=== PATIENT | female | born 1945 | race Caucasian/White ===

== ENCOUNTER 2020-01-16 13:16 | Outpatient (CLI) | payer MEDICARE, SELFPAY ==
--- NOTE | ~2020-01-16 | XR_ITS ---
EXAMINATION: XR knee LT 3V DATE: 01/16/2020 13:46 INDICATION: Left knee pain. Fall. TECHNIQUE: 3 views of left knee were obtained. COMPARISON: Left knee radiographs 02/21/2009 FINDINGS: There is a total left knee arthroplasty with patellar resurfacing in near-anatomic alignmen t. No fracture. No periprosthetic lucency to suggest loosening or infection. There is a small knee melvin int effusion. There are punctate loose bodies in the knee joint. There are calcifications posterior t o the knee that are likely loose bodies in a Zhao's cyst. IMPRESSION: 1. Total left knee arthroplasty in near-anatomic alignment. 2. Small left knee joint effusion with loose bodies. 3. Calcifications posterior to the knee joint, likely loose bodies in a Zhao's cyst. Reviewed, dictated and finalized at location A.
--- NOTE | ~2020-01-16 | XR_ITS ---
EXAMINATION: XR knee RT 3V DATE: 01/16/2020 13:46 INDICATION: Right knee pain. Fall. TECHNIQUE: 3 views of right knee were obtained. COMPARISON: Right knee radiographs 02/21/2009 FINDINGS: There is a total right knee arthroplasty with patellar resurfacing without change in alignm ent. No fracture. No periprosthetic lucency to suggest loosening or infection. No knee joint effusion . IMPRESSION: 1. Total right knee arthroplasty without change in alignment. Reviewed, dictated and finalized at location A.
== END 2020-01-16 13:17 | disposition home or self-care (01) ==
LOC: CHSIMG 13:21
PROVIDERS: PCP Internal Medicine; Visit Provider Internal Medicine
DX: M25.561 Pain in right knee (principal); M25.562 Pain in left knee; Z96.653 Presence of artificial knee joint, bilateral
CPT/HCPCS: 73562

== ENCOUNTER 2020-03-05 09:13 | Outpatient (CLI) | payer MEDICARE, SELFPAY ==
--- NOTE | ~2020-03-05 | US_ITS ---
US retroperitoneal comp 03/05/2020 09:56 Procedure: Realtime transabdominal ultrasound of the kidneys and bladder. Indication: Renal stones Comparison: CT dated 12/28/2016 Findings: Renal echotexture is normal bilaterally without hydronephrosis, contour deforming mass or r enal calculus. The right kidney measures 12 cm and left kidney measures 10.1 cm. Bladder within norm al limits. There is fatty infiltration of the liver. There is a 5 cm left renal cyst. Impression: 1: 5 cm left renal cyst. 2: Fatty infiltration of the liver. Reviewed, dictated and finalized at location A. Impression: 1: 5 cm left renal cyst. 2: Fatty infiltration of the liver.
--- NOTE | ~2020-03-05 | XR_ITS ---
XR abdomen/kub 1V 03/05/2020 09:32 Indication: Kidney stones. History of bladder cancer. Procedure: KUB Comparison: 06/20/2017 Findings: Bowel gas pattern is nonobstructive. There are pelvic phleboliths. There are surgical fusio n of the lumbar spine. There are multiple pelvic phleboliths. No definite renal stones are identified . Lung bases are unremarkable. Impression: 1: No acute abdominal abnormality. Reviewed, dictated and finalized at location A. Impression: 1: No acute abdominal abnormality.
[2020-03-05 10:59] LABS: Anion Gap 9.1 mmol/L (7-16); Blood Urea Nitrogen 27 mg/dL (7-18); Calcium 9.4 mg/dL (8.5-10.1); Carbon Dioxide 43 mmol/L (21-32); Chloride 96 mmol/L (98-108); Estimated Glomerular Filt Rate 48; Glucose 102 mg/dL (70-99); Osmolality Calculated 305 mOsm/kg (285-295); Potassium 3.1 mmol/L (3.5-5.1); Sodium 145 mmol/L (136-145)
== END 2020-03-05 09:14 | disposition home or self-care (01) ==
PROVIDERS: PCP Internal Medicine; Visit Provider Urology
DX: Z85.51 Personal history of malignant neoplasm of bladder (principal); Z87.442 Personal history of urinary calculi
CPT/HCPCS: 36415; 74018; 76770; 80048

== ENCOUNTER 2020-03-18 13:25 | Observation (INO) | payer MEDICARE, SELFPAY ==
--- NOTE | ~2020-03-18 | US_ITS ---
EXAMINATION: US venous doppler [facility] DATE: 03/19/2020 08:33 INDICATION: Lower limb pain. TECHNIQUE: Grayscale ultrasound images without and with compression and Doppler ultrasound images of the bilateral lower extremity veins were obtained. COMPARISON: Ultrasound 03/07/2008 FINDINGS: The visualized portions of right common femoral vein, profunda (deep) femoral vein, femoral vein, pop liteal vein, peroneal veins, posterior tibial veins, and greater saphenous vein outflow are patent. The visualized portions of left common femoral vein, profunda femoral vein, femoral vein, popliteal v ein, peroneal veins, posterior tibial veins, and greater saphenous vein outflow are patent. IMPRESSION: 1. No deep venous thrombosis. Reviewed, dictated and finalized at location A.
--- NOTE | ~2020-03-18 | XR_ITS ---
EXAMINATION: XR chest 2V EXAM DATE: 03/18/2020 19:14 INDICATION: Shortness of breath. Low oxygen saturation. TECHNIQUE: Frontal and lateral projections of the chest obtained and reviewed. Comparison is made to prior examination from 02/20/2008. FINDINGS: Mild cardiomegaly and pulmonary vascular congestion. No confluent consolidation, pneumothor ax or pleural effusion suspected. There are bony degenerative changes. Lumbar fusion hardware. IMPRESSION: Cardiomegaly, pulmonary vascular congestion. Reviewed, dictated and finalized at location A.
--- NOTE | 2020-03-18 13:35 | ECG_ITS ---
Measurements Intervals [employer] Rate: 88 P: 68 DC: 140 QRS: -75 QRSD: 160 T: 24 QT: 430 QTc: 521 Interpretive Statements SINUS RHYTHM ATRIAL PREMATURE COMPLEXES RIGHT BUNDLE BRANCH BLOCK LEFT ANTERIOR FASCICULAR BLOCK POSSIBLE LEFT VENTRICULAR HYPERTROPHY BASELINE ARTIFACT- II, III ABNORMAL ECG Electronically Signed On 03-18-2020 13:51:45 CDT by Nasir Kaminski D.O.
[2020-03-18 13:41] VITALS: BP 152/81; PULSE 78; RESP 21; TEMP 37.1; O2SAT 97
--- NOTE | 2020-03-18 13:57 | PC.NURSE ---
OXYGEN APPLIED SPO2 FALLS TO 88% WHILE RESTING, PT STATES SHE IS SUPPOSED TO USE CPAP. DENIES SHORTNESS OF BREATH.
[2020-03-18 14:24] LABS: Add Urine Microscopic? NO; Appearance Urine Clear (Clear); Bilirubin Urine Negative (Negative); Blood Urine Negative (Negative); Color Urine Yellow (Yellow); Glucose Urine UA Negative (Negative); Ketones Urine Negative (Negative); Leukocyte Esterase Ur Negative (Negative); Nitrate Urine Negative (Negative); Protein Urine Negative (Negative); Urobilinogen Urine 0.2 mg/dL (0.2-1.0); pH Urine 6.5 (5.0-8.0)
[2020-03-18 14:25] VITALS: BP 125/63; PULSE 88
[2020-03-18 14:25] LABS: Basophils Absolute Auto 0.02 K/mm3 (0.00-0.10); Basophils Percent Auto 0.2 % (0.0-1.0); Eosinophils Absolute Auto 0.16 K/mm3 (0.02-0.50); Eosinophils Percent Auto 1.3 % (1.0-6.0); Hemoglobin 15.8 g/dL (11.7-13.8); Immature Granulocyte Absolute 0.05 K/mm3 (0.00-0.00); Immature Granulocyte Percent A 0.4 % (0.0-0.0); Lymphocytes Absolute Auto 2.43 K/mm3 (1.10-4.50); Lymphocytes Percent Auto 19.6 % (18.0-42.0); Mean Corpuscular HGB Conc 32.9 g/dL (32.0-36.0); Mean Corpuscular Hemoglobin 30.4 pg (27.0-31.0); Mean Corpuscular Volume 92.5 fL (78.0-102.0); Mean Platelet Volume 9.8 fl (9.2-11.8); Monocytes Absolute Auto 0.86 K/mm3 (0.10-0.90); Monocytes Percent Auto 6.9 % (2.0-11.0); Neutrophils Absolute Auto 8.9 K/mm3 (1.7-7.2); Neutrophils Percent Auto 71.6 % (50.0-70.0); Platelet Count Result 219 K/mm3 (150-420); Red Blood Count 5.19 M/mm3 (4.20-5.40); Red Cell Distribution Width 14.6 % (11.6-14.4); White Blood Count 12.4 K/mm3 (4.8-10.8)
[2020-03-18 14:26] VITALS: BP 132/72; PULSE 88
[2020-03-18 14:43] LABS: Alanine Aminotransferase 47 U/L (14-59); Albumin Level 3.7 g/dL (3.4-5.0); Alkaline Phosphatase 101 U/L (46-116); Anion Gap 9.2 mmol/L (7-16); Aspartate Amino Transferase 27 U/L (15-37); Blood Urea Nitrogen 37 mg/dL (7-18); Calcium 8.8 mg/dL (8.5-10.1); Carbon Dioxide 42 mmol/L (21-32); Chloride 93 mmol/L (98-108); Estimated Glomerular Filt Rate 54; Glucose 120 mg/dL (70-99); Magnesium 1.7 mg/dL (1.8-2.4); Osmolality Calculated 303 mOsm/kg (285-295); Sodium 142 mmol/L (136-145); Total Protein 7.3 g/dL (6.4-8.2)
[2020-03-18 14:45] LABS: Potassium 2.2 mmol/L (3.5-5.1); Troponin I 0.04 ng/mL (0.00-0.056)
[2020-03-18] MEDS: KCL 40 MEQ/0.9% SOD CHL 1,000 ML 100 ML IV CONT (15:10)
--- NOTE | 2020-03-18 15:11 | ED.GENADULT ---
HPI - General Adult General Source: patient Limitations: no limitations History of Present Illness HPI narrative: No appetite since yesterday. Complains of diffuse achey, moderate - severe abdominal cramping and multiple episodes of watery diarrhea yesterday. No melena or blood in stools. Was on antibiotics about a month ago. Very tired last PM, legs very weak, trouble walking to the bathroo. Nausea, no vomiting. Incontinent of stool. Hallucinating last PM she believed she was calling someone on the phone then realized she was hallucinating. Symptoms abated early this AM. Contacted PCP this AM, Dr. Singletary, who recommended being seen to check her potassium. She has had weakness this past month requiring home health services. Three weeks ago diuresed 18 pounds over 7 days. She has sleep apnea, doesn't always use CPAP. Has oxygen at home to be used at night. Exacerbating factors: none Related Data Home Medications Medication Instructions Recorded Confirmed cyanocobalamin (vitamin B-12) 5,000 mcg PO DAILY 02/12/20 03/18/20 5,000 mcg capsule fluoxetine 40 mg capsule 40 mg PO DAILY 02/12/20 03/18/20 gabapentin 300 mg capsule 300 mg PO TID 02/12/20 03/18/20 levothyroxine 150 mcg capsule 150 mcg PO EVERY OTHER DAY 02/12/20 03/18/20 levothyroxine 175 mcg capsule 175 mcg PO EVERY OTHER DAY 02/12/20 03/18/20 multivit with 1 tablet PO DAILY 02/12/20 03/18/20 gzgnhehr-bnsn-FM-lutein 8 mg iron-400 mcg-300 mcg tablet nystatin 100,000 unit/gram topical 1 applic TOPICAL BID 02/12/20 03/18/20 powder oxycodone-acetaminophen 5 mg-300 1 tablet PO Q4H PRN 02/12/20 03/18/20 mg tablet potassium chloride 10 mEq 10 meq PO WEEKLY cap 02/12/20 03/18/20 capsule,extended release pramipexole 1.5 mg tablet 1.5 mg PO BID 02/12/20 03/18/20 ergocalciferol (vitamin D2) 1,250 mcg PO WEEKLY 03/18/20 03/18/20 fluticasone propionate [Flonase 2 spray INTRANASAL DAILY 03/18/20 03/18/20 Allergy Relief] furosemide 20 mg PO DAILY 03/18/20 03/18/20 magnesium oxide 250 mg PO DAILY 03/18/20 03/18/20 omeprazole 20 mg PO DAILY 03/18/20 03/18/20 Allergies Allergy/AdvReac Type Severity Reaction Status Date / Time morphine Allergy Unknown Verified 06/12/19 08:48 Sulfa (Sulfonamide Allergy Unknown Verified 06/12/19 08:48 Antibiotics) Review of Systems Review of Systems: All systems reviewed & are unremarkable except as noted in HPI and below ENT: Comments: decreased hearing left ear x 3 weeks. Musculoskeletal: Musculoskeletal: Reports back pain [facility] Past Medical History Medical History (Updated 03/19/20 @ 06:36 by Rakesh Mooney MD) Bladder cancer Sleep apnea Family History Family History (Updated 03/19/20 @ 06:10 by Rakesh Mooney MD) Mother Acute myocardial infarction Father Acute myocardial infarction Cancer Social History Social History Smoking packs per day: 0.5 Smoking cigarettes per day: 10.0 Smoking status: Current every day smoker Tobacco type: cigarettes Second hand tobacco smoke exposure: Yes Alcohol intake: never Substance use: never Substance use type: does not use Gender identity (if verbalized by the patient): Female Spiritual care concerns: No Exam Const: General: no acute distress Orientation/consciousness: patient oriented x3 HENMT: Head: normal to inspection Ears: external ears normal (cerumen, able to see TMs. ) and TM's normal bilaterally Eyes: Pupils: Equal, round and reactive pupils present EOM: EOMs intact bilaterally Neck: Neck: no lymphadenopathy Chest: Chest palpation & inspection: normal inspection of the chest Resp: Auscultation: clear to auscultation bilaterally Cardio: Rate: regular rate Rhythm: regular rhythm GI: GI Palp: Yes Soft to palpation, Yes Tenderness to palpation present (GI) (throughout), No Guarding due to palpation present (GI) and No Rigid due to palpation Back/Spine/Pelvis: B
[2020-03-18] MEDS: POTASSIUM CHLORIDE 20 MEQ TABLET 40 MEQ PO (15:30)
[2020-03-18] MEDS: MAGNESIUM SULF 2 GM/WATER 50ML 2 GM/50 ML BAG IVPB (15:32)
--- NOTE | 2020-03-18 15:33 | PC.NURSE ---
CARDIAC MONITORING APPLIED, PT AGREEABLE TO ADMISSION FOR FLUIDS. PT DENIES ANY C/O AT THIS TIME. PT IS GIVEN EDUCATION ON THE USE OF CPAP MACHINE AT ALL TIMES OF SLEEPING. EDUCATION GIVEN ON OXYGEN NEEDS WHILE SLEEPING RELATED TO ALTERED MENTAL STATUS.
[2020-03-18 15:52] VITALS: BP 101/52; PULSE 81; RESP 22; O2SAT 99
[2020-03-18 17:05] VITALS: BMI 45.4
--- NOTE | 2020-03-18 18:00 | ADMGEN ---
This patient, Loreto Acevedo, was admitted to 2nd Floor Room 204-2. Patient/family oriented to hospital policies and general routines including ID bracelet, bed and alarms, visiting hours, pain management, procedures, bathroom and other care routines, personal items, smoking policy, room service/diet, and visiting hours. Valuables list has been completed. Information on how to activate the Rapid Response Team has been discussed. Patient/Family are encouraged to report perceived risks to care and to ask questions if they do not understand what they are told or what they should do.
--- NOTE | 2020-03-18 18:00 | PC.NURSE ---
pt has home meds with her , states she took her mealtime meds in ER and that it was ok'd by nurse, pt also took a home oxy for pain down in er, gabapentin was already opened when pt notified me of this and was then thrown into sharps bin, pt has no difficulty walking from bed to bathroom then back to bed, hob up, o2 reapplied, iv potassium running
--- NOTE | 2020-03-18 18:31 | PM.IMHP ---
H&P: HPI History of Present Illness Chief complaint: abnormal labs <Susan Bernard NP - Last Filed: 03/18/20 18:50> Narrative: Loreto Acevedo is a 75 year old female stated that she sees Dr. Quiroz from [facility] for her primary care provider and that recently she was instructed and prescribed 3 extra doses of Lasix, and told to take them all at once. She stated that she normally takes torsemide once a week and triamterene daily for her edema and CHF control. She states that she lost over 15 lb in 3 days due to the Lasix. She noted that yesterday she slept most of the day way, and when she woke up was having severe abdominal cramps as well as confusion and hallucinations both auditory and visual. This concerned her so she came in today for examination due to dizziness and abnormal labs. Her potassium was found to be significantly low at 2.2 and her Mag level at 1.7. She was admitted for hypokalemia and hypo magnesium. She was placed on 2 L of oxygen due to her shortness of breath. She has a history of obstructive sleep apnea and wears her home CPAP machine, but did not bring it today. She continues to receive IV potassium and magnesium at this time. There are lab orders in place for repeat potassium and magnesium levels tonight at 7:00 p.m. and again tomorrow morning around 6:00 a.m. , as well as a BNP checked. She is currently resting in bed, comfortable, no cramping at this time, able to take deep breaths and carry on a conversation without any dyspnea noted. She was able to transfer to and from the ER stretcher to her bed as well as ambulate to her bathroom. She does have persistent abdominal and lower extremity edema, but stated this is good for her. I have ordered an echo. Will continue to monitor her overnight closely and I have placed her on telemetry monitoring. <Susan Bernard NP - Last Filed: 03/18/20 18:50> Review of Systems Constitutional: Constitutional: Reports as per HPI, Reports body ache(s), Denies chills, Denies difficulty sleeping, Denies excessive sweating, Reports fatigue, Denies headache(s), Denies increased appetite, Reports lethargy, Denies snoring, Reports weakness and Denies weight gain <Susan Bernard NP - Last Filed: 03/18/20 18:50> Eyes: Eyes: Reports as per HPI, Denies exophthalmos, Denies diplopia, Denies floaters and Denies loss of peripheral vision <Susan Bernard TALENT ACQUISITION LEAD - Last Filed: 03/18/20 18:50> ENT: Reports as per HPI, Reports Normal hearing present, Denies facial pain, Denies headache(s), Denies epistaxis, Denies nasal congestion, Denies nasal discharge, Denies odynophagia and Denies tinnitus <Susan Bernard TALENT ACQUISITION LEAD - Last Filed: 03/18/20 18:50> Cardiovascular: Cardiovascular: Reports as per HPI, Denies chest pain, Denies diaphoresis, Reports pedal edema, Reports leg edema, Reports lightheadedness and Denies palpitations <Susan Bernard TALENT ACQUISITION LEAD - Last Filed: 03/18/20 18:50> Respiratory: Respiratory: Reports as per HPI, Reports chest congestion, Reports cough, Denies hemoptysis, Reports dyspnea, Reports dyspnea on exertion, Denies snoring and Reports wheezing <Susan Bernard TALENT ACQUISITION LEAD - Last Filed: 03/18/20 18:50> Gastrointestinal: Gastrointestinal: Reports as per HPI, Denies abdominal pain, Denies melena, Reports bloating, Denies hematochezia, Denies constipation, Denies heartburn, Denies diarrhea, Denies nausea, Denies odynophagia, Denies vomiting and Denies hematemesis <Susan Bernard TALENT ACQUISITION LEAD - Last Filed: 03/18/20 18:50> Genitourinary: Genitourinary: Reports as per HPI, Denies hematuria, Denies urinary frequency, Denies nocturia, Denies pelvic pain, Denies flank pain, Denies urinary incontinence, Denies urinary hesitancy and Denies urinary urgency <Susan Bernard TALENT ACQUISITION LEAD - Last Filed: 03/18/20 18:50> Musculoskeletal: Musculoskeletal: Reports as per HPI, Reports back pain, Reports myalgias, Denies arthralgias, Reports joint swelling, Denies neck pain and Reports stiffness <Susan Bernard TALENT ACQUISITION LEAD - Last Yonny
--- NOTE | 2020-03-18 19:13 | PC.NURSE ---
pt taken down for ct, pump disconnected, pt is back from ct, iv potassium running
[2020-03-18 19:33] LABS: Anion Gap 8.5 mmol/L (7-16); Blood Urea Nitrogen 35 mg/dL (7-18); Calcium 8.4 mg/dL (8.5-10.1); Carbon Dioxide 41 mmol/L (21-32); Chloride 96 mmol/L (98-108); Estimated CRCL calculation 47 ml/min; Estimated Glomerular Filt Rate 50; Glucose 145 mg/dL (70-99); Magnesium 2.1 mg/dL (1.8-2.4); Osmolality Calculated 307 mOsm/kg (285-295); Sodium 143 mmol/L (136-145)
[2020-03-18 19:34] VITALS: BP 114/72; PULSE 78; PULSE 82; RESP 20; TEMP 36.7; O2SAT 96
[2020-03-18 19:34] LABS: Potassium 2.5 mmol/L (3.5-5.1)
[2020-03-18 19:35] LABS: Phosphorus 2.3 mg/dL (2.6-4.7)
[2020-03-18 19:38] LABS: BNP 41.7 pg/mL (0-100)
[2020-03-18 19:54] VITALS: O2SAT 96
[2020-03-18] MEDS: TOLNAFTATE 1% POWDER 45 GM BTL 1 APPLIC TOPICAL (20:35)
[2020-03-18] MEDS: KCL 20 MEQ/SW 100 ML 100 ML 50 MEQ IVPB (20:43)
--- NOTE | 2020-03-18 20:45 | PC.NURSE ---
pt asks if any of the nursing staff could go get her a milkshake from [employer], then calls friend to go get her one, friend is to drop it off at [employer] front load operator
--- NOTE | 2020-03-18 21:18 | PC.NURSE ---
K rider started, pt son has dropped off strawberry milkshake, pt complains of k iv burning, second primary line started
--- NOTE | 2020-03-18 21:49 | PC.NURSE ---
pt c/o burning in iv site, advised that we can turn it down further but that also means the infusion will last longer, pt agrees to stay at current rate, shake brought up from front line supervisor
[2020-03-18] MEDS: KCL 20 MEQ/SW 100 ML 100 ML 30 MEQ IVPB (22:35)
[2020-03-19] VITALS: BP 108/60; PULSE 75; PULSE 82; RESP 20; TEMP 36.7; O2SAT 94
--- NOTE | 2020-03-19 01:34 | PC.NURSE ---
Dr. Mooney called to clarify orders.
--- NOTE | 2020-03-19 01:40 | PC.NURSE ---
Potassium rider ended @ thias time.
--- NOTE | 2020-03-19 01:41 | PC.NURSE ---
Lab here for blood draw.
[2020-03-19 01:48] LABS: Anion Gap 8.1 mmol/L (7-16); Blood Urea Nitrogen 34 mg/dL (7-18); Calcium 7.8 mg/dL (8.5-10.1); Carbon Dioxide 39 mmol/L (21-32); Chloride 101 mmol/L (98-108); Estimated CRCL calculation 49 ml/min; Estimated Glomerular Filt Rate 52; Glucose 133 mg/dL (70-99); Osmolality Calculated 309 mOsm/kg (285-295); Potassium 3.1 mmol/L (3.5-5.1); Sodium 145 mmol/L (136-145)
--- NOTE | 2020-03-19 02:33 | PC.NURSE ---
IV continues. Telemetry continues.
--- NOTE | 2020-03-19 03:20 | PC.NURSE ---
New orders received and noted from Dr. Mooney.
[2020-03-19] MEDS: POTASSIUM CHLORIDE 20 MEQ PACKET (FOR LIQUID) 40 MEQ PO (03:41)
--- NOTE | 2020-03-19 03:55 | PC.NURSE ---
0305 New orders received and noted.
--- NOTE | 2020-03-19 03:56 | PC.NURSE ---
0341 Pt given 40 MEQ of KCL powder in 4 oz of water.
[2020-03-19 04:00] VITALS: BP 102/54; PULSE 65; PULSE 70; RESP 20; TEMP 36.3; O2SAT 97
[2020-03-19 05:46] LABS: Hematocrit 42.1 % (35.0-42.0); Hemoglobin 13.5 g/dL (11.7-13.8); Mean Corpuscular HGB Conc 32.1 g/dL (32.0-36.0); Mean Corpuscular Hemoglobin 30.5 pg (27.0-31.0); Mean Platelet Volume 10.2 fl (9.2-11.8); Platelet Count Result 189 K/mm3 (150-420); Red Blood Count 4.43 M/mm3 (4.20-5.40); Red Cell Distribution Width 14.4 % (11.6-14.4); White Blood Count 9.9 K/mm3 (4.8-10.8)
[2020-03-19 06:05] LABS: Alanine Aminotransferase 39 U/L (14-59); Albumin Level 3.1 g/dL (3.4-5.0); Alkaline Phosphatase 81 U/L (46-116); Anion Gap 8.5 mmol/L (7-16); Aspartate Amino Transferase 22 U/L (15-37); Bilirubin,Total 0.5 mg/dL (0.00-1.00); Blood Urea Nitrogen 28 mg/dL (7-18); Calcium 7.8 mg/dL (8.5-10.1); Carbon Dioxide 38 mmol/L (21-32); Chloride 101 mmol/L (98-108); Estimated CRCL calculation 55 ml/min; Estimated Glomerular Filt Rate > 60; Glucose 100 mg/dL (70-99); Magnesium 1.9 mg/dL (1.8-2.4); Osmolality Calculated 303 mOsm/kg (285-295); Potassium 3.5 mmol/L (3.5-5.1); Sodium 144 mmol/L (136-145); Total Protein 5.6 g/dL (6.4-8.2)
[2020-03-19 06:17] LABS: BNP 72.4 pg/mL (0-100)
[2020-03-19] MEDS: LEVOTHYROXINE SODIUM 75 MCG TABLET 150 MCG PO (06:21)
[2020-03-19 08:00] VITALS: BP 118/74; PULSE 120; PULSE 80; RESP 18; TEMP 36.8; O2SAT 94
[2020-03-19] MEDS: THERAPEUTIC MULTIVITAMINS/MINERALS TAB (*BKC) 1 TABLET PO (09:09)
[2020-03-19] MEDS: PANTOPRAZOLE 40 MG TABLET PO (09:10)
[2020-03-19] MEDS: MONTELUKAST SODIUM 10 MG TABLET PO (09:10)
[2020-03-19] MEDS: MAGNESIUM OXIDE 400 MG TABLET PO (09:10)
[2020-03-19] MEDS: ENOXAPARIN 40 MG/0.4 ML SYRINGE SUB-Q (09:11)
--- NOTE | 2020-03-19 09:23 | PC.NURSE ---
ivf stopped at this time. [employer] PROFESSOR claims no more ivf to given at this time.
[2020-03-19] MEDS: POTASSIUM CHLORIDE 20 MEQ TABLET 40 MEQ PO (10:06)
--- NOTE | 2020-03-19 13:00 | ECHO_ITS ---
[facility] Age[facility] 75 years : 1945 Gender: Female Ht: 61 in Wt: 241 lbs BSA: 2.24 m2 HR: 86 bpm BP: 118 / 74 mmHg Heart Rhythm: Sinus Rhythm Technical Quality: Fair Exam Date: 03/19/2020 1:29 PM Exam Location: [facility] Patient Status: Inpatient Admit Date: 03/18/2020 Staff Ordering Physician: Susan Bernard NP Route Inspector: Mike Uribe RDCS Attending Provider: Rakesh Mooney MD Referring Physician: Marco Antonio ALSTON; Exam Type: CA echo doppler color flow Study Info Indications R60.9 - Edema, unspecified Complete two-dimensional, color flow and Doppler transthoracic echocardiogram is performed. History/Risk Factors Edema, SOB. Summary 1. Left ventricular chamber dimension is normal. 2. Left ventricular systolic function is normal, estimated at 60-65%. 3. There is mildly increased left ventricular wall thickness. 4. The left ventricular diastolic function is grade I diastolic dysfunction. 5. E/e' 8 is minimally elevated. 6. Left atrial chamber dimension is mildly enlarged. 7. The aortic valve is not well visualized. 8. There is moderate aortic valve sclerosis. 9. There is mild to moderate aortic valve stenosis based on a peak velocity of 262 cm/s, mean gradient of 14 mmHg, and aortic valve area of 1.5 cm2. 10. The mitral valve has moderately calcified annulus. 11. There is trace tricuspid valve regurgitation. 12. Moderate pulmonary hypertension, estimated pulmonary arterial systolic pressure is 53 mmHg. 13. Dilated inferior vena cava with <50% collapse upon inspiration consistent with significantly elevated right atrial pressure, 15 mmHg. Left Ventricle E/e' 8 is minimally elevated. Left ventricular chamber dimension is normal. Left ventricular systolic function is normal, estimated at 60-65%. There is mildly increased left ventricular wall thickness. The left ventricular diastolic function is grade I diastolic dysfunction. Right Ventricle Right ventricular chamber dimension is normal. Right ventricular systolic function is normal. Left Atria Left atrial chamber dimension is mildly enlarged. Right Atria Right atrial chamber dimension is normal. Aortic Valve There is mild to moderate aortic valve stenosis based on a peak velocity of 262 cm/s, mean gradient of 14 mmHg, and aortic valve area of 1.5 cm2. Cannot determine number of aortic valve leaflets. The aortic valve is not well visualized. There is moderate aortic valve sclerosis. There is no aortic valve regurgitation. Pulmonic Valve There is no pulmonic regurgitation. Mitral Valve The mitral valve has moderately calcified annulus. There is no mitral valve stenosis. There is no mitral valve regurgitation. Tricuspid Valve There is trace tricuspid valve regurgitation. Moderate pulmonary hypertension, estimated pulmonary arterial systolic pressure is 53 mmHg. Pericardium/Pleural There is no pericardial effusion. Inferior Vena Cava Dilated inferior vena cava with <50% collapse upon inspiration consistent with significantly elevated right atrial pressure, 15 mmHg. Aorta The aortic root size at the sinus of Valsalva is normal. Left Ventricular Outflow Tract Name Value Normal LVOT 2D
--- NOTE | 2020-03-19 13:59 | PM.DS ---
DS: Diagnosis Admitting Diagnosis Admitting Diagnosis: Hypokalemia Discharge Diagnosis (1) Diuretic-induced hypokalemia: Code(s): E87.6 - Hypokalemia; T50.2X5A - Adverse effect of carbonic-anhydrase inhibitors, benzothiadiazides and other diuretics, initial encounter Status: Acute Assessment and Plan: Took excessive Lasix at home lost too many pounds too quick in water weight unable to replenish electrolytes fast enough orally will replenish potassium with IV and oral means. her primary care provider Dr. Quiroz had written her to take 3 days of Lasix and then no Lasix for the next 4 days every week. Her orders also or to take torsemide once or twice a week, with no specific days or instructions on how to decide those days K = 3.5 this morning, gave one 40meq dose of KCL orally prior to discharge. sent her home on daily potassium with her low dose Lasix. instructed Her to weigh herself every day and to write those weight is down thus keeping a log to show her physicians at their office visits also instructed the patient to check her blood pressure and heart rate every day and to write those down in a log to discuss with her physicians. resolved (2) Hypomagnesemia: Code(s): E83.42 - Hypomagnesemia Status: Acute Assessment and Plan: Took excessive Lasix at home lost to many lb to quick in water weight unable to replenish electrolytes fast enough orally will replenish potassium with IV and oral means. Mag = 1.9 today continue daily Mag orally at discharge resolved (3) Leg swelling: Code(s): M79.89 - Other specified soft tissue disorders Status: Acute Assessment and Plan: Checking an echo - completed before patient was discharged, manager scheduling has yet to read and provide results, instructed patient to have her own primary care provider and her manager scheduling follow-up on these results ordering a venous Doppler the morning - found to have no DVTs LUC hose stockings and elevate extremities daily weights consider daily fluid restrictions - ordered at discharge CHF Education weight loss and dietary education, as well as increase activity PT OT evaluation the patient was not weighing herself at home every day and the patient was not checking her blood pressure or heart rate at home every day Improved (4) Hypoxemia: Code(s): R09.02 - Hypoxemia Status: Acute Assessment and Plan: currently on 2 L nasal cannula for overnight use O2 sats are 94% on room air without oxygen history of SUKH, uses BiPAP machine overnight, left at home will likely improve as her electrolytes approach normal levels on her fluid balance improves. would benefit from having PFTs, needs to follow-up with her PCP and her manager scheduling. She stated she had a manager scheduling in [place]. resolved DS: Summary Time Spent with Patient Time attestation: Total time spent providing and/or coordinating discharge services:>90 minutes Exam Const: General: comfortable, no acute distress and in distress (uncomfortable due to obesity and fluid overload); No confusion Orientation/consciousness: patient oriented x3 and No confusion HENMT: Head: normal to inspection Ears: external ears normal (cerumen, able to see TMs. ) and TM's normal bilaterally Eyes: General: appearance normal, both eyes and all related structures Pupils: Equal, round and reactive pupils present EOM: EOMs intact bilaterally Neck: Neck: no lymphadenopathy and no meningeal signs Chest: Chest palpation & inspection: normal inspection of the chest Resp: Effort & Inspection: normal respiratory effort Auscultation: clear to auscultation bilaterally, no crackles, no rales, no rhonchi, wheezes and diminished lung sounds Cardio: Rate: regular rate, not bradycardic and not tachycardic Rhythm: regular rhythm and regular rhythm Heart sounds: no murmurs and no rubs GI: Inspection: distended Auscultation: normal bow
[2020-03-19] MEDS: POTASSIUM CHLORIDE 10 MEQ TABLET PO (14:53)
[2020-03-19] MEDS: FUROSEMIDE 20 MG TABLET PO (14:54)
--- NOTE | 2020-03-19 22:25 | PM.EVENT ---
Event Note Event Note Event Note: Patient sitting at bedside eating breakfast. Has no complaints at this time. Has had no vomiting or diarrhea. States she feels better than when she was admitted. Wants to go home. Alert and oriented. Lungs clear to auscultation. Regular rate rhythm without murmur. Extremities are warm dry pink. Home today with potassium supplementation. Follow up with her doctor in the next few days. I have examined the patient and reviewed the chart. I discussed the patient's care with A Marco Antonio ARIAS and agree with her assessment and plan.
== END 2020-03-19 15:35 | disposition home or self-care (01) ==
LOC: CHSED 15:35 → CHS2ND 15:36
PROVIDERS: Nurse Practitioner; Admitting Provider Family Medicine; Emergency Provider Family Medicine; PCP Internal Medicine; Visit Provider Family Medicine
DX: E87.6 Hypokalemia (principal); E83.42 Hypomagnesemia; T50.1X5A Adverse effect of loop [high-ceiling] diuretics, initial encounter; R10.9 Unspecified abdominal pain; R19.7 Diarrhea, unspecified; R06.02 Shortness of breath; F17.210 Nicotine dependence, cigarettes, uncomplicated; G47.30 Sleep apnea, unspecified; Z85.51 Personal history of malignant neoplasm of bladder
CPT/HCPCS: 36415; 71046; 80048; 80053; 81003; 83735; 83880; 84100; 84484; 85025; 85027; 93005; 93306; 93970; 96365; 96366; 96368; 96372; 97161; 97165; 99285; A9270; G0378; J1650; J3475; J3480

== ENCOUNTER 2020-03-21 13:45 | Outpatient (CLI) | payer MEDICARE, SELFPAY ==
[2020-03-21 14:18] LABS: Basophils Absolute Auto 0.02 K/mm3 (0.00-0.10); Basophils Percent Auto 0.2 % (0.0-1.0); Hemoglobin 14.2 g/dL (11.7-13.8); Immature Granulocyte Absolute 0.07 K/mm3 (0.00-0.00); Immature Granulocyte Percent A 0.7 % (0.0-0.0); Lymphocytes Absolute Auto 2.61 K/mm3 (1.10-4.50); Lymphocytes Percent Auto 26.1 % (18.0-42.0); Mean Corpuscular HGB Conc 32.3 g/dL (32.0-36.0); Mean Corpuscular Hemoglobin 30.3 pg (27.0-31.0); Mean Corpuscular Volume 93.8 fL (78.0-102.0); Mean Platelet Volume 9.9 fl (9.2-11.8); Monocytes Absolute Auto 0.67 K/mm3 (0.10-0.90); Monocytes Percent Auto 6.7 % (2.0-11.0); Neutrophils Absolute Auto 6.4 K/mm3 (1.7-7.2); Neutrophils Percent Auto 64.3 % (50.0-70.0); Platelet Count Result 216 K/mm3 (150-420); Red Blood Count 4.69 M/mm3 (4.20-5.40); Red Cell Distribution Width 14.6 % (11.6-14.4)
[2020-03-21 14:19] LABS: BNP 98.6 pg/mL (0-100)
[2020-03-21 14:30] LABS: Alanine Aminotransferase 49 U/L (14-59); Albumin Level 3.4 g/dL (3.4-5.0); Alkaline Phosphatase 91 U/L (46-116); Anion Gap 9.1 mmol/L (7-16); Aspartate Amino Transferase 33 U/L (15-37); Bilirubin,Total 0.4 mg/dL (0.00-1.00); Blood Urea Nitrogen 19 mg/dL (7-18); Calcium 8.3 mg/dL (8.5-10.1); Carbon Dioxide 36 mmol/L (21-32); Chloride 100 mmol/L (98-108); Estimated Glomerular Filt Rate 56; Glucose 112 mg/dL (70-99); Magnesium 1.4 mg/dL (1.8-2.4); Osmolality Calculated 297 mOsm/kg (285-295); Potassium 3.1 mmol/L (3.5-5.1); Sodium 142 mmol/L (136-145); Total Protein 6.1 g/dL (6.4-8.2)
== END 2020-03-21 13:46 | disposition home or self-care (01) ==
LOC: CHSLAB 13:48
PROVIDERS: PCP Internal Medicine; Visit Provider Nurse Practitioner
DX: E83.42 Hypomagnesemia (principal); M79.89 Other specified soft tissue disorders; R09.02 Hypoxemia; E87.6 Hypokalemia; T50.2X5A Adverse effect of carbonic-anhydrase inhibitors, benzothiadiazides and other diuretics, initial encounter; I50.9 Heart failure, unspecified; R60.9 Edema, unspecified
CPT/HCPCS: 36415; 80053; 83735; 83880; 85025

== ENCOUNTER 2020-03-25 13:45 | Outpatient (CLI) | payer MEDICARE, SELFPAY ==
[2020-03-25 14:43] LABS: Magnesium 1.2 mg/dL (1.8-2.4)
== END 2020-03-25 13:46 | disposition home or self-care (01) ==
LOC: CHSLAB 13:49
PROVIDERS: PCP Internal Medicine; Visit Provider Nurse Practitioner
DX: M79.89 Other specified soft tissue disorders (principal); E83.42 Hypomagnesemia; R09.02 Hypoxemia; E87.6 Hypokalemia; T50.2X5A Adverse effect of carbonic-anhydrase inhibitors, benzothiadiazides and other diuretics, initial encounter
CPT/HCPCS: 36415; 83735

== ENCOUNTER 2020-03-29 12:15 | Outpatient (CLI) | payer MEDICARE, SELFPAY ==
[2020-03-29 12:35] LABS: Hematocrit 45.4 % (35.0-42.0); Hemoglobin 14.5 g/dL (11.7-13.8); Mean Corpuscular HGB Conc 31.9 g/dL (32.0-36.0); Mean Corpuscular Hemoglobin 29.5 pg (27.0-31.0); Mean Corpuscular Volume 92.3 fL (78.0-102.0); Mean Platelet Volume 9.7 fl (9.2-11.8); Platelet Count Result 281 K/mm3 (150-420); Red Blood Count 4.92 M/mm3 (4.20-5.40); Red Cell Distribution Width 14.6 % (11.6-14.4); White Blood Count 11.6 K/mm3 (4.8-10.8)
== END 2020-03-29 12:16 | disposition home or self-care (01) ==
LOC: CHSLAB 12:18
PROVIDERS: PCP Internal Medicine; Visit Provider Nurse Practitioner
DX: M79.89 Other specified soft tissue disorders (principal); E83.42 Hypomagnesemia; R09.02 Hypoxemia; E87.6 Hypokalemia; T50.2X5A Adverse effect of carbonic-anhydrase inhibitors, benzothiadiazides and other diuretics, initial encounter
CPT/HCPCS: 36415; 85027

== ENCOUNTER 2020-04-01 16:26 | Outpatient (CLI) | payer MEDICARE, SELFPAY ==
[2020-04-01 16:47] LABS: Basophils Absolute Auto 0.04 K/mm3 (0.00-0.10); Basophils Percent Auto 0.4 % (0.0-1.0); Eosinophils Absolute Auto 0.12 K/mm3 (0.02-0.50); Eosinophils Percent Auto 1.1 % (1.0-6.0); Hematocrit 45.2 % (35.0-42.0); Hemoglobin 14.6 g/dL (11.7-13.8); Immature Granulocyte Absolute 0.05 K/mm3 (0.00-0.00); Immature Granulocyte Percent A 0.4 % (0.0-0.0); Lymphocytes Absolute Auto 2.03 K/mm3 (1.10-4.50); Lymphocytes Percent Auto 18.2 % (18.0-42.0); Mean Corpuscular HGB Conc 32.3 g/dL (32.0-36.0); Mean Corpuscular Hemoglobin 30.3 pg (27.0-31.0); Mean Corpuscular Volume 93.8 fL (78.0-102.0); Mean Platelet Volume 9.5 fl (9.2-11.8); Monocytes Absolute Auto 0.66 K/mm3 (0.10-0.90); Monocytes Percent Auto 5.9 % (2.0-11.0); Neutrophils Absolute Auto 8.3 K/mm3 (1.7-7.2); Platelet Count Result 253 K/mm3 (150-420); Red Blood Count 4.82 M/mm3 (4.20-5.40); Red Cell Distribution Width 14.6 % (11.6-14.4); White Blood Count 11.2 K/mm3 (4.8-10.8)
[2020-04-01 16:59] LABS: Hemoglobin A1C 6.5 % (<5.7)
[2020-04-01 17:32] LABS: Alanine Aminotransferase 46 U/L (14-59); Albumin Level 3.6 g/dL (3.4-5.0); Alkaline Phosphatase 96 U/L (46-116); Anion Gap 11.4 mmol/L (7-16); Aspartate Amino Transferase 22 U/L (15-37); Bilirubin,Total 0.5 mg/dL (0.00-1.00); Blood Urea Nitrogen 15 mg/dL (7-18); Calcium 9.1 mg/dL (8.5-10.1); Carbon Dioxide 33 mmol/L (21-32); Chloride 106 mmol/L (98-108); Cholesterol 109 mg/dL (0-200); Estimated Glomerular Filt Rate > 60; Glucose 97 mg/dL (70-99); HDL Direct 34 mg/dL (40-60); LDL Cholesterol Calculated 63 mg/dL (<130); Magnesium 1.2 mg/dL (1.8-2.4); Osmolality Calculated 304 mOsm/kg (285-295); Potassium 3.4 mmol/L (3.5-5.1); Sodium 147 mmol/L (136-145); Total Protein 6.2 g/dL (6.4-8.2); Triglycerides 58 mg/dL (0-150)
[2020-04-01 18:03] LABS: Thyroid Stimulating Hormone Reflex 0.72 u/IU/mL (0.36-3.74)
== END 2020-04-01 16:27 | disposition home or self-care (01) ==
LOC: CHSLAB 16:28
PROVIDERS: PCP Internal Medicine; Visit Provider Internal Medicine
DX: R73.09 Other abnormal glucose (principal); E87.5 Hyperkalemia; E03.9 Hypothyroidism, unspecified; E78.5 Hyperlipidemia, unspecified; R53.82 Chronic fatigue, unspecified
CPT/HCPCS: 36415; 80053; 80061; 83036; 83735; 84443; 85025

== ENCOUNTER 2020-04-05 10:38 | Outpatient (CLI) | payer MEDICARE, SELFPAY ==
--- NOTE | ~2020-04-05 | MR_ITS ---
EXAMINATION: MR lumbar spine wo con DATE: 04/05/2020 11:36 INDICATION: Lumbar spinal stenosis. Low back pain. TECHNIQUE: Magnetic resonance imaging (MRI) of the lumbar spine was performed without intravenous con trast. Sequences included sagittal T2-weighted FSE, sagittal T2-weighted FS FSE, sagittal T1-weighted FSE, and axial T2-weighted FSE. COMPARISON: Lumbar spine MRI 01/22/2017 FINDINGS: There is 8 degrees levocurvature of lumbar spine. There is 3 mm retrolisthesis of T12 on L1 , 4 mm retrolisthesis of L1 on L2, and 5 mm anterolisthesis of L4 on L5. There are changes of anterio r fusion procedure at L5-S1 with interbody device and anterior plate and screws. There are changes of posterior fusion procedure from L1 to S1 with pedicle screws. There are laminectomies from L1 to L5 with fluid collection in the postlaminectomy space measuring 5.6 x 1.6 x 8.5 cm, likely a seroma. The re is mild chronic height loss of T10-L2 vertebral bodies. There is severely decreased disc height fr om T9-T10 through L1-L2, mildly decreased disc height at L2-L3, moderately decreased disc height at L 3-L4, and mildly decreased disc height at L4-L5. The distal spinal cord signal intensity is normal. T he conus medullaris is at T12-L1. The following disc levels are specifically discussed: L1-L2: The disc does not extend beyond the endplate margin. There is severe right and mild left facet joint hypertrophy. There is moderate right and mild left neural foraminal stenosis. There is mild ce ntral canal stenosis with posterior decompression. L2-L3: The disc does not extend beyond the endplate margin. There is mild bilateral facet joint hyper trophy. There is mild bilateral neural foraminal stenosis. There is no central canal stenosis. L3-L4: The disc is bulging. There is mild bilateral facet joint hypertrophy. There is mild bilateral neural foraminal stenosis. There is no central canal stenosis. L4-L5: The disc does not extend beyond the endplate margin. There is moderate bilateral facet joint h ypertrophy. There is mild bilateral neural foraminal stenosis. There is mild central canal stenosis w ith posterior decompression. L5-S1: There is moderate bilateral facet joint hypertrophy. There is mild bilateral neural foraminal stenosis. There is no central canal stenosis. IMPRESSION: 1. Severe lumbar and lower thoracic spondylosis, stable from 01/22/2017. 2. Anterior fusion procedure at L5-S1 and posterior fusion procedure from L1 to S1. 3. Stable fluid collection in the L1-L5 postlaminectomy space, likely a seroma. Reviewed, dictated and finalized at location A.
== END 2020-04-05 10:39 | disposition home or self-care (01) ==
LOC: CHSIMG 10:41
PROVIDERS: PCP Internal Medicine; Visit Provider Internal Medicine
DX: M48.00 Spinal stenosis, site unspecified (principal); G62.9 Polyneuropathy, unspecified; M47.815 Spondylosis without myelopathy or radiculopathy, thoracolumbar region
CPT/HCPCS: 72148

== ENCOUNTER 2020-04-29 12:06 | Outpatient (CLI) | payer MEDICARE, SELFPAY ==
[2020-04-29 12:30] LABS: Basophils Absolute Auto 0.03 K/mm3 (0.00-0.10); Basophils Percent Auto 0.3 % (0.0-1.0); Eosinophils Percent Auto 1.9 % (1.0-6.0); Hematocrit 41.7 % (35.0-42.0); Hemoglobin 13.4 g/dL (11.7-13.8); Immature Granulocyte Absolute 0.06 K/mm3 (0.00-0.00); Immature Granulocyte Percent A 0.6 % (0.0-0.0); Lymphocytes Absolute Auto 2.48 K/mm3 (1.10-4.50); Lymphocytes Percent Auto 23.2 % (18.0-42.0); Mean Corpuscular HGB Conc 32.1 g/dL (32.0-36.0); Mean Corpuscular Hemoglobin 30.2 pg (27.0-31.0); Mean Corpuscular Volume 93.9 fL (78.0-102.0); Mean Platelet Volume 9.7 fl (9.2-11.8); Monocytes Absolute Auto 0.68 K/mm3 (0.10-0.90); Monocytes Percent Auto 6.4 % (2.0-11.0); Neutrophils Absolute Auto 7.2 K/mm3 (1.7-7.2); Neutrophils Percent Auto 67.6 % (50.0-70.0); Platelet Count Result 230 K/mm3 (150-420); Red Blood Count 4.44 M/mm3 (4.20-5.40); Red Cell Distribution Width 15.1 % (11.6-14.4); White Blood Count 10.7 K/mm3 (4.8-10.8)
[2020-04-29 12:57] LABS: Hemoglobin A1C 6.5 % (<5.7)
[2020-04-29 13:42] LABS: Alanine Aminotransferase 28 U/L (14-59); Albumin Level 3.4 g/dL (3.4-5.0); Alkaline Phosphatase 104 U/L (46-116); Anion Gap 10.8 mmol/L (7-16); Aspartate Amino Transferase 16 U/L (15-37); Bilirubin,Total 0.4 mg/dL (0.00-1.00); Blood Urea Nitrogen 12 mg/dL (7-18); Calcium 8.3 mg/dL (8.5-10.1); Carbon Dioxide 34 mmol/L (21-32); Chloride 102 mmol/L (98-108); Cholesterol 122 mg/dL (0-200); Estimated Glomerular Filt Rate 55; Glucose 113 mg/dL (70-99); HDL Direct 40 mg/dL (40-60); LDL Cholesterol Calculated 65 mg/dL (<130); Magnesium 1.2 mg/dL (1.8-2.4); Osmolality Calculated 296 mOsm/kg (285-295); Potassium 3.8 mmol/L (3.5-5.1); Sodium 143 mmol/L (136-145); Total Protein 6.2 g/dL (6.4-8.2); Triglycerides 85 mg/dL (0-150)
[2020-04-29 13:44] LABS: Thyroid Stimulating Hormone Reflex 3.38 u/IU/mL (0.36-3.74)
== END 2020-04-29 12:07 | disposition home or self-care (01) ==
LOC: CHSLAB 12:10
PROVIDERS: PCP Internal Medicine; Visit Provider Internal Medicine
DX: E87.5 Hyperkalemia (principal); E03.9 Hypothyroidism, unspecified; E78.5 Hyperlipidemia, unspecified; R53.82 Chronic fatigue, unspecified; R73.09 Other abnormal glucose
CPT/HCPCS: 36415; 80053; 80061; 83036; 83735; 84443; 85025

== ENCOUNTER 2020-05-22 13:00 | Outpatient (RCR) | payer MEDICARE, SELFPAY ==
--- NOTE | 2020-05-22 14:05 | PTOPEVAL ---
Thank you for referring Loreto Acevedo to [facility]. Please review, sign, date and return this plan of care DA. I agree with and certify that the following plan of care is medically necessary. Referring Physician Date Admitting Provider: Attending Provider: Poppy Quiroz, MD Referring Provider: *PT Outpatient Evaluation Start: 05/22/20 13:04 Freq: Status: Active Protocol: Document 05/22/20 13:05 LOYDA (Rec: 05/22/20 13:41 LOYDA [id number]) Therapy Assessment Status Assessment Status Assessment Status Evaluation Outpatient Past Medical History Neurological History Hx Neurological Disorders No Significant History Cardiovascular History Hx Hypertension Yes Hx Other Cardiac Disorders Yes: PERIPHERAL EDEMA, VENOUS STASIS Respiratory History Hx Bronchitis Yes Hx Pneumonia Yes Hx Sleep Apnea Yes Gastrointestinal History Hx Appendectomy Yes Hx Cholecystectomy Yes Hx Gastroesophageal Reflux Disease Yes Genitourinary History Hx Genitourinary Disorders No Significant History Musculoskeletal History Hx Arthritis Yes Hx Back Pain Yes Hx Joint Replacement Yes: KNEE Hx Spinal Surgery Yes: x3 Hx Other Musculoskeletal Disorders Yes: FOOT AND ROTATOR CUFF SURGERY Hematological History Hx Hematological Disorders No Significant History Endocrine History Hx Hypothyroidism Yes HEENT History Hx Tonsillectomy Yes Integumentary History Hx Shingles Yes Reproductive History Hx Hysterectomy Yes Hx Post Menopausal Yes Psychosocial History Hx Anxiety Yes Hx Depression Yes Pain History Has Past Pain Affected Your Daily Life Yes History of Long-Term Prescription Pain Yes Medication Use (Opiates) Effective Methods of Pain Control Oxycodone 5mg Anesthesia History Hx Other Anesthesia Reactions Yes: Oxygen bottoms out Other History Hx Cancer Yes: bladder, removed with surgery Evaluation Information Problem Diagnosis gait instability, spinal stenosis Onset 01/05/19 Additional Evaluation Detail Oswestry=74% limitation Subjective Information Pt. reports that she began Query Text:As Reported By Patient/ using a walker in January of Family last year. She reports that she began falling and felt dizzy on occassion. She
--- NOTE | 2020-06-04 13:59 | PCPTNOTE ---
patient called and cancelled appt today. KAE
--- NOTE | 2020-06-20 12:05 | PTOPEVAL ---
Thank you for referring Loreto Acevedo to [facility].? The patient is scheduled to be seen for therapy? ____x/week for ___ weeks. Please review, sign, date and return this plan of care DA. I agree with and certify that the following plan of care is medically necessary. Referring Physician Date Admitting Provider: Attending Provider: Poppy Quiroz, Referring Provider: *PT Outpatient Evaluation Start: 05/22/20 13:04 Freq: Status: Active Protocol: Document 06/19/20 16:00 LOYDA (Rec: 06/20/20 07:16 LOYDA [id number]) Therapy Assessment Status Assessment Status Assessment Status Evaluation Outpatient Past Medical History Neurological History Hx Neurological Disorders No Significant History Cardiovascular History Hx Hypertension Yes Hx Other Cardiac Disorders Yes: PERIPHERAL EDEMA, VENOUS STASIS Respiratory History Hx Bronchitis Yes Hx Pneumonia Yes Hx Sleep Apnea Yes Gastrointestinal History Hx Appendectomy Yes Hx Cholecystectomy Yes Hx Gastroesophageal Reflux Disease Yes Genitourinary History Hx Genitourinary Disorders No Significant History Musculoskeletal History Hx Arthritis Yes Hx Back Pain Yes Hx Joint Replacement Yes: KNEE Hx Spinal Surgery Yes: x3 Hx Other Musculoskeletal Disorders Yes: FOOT AND ROTATOR CUFF SURGERY Hematological History Hx Hematological Disorders No Significant History Endocrine History Hx Hypothyroidism Yes HEENT History Hx Tonsillectomy Yes Integumentary History Hx Shingles Yes Reproductive History Hx Hysterectomy Yes Hx Post Menopausal Yes Psychosocial History Hx Anxiety Yes Hx Depression Yes Pain History Has Past Pain Affected Your Daily Life Yes History of Long-Term Prescription Pain Yes Medication Use (Opiates) Effective Methods of Pain Control Oxycodone 5mg Anesthesia History Hx Other Anesthesia Reactions Yes: Oxygen bottoms out Other History Hx Cancer Yes: bladder, removed with surgery Evaluation Information Problem Diagnosis gait instability, spinal stenosis Onset 01/05/19 Additional Evaluation Detail Oswestry=70% limitation Subjective Information Pt. reports that she notices Query Text:As Reported By Patient/ that she may be getting a Family little worse. She reports that pain in the back of her
== END 2020-08-20 23:59 | disposition home or self-care (01) ==
LOC: CHSPT 13:00
PROVIDERS: Visit Provider Internal Medicine
DX: M48.00 Spinal stenosis, site unspecified (principal); R26.81 Unsteadiness on feet
CPT/HCPCS: 97014; 97110; 97161; 97530; G0283

== ENCOUNTER 2020-07-26 08:07 | Outpatient (CLI) | payer MEDICARE, SELFPAY ==
--- NOTE | ~2020-07-26 | MR_ITS ---
EXAMINATION: MR lumbar spine wo/w con DATE: 07/26/2020 10:06 INDICATION: Chronic low back pain syndrome. TECHNIQUE: Magnetic resonance imaging (MRI) of the lumbar spine was performed without and with 10 mL MultiHance intravenous contrast. Sequences included sagittal T2-weighted FSE, sagittal T2-weighted FS FSE, and sagittal and axial T1-weighted FSE. Postcontrast sequences included axial T2-weighted FSE a nd axial and sagittal T1-weighted FS FSE. COMPARISON: Lumbar spine MRI 04/05/2020 FINDINGS: There is 10 degrees levoscoliosis of lumbar spine. There is 4 mm retrolisthesis of T12 on L 1 and L1 on L2 and 5 mm anterolisthesis of L4 on L5. There are changes of anterior fusion procedure a t L5-S1 with interbody device and anterior plate and screws. There are changes of posterior fusion pr ocedure from L1 to S1 with pedicle screws. There is mild chronic anterior wedging of T8-L1 vertebral bodies. There is severely decreased disc height from T8-T9 through L1-L2, mildly decreased disc heigh t at L2-L3, severely decreased disc height at L3-L4, and mildly decreased disc height at L4-L5. The d istal spinal cord signal intensity is normal. The conus medullaris is at T12-L1. There are laminectom ies at multiple levels in lumbar spine with a fluid collection in the postlaminectomy space measuring 8.2 x 4.0 x 2.7 cm with septations, likely a seroma. There is a 5.4 cm cyst in left kidney. There is mild atrophy of left kidney. The following disc levels are specifically discussed: T12-L1: The disc does not extend beyond the endplate margin. There is severe bilateral facet joint os teoarthritis. There is moderate bilateral neural foraminal stenosis. There is mild central canal sten osis. L1-L2: The disc does not extend beyond the endplate margin. There is moderate bilateral facet joint h ypertrophy. There is moderate right and mild left neural foraminal stenosis. There is mild central ca nal stenosis with posterior decompression. L2-L3: The disc is bulging. There is no facet joint hypertrophy. There is mild right neural foraminal stenosis. There is no central canal stenosis. L3-L4: The disc does not extend beyond the endplate margin. There is moderate bilateral facet joint h ypertrophy. There is mild bilateral neural foraminal stenosis. There is no central canal stenosis. L4-L5: The disc does not extend beyond the endplate margin. There is moderate bilateral facet joint h ypertrophy. There is mild bilateral neural foraminal stenosis. There is no central canal stenosis. L5-S1: There is mild bilateral facet joint hypertrophy. There is mild bilateral neural foraminal sten osis. There is no central canal stenosis. IMPRESSION: 1. Severe lumbar and thoracic spondylosis, stable from 04/05/2020. 2. Anterior fusion procedure at L5-S1 and posterior fusion procedure from L1 to S1. 3. Stable fluid collection in the L2-L5 postlaminectomy space, likely a seroma. Reviewed, dictated and finalized at location A.
[2020-07-26 08:36] LABS: Estimated Glomerular Filt Rate > 60
== END 2020-07-26 08:08 | disposition home or self-care (01) ==
LOC: CHSIMG 08:10
PROVIDERS: PCP Internal Medicine; Visit Provider Internal Medicine
DX: G89.4 Chronic pain syndrome (principal); M54.42 Lumbago with sciatica, left side; M54.41 Lumbago with sciatica, right side
CPT/HCPCS: 72158; A9577

== ENCOUNTER 2020-09-02 10:30 | Outpatient (CLI) | payer MEDICARE, SELFPAY ==
[2020-09-04 19:25] LABS: RPR Screen Reactive (Non-Reactive); RPR Titer Reactive 1:2
[2020-09-05 16:20] LABS: FTA-ABS Nonreactive (Nonreactive)
== END 2020-09-02 10:31 | disposition home or self-care (01) ==
PROVIDERS: PCP Internal Medicine
DX: G62.9 Polyneuropathy, unspecified (principal)
CPT/HCPCS: 36415; 86592

== ENCOUNTER 2021-01-16 08:54 | Outpatient (CLI) | payer MEDICARE, SELFPAY ==
--- NOTE | 2021-01-16 09:05 | ECHO_ITS ---
Patient Info Name: Loreto Acevedo Age: 75 years : 1945 Gender: Female Ht: 61 in Wt: 248 lbs BSA: 2.27 m2 HR: 87 bpm BP: 116 / 49 mmHg Heart Rhythm: Sinus Rhythm Technical Quality: Fair Exam Date: 01/16/2021 9:05 AM Exam Location: [facility] Patient Status: Outpatient Admit Date: 01/16/2021 Staff Ordering Physician: Nasir Kaminski DO Email Marketing Intern: Chantal Cobb RDCS Attending Provider: Nasir Kaminski DO Referring Physician: Gordy BUTTERFIELD; Exam Type: CA echo dop color flow w con Study Info Indications I35.0 - Nonrheumatic aortic (valve) stenosis Complete two-dimensional, color flow and Doppler transthoracic echocardiogram is performed with contrast to opacify the left ventricle and to improve the deliniation of the left ventricle endocardial borders. Strain analysis performed. Contrast/Agitated Saline Contrast/Ag. Saline: Definity Amount: 4.00 ml New IV Access: Antecubital Space and Left Site Condition: No extravasation, Site dressing applied and IV removed History/Risk Factors Hypertension: No Dyslipidemia: No Peripheral Arterial Disease (PAD): No Obesity: Yes Renal Disease: No Coronary Artery Disease (CAD) No Date of Last Tobacco Use: 01/16/2021 Diabetes Mellitus: No Tobacco Use: Current - Every Day If Any Current, Tobacco Type: Cigarettes If Current - Every Day \T\ Cigarettes, Amount: Heavy Tobacco Use (>=10/day) Family History: Diabetes Mellitus, Coronary Artery Disease Deep Vein Thrombosis (DVT): None Dialysis: None Frailty Scale (CSHA): 4: Vulnerable Summary 1. Left ventricular chamber dimension is normal. 2. Definity contrast administered improved wall motion interpretation. 3. Left ventricular systolic function is normal, estimated at 60-65%. 4. There is mildly increased left ventricular wall thickness. 5. The left ventricular diastolic function is grade I diastolic dysfunction. 6. E/e' 10 is mildly elevated. 7. Global longitudinal strain is normal at -21.9%. 8. Left atrial chamber dimension is mildly enlarged. 9. There is mild aortic valve stenosis based on a peak velocity of 195.17 cm/s, mean gradient of 9 mmHg, and aortic valve area of 1.56 cm2. 10. There is mild aortic valve sclerosis. 11. The mitral valve has moderately calcified annulus. 12. There is mild tricuspid valve regurgitation. 13. Severe pulmonary hypertension, estimated pulmonary arterial systolic pressure is 67 mmHg. 14. Dilated inferior vena cava with >50% collapse upon inspiration consistent with elevated right atrial pressure, 10 mmHg. Recommendations * Smoking cessation counseling is recommended for this patient. Left Ventricle E/e' 10 is mildly elevated. Global longitudinal strain is normal at -21.9%. Definity contrast administered improved wall motion interpretation. Left ventricular chamber dimension is normal. Left ventricular systolic function is normal, estimated at 60-65%. There is mildly increased left ventricular wall thickness. The left ventricular diastolic function is grade I diastolic dysfunction. Right Ventricle Moderator band is normal variant. Right ventricular chamber dimension is normal. Right ventricular systolic function is normal. Left Atria Left atrial chamber dimension is mildly enlarged. Right Atria Right atrial chamber dimension is normal. Aortic Valve Aortic valve is not well seen. The aortic valve is probable trileaflet. There is m
== END 2021-01-16 08:55 | disposition home or self-care (01) ==
LOC: CHSIMG 08:55
PROVIDERS: PCP Internal Medicine; Visit Provider Internal Medicine Cardiovascular Disease
DX: I35.0 Nonrheumatic aortic (valve) stenosis (principal)
CPT/HCPCS: C8929

== ENCOUNTER 2021-02-03 14:03 | Outpatient (CLI) | payer MEDICARE, SELFPAY ==
--- NOTE | 2021-02-05 11:48 | WPDHOLTEREM ---
Holter/Event Monitor Holter/Event Monitor Date of procedure: 02/03/21 Procedure Type: 48 hour holter monitor Indications: Chest pain Conclusion: 1. 48 hour holter monitor with 40 hours of monitoring on 02/03/21. 2. Predominant rhythm is sinus rhythm. HR range 64-143 bpm; average HR 80 bpm. 3. There are 1,668 premature supraventricular complexes, 269 supraventricular couplets, 1 supraventricular triplet, and 57,507 supraventricular bigeminy. There is one run of atrial tachycardia at 143 bpm at 23:31. 4. There victor m 2,641 premature ventricular complexes and 3 ventricular couplets. No ventricular tachycardia. 5. Right bundle branch block. No sinoatrial or atrioventricular blocks. No significant pauses greater than 2 seconds. 6. Patient reports symptoms of rib pain, arm pain, dizziness, shortness of breath which demonstrate sinus rhythm, HR range 86-100 bpm with supraventricular bigeminy and one PVC.
== END 2021-02-03 14:04 | disposition home or self-care (01) ==
LOC: CHSCARD 14:06
PROVIDERS: PCP Internal Medicine; Visit Provider Internal Medicine
DX: R07.89 Other chest pain (principal); R00.0 Tachycardia, unspecified
CPT/HCPCS: 93225; 93226

== ENCOUNTER 2021-03-13 12:19 | Outpatient (CLI) | payer MEDICARE, SELFPAY ==
--- NOTE | ~2021-03-13 | US_ITS ---
EXAMINATION: US arterial ankle brachial ind DATE: 03/13/2021 13:00 INDICATION: Aortic stenosis. TECHNIQUE: Segmental pressures and plethysmographic and Doppler waveforms of the brachial and lower e xtremity arteries were obtained. COMPARISON: None. FINDINGS: Right and left brachial artery pressures of 128 mm Hg and 118 mm Hg, respectively, are concordant (no rmal difference <= 30 mmHg). The right ankle-brachial index (COURTNEY) is 1.23 (normal >= 0.9-1.0). The right great toe-brachial index (TBI) is 0.61 (normal >= 0.65). Arterial Doppler waveforms are biphasic with brisk systolic upstrokes at both the right posterior tibial and dorsalis pedis arteries. The left COURTNEY is 1.17. The left TBI is 0.53. Arterial Doppler waveforms are biphasic with brisk systol ic upstrokes at both the left posterior tibial and dorsalis pedis arteries. IMPRESSION: 1. Mild arterial occlusive disease to the left lower limb with normal left COURTNEY but mildly decreased l eft TBI. 2. Normal right COURTNEY and TBI. Reviewed, dictated and finalized at location A. IMPRESSION: 1. Mild arterial occlusive disease to the left lower limb with normal left COURTNEY but mildly decreased left TBI. 2. Normal right COURTNEY and TBI.
== END 2021-03-13 12:20 | disposition home or self-care (01) ==
LOC: CHSIMG 12:20
PROVIDERS: PCP Internal Medicine; Visit Provider Internal Medicine Cardiovascular Disease
DX: M79.89 Other specified soft tissue disorders (principal)
CPT/HCPCS: 93922

== ENCOUNTER → 2021-03-14 02:14 | Outpatient (CLI) | payer MEDICARE, SELFPAY ==
[2021-03-15 14:53] LABS: SARS-CoV-2 RNA PCR Negative
== END ==
PROVIDERS: PCP Internal Medicine; Visit Provider Specialist
DX: Z01.812 Encounter for preprocedural laboratory examination (principal); Z20.822 Contact with and (suspected) exposure to COVID-19
CPT/HCPCS: C9803; U0003; U0005

== ENCOUNTER 2021-03-18 01:21 | Day surgery (SDC) | payer MEDICARE, SELFPAY ==
[2021-03-17 10:56] VITALS: BMI 47.7
[2021-03-18] VITALS (29 sets, daily range): BP systolic 97–137; BP diastolic 45–61; PULSE 64–87; RESP 15–21; TEMP 36.3–36.6; O2SAT 87–99; BMI 46.9
[2021-03-18 09:29] LABS: Basophils Percent Auto 0.4 % (0.2-1.2); Eosinophils Absolute Auto 0.3 K/mm3 (0-0.3); Eosinophils Percent Auto 2.4 % (0-4.4); Hemoglobin 14.5 g/dL (12.0-15.0); Immature Granulocyte Absolute 0.07 K/mm3 (0.00-0.031); Immature Granulocyte Percent A 0.6 % (0-0.5); Lymphocytes Absolute Auto 2.62 K/mm3 (0.9-3.2); Lymphocytes Percent Auto 23.9 % (18.3-44.2); Mean Corpuscular HGB Conc 32.2 g/dl (32-36); Mean Corpuscular Hemoglobin 30.1 pg (26-34); Mean Corpuscular Volume 93.6 fl (80-100); Mean Platelet Volume 9.9 fl (7.4-10.4); Monocytes Absolute Auto 0.9 K/mm3 (0.1-0.6); Monocytes Percent Auto 7.9 % (2.6-8.5); Neutrophils Absolute Auto 7.1 K/mm3 (1.3-6.7); Neutrophils Percent Auto 64.8 % (45.5-73.1); Platelet Count Result 237 k/mm3 (150-375); Red Blood Count 4.81 M/mm3 (4.2-5.4); Red Cell Distribution Width 14.8 % (11.5-14.5)
[2021-03-18 09:35] LABS: INR 0.9
[2021-03-18 09:53] LABS: Blood Urea Nitrogen 25 mg/dL (7-17); Calcium 8.7 mg/dL (8.4-10.2); Carbon Dioxide > 40 mmol/L (22-30); Chloride 100 mmol/L (98-107); Estimated CRCL calculation 56 ml/min; Estimated Glomerular Filt Rate > 60; Glucose 108 mg/dL (65-105); Potassium 3.1 mmol/L (3.4-5.0); Sodium 141 mmol/L (137-145)
[2021-03-18] MEDS: SODIUM CHLORIDE 0.9% IV 500 ML 100 ML IV CONT (09:53)
--- NOTE | 2021-03-18 10:18 | WPDMODSED ---
Moderate Sedation Note-Pt Data Patient Data Diagnosis: Exertional dyspnea with chest pain morbid obesity COPD ongoing tobacco abuse Present Complaint: this is a 76-year-old lady who has chronic lung disease from smoking which continues she is also morbidly obese. Symptoms of exertional dyspnea us with chest pain have been worsening recently prompting recommendation for angiography. She has no previous history of documented coronary artery disease. echocardiogram demonstrates modest aortic valve stenosis. Right heart catheterization to evaluate this was not requested Procedure to be performed/Plan: Left heart catheterization Allergies Allergy/AdvReac Type Severity Reaction Status Date / Time morphine Allergy Unknown Itching Verified 03/17/21 10:55 Sulfa (Sulfonamide Allergy Unknown Other Verified 03/17/21 10:55 Antibiotics) Home Medications Medication Instructions Recorded Confirmed Type fluoxetine 40 mg capsule 40 mg PO PRN PRN 02/12/20 03/18/21 History levothyroxine 150 mcg capsule 150 mcg PO EVERY OTHER DAY 02/12/20 03/18/21 History levothyroxine 175 mcg capsule 175 mcg PO EVERY OTHER DAY 02/12/20 03/18/21 History montelukast 10 mg tablet 10 mg PO DAILY #90 tablet 02/12/20 03/18/21 Rx multivit with 1 tablet PO DAILY 02/12/20 03/18/21 History qqlmgkdc-bdcf-SO-lutein 8 mg iron-400 mcg-300 mcg tablet nystatin 100,000 unit/gram topical 1 applic TOPICAL PRN PRN 02/12/20 03/18/21 History powder pramipexole 1.5 mg tablet 1.5 mg PO DAILY 02/12/20 03/18/21 History fluticasone propionate [Flonase 2 spray INTRANASAL PRN PRN 03/18/20 03/18/21 History Allergy Relief] triamterene-hydrochlorothiazid 1 tab PO QAM 30 Days tablet 03/19/20 03/18/21 Rx oxycodone-acetaminophen 5 mg-300 1 tablet PO Q4H PRN 01/12/21 03/18/21 History mg tablet cholecalciferol (vitamin D3) 125 500 mcg PO DAILY 01/14/21 03/18/21 History mcg (5,000 unit) tablet vitamin b12 500mcg 1,000 mcg PO DAILY 01/14/21 03/18/21 History metoprolol tartrate 25 mg tablet 25 mg PO BID #180 tablet 02/05/21 03/18/21 Rx aspirin 81 mg tablet,delayed 81 mg PO DAILY 03/02/21 03/18/21 History release furosemide 40 mg tablet 40 mg PO QAM #90 tablet 03/02/21 03/18/21 Rx pravastatin 10 mg tablet 10 mg PO DAILY #90 tablet 03/02/21 03/18/21 Rx potassium chloride 10 mEq 20 meq PO DAILY 30 Days #60 cap 03/03/21 03/18/21 Rx capsule,extended release albuterol 90 mcg INHALATION QID 03/18/21 03/18/21 History magnesium oxide 250 mg PO BID 03/18/21 03/18/21 History Current Medications: Active Medications Sodium Chloride (Normal Saline Iv) 500 mls @ 100 mls/hr IV CONT .Q5H SASCHA Last Admin: 03/18/21 09:53 Dose: 100 mls/hr Documented by: Sedation/Anesthesia: No previous sedation/anesthesia problems (including family history). [facility] Past Medical History Medical History (Updated 03/02/21 @ 14:13 by Nasir Kaminski DO) Bladder cancer Sleep apnea Family History Family History Mother Acute myocardial infarction Father Acute myocardial infarction Cancer Social History Social History Smoking packs per day: 0.5 Smoking cigarettes per day: 10.0 Years smoked: 58 Smoking pack-years: 29.00 Smoking status: Current every day smoker Tobacco type: cigarettes Second hand tobacco smoke exposure: Yes Alcohol intake: never Substance use: never Substance use type: does not use Living arrangements: alone Gender identity (if verbalized by the patient): Female Spiritual care concerns: No Mod Sed Physical Exam Physical Exam Pre Procedural Exam: Normal: Throat, Airway, Lungs, Heart Rate, Heart Rhythm and Extremities and Variation: Appearance ( short-statured morbidly obese white female), Neck ( thick neck no ability to discern JVD) and Heart Size ( PMI is not palpable) Hours since solid foods: 12 Hours since liquid intake: 12 In
--- NOTE | 2021-03-18 11:22 | WPDCARDPROC ---
Cardiac Cath Procedure Note Date of procedure:: 03/18/21 Performing physician:: Aaron Reyes MD Indication:: exertional chest pain history of peripheral vascular disease hypertension smoking obesity Brief clinical history:: this is a 76-year-old woman who is morbidly obese and has chronic smoking history with COPD. She is recently experiencing symptoms compatible with exertional angina. In this setting and angiogram has been recommended. Procedure Procedure performed:: Left ventriculography coronary angiography percutaneous revascularization(BUNNY) to large dominant mid RCA Sedation/Medication given:: fentanyl 50 mg Versed 2 mg case start time 10:34 a.m. case end time 11:15 a.m. sedation provided by Irene Frey RN, trained observer Access site:: right femoral artery Estimated blood loss:: 20-30 cc Procedure note:: patient was brought to the cardiac catheterization lab in the postabsorptive state where the right femoral triangle was prepared and draped in the usual fashion. Anesthesia was provided with 1% lidocaine infiltrated locally. Using the modified Seldinger technique the femoral artery was punctured and a 5 [place] vascular sheath was placed. Left heart catheterization was then carried out. A 5 [place] angled pigtail catheter was used to perform a left ventriculogram MASON projection and document left-sided central hemodynamics. After this the pigtail catheter was withdrawn in the left coronary artery was engaged and injected using a standard 5 [place] FL4 catheter. A 5 [place] JR4 catheter was used to engage inject the right coronary artery. After this the cineangiograms were then reviewed and PCI of the mid RCA was recommended and carried out as detailed below. Prior to PCI the 5 [place] sheath was exchanged over a guidewire for a 6 [place]. The patient was systemically anticoagulated with bolus and infusion of Angiomax. She received 325 mg of aspirin and 600 mg of clopidogrel prior to PCI. 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 Findings:: Hemodynamics: Central aortic pressure was 118 over 48 left ventricle 118 over 12 end-diastolic pressure 22. There is no significant gradient across the aortic valve. Left ventricle: Left ventricle is concentrically hypertrophied and of normal size systolic contractility is hyperdynamic ejection fraction appears to be 80% by visual estimation. The left main coronary artery is nicely patent the left anterior descending is a small to medium caliber artery giving rise to a moderate-sized diagonal branch the LAD and its branches are small in size but angiographically free of disease. The circumflex is a small caliber vessel giving rise to only 1 marginal branch. The circumflex despite being small is angiographically normal. The right coronary artery is a very large vessel dominant to the posterior circulation giving rise to the RPDA and several posterolateral branches as the circumflex is quite small. There was a high-grade highly eccentric stenosis in the 2nd portion of the RCA representing about 80% luminal stenosis. This is a very large 5 mm vessel. Intervention: The right coronary artery was engaged using a 6 [place] JR4 guiding catheter. I used a 0.014 BMW wire to carefully cross the highly eccentric stenosis to ensure that I was in the true lumen distally. Following this the wire was advanced into a distal RPL branch. The lesion was pre-dilated using a 3.5 x 20 mm emerge balloon at nominal pressure and then stented using a 5.0 x 30 mm resolute patty drug-eluting stent with an excellent anatomical result. This was deployed at 12 atmospheres and there was visible step-up and step-down indicating very good stent deployment. Following the procedure the vessel was widely patent wit
--- NOTE | 2021-03-18 11:32 | ECG_ITS ---
Measurements Intervals [place] Rate: 77 P: 81 RI: 174 QRS: -63 QRSD: 156 T: 20 QT: 446 QTc: 506 Interpretive Statements SINUS RHYTHM RIGHT BUNDLE BRANCH BLOCK LEFT ANTERIOR FASCICULAR BLOCK POSSIBLE LEFT VENTRICULAR HYPERTROPHY BASELINE ARTIFACT- I, II, III, AVR, AVL ABNORMAL ECG Electronically Signed On 03-18-2021 12:06:43 CDT by Nasir Kaminski D.O.
[2021-03-18] MEDS: ALBUTEROL SULFATE (*SP) INHALER 2 PUFF INHALATION ×3 (13:44→21:05)
--- NOTE | 2021-03-18 14:05 | SUR.PHASEII ---
1400- pt O2 andrew decreased to 87% on 3 L via NC, O2 increased to 4 L via NC and sats increased to 90%
--- NOTE | 2021-03-18 15:27 | SUR.PHASEII ---
END PHASE II RECOVERY. HEMOSTASIS TO R. GROIN PUNCTURE SITE ACHIEVED AT 1426. SITE SOFT, NONTENDER. NO BLEEDING OR HEMATOMA TO SITE. STAT SEAL AND TEGADERM DRESSING C/D/I. PT. ENTERING EXTENDED RECOVERY AFTER OUTPATIENT PROCEDURE AT THIS TIME AND REMAINS IN BANQUET CHEF 4 UNTIL IMU BED ASSIGNMENT RECEIVED. SEE PCS FOR FURTHER DOCUMENTATION.
--- NOTE | 2021-03-18 15:28 | ADMGEN ---
[facility] to EXTENDED RECOVERY AFTER OUTPATIENT C W/ PCI AT 1528. REMAINS IN RIPSAW OPERATOR 4 UNTIL TRANSFERRED TO IMU Room 211-01 FOR DURATION OF STAY. Patient/family oriented to hospital policies and general routines including ID bracelet, bed and alarms, visiting hours, pain management, procedures, bathroom and other care routines, personal items, smoking policy, room service/diet, and visiting hours. R. GROIN STAT SEAL AND TEGADERM DRESSING C/D/I. SITE SOFT, NONTENDER. NO BLEEDING OR HEMATOMA NOTED. BEDREST X 6 HOURS UNTIL 2025. REVIEWED BEDREST ACTIVITY RESTRICTIONS W/ PT. VOICED UNDERSTANDING. Information on how to activate the Rapid Response Team has been discussed. Patient/Family are encouraged to report perceived risks to care and to ask questions if they do not understand what they are told or what they should do.
--- NOTE | 2021-03-18 16:40 | PC.NURSE ---
This patient, Loreto Acevedo, was received from [[facility] ] on 03/18/21 at 6542. Patient/family oriented to unit policies and routines. Report received from NIKKO Bonilla @ [phone]
--- NOTE | 2021-03-18 17:12 | PC.NURSE ---
RN called report to Ange EL. RN accepted patient. NIKKO Bonilla and NIKKO Davis transferred patient to room 211 and did bedside groin site assessment with Ange. Patient eating dinner.
[2021-03-18] MEDS: SODIUM CHLORIDE 0.9% IV 1,000 ML 125 ML IV CONT (17:44)
--- NOTE | 2021-03-18 18:31 | PM.IMCN ---
Assessment and Plan Assessment and plan (1) H/O heart artery stent: Code(s): Z95.5 - Presence of coronary angioplasty implant and graft Status: Inactive Assessment and Plan: The patient had a stent placed to the RCA as mentioned above in the catheterization report. Management per Cardiology. The patient continues on an aspirin and p.r.n. nitro. The patient is on Plavix. She remains on metoprolol as well. Continue with pravastatin. (2) Hypothyroidism: Code(s): E03.9 - Hypothyroidism, unspecified Status: Chronic Assessment and Plan: Continue with patient's levothyroxine (3) Restless leg syndrome: Code(s): G25.81 - Restless legs syndrome Status: Chronic Assessment and Plan: The patient tells me that she has peripheral vascular disease in her right leg and that she most likely will get a stent to her right leg but she is not quite sure yet. She has a good pulse to that right leg. The patient is on Plavix continue with Mirapex (4) COPD (chronic obstructive pulmonary disease): Code(s): J44.9 - Chronic obstructive pulmonary disease, unspecified Status: Chronic Assessment and Plan: Patient's albuterol has been continued. The patient is currently on 2 L per nasal cannula but is in on oxygen at home. If the patient continues to be hypoxic she may need to get a home O2 evaluation. Continue with Singulair (5) Diastolic congestive heart failure: Code(s): I50.30 - Unspecified diastolic (congestive) heart failure Status: Chronic Assessment and Plan: Continue with metoprolol on Lasix she is on triamterene as well. She needs further instructions for heart healthy diet. (6) Tobacco abuse: Code(s): Z72.0 - Tobacco use Status: Acute Assessment and Plan: The patient has been counseled on smoking cessation for approximately 5 minutes. The patient is agreeable to nicotine patch. (7) Sleep apnea: Code(s): G47.30 - Sleep apnea, unspecified Status: Acute Assessment and Plan: Continue with patient CPAP on her home settings. HPI Data of Consult Consult date: 03/18/21 Requesting Physician: Aaron Reyes MD Primary Care Provider: Poppy Quiroz, Consult Narrative Narrative: Loreto Acevedo is a 76 year old female who has a past medical history of having COPD. The patient does not chronically wear oxygen at home. However she constantly is short of breath at home. She had symptoms Of exertional dyspnea with chest pain and has been worsening recently prompting recommendations for Angiography. And she underwent a cardiac catheterization per Dr. Reyes today. See catheterization reportclusion:: 1. Severe single-vessel coronary artery disease with highly eccentric 80% stenosis in the mid RCA which is a very large dominant vessel in this patient. 2. Hyperdynamic left ventricular systolic function 3. successful PCI of the right coronary lesion deploying a 5 mm drug-eluting stent with an excellent angiographic result. The patient continued to be short of breath and required oxygen at 2 L per nasal cannula. The patient is to be kept overnight as observation due to her shortness of breath. She does use inhalers at home for her COPD. The hospitalist group is asked to consult the patient for medical management. The date of service is 03/18/2021 Review of Systems Review of Systems: All systems reviewed & are unremarkable except as noted in HPI and below Constitutional: Constitutional: Reports as per HPI and Reports no additional constitutional complaints Eyes: Eyes: Reports as per HPI and Reports no additional eye complaints ENT: Reports system reviewed and no additional complaints, except as documented and Reports Normal hearing present Cardiovascular: Cardiovascular: Reports no additional cardiovascular complaints Respiratory: Respiratory: Reports no additional respiratory complain
[2021-03-18] MEDS: PRAMIPEXOLE 0.5 MG TABLET 1.5 MG PO (21:00)
[2021-03-18] MEDS: FLUoxetine HCL 20 MG CAPSULE 40 MG PO (21:08)
[2021-03-18] MEDS: MAGNESIUM OXIDE 200 MG TABLET PO (21:08)
[2021-03-18] MEDS: MONTELUKAST SODIUM 10 MG TABLET PO (21:09)
[2021-03-18] MEDS: METOPROLOL TARTRATE 25 MG TABLET PO (21:10)
[2021-03-18] MEDS: oxyCODONE/ACETAMINOPHEN (*CRX) 5-325 MG TABLET 1 TABLET PO (21:21)
[2021-03-18] MEDS: oxyCODONE HCL (*CRX) 2.5 MG TAB IR PO (21:21)
[2021-03-19] VITALS (7 sets, daily range): BP systolic 109–121; BP diastolic 42–43; PULSE 63–76; RESP 14–20; TEMP 36.6; O2SAT 92–97
--- NOTE | 2021-03-19 05:11 | ECG_ITS ---
Measurements Intervals [place] Rate: 70 P: 38 MI: 152 QRS: -62 QRSD: 149 T: -8 QT: 429 QTc: 463 Interpretive Statements SINUS RHYTHM RIGHT BUNDLE BRANCH BLOCK LEFT ANTERIOR FASCICULAR BLOCK VOLTAGE CRITERIA FOR LVH BASELINE ARTIFACT- I, III, AVR, AVL, V5-V6 ABNORMAL ECG Electronically Signed On 03-19-2021 10:01:25 CDT by Nasir Kaminski D.O.
[2021-03-19] MEDS: LEVOTHYROXINE SODIUM 150 MCG TABLET PO (06:07)
[2021-03-19] MEDS: ASPIRIN 81 MG ENTERIC TABLET PO (08:17)
[2021-03-19] MEDS: CLOPIDOGREL BISULFATE 75 MG TABLET PO (08:17)
[2021-03-19] MEDS: POTASSIUM CHLORIDE 10 MEQ TABLET.ER 20 MEQ PO (08:17)
[2021-03-19] MEDS: PRAVASTATIN SODIUM 10 MG TABLET PO (08:17)
[2021-03-19] MEDS: FUROSEMIDE 40 MG TABLET PO (08:17)
[2021-03-19] MEDS: CYANOCOBALAMIN 1,000 MCG TABLET 1000 MCG PO (08:17)
[2021-03-19] MEDS: CHOLECALCIFEROL 1,000 UNITS TABLET 5000 UNITS PO (08:17)
[2021-03-19] MEDS: THERAPEUTIC MULTIVITAMINS/MINERALS TAB (*BKC) 1 TABLET PO (08:18)
[2021-03-19] MEDS: MAGNESIUM OXIDE 200 MG TABLET PO (08:18)
[2021-03-19] MEDS: METOPROLOL TARTRATE 25 MG TABLET PO (08:18)
[2021-03-19] MEDS: TRIAMTERENE 37.5 MG/HCTZ 25 MG (MAXZIDE) TABLET 1 TAB PO (08:18)
--- NOTE | 2021-03-19 08:20 | PM.DS ---
DS: Admitting Diagnosis Admitting Diagnosis Admitting Diagnosis: Chest pain DS: Summary Hospital Course Hospital Course: 76-year-old female who is a patient of Dr. Kaminski with a past medical history significant for COPD, morbid obesity, aortic valve stenosis, hypertension, peripheral vascular disease. She presents for a planned left heart catheterization following an office visit with Dr. Kaminski where she was having complaints of chest pain. At that time it was felt that she was exhibiting typical chest pain symptoms concerning for angina and cardiac catheterization was recommended at that time. On 03/18/2021 she underwent left heart catheterization by Dr. Reyes. Angiography revealed single-vessel coronary artery disease with about 80% luminal RCA stenosis. This RCA lesion was then successfully stented with a 5 mm drug-eluting stent. The patient had no intra procedural or postprocedural complications. This morning the patient is in no acute distress and does not have any complaints. She denies any chest pain, palpitations shortness of breath. She denies pain at the catheter insertion site. Telemetry reviewed and patient maintained normal sinus rhythm overnight with frequent PVCs. Time Spent with Patient Time attestation: Total time spent providing and/or coordinating discharge services: 45 minutes Date of service 03/19/2021: Follow-up for patient status post PCI on 10/26. Patient is a 76-year-old female who is a patient of Dr. Kaminski with a past medical history significant for COPD, morbid obesity, aortic valve stenosis, hypertension, peripheral vascular disease. She presents for a planned left heart catheterization following an office visit with Dr. Kaminski where she was having complaints of chest pain. At that time it was felt that she was exhibiting typical chest pain symptoms concerning for angina and cardiac catheterization was recommended at that time. On 03/18/2021 she underwent left heart catheterization by Dr. Reyes. Angiography revealed single-vessel coronary artery disease with about 80% luminal RCA stenosis. This RCA lesion was then successfully stented with a 5 mm drug-eluting stent. The patient had no intra procedural or postprocedural complications. This morning the patient is in no acute distress and does not have any complaints. She denies any chest pain, palpitations shortness of breath. She denies pain at the catheter insertion site. Telemetry reviewed and patient maintained normal sinus rhythm overnight with frequent PVCs. Exam Const: General: comfortable and no acute distress HENMT: General nose exam: Normal nares present Mouth: Yes moist mucous membranes Eyes: Sclera: sclerae normal EOM: EOMs intact bilaterally Neck: Neck: supple Other: Difficult to assess for JVD due to body habitus. Resp: Effort & Inspection: normal respiratory effort Auscultation: diminished lung sounds Cardio: Rate: regular rate Rhythm: regular rhythm Heart sounds: Murmur heart sound present (Grade 1) systolic GI: GI Palp: Yes Soft to palpation Skin: Other: Warm, dry. Right groin catheter insertion site is free from bleeding, hematoma, redness, swelling. Neuro: Motor exam (neuro): 5/5 motor strength present throughout and Normal motor muscle tone present throughout Extrem: General: normal to inspection Left upper extremity: normal to inspection Right lower extremity: lower leg (Lesion that appears consistent with venous stasis. 2 + Palpable DP ) Left lower extremity: lower leg (2 + Palpable DP pulse) Psych: Mental Status: mental status grossly normal Affect: normal affect DS: Data Data Completed and Pending Labs on day of discharge: Labs from last 24 hours 03/18/21 03/18/21 03/18/21 09:33 09:16 09:15 WBC 11.0 H RBC 4.81 Hgb 14.5 Hct 45.0 MCV 93.6 MCH 30.1 MCHC 32.2 RDW 14.8 H Plt Count 237 MPV 9.9 Immature Gran % (Auto) 0.6 H Neut % (Auto) 64.8 Lymph % (Auto)
[2021-03-19] MEDS: POTASSIUM CHLORIDE 20 MEQ TABLET 40 MEQ PO (08:33)
== END 2021-03-19 12:35 | disposition home or self-care (01) ==
LOC: ANHCATHLAB 15:50 → ANHIMU 15:50
PROVIDERS: PCP Internal Medicine; Visit Provider Specialist
PROC: 4A023N7 Measurement of Cardiac Sampling and Pressure, Left Heart, Percutaneous Approach (ICD-10-PCS; CPT 93452; principal; 2021-03-18 10:00)
DX: I25.10 Atherosclerotic heart disease of native coronary artery without angina pectoris (principal); R07.9 Chest pain, unspecified; R06.09 Other forms of dyspnea; J44.9 Chronic obstructive pulmonary disease, unspecified; I35.0 Nonrheumatic aortic (valve) stenosis; E66.01 Morbid (severe) obesity due to excess calories; Z68.42 Body mass index [BMI] 45.0-49.9, adult; R60.0 Localized edema; G47.30 Sleep apnea, unspecified; F17.210 Nicotine dependence, cigarettes, uncomplicated
CPT/HCPCS: 36415; 80048; 85025; 85610; 93005; 93458; 94640; A9270; C1725; C1769; C1874; C1887; C1894; C9600; C9803; J0461; J0583; J1644; J2250; J3010; J7030; J7040; U0003; U0005

== ENCOUNTER 2021-04-17 09:30 | Outpatient (RCR) | payer MEDICARE, SELFPAY | END 2021-04-20 10:53 | disposition home or self-care (01) | PROVIDERS: PCP Internal Medicine; Visit Provider Internal Medicine Cardiovascular Disease | DX: Z95.5 Presence of coronary angioplasty implant and graft (principal) | CPT/HCPCS: 93798 ==

== ENCOUNTER 2021-05-12 18:55 | Outpatient (CLI) | payer MEDICARE, SELFPAY ==
[2021-05-12 19:27] LABS: Add Urine Microscopic? YES; Appearance Urine Clear (Clear); Bilirubin Urine Negative (Negative); Blood Urine Negative (Negative); Color Urine Light Yellow (Yellow); Glucose Urine UA Negative (Negative); Ketones Urine Negative (Negative); Leukocyte Esterase Ur Trace LEU/UL (Negative); Nitrate Urine Negative (Negative); Protein Urine Negative (Negative); Urobilinogen Urine 0.2 mg/dL (0.2-1.0); pH Urine 7.5 (5.0-8.0)
[2021-05-12 19:32] LABS: Bacteria Urine Trace /hpf; RBC Urine 0-2 /hpf (0-2); Squamous Epithelial Cell Urine Few /hpf (Few); WBC Urine 0-3 /hpf (0-3)
== END 2021-05-12 18:56 | disposition home or self-care (01) ==
LOC: CHSLAB 18:59
PROVIDERS: PCP Internal Medicine; Visit Provider Internal Medicine
DX: R39.9 Unspecified symptoms and signs involving the genitourinary system (principal)
CPT/HCPCS: 81001

== ENCOUNTER 2021-08-03 14:12 | Outpatient (CLI) | payer MEDICARE, SELFPAY ==
[2021-08-03 17:17] LABS: Alanine Aminotransferase 39 U/L (14-59); Albumin Level 3.8 g/dL (3.4-5.0); Alkaline Phosphatase 101 U/L (46-116); Aspartate Amino Transferase 22 U/L (15-37); Bilirubin,Total 0.7 mg/dL (0.00-1.00); Blood Urea Nitrogen 25 mg/dL (7-18); Carbon Dioxide 37 mmol/L (21-32); Cholesterol 123 mg/dL (0-200); Glucose 158 mg/dL (70-99); HDL Direct 38 mg/dL (40-60); LDL Cholesterol Calculated 51 mg/dL (<130); Total Protein 6.4 g/dL (6.4-8.2); Triglycerides 169 mg/dL (0-150)
[2021-08-03 17:31] LABS: Anion Gap 8 mmol/L (8-16); Chloride 98 mmol/L (98-108); Osmolality Calculated 303 mOsm/kg (285-295); Potassium 2.8 mmol/L (3.5-5.1); Sodium 143 mmol/L (136-145)
[2021-08-03 17:39] LABS: Calcium 8.9 mg/dL (8.5-10.1); Estimated Glomerular Filt Rate 54
== END 2021-08-03 14:13 | disposition home or self-care (01) ==
LOC: CHSLAB 14:14
PROVIDERS: PCP Internal Medicine; Visit Provider Internal Medicine Cardiovascular Disease
DX: I25.10 Atherosclerotic heart disease of native coronary artery without angina pectoris (principal)
CPT/HCPCS: 36415; 80053; 80061

== ENCOUNTER 2021-08-12 12:10 | Outpatient (CLI) | payer MEDICARE, SELFPAY ==
[2021-08-12 13:11] LABS: Alanine Aminotransferase 37 U/L (14-59); Albumin Level 3.6 g/dL (3.4-5.0); Alkaline Phosphatase 90 U/L (46-116); Anion Gap 9 mmol/L (8-16); Aspartate Amino Transferase 19 U/L (15-37); Bilirubin,Total 0.6 mg/dL (0.00-1.00); Blood Urea Nitrogen 20 mg/dL (7-18); Calcium 8.9 mg/dL (8.5-10.1); Carbon Dioxide 34 mmol/L (21-32); Chloride 103 mmol/L (98-108); Cholesterol 130 mg/dL (0-200); Estimated Glomerular Filt Rate 60; Glucose 94 mg/dL (70-99); HDL Direct 49 mg/dL (40-60); LDL Cholesterol Calculated 66 mg/dL (<130); Magnesium 1.6 mg/dL (1.8-2.4); Osmolality Calculated 304 mOsm/kg (285-295); Potassium 3.2 mmol/L (3.5-5.1); Sodium 146 mmol/L (136-145); Total Protein 6.2 g/dL (6.4-8.2); Triglycerides 74 mg/dL (0-150)
== END 2021-08-12 12:11 | disposition home or self-care (01) ==
LOC: CHSLAB 12:13
PROVIDERS: PCP Internal Medicine; Visit Provider Internal Medicine Cardiovascular Disease
DX: I25.10 Atherosclerotic heart disease of native coronary artery without angina pectoris (principal)
CPT/HCPCS: 36415; 80053; 80061; 83735

== ENCOUNTER 2021-08-24 12:13 | Outpatient (RCR) | payer MEDICARE, SELFPAY ==
[2021-08-24 13:00] LABS: Anion Gap 10 mmol/L (8-16); Blood Urea Nitrogen 17 mg/dL (7-18); Calcium 8.9 mg/dL (8.5-10.1); Carbon Dioxide 36 mmol/L (21-32); Chloride 100 mmol/L (98-108); Estimated Glomerular Filt Rate 58; Glucose 95 mg/dL (70-99); Osmolality Calculated 303 mOsm/kg (285-295); Potassium 3.1 mmol/L (3.5-5.1); Sodium 146 mmol/L (136-145)
== END 2021-11-22 23:59 | disposition home or self-care (01) ==
LOC: CHSLAB 12:13
PROVIDERS: PCP Internal Medicine; Visit Provider Internal Medicine
DX: E87.6 Hypokalemia (principal)
CPT/HCPCS: 36415; 80048

== ENCOUNTER 2021-09-09 14:08 | Outpatient (CLI) | payer MEDICARE, SELFPAY ==
[2021-09-09 15:07] LABS: Anion Gap 7 mmol/L (8-16); Blood Urea Nitrogen 19 mg/dL (7-18); Calcium 8.7 mg/dL (8.5-10.1); Carbon Dioxide 36 mmol/L (21-32); Chloride 101 mmol/L (98-108); Estimated Glomerular Filt Rate 54; Glucose 100 mg/dL (70-99); Magnesium 1.6 mg/dL (1.8-2.4); Osmolality Calculated 300 mOsm/kg (285-295); Potassium 3.6 mmol/L (3.5-5.1); Sodium 144 mmol/L (136-145)
== END 2021-09-09 14:09 | disposition home or self-care (01) ==
LOC: CHSLAB 14:10
PROVIDERS: PCP Internal Medicine; Visit Provider Internal Medicine Cardiovascular Disease
DX: I25.10 Atherosclerotic heart disease of native coronary artery without angina pectoris (principal)
CPT/HCPCS: 36415; 80048; 83735

== ENCOUNTER 2021-11-03 13:36 | Emergency (ER) | payer MEDICARE, SELFPAY ==
--- NOTE | ~2021-11-03 | XR_ITS ---
EXAMINATION: XR chest 1V portable EXAM DATE: 11/03/2021 14:24 INDICATION: Chest pain, wheezing. TECHNIQUE: Portable AP frontal chest x-ray was obtained. Comparison is made to prior examination from 03/18/2020. FINDINGS: Enlarged cardiac silhouette, cardiomegaly and/or pericardial effusion. There is pulmonary v ascular congestion. No confluent consolidation, pneumothorax or pleural effusion suspected. Moderate bilateral shoulder osteoarthritis. IMPRESSION: Congestive changes. Reviewed, dictated and finalized at location A. IDENTIAL SUPPORT SPECIALIST IMPRESSION: Congestive changes.
[2021-11-03 13:40] VITALS: BP 126/56; PULSE 72; RESP 20; TEMP 36.2; O2SAT 95
[2021-11-03 13:50] VITALS: PULSE 72
--- NOTE | 2021-11-03 13:56 | ECG_ITS ---
Measurements Intervals [place] Rate: 72 P: 86 [place]: 154 QRS: -67 QRSD: 146 T: 31 QT: 422 QTc: 463 Interpretive Statements SINUS RHYTHM RIGHT BUNDLE BRANCH BLOCK LEFT ANTERIOR FASCICULAR BLOCK BASELINE ARTIFACT- I, II, III, AVR, AVL, AVF, V2-V3 ABNORMAL ECG Electronically Signed On 11-03-2021 14:47:10 OIL WELL SERVICE OPERATOR HELPER by Nasir Kaminski D.O.
[2021-11-03 14:40] VITALS: PULSE 70; RESP 16; O2SAT 93
[2021-11-03 14:40] LABS: Basophils Absolute Auto 0.04 K/mm3 (0.00-0.10); Basophils Percent Auto 0.5 % (0.0-1.0); Eosinophils Percent Auto 1.3 % (1.0-6.0); Hematocrit 41.6 % (35.0-42.0); Hemoglobin 12.8 g/dL (11.7-13.8); Immature Granulocyte Absolute 0.05 K/mm3 (0.00-0.00); Immature Granulocyte Percent A 0.6 % (0.0-0.0); Lymphocytes Absolute Auto 1.71 K/mm3 (1.10-4.50); Lymphocytes Percent Auto 22.1 % (18.0-42.0); Mean Corpuscular HGB Conc 30.8 g/dL (32.0-36.0); Mean Corpuscular Hemoglobin 28.6 pg (27.0-31.0); Mean Corpuscular Volume 93.1 fL (78.0-102.0); Mean Platelet Volume 9.9 fl (9.2-11.8); Monocytes Absolute Auto 0.96 K/mm3 (0.10-0.90); Monocytes Percent Auto 12.4 % (2.0-11.0); Neutrophils Absolute Auto 4.9 K/mm3 (1.7-7.2); Neutrophils Percent Auto 63.1 % (50.0-70.0); Platelet Count Result 257 K/mm3 (150-420); Red Blood Count 4.47 M/mm3 (4.20-5.40); Red Cell Distribution Width 14.4 % (11.6-14.4); White Blood Count 7.7 K/mm3 (4.8-10.8)
[2021-11-03] MEDS: ALBUTEROL SULFATE (*SP) INHALER 2 PUFF INHALATION (14:40)
[2021-11-03 15:02] LABS: Alanine Aminotransferase 25 U/L (14-59); Albumin Level 3.4 g/dL (3.4-5.0); Alkaline Phosphatase 83 U/L (46-116); Anion Gap 8 mmol/L (8-16); Aspartate Amino Transferase 19 U/L (15-37); Bilirubin,Total 0.4 mg/dL (0.00-1.00); Blood Urea Nitrogen 20 mg/dL (7-18); Calcium 8.2 mg/dL (8.5-10.1); Carbon Dioxide 31 mmol/L (21-32); Chloride 103 mmol/L (98-108); Estimated CRCL calculation 63 ml/min; Estimated Glomerular Filt Rate > 60; Glucose 95 mg/dL (70-99); NT Pro B Type Natriuretic Pept 365 pg/mL (0-125); Osmolality Calculated 296 mOsm/kg (285-295); Potassium 3.2 mmol/L (3.5-5.1); Sodium 142 mmol/L (136-145); Total Protein 6.3 g/dL (6.4-8.2)
[2021-11-03 15:03] LABS: Troponin I 23.2 ng/L (0.00-60.4)
[2021-11-03 15:09] LABS: Add Urine Microscopic? YES; Appearance Urine Clear (Clear); Bilirubin Urine Negative (Negative); Blood Urine Negative (Negative); Color Urine Light Yellow (Yellow); Glucose Urine UA Negative (Negative); Ketones Urine Negative (Negative); Leukocyte Esterase Ur 1+ LEU/UL (Negative); Nitrate Urine Negative (Negative); Protein Urine Negative (Negative); Urobilinogen Urine 0.2 mg/dL (0.2-1.0)
[2021-11-03 15:16] LABS: Bacteria Urine 1+ /hpf; RBC Urine None seen /hpf (0-2); Squamous Epithelial Cell Urine Few /hpf (Few)
[2021-11-03 15:17] LABS: Amphetamine Screen Urine Negative (Negative); Barbiturate Screen Urine Negative (Negative); Benzodiazepines Screen Urine Negative (Negative); Cannabinoid Screen Urine Negative (Negative); Cocaine Screen Urine Negative (Negative); Methadone Screen Urine Negative (Negative); Opiate Screen Urine Negative (Negative); Phencyclidine Screen Urine Negative (Negative)
[2021-11-03 15:19] VITALS: BP 129/49; PULSE 74; RESP 20; TEMP 37.1; O2SAT 91
--- NOTE | 2021-11-03 15:29 | PC.NURSE ---
resumed care from NIKKO Kendall. report received.
--- NOTE | 2021-11-03 15:32 | PC.NURSE ---
pt getting aggravated with wait time, explained exams are completed and dr ordoñez is reviewing results
[2021-11-03 15:52] VITALS: BP 144/76; PULSE 71; RESP 20; TEMP 36.9; O2SAT 94
--- NOTE | 2021-11-03 16:12 | ED.CHESTPAIN ---
HPI - Chest Pain General Chief Complaint: Chest Pain Stated Complaint: chest pain/L shoulder pain/Lump on belly Time Seen by Provider: 11/03/21 13:40 Source: patient and RN notes reviewed Mode of arrival: ambulatory Limitations: no limitations History of Present Illness complaint: chest pain Pertinent past history: coronary artery disease Onset (ago): hour(s) (11) Timing of current episode: now resolved Prior episodes: Yes Onset: during rest Pain location: parasternal Pain radiation: none Severity: moderate Pain scale (0-10): 6 Quality: aching Relieving factors: nitroglycerin Exacerbating factors: nothing Treatment prior to arrival: nitroglycerin Related Data Home Medications Medication Instructions Recorded Confirmed levothyroxine 150 mcg capsule 150 mcg PO EVERY OTHER DAY 02/12/20 11/03/21 levothyroxine 175 mcg capsule 175 mcg PO EVERY OTHER DAY 02/12/20 11/03/21 multivit with 1 tablet PO DAILY 02/12/20 11/03/21 yeaimgvd-twhl-NK-lutein 8 mg iron-400 mcg-300 mcg tablet nystatin 100,000 unit/gram topical 1 applic TOPICAL PRN PRN 02/12/20 11/03/21 powder pramipexole 1.5 mg tablet 1.5 mg PO DAILY 02/12/20 11/03/21 fluticasone propionate [Flonase 2 spray INTRANASAL PRN PRN 03/18/20 11/03/21 Allergy Relief] oxycodone-acetaminophen 5 mg-300 1 tablet PO Q4H PRN 01/12/21 11/03/21 mg tablet cholecalciferol (vitamin D3) 125 500 mcg PO DAILY 01/14/21 11/03/21 mcg (5,000 unit) tablet vitamin b12 500mcg 1,000 mcg PO DAILY 01/14/21 11/03/21 aspirin 81 mg tablet,delayed 81 mg PO DAILY 03/02/21 11/03/21 release albuterol 90 mcg INHALATION QID 03/18/21 11/03/21 magnesium oxide 250 mg PO BID 03/18/21 11/03/21 Allergies Allergy/AdvReac Type Severity Reaction Status Date / Time morphine Allergy Unknown Itching Verified 11/03/21 13:56 Sulfa (Sulfonamide Allergy Unknown Other Verified 11/03/21 13:56 Antibiotics) Review of Systems Review of Systems: All systems reviewed & are unremarkable except as noted in HPI and below PMFSH Past Medical History Medical History Bladder cancer Tumor removed toe chemo radiation Chronic ulcer of right leg COPD (chronic obstructive pulmonary disease) Diastolic congestive heart failure Hypothyroidism Peripheral vascular disease Right leg Restless leg syndrome Sleep apnea Compliant with CPAP Surgical History Surgical History H/O dilation and curettage X2 H/O heart artery stent One stent H/O toe surgery H/O tubal ligation H/O: hysterectomy History of bilateral carpal tunnel release History of bilateral knee arthroplasty History of cystoscopy Removal of bladder tumor History of tonsillectomy Hx of cholecystectomy S/P rotator cuff repair X5 Family History Family History Mother Acute myocardial infarction Father Acute myocardial infarction Cancer Heart disease Social History Social History Social History: The patient continues to smoke a half pack a cigarettes a day. She has 4 sons. Ryder is a durable power prosecuting attorney for healthcare and she desires to be a full code. The patient is . 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 She denies any alcohol marijuana or illicit drugs. She lives home alone. Smoking packs per day: 0.5 Smoking cigarettes per day: 10.0 Years smoked: 58 Smoking pack-years: 29.00 Smoking status: Current every day smoker Tobacco type: cigarettes Second hand tobacco smoke exposure: Yes Alcohol intake: never Substance use: never Substance use type: does not use Gender identity (if verbalized by the patient): Female Spiritual care concerns: No Exam Const: General: healthy appearing, no acute distress and alert Orientation/consciousness: patient oriented x3 HENMT: Head: normal to
[2021-11-03] MEDS: FUROSEMIDE INJ 100 MG/10 ML VIAL 80 MG IV PUSH (16:17)
[2021-11-03] MEDS: POTASSIUM CHLORIDE 20 MEQ TABLET PO (16:17)
== END 2021-11-03 16:57 | disposition home or self-care (01) ==
PROVIDERS: Emergency Provider Emergency Medicine; PCP Internal Medicine
DX: I25.10 Atherosclerotic heart disease of native coronary artery without angina pectoris (principal); R07.89 Other chest pain; I50.9 Heart failure, unspecified; N39.0 Urinary tract infection, site not specified; E03.9 Hypothyroidism, unspecified; I73.9 Peripheral vascular disease, unspecified; F17.200 Nicotine dependence, unspecified, uncomplicated; Z79.899 Other long term (current) drug therapy
CPT/HCPCS: 36415; 71045; 80053; 80307; 81001; 83880; 84484; 85025; 87077; 87086; 87088; 93005; 94640; 96365; 96375; 99283; 99284; A9270; J0696; J1940

== ENCOUNTER 2021-11-27 08:17 | Outpatient (CLI) | payer MEDICARE, SELFPAY ==
--- NOTE | ~2021-11-27 | DEXA_ITS ---
Bone Density Report Name: YVONNE NEGRON Age: 76 Sex: Female Ethnicity: White Date of : 1945 Indication: hyperparathyroidism; parental hip fracture; height loss; prior fracture; hysterectomy; Referring Provider: KAREN, MADELYN Morrison Study: Bone densitometry was performed. Exam Date: November 27, 2021 Accession number: [id number] Bone Density: Region BMD T-score Z-score Classification Femoral Neck (Left) 0.697 -1.4 0.7 Osteopenia Total Hip (Left) 0.917 -0.2 1.6 Normal Femoral Neck (Right) 0.728 -1.1 1.0 Osteopenia Total Hip (Right) 0.926 -0.1 1.6 Normal Femoral Neck Mean 0.712 -1.2 0.8 Osteopenia Total Hip Mean 0.921 -0.2 1.6 Normal World Health Organization criteria for BMD impression classify patients as: Normal (T-score at or above -1.0), Osteopenia (T-score between -1.0 and -2.5), or Osteoporosis (T-score at or below -2.5). 10-year Fracture Risk(1): Major Osteoporotic Fracture 23% Hip Fracture 13% Reported Risk Factors: [place] (), Neck BMD=0.697, BMI=47.8, previous fracture, parental fracture, smoking (1) FRAX(R) Version 3.08. Fracture probability calculated for an untreated patient. Fracture probability may be lower if the patient has received treatment. Clinical Information Provided by Patient: Has had a low trauma fracture Parent has had a hip fracture Smokes Has used the following medications: Actonel (i.e. risedronate), Vitamin D, Calcium Has the following medical conditions: Hyperparathyroidism, Hysterectomy Patient maximum height was 61 Menopause Age: 36 No regular weight bearing exercise Drinks caffeinated beverages Onset of menses at age 16 Number of children 4 Missed period for more than 6 months in a row Impression: The patient has low bone mass, based on the Left Femoral Neck T-score. The patient has risk factors, including: parental hip fracture, smoking, previous fracture. Discussion: BONE DENSITY IS LOW AT ONE OR MORE SKELETAL SITES. This patient's lowest T-score is low at one or more skeletal sites. It meets the World Health Organization's (WHO) criteria for ?low bone mass? (T-score between -1.0 and -2.5). The patient's 10-year risk of fracture as calculated by FRAX is less than the threshold where pharmacological therapy is recommended by the National Osteoporosis Foundation (NOF). However, all treatment decisions require clinical judgment and consideration of individual patient factors, including patient preferences, comorbidities, previous drug use, risk factors not captured in the FRAX model (e.g., frailty, falls, vitamin D deficiency, increased bone turnover, interval significant decline in bone density) and possible under or overestimation of fracture risk by FRAX. The patient should follow a healthful lifestyle (good nutriti
[2021-11-27 09:25] LABS: Hemoglobin A1C 6.4 % (<5.7)
[2021-11-27 09:43] LABS: Anion Gap 7 mmol/L (8-16); Blood Urea Nitrogen 27 mg/dL (7-18); Calcium 8.9 mg/dL (8.5-10.1); Carbon Dioxide 37 mmol/L (21-32); Chloride 97 mmol/L (98-108); Estimated Glomerular Filt Rate 53; Glucose 94 mg/dL (70-99); Osmolality Calculated 297 mOsm/kg (285-295); Potassium 2.6 mmol/L (3.5-5.1); Sodium 141 mmol/L (136-145)
[2021-11-27 09:58] LABS: Free T4 Free Thyroxine Reflex 1.16 ng/dL (0.76-1.46); Thyroid Stimulating Hormone Reflex 3.76 u/IU/mL (0.36-3.74)
== END 2021-11-27 08:18 | disposition home or self-care (01) ==
PROVIDERS: PCP Internal Medicine; Visit Provider Internal Medicine
DX: M81.0 Age-related osteoporosis without current pathological fracture (principal); E03.9 Hypothyroidism, unspecified; R73.09 Other abnormal glucose; E87.6 Hypokalemia
CPT/HCPCS: 36415; 77080; 80048; 83036; 84439; 84443

== ENCOUNTER 2021-12-04 11:41 | Outpatient (CLI) | payer MEDICARE, SELFPAY ==
[2021-12-04 12:03] LABS: Anion Gap 7 mmol/L (8-16); Blood Urea Nitrogen 24 mg/dL (7-18); Calcium 8.8 mg/dL (8.5-10.1); Carbon Dioxide 37 mmol/L (21-32); Chloride 99 mmol/L (98-108); Estimated Glomerular Filt Rate 49; Glucose 135 mg/dL (70-99); Magnesium 1.7 mg/dL (1.8-2.4); Osmolality Calculated 302 mOsm/kg (285-295); Potassium 2.9 mmol/L (3.5-5.1); Sodium 143 mmol/L (136-145)
== END 2021-12-04 11:42 | disposition home or self-care (01) ==
LOC: CHSLAB 11:43
PROVIDERS: PCP Internal Medicine; Visit Provider Internal Medicine Cardiovascular Disease
DX: I25.10 Atherosclerotic heart disease of native coronary artery without angina pectoris (principal)
CPT/HCPCS: 36415; 80048; 83735

== ENCOUNTER 2021-12-05 10:28 | Outpatient (CLI) | payer MEDICARE, SELFPAY | END 2021-12-05 10:29 | disposition home or self-care (01) | LOC: CHSIMG 10:30 | PROVIDERS: PCP Internal Medicine; Visit Provider Nurse Practitioner Family | DX: M54.16 Radiculopathy, lumbar region (principal) | CPT/HCPCS: 99199 ==

== ENCOUNTER 2021-12-07 12:46 | Outpatient (CLI) | payer MEDICARE, SELFPAY ==
--- NOTE | ~2021-12-07 | XR_ITS ---
EXAMINATION: XR chest 2V EXAM DATE: 12/07/2021 15:40 INDICATION: SOB x 1 wk . TECHNIQUE: Frontal and lateral projections of the chest obtained and reviewed. Comparison is made to prior examination from 11/03/2020. FINDINGS: The lungs are clear. There are no pleural effusions. Mild cardiomegaly. There is no pneu mothorax suspected. Thoracolumbar fusion hardware. IMPRESSION: No acute cardiopulmonary findings. Reviewed, dictated and finalized at location G. NING AND MAINTENANCE WORKER
--- NOTE | ~2021-12-07 | US_ITS ---
EXAMINATION: US venous doppler [facility] DATE: 12/07/2021 15:36 INDICATION: Bilateral lower limb edema TECHNIQUE: Li scale images without and with compression and Doppler images of the bilateral lower e xtremity veins were obtained. COMPARISON: 03/19/2020 FINDINGS: The right common femoral vein, profunda femoral vein, femoral vein, popliteal vein, peroneal trunk, p osterior tibial veins, and greater saphenous vein are patent. The left common femoral vein, profunda femoral vein, femoral vein, popliteal vein, peroneal trunk, po sterior tibial veins, and greater saphenous vein are patent. IMPRESSION: 1. Patent bilateral lower extremity veins. No evidence of deep venous thrombosis. Reviewed, dictated and finalized at location B. LTY DIPPER IMPRESSION: 1. Patent bilateral lower extremity veins. No evidence of deep venous thrombosi s.
[2021-12-07 13:24] LABS: Anion Gap 5 mmol/L (8-16); Blood Urea Nitrogen 18 mg/dL (7-18); Calcium 8.8 mg/dL (8.5-10.1); Carbon Dioxide 37 mmol/L (21-32); Chloride 100 mmol/L (98-108); Estimated Glomerular Filt Rate 50; Glucose 145 mg/dL (70-99); Osmolality Calculated 298 mOsm/kg (285-295); Potassium 3.1 mmol/L (3.5-5.1); Sodium 142 mmol/L (136-145)
--- NOTE | 2021-12-07 14:59 | ECG_ITS ---
Measurements Intervals [place] Rate: 107 P: 63 TN: 162 QRS: -73 QRSD: 141 T: 30 QT: 380 QTc: 507 Interpretive Statements SINUS TACHYCARDIA FREQUENT ATRIAL PREMATURE COMPLEXES RIGHT BUNDLE BRANCH BLOCK LEFT ANTERIOR FASCICULAR BLOCK LEFT VENTRICULAR HYPERTROPHY BASELINE ARTIFACT- I, III, AVR, AVL, AVF, V5 ABNORMAL ECG Electronically Signed On 12-07-2021 15:24:08 PRE PRESS OPERATOR by Nasir Kaminski D.O.
== END 2021-12-07 12:47 | disposition home or self-care (01) ==
PROVIDERS: PCP Internal Medicine; Visit Provider Internal Medicine Cardiovascular Disease
DX: R06.00 Dyspnea, unspecified (principal); I25.10 Atherosclerotic heart disease of native coronary artery without angina pectoris; R60.0 Localized edema
CPT/HCPCS: 36415; 71046; 80048; 93005; 93970

== ENCOUNTER 2021-12-14 13:17 | Outpatient (CLI) | payer MEDICARE, SELFPAY ==
[2021-12-14 13:48] LABS: Anion Gap 10 mmol/L (8-16); Blood Urea Nitrogen 18 mg/dL (7-18); Calcium 8.5 mg/dL (8.5-10.1); Carbon Dioxide 30 mmol/L (21-32); Chloride 103 mmol/L (98-108); Estimated Glomerular Filt Rate 57; Glucose 119 mg/dL (70-99); Magnesium 1.9 mg/dL (1.8-2.4); Osmolality Calculated 298 mOsm/kg (285-295); Sodium 143 mmol/L (136-145)
== END 2021-12-14 13:18 | disposition home or self-care (01) ==
LOC: CHSLAB 13:19
PROVIDERS: PCP Internal Medicine; Visit Provider Internal Medicine Cardiovascular Disease
DX: R60.0 Localized edema (principal)
CPT/HCPCS: 36415; 80048; 83735

== ENCOUNTER 2021-12-23 08:50 | Outpatient (CLI) | payer MEDICARE, SELFPAY ==
[2021-12-23 09:10] VITALS: PULSE 68; O2SAT 96
[2021-12-23 09:12] VITALS: PULSE 76; O2SAT 85
[2021-12-23 09:17] VITALS: PULSE 84; O2SAT 92
--- NOTE | 2021-12-23 09:31 | HOMEO2EVAL ---
Evaluation was performed at [facility] Home Oxygen Evaluation RC: Home Oxygen (O2) Evaluation Start: 12/23/21 09:23 Freq: Status: Active Protocol: RPE Activity Type Activity Date Activity User E-Sign Co-Sign Detail Recorded Client Recorded Date Recorded By Document 12/23/21 09:10 SJVickie [id number] 12/23/21 09:30 SJB Document 12/23/21 09:12 SJB [id number] 12/23/21 09:30 SJB Document 12/23/21 09:17 SJB [id number] 12/23/21 09:30 SJB 12/23/21 12/23/21 12/23/21 09:10 09:12 09:17 Home O2 Evaluation Test Phase Resting Exercise Exercise Oxygen Delivery Room Air Room Air Nasal Cannula Oxygen Flow Rate (L/min) 1 Pulse Oximetry (90-100 %) 96 85 L 92 Pulse Rate (60-100 beats/min) 68 76 84 Activity Tolerance Good Good Rating of Perceived Dyspnea (PD) +2 Mild, Some +2 Mild, Some Difficulty, Difficulty, Noticeable to Noticeable to the Observer the Observer Rate of Perceived Exertion (PE) 12 12 Ambulation Distance (feet) 150 412 Ambulation Distance (meters) 45.71 125.57 Home Oxygen Evaluation Comments Will begin walk After 150 ft on Patient on room air r/a her Sp02 finished pushing dropped to 85%. another 412 ft wheelchair. Will start on on 1 lpm with 1lpm oxygen. her Sp02 staying at 92% and above. PLB was encouraged . Omar well. Treatment Charges O2 Evaluation - Outpatient
== END 2021-12-23 08:51 | disposition home or self-care (01) ==
LOC: CHSCARD 08:52
PROVIDERS: PCP Internal Medicine; Visit Provider Nurse Practitioner Family
DX: R06.02 Shortness of breath (principal)
CPT/HCPCS: 94618

== ENCOUNTER 2021-12-28 13:10 | Outpatient (CLI) | payer MEDICARE, SELFPAY ==
[2021-12-28 13:34] LABS: Anion Gap 7 mmol/L (8-16); Blood Urea Nitrogen 20 mg/dL (7-18); Carbon Dioxide 34 mmol/L (21-32); Chloride 103 mmol/L (98-108); Estimated Glomerular Filt Rate 45; Glucose 157 mg/dL (70-99); Magnesium 1.7 mg/dL (1.8-2.4); Osmolality Calculated 303 mOsm/kg (285-295); Potassium 3.4 mmol/L (3.5-5.1); Sodium 144 mmol/L (136-145)
== END 2021-12-28 13:11 | disposition home or self-care (01) ==
LOC: CHSLAB 13:11
PROVIDERS: PCP Internal Medicine; Visit Provider Internal Medicine Cardiovascular Disease
DX: I25.10 Atherosclerotic heart disease of native coronary artery without angina pectoris (principal); R60.9 Edema, unspecified
CPT/HCPCS: 36415; 80048; 83735

== ENCOUNTER 2022-01-01 13:50 | Outpatient (CLI) | payer MEDICARE, SELFPAY ==
[2022-01-01 14:38] LABS: Anion Gap 10 mmol/L (8-16); Blood Urea Nitrogen 22 mg/dL (7-18); Calcium 8.7 mg/dL (8.5-10.1); Carbon Dioxide 33 mmol/L (21-32); Chloride 102 mmol/L (98-108); Estimated Glomerular Filt Rate 51; Glucose 181 mg/dL (70-99); Magnesium 1.9 mg/dL (1.8-2.4); Osmolality Calculated 308 mOsm/kg (285-295); Potassium 3.6 mmol/L (3.5-5.1); Sodium 145 mmol/L (136-145)
== END 2022-01-01 13:51 | disposition home or self-care (01) ==
LOC: CHSLAB 13:51
PROVIDERS: PCP Internal Medicine; Visit Provider Internal Medicine Cardiovascular Disease
DX: R60.9 Edema, unspecified (principal)
CPT/HCPCS: 36415; 80048; 83735

== ENCOUNTER 2022-01-06 10:58 | Outpatient (CLI) | payer MEDICARE, SELFPAY ==
--- NOTE | ~2022-01-06 | CT_ITS ---
EXAMINATION: CT lung screening DATE: 01/06/2022 11:15 INDICATION: Personal history of tobacco dependence. Shortness of breath. TECHNIQUE: Computed tomography (CT) of the chest was performed without intravenous contrast. The dose -length product was 380.78 mGy-cm. Automated exposure control and iterative reconstruction technique were employed. COMPARISON: Chest x-ray dated 12/07/2021 FINDINGS: Borderline heart size. No significant pleural or pericardial effusion. No thoracic lymphade nopathy. There is atherosclerosis of the aorta and coronary arteries. There is a low-density 3.3 cm l eft adrenal mass, consistent with adenoma. There is emphysema. There is mild bronchiectasis in the up per lobes. No endobronchial lesions. There is upper lobe scarring. There are a few 1-2 mm subpleural nodules in the upper lobes, best seen on coronal reconstructions, likely benign. Moderate-severe mid and lower thoracic spondylosis with accentuated kyphosis. There are spinal fusion changes in the lowe r thoracic spine. No focal lytic or blastic lesions. IMPRESSION: 1. Lung-RADS category 2: Benign appearance or behavior. Continue annual screening with noncontrast lo w-dose chest CT in 12 months. Reviewed, dictated and finalized at location A. TAPER IMPRESSION: 1. Lung-RADS category 2: Benign appearance or behavior. Continue annual screeni ng with noncontrast low-dose chest CT in 12 months.
== END 2022-01-06 10:59 | disposition home or self-care (01) ==
LOC: CHSIMG 10:59
PROVIDERS: PCP Internal Medicine; Visit Provider Nurse Practitioner Family
DX: Z12.2 Encounter for screening for malignant neoplasm of respiratory organs (principal); Z87.891 Personal history of nicotine dependence
CPT/HCPCS: 71271

== ENCOUNTER 2022-01-15 09:30 | Outpatient (CLI) | payer MEDICARE, SELFPAY ==
--- NOTE | 2022-01-18 09:16 | WPDPFTINT ---
PFT Procedure Performed PFT Procedure Performed Spirometry with Pre/Post Bronchodilator Plethysmography (Lung Vol) Diffusing Cap (DLCO) Flow Vol Loop PFT Interpretation DOS: 01/15/2022 REQUESTING: Fernando Lo APRN REASON FOR TESTING: Shortness of breath PULMONARY FUNCTION TESTS Results are reliable and reproducible. Spirometry: Pre-bronchodilator FEV1 is 71% predicted, 1.31 L, mildly decreased. The pre-bronchodilator FVC is 75% predicted. The FEV1/FVC ratio is normal. ILB38-60% is 61%. After bronchodilator administration, there is no significant change in flows. Lung volumes: Total lung capacity is normal, 92% predicted. The residual volume is 120% consistent with mild air trapping. RV/TLC is increased. Airway resistance 148%, mildly increased. Diffusion: DLCO is 48% predicted, moderately decreased. Flow volume loop: Unremarkable. IMPRESSION: Mild obstructive ventilatory impairment without response to bronchodilator, mild air trapping and moderate diffusion impairment. Lack of response to bronchodilator should not preclude use if clinically indicated. Shala Brown MD
== END 2022-01-15 09:31 | disposition home or self-care (01) ==
LOC: CHSCARD 09:31
PROVIDERS: PCP Internal Medicine; Visit Provider Nurse Practitioner Family
DX: R06.02 Shortness of breath (principal)
CPT/HCPCS: 94060; 94726; 94729

== ENCOUNTER 2022-01-29 13:59 | Outpatient (CLI) | payer MEDICARE, SELFPAY ==
--- NOTE | ~2022-01-29 | MM_ITS ---
EXAMINATION: MM screening grady BI w lucien HISTORY: Screening TECHNIQUE: Craniocaudal and mediolateral oblique 3-D tomosynthesis images were obtained and synthetic 2-D images were generated. CAD analysis was submitted and interpreted. COMPARISON: Comparison to multiple prior studies sequentially, with oldest reviewed study dated 05/17. BREAST PARENCHYMAL COMPOSITION: The breasts are almost entirely fatty. FINDINGS: There is no evidence of suspicious mass, calcification, or architectural distortion to sugg est malignancy in either breast. There has been no suspicious interval change. IMPRESSION: 1. No mammographic evidence of malignancy. 2. Recommend routine screening mammography in one year. BI-RADS Category 1: Negative Reviewed, dictated and finalized at location A.
== END 2022-01-29 14:00 | disposition home or self-care (01) ==
LOC: CHSIMG 13:59
PROVIDERS: PCP Internal Medicine; Visit Provider Internal Medicine
DX: Z12.31 Encounter for screening mammogram for malignant neoplasm of breast (principal)
CPT/HCPCS: 77063; 77067

== ENCOUNTER 2022-03-10 12:09 | Outpatient (CLI) | payer MEDICARE, SELFPAY ==
[2022-03-10 12:55] LABS: Cholesterol 104 mg/dL (0-200); HDL Direct 29 mg/dL (40-60); LDL Cholesterol Calculated 52 mg/dL (<130); Triglycerides 117 mg/dL (0-150)
== END 2022-03-10 12:10 | disposition home or self-care (01) ==
LOC: CHSLAB 12:12
PROVIDERS: PCP Internal Medicine; Visit Provider Internal Medicine Cardiovascular Disease
DX: I25.118 Atherosclerotic heart disease of native coronary artery with other forms of angina pectoris (principal)
CPT/HCPCS: 36415; 80061

== ENCOUNTER 2022-07-19 14:26 | Outpatient (CLI) | payer MEDICARE, SELFPAY ==
--- NOTE | ~2022-07-19 | XR_ITS ---
EXAMINATION: XR shoulder LT min 2V, XR shoulder RT min 2V DATE: 07/19/2022 15:26 INDICATION: Chronic bilateral shoulder pain TECHNIQUE: 1. AP, Grashey and axillary views of the left shoulder were obtained. 2. AP, Grashey and axillary views of the right shoulder were obtained. COMPARISON: None FINDINGS: Left shoulder: Normal alignment. No fracture.Advanced left glenohumeral osteoarthritis with remodeling of the eva l head and glenoid. Loss of posterior glenoid bone stock resulting in some acquired retroversion of t he glenoid. There is suggestion of prior distal clavicle resection. There is some narrowing of the cai bacromial space with small subacromial spurs. Additional hypertrophic osteophytes along the posterior aspect of the greater tuberosity. Soft tissues are unremarkable. Visualized portions of the lungs ar e clear. Right shoulder: Normal alignment. There has also been resection of the distal right clavicle. Mild to moderate right glenohumeral osteoarthritis also with some marginal osteophytes along the humeral head. Bone island a t the apex of the humeral head. Soft tissues are unremarkable. Visualized portions of the lungs are c lear. IMPRESSION: Bilateral glenohumeral osteoarthritis, mild to moderate on the right and advanced on the left. Reviewed, dictated and finalized at location A. IMPRESSION: Bilateral glenohumeral osteoarthritis, mild to moderate on the right and advanc ed on the left.
== END 2022-07-19 14:27 | disposition home or self-care (01) ==
LOC: CHSIMG 14:28
PROVIDERS: PCP Internal Medicine; Visit Provider Orthopaedic Surgery
DX: M25.512 Pain in left shoulder (principal); M25.511 Pain in right shoulder
CPT/HCPCS: 73030

== ENCOUNTER 2022-08-03 08:28 | Outpatient (CLI) | payer MEDICARE, SELFPAY ==
[2022-08-03 09:20] LABS: SARS-CoV-2 RNA PCR Negative (Negative)
== END 2022-08-03 08:29 | disposition home or self-care (01) ==
LOC: CHSLAB 08:32
PROVIDERS: PCP Internal Medicine; Visit Provider Pain Medicine Pain Medicine
DX: Z01.818 Encounter for other preprocedural examination (principal); Z20.822 Contact with and (suspected) exposure to COVID-19
CPT/HCPCS: C9803; U0003; U0005

== ENCOUNTER 2022-09-06 13:15 | Outpatient (CLI) | payer MEDICARE, SELFPAY ==
[2022-09-06 13:37] LABS: Basophils Absolute Auto 0.05 K/mm3 (0.00-0.10); Basophils Percent Auto 0.4 % (0.0-1.0); Eosinophils Percent Auto 1.8 % (1.0-6.0); Hematocrit 44.3 % (35.0-42.0); Hemoglobin 14.4 g/dL (11.7-13.8); Immature Granulocyte Absolute 0.07 K/mm3 (0.00-0.00); Immature Granulocyte Percent A 0.6 % (0.0-0.0); Lymphocytes Absolute Auto 2.32 K/mm3 (1.10-4.50); Lymphocytes Percent Auto 20.5 % (18.0-42.0); Mean Corpuscular HGB Conc 32.5 g/dL (32.0-36.0); Mean Corpuscular Hemoglobin 30.6 pg (27.0-31.0); Mean Corpuscular Volume 94.3 fL (78.0-102.0); Mean Platelet Volume 9.7 fl (9.2-11.8); Monocytes Absolute Auto 0.72 K/mm3 (0.10-0.90); Monocytes Percent Auto 6.4 % (2.0-11.0); Neutrophils Percent Auto 70.3 % (50.0-70.0); Platelet Count Result 243 K/mm3 (150-420); Red Cell Distribution Width 14.4 % (11.6-14.4); White Blood Count 11.3 K/mm3 (4.8-10.8)
[2022-09-06 13:44] LABS: Appearance Urine Clear (Clear); Bilirubin Urine Negative (Negative); Blood Urine Negative (Negative); Glucose Urine UA Negative (Negative); Ketones Urine Negative (Negative); Leukocyte Esterase Ur Negative LEU/UL (Negative); Nitrate Urine Negative (Negative); Protein Urine Negative (Negative); Urobilinogen Urine 0.2 mg/dL (0.2-1.0)
[2022-09-06 13:48] LABS: Add Urine Microscopic? NO; Color Urine Light Yellow (Yellow)
--- NOTE | 2022-09-06 14:15 | ECG_ITS ---
Measurements Intervals [place] Rate: 80 P: 65 IA: 164 QRS: -78 QRSD: 151 T: 30 QT: 403 QTc: 465 Interpretive Statements SINUS RHYTHM WITH SINUS ARRHYTHMIA RIGHT BUNDLE BRANCH BLOCK LEFT ANTERIOR FASCICULAR BLOCK VOLTAGE CRITERIA FOR LV BASELINE ARTIFACT- II, III ABNORMAL ECG COMPARED TO ECG 12/07/2021 15:15:25 HEART RATE HAS DECREASED Electronically Signed On 09-07-2022 6:42:40 CDT by Nasir Kaminski D.O.
[2022-09-06 14:31] LABS: Alanine Aminotransferase 26 U/L (14-59); Albumin Level 3.9 g/dL (3.4-5.0); Alkaline Phosphatase 122 U/L (46-116); Anion Gap 6 mmol/L (8-16); Aspartate Amino Transferase 14 U/L (15-37); Bilirubin,Total 0.5 mg/dL (0.00-1.00); Blood Urea Nitrogen 23 mg/dL (7-18); Calcium 8.9 mg/dL (8.5-10.1); Carbon Dioxide 36 mmol/L (21-32); Chloride 104 mmol/L (98-108); Estimated Glomerular Filt Rate 55; Glucose 118 mg/dL (70-99); Osmolality Calculated 306 mOsm/kg (285-295); Potassium 3.7 mmol/L (3.5-5.1); Sodium 146 mmol/L (136-145); Total Protein 6.5 g/dL (6.4-8.2)
[2022-09-06 14:38] LABS: CRP < 0.5 mg/dL (0.0-0.9)
[2022-09-06 14:40] LABS: Erythrocyte Sedimentation Rate 10 mm/hr (0-20)
== END 2022-09-06 13:16 | disposition home or self-care (01) ==
PROVIDERS: PCP Internal Medicine; Visit Provider Nurse Practitioner Family
DX: Z01.818 Encounter for other preprocedural examination (principal)
CPT/HCPCS: 36415; 80053; 81003; 85025; 85652; 86140; 93005

== ENCOUNTER 2022-09-13 10:06 | Outpatient (CLI) | payer MEDICARE, SELFPAY ==
[2022-09-13 10:18] LABS: Basophils Absolute Auto 0.04 K/mm3 (0.00-0.10); Basophils Percent Auto 0.4 % (0.0-1.0); Eosinophils Absolute Auto 0.24 K/mm3 (0.02-0.50); Eosinophils Percent Auto 2.2 % (1.0-6.0); Hematocrit 44.9 % (35.0-42.0); Hemoglobin 14.2 g/dL (11.7-13.8); Immature Granulocyte Absolute 0.05 K/mm3 (0.00-0.00); Immature Granulocyte Percent A 0.5 % (0.0-0.0); Lymphocytes Absolute Auto 2.36 K/mm3 (1.10-4.50); Lymphocytes Percent Auto 21.7 % (18.0-42.0); Mean Corpuscular HGB Conc 31.6 g/dL (32.0-36.0); Mean Corpuscular Hemoglobin 30.1 pg (27.0-31.0); Mean Corpuscular Volume 95.3 fL (78.0-102.0); Mean Platelet Volume 9.7 fl (9.2-11.8); Monocytes Absolute Auto 0.81 K/mm3 (0.10-0.90); Monocytes Percent Auto 7.5 % (2.0-11.0); Neutrophils Absolute Auto 7.4 K/mm3 (1.7-7.2); Neutrophils Percent Auto 67.7 % (50.0-70.0); Platelet Count Result 238 K/mm3 (150-420); Red Blood Count 4.71 M/mm3 (4.20-5.40); Red Cell Distribution Width 14.5 % (11.6-14.4); White Blood Count 10.9 K/mm3 (4.8-10.8)
== END 2022-09-13 10:07 | disposition home or self-care (01) ==
LOC: CHSLAB 10:08
PROVIDERS: PCP Internal Medicine; Visit Provider Pain Medicine Pain Medicine
DX: D72.829 Elevated white blood cell count, unspecified (principal)
CPT/HCPCS: 36415; 85025

== ENCOUNTER 2023-01-07 14:55 | Outpatient (CLI) | payer MEDICARE, SELFPAY ==
--- NOTE | ~2023-01-07 | CT_ITS ---
EXAMINATION: CT lung screening DATE: 01/07/2023 15:19 INDICATION: Personal history of nicotine dependence, current smoker with 58 pack year history TECHNIQUE: Computed tomography (CT) of the chest was performed without intravenous contrast. The dose -length product (DLP) was 513.46 mGy-cm. 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 COMPARISON: 01/06/2022 FINDINGS: There is mild emphysema. There is a new airspace opacity of the left lower lobe measuring 2 .5 x 1.8 cm which may be infectious or inflammatory. No pleural effusion or pneumothorax. No patholog ically enlarged thoracic lymph nodes are identified. The heart size is normal. There is severe thorac ic spondylosis. Calcified coronary artery atherosclerosis is noted. There is a stable 3 cm left adre nal mass, consistent with an adenoma. Cysts are noted in the left kidney. IMPRESSION: 1. Lung-RADS category 0: Incomplete. Follow-up low-dose CT in one to three months is recommended. Reviewed, dictated and finalized at location F. E OPENER IMPRESSION: 1. Lung-RADS category 0: Incomplete. Follow-up low-dose CT in one to three erlin hs is recommended.
== END 2023-01-07 14:56 | disposition home or self-care (01) ==
LOC: CHSIMG 14:56
PROVIDERS: PCP Physician Assistant; Visit Provider Physician Assistant
DX: Z12.2 Encounter for screening for malignant neoplasm of respiratory organs (principal); Z87.891 Personal history of nicotine dependence
CPT/HCPCS: 71271

== ENCOUNTER 2023-01-25 13:29 | Outpatient (CLI) | payer MEDICARE, SELFPAY ==
[2023-01-25 13:54] LABS: Hemoglobin A1C 5.9 % (<5.7)
[2023-01-25 14:24] LABS: Thyroid Stimulating Hormone Reflex 2.08 u/IU/mL (0.36-3.74)
== END 2023-01-25 13:30 | disposition home or self-care (01) ==
LOC: CHSLAB 13:32
PROVIDERS: PCP Internal Medicine; Visit Provider Internal Medicine
DX: E03.9 Hypothyroidism, unspecified (principal); E11.42 Type 2 diabetes mellitus with diabetic polyneuropathy
CPT/HCPCS: 36415; 83036; 84443

== ENCOUNTER 2023-03-07 14:24 | Outpatient (CLI) | payer MEDICARE, SELFPAY ==
--- NOTE | 2023-03-07 14:32 | ECHO_ITS ---
Patient Info Name: Loreto Camejo Age: 78 years : 1945 Gender: Female Ht: 61 in Wt: 250 lbs BSA: 2.28 m2 HR: 55 bpm BP: 141 / 62 mmHg Heart Rhythm: Sinus Rhythm Technical Quality: Fair Exam Date: 03/07/2023 2:19 PM Exam Location: [facility] Patient Status: Outpatient Admit Date: 03/07/2023 Staff Ordering Physician: Nasir Kaminski DO Enrolled Agent: Opal Catherine RDCS Attending Provider: Nasir Kaminski DO Referring Physician: Gordy BUTTERFIELD; Exam Type: CA echo doppler color flow Study Info Indications I35.0 - Nonrheumatic aortic (valve) stenosis Complete two-dimensional, color flow and Doppler transthoracic echocardiogram is performed. History/Risk Factors Hypertension: No Dyslipidemia: No Peripheral Arterial Disease (PAD): No Obesity: Yes Renal Disease: No Coronary Artery Disease (CAD) No Date of Last Tobacco Use: 01/16/2021 Diabetes Mellitus: No Tobacco Use: Current - Every Day If Any Current, Tobacco Type: Cigarettes If Current - Every Day \T\ Cigarettes, Amount: Heavy Tobacco Use (>=10/day) Family History: Diabetes Mellitus, Coronary Artery Disease Deep Vein Thrombosis (DVT): None Dialysis: None Frailty Scale (CSHA): 4: Vulnerable Summary 1. Complete two-dimensional, color flow and Doppler transthoracic echocardiogram is performed. 2. Left ventricular chamber dimension is normal. 3. Left ventricular systolic function is normal, estimated at 65-70%. 4. The left ventricular diastolic function is grade I diastolic dysfunction. 5. E/e' 13 is mildly elevated. 6. Left atrial chamber dimension is severely enlarged. 7. The aortic valve is not well visualized. Cannot determine number of aortic valve leaflets. 8. There is moderate aortic valve sclerosis. 9. There is mild aortic valve stenosis with a peak velocity of 223 cm/s, mean gradient of 10 mmHg, and aortic valve area of 1.7 cm2. 10. The mitral valve has moderately calcified annulus. 11. There is mild mitral valve regurgitation. 12. There is mild tricuspid valve regurgitation. 13. No pulmonary hypertension, estimated pulmonary arterial systolic pressure is 30 mmHg. Recommendations * Smoking cessation counseling is recommended for this patient. Left Ventricle E/e' 13 is mildly elevated. Left ventricular chamber dimension is normal. Left ventricular systolic function is normal, estimated at 65-70%. The left ventricular diastolic function is grade I diastolic dysfunction. Right Ventricle Right ventricular systolic function is normal and with normal TAPSE 3.0 cm. Right ventricular chamber dimension is normal. Left Atria Left atrial chamber dimension is severely enlarged. Right Atria Right atrial chamber dimension is normal. Aortic Valve The aortic valve is not well visualized. Cannot determine number of aortic valve leaflets. There is moderate aortic valve sclerosis. There is mild aortic valve stenosis with a peak velocity of 223 cm/s, mean gradient of 10 mmHg, and aortic valve area of 1.7 cm2. There is no aortic valve regurgitation. Pulmonic Valve There is no pulmonic regurgitation. Mitral Valve The mitral valve has moderately calcified annulus. There is no mitral valve stenosis. There is mild mitral valve regurgitation. Tricuspid Valve There is mild tricuspid valve regurgitation. No pulmonary hypertension, estimated pulmonary arterial systolic pressure is 30 mmHg. Pericardium/Pleural There is no pericardial effusion. Inferior Vena Cava Normal inferior vena cava with >50% collapse upon inspiration consistent with normal
== END 2023-03-07 14:25 | disposition home or self-care (01) ==
LOC: CHSIMG 14:25
PROVIDERS: PCP Family Medicine; Visit Provider Internal Medicine Cardiovascular Disease
DX: I08.1 Rheumatic disorders of both mitral and tricuspid valves (principal)
CPT/HCPCS: 93306

== ENCOUNTER 2023-03-09 08:26 | Outpatient (CLI) | payer MEDICARE, SELFPAY ==
[2023-03-09 09:30] LABS: Alanine Aminotransferase 29 U/L (14-59); Albumin Level 3.9 g/dL (3.4-5.0); Alkaline Phosphatase 131 U/L (46-116); Anion Gap 6 mmol/L (8-16); Aspartate Amino Transferase 16 U/L (15-37); Bilirubin,Total 0.4 mg/dL (0.00-1.00); Blood Urea Nitrogen 23 mg/dL (7-18); Carbon Dioxide 36 mmol/L (21-32); Chloride 104 mmol/L (98-108); Cholesterol 130 mg/dL (0-200); Estimated Glomerular Filt Rate 48; Glucose 110 mg/dL (70-99); HDL Direct 37 mg/dL (40-60); LDL Cholesterol Calculated 55 mg/dL (<130); Osmolality Calculated 306 mOsm/kg (285-295); Potassium 4.3 mmol/L (3.5-5.1); Sodium 146 mmol/L (136-145); Total Protein 6.7 g/dL (6.4-8.2); Triglycerides 189 mg/dL (0-150)
== END 2023-03-09 08:27 | disposition home or self-care (01) ==
LOC: CHSLAB 08:29
PROVIDERS: Visit Provider Internal Medicine Cardiovascular Disease
DX: I25.118 Atherosclerotic heart disease of native coronary artery with other forms of angina pectoris (principal)
CPT/HCPCS: 36415; 80053; 80061

== ENCOUNTER 2023-03-21 11:59 | Outpatient (CLI) | payer MEDICARE, SELFPAY ==
--- NOTE | ~2023-03-21 | XR_ITS ---
XR chest 2V 03/21/2023 12:17 Indication: Shortness of breath Procedure: PA and lateral views of the chest Comparison: 12/07/2021 Findings: Cardiomegaly with mild interstitial edema. No significant effusion or pneumothorax. There a re multiple mild wedge compression deformities of the thoracic spine with accentuated kyphosis. Poste rior spinal fusion present at the lower thoracic and upper lumbar spine. Impression: 1: Cardiomegaly with mild interstitial edema. Reviewed, dictated and finalized at location B. Impression: 1: Cardiomegaly with mild interstitial edema.
== END 2023-03-21 12:00 | disposition home or self-care (01) ==
LOC: CHSIMG 12:02
PROVIDERS: PCP Family Medicine; Visit Provider Nurse Practitioner Family
DX: R06.02 Shortness of breath (principal); I51.7 Cardiomegaly; J81.0 Acute pulmonary edema
CPT/HCPCS: 71046

== ENCOUNTER 2023-03-24 09:09 | Outpatient (CLI) | payer MEDICARE, SELFPAY ==
[2023-03-24 09:50] LABS: Anion Gap 6 mmol/L (8-16); Blood Urea Nitrogen 26 mg/dL (7-18); Calcium 8.9 mg/dL (8.5-10.1); Carbon Dioxide 33 mmol/L (21-32); Chloride 104 mmol/L (98-108); Estimated Glomerular Filt Rate 59; Glucose 112 mg/dL (70-99); Magnesium 1.8 mg/dL (1.8-2.4); Osmolality Calculated 301 mOsm/kg (285-295); Potassium 4.1 mmol/L (3.5-5.1); Sodium 143 mmol/L (136-145)
== END 2023-03-24 09:10 | disposition home or self-care (01) ==
LOC: CHSLAB 09:13
PROVIDERS: PCP Family Medicine; Visit Provider Internal Medicine Cardiovascular Disease
DX: R60.0 Localized edema (principal)
CPT/HCPCS: 36415; 80048; 83735

== ENCOUNTER 2023-03-28 07:39 | Outpatient (CLI) | payer MEDICARE, SELFPAY ==
--- NOTE | 2023-03-28 07:44 | EST_ITS ---
Patient Info Name: Loreto Acevedo Age: 78 years : 1945 Gender: Female Ht: 61 in Wt: 250 lbs BSA: 2.28 m2 HR: 53 bpm BP: 118 / 47 mmHg Technical Quality: Good Exam Date: 03/28/2023 9:12 AM Exam Location: [facility] Patient Status: Outpatient Admit Date: 03/28/2023 Staff Ordering Physician: Nasir Kaminski DO Attending Provider: Nasir Kaminski DO Exam Type: CA stress jed w NM Study Info A regadenoson stress test was performed. History/Risk Factors Hypertension: No Dyslipidemia: No Peripheral Arterial Disease (PAD): No Obesity: Yes Renal Disease: No Coronary Artery Disease (CAD) No Date of Last Tobacco Use: 01/16/2021 Diabetes Mellitus: No Tobacco Use: Current - Every Day If Any Current, Tobacco Type: Cigarettes If Current - Every Day \T\ Cigarettes, Amount: Heavy Tobacco Use (>=10/day) Family History: Diabetes Mellitus, Coronary Artery Disease Deep Vein Thrombosis (DVT): None Dialysis: None Frailty Scale (CSHA): 4: Vulnerable Summary 1. 1. Negative lexiscan stress test for ischemic ST changes by ECG criteria. 2. 2. Stable hemodynamics throughout the test. 3. 3. Nuclear scan to follow and will be reported separately. Please correlate with it. Protocol: LEXISCAN Stress ECG Details Stage: REST Duration (min): 3 min : 59 sec HR (bpm): 53 SBP (mmHg): 118 DBP (mmHg): 47 Stage: REST Duration (min): 14 min : 22 sec HR (bpm): 52 SBP (mmHg): 118 DBP (mmHg): 47 Stage: STAGE 1 Duration (min): 0 min : 17 sec HR (bpm): 52 SBP (mmHg): 118 DBP (mmHg): 47 Stage: RECOVERY Duration (min): 0 min : 42 sec HR (bpm): 56 SBP (mmHg): 118 DBP (mmHg): 47 Stage: RECOVERY Duration (min): 1 min : 42 sec HR (bpm): 61 SBP (mmHg): 118 DBP (mmHg): 47 Stage: RECOVERY Duration (min): 2 min : 42 sec HR (bpm): 61 SBP (mmHg): 109 DBP (mmHg): 50 Stage: RECOVERY Duration (min): 3 min : 42 sec HR (bpm): 60 SBP (mmHg): 112 DBP (mmHg): 61 Stage: RECOVERY Duration (min): 4 min : 42 sec HR (bpm): 60 SBP (mmHg): 111 DBP (mmHg): 62 Stage: RECOVERY Duration (min): 5 min : 42 sec HR (bpm): 60 SBP (mmHg): 111 DBP (mmHg): 62 Stage: RECOVERY Duration (min): 6 min : 5 sec HR (bpm): 59 SBP (mmHg): 106 DBP (mmHg): 47 Rest HR: 52 bpm Peak HR: 61 bpm Rest Sys BP: 118 mmHg Peak Sys BP: 115 mmHg Max Pred HR: 144 bpm % Max Pred HR: 42 % Target HR: 122 bpm Max RPP: 7,015 bpm*mmHg BP Response: Normal blood pressure response Termination Reason: Completed protocol Cardiac Symptoms: None Total Time: 0 min : 17 sec Rest Marshall BP: 47 mmHg Peak Marshall BP: 58 mmHg Total Dose: 0.4 mg Resting ECG Sinus bradycardia with RBBB and Lt anterior fascicular block. Stress ECG No abnormal ST/T wave changes. Arrhythmias No arrhythmias were observed during the examination. Report Signatures
--- NOTE | 2023-03-28 15:17 | WPDCARIOSTRE ---
Nuclear Stress Test INDICATIONS Indications: Dyspnea PROCEDURE Procedure Performed: Myocardial Perf Spect-Multi Procedure: Patient underwent a lexiscan stress test and immediately was injected with 31.9 mCi of cardiolyte. Multiple tomographic images were obtained. These are of suboptimal quality images. There is evidence of large size, severe apical images with stress testing. A separate resting images were obtained after patient was injected with 10.0 mCi of cardiolyte. Multiple tomographic images were obtained. These are of suboptimal quality images. There is evidence of large size, severe apical images with rest testing. CONCLUSION Conclusion: 1. Myocardial perfusion imaging demonstrating a fixed large size apical perfusion defect suggestive of breast attenuation artifact. 2. No evidence of reversible ischemia. 3. Left ventriculogram demonstrates normal measured ejection fraction of 80% with no wall motion abnormalities. 4. TID 1.11 is not elevated.
== END 2023-03-28 07:40 | disposition home or self-care (01) ==
LOC: CHSCARD 07:40
PROVIDERS: PCP Family Medicine; Visit Provider Internal Medicine Cardiovascular Disease
DX: R06.00 Dyspnea, unspecified (principal)
CPT/HCPCS: 78452; 93017; A9502; J2785

== ENCOUNTER 2023-04-06 10:47 | Outpatient (RCR) | payer MEDICARE, SELFPAY ==
--- NOTE | 2023-04-06 12:08 | PTOPEVAL1 ---
Assessment and note entered by JT File, PT Evaluation Information Assessment Status Evaluation Diagnosis L shoulder RTC arthropathy Onset 03/30/23 Subjective Information patient reports she wants to have a reverse total shoulder replacement on the L shoulder. she reports she has had shoulder issues for many years . she has had a failed RTC repair in the past. she reports she is unable to reach behind her back or over head. she reports the pain in the L arm is horrible. patient reports she is unable to do her hair most days, and is unable to wipe herself after using the bathroom. Reported Pain Level Pain Score 9: Self Report Assessment PT Clinical Summary mrs. bean is a 78 yo woman who presents to skilled PT services for evaluation and treatment of L shoulder pain and weakness. upon examination, she presents with OA of the L shoulder and RTC weakness. she is severely limited in L shoulder active/passive rom, functional reaching, and reports signicant pain at all times. she would benefit from having a reverse total shoulder replacement DA. however, in the mean time she would benefit from continued skilled PT to the L shoulder to improve rom as much as possible. Plan of Care Interventions Electrical Stimulation,Hot Pack/Cold Pack,Patient/ Caregiver Educati,Therapeutic Activities, Therapeutic Exercise PT Services Indicated Yes Treatment Frequency and 2x weekly for 6 visits Duration These treatments will address the objective and functional deficits as defined above. The patient will be advanced safely and appropriately in order for the patient to progress towards his/her prior level of function. Additional exercises will be introduced and as well as a comprehensive home exercise program upon discharge, if needed, ?to ensure carryover of functional gains achieved in the clinic. This treatment plan has been reviewed and agreement upon by the patient.
--- NOTE | 2023-04-06 12:08 | OPREHPOC ---
Outpatient Therapy Plan of Care This is a Multidisciplinary Plan of Care that may contain components documented by all disciplines (PT, OT, and ST.) PT Problem 1 PT Problem #1 Knowledge Deficit PT Goal 1 Goal 1. independent and compliant with HEP to improve shoulder rom/strength, and tolerance for continued skilled PT. Target Visit 3 PT Problem 2 PT Problem #2 Pain PT Goal 1 Goal 1. patient to manage pain with modalities and medications to improve tolerance for continued skilled PT Target Visit 6 PT Problem 3 PT Problem #3 Impaired Range of Motion PT Goal 1 Goal 1. L shoulder prom flexion to 120 degrees 2. L shoulder arom flexion to 90 degrees 3. L shoulder prom IR/ER to 45 degrees each or better Target Visit 6 PT Problem 4 PT Problem #4 Impaired Functional Mobil PT Goal 1 Goal 1. functional reach to back of head with the L hand to do her hair 2. functional reach to the lmbar spine with the L hand to improve hygeine Target Visit 6
--- NOTE | 2023-04-22 07:05 | PTOPDC ---
Assessment and note entered by JT File, PT Evaluation Information Assessment Status Discharge Diagnosis L shoulder RTC arthropathy Onset 03/30/23 Subjective Information patient reports she is upset due to her surgery getting denied. she reports therapy is not helping , and until she is able to show that her surgery will get denied. she reports she continues to have significant pain in the L shoulder, and is limited in all movement. Reported Pain Level Pain Score 9: Self Report Assessment PT Clinical Summary mrs. bean presents to skilled PT services for her 5th skilled PT. she reports the pain continues to be high and she has had no improvements in her rom/strength. she displays worse passive L shoulder flexion. she continues to present with significant crepitus and sharp/ stabbing pain in the L shoulder. she will DC skilled PT this date, and follow up with MD for surgery. she has met only the goal for HEP performance, and would only best follow up with MD for surgical options for pain reduction and improved functional mobility. Plan of Care PT Services Indicated No
== END 2023-04-20 09:49 | disposition home or self-care (01) ==
LOC: CHSPT 10:47
PROVIDERS: Visit Provider Orthopaedic Surgery
DX: M12.812 Other specific arthropathies, not elsewhere classified, left shoulder (principal)
CPT/HCPCS: 97014; 97110; 97161; G0283

== ENCOUNTER 2023-04-11 12:43 | Outpatient (CLI) | payer MEDICARE, SELFPAY ==
--- NOTE | ~2023-04-11 | CT_ITS ---
CT Scan of the Chest without Contrast: Clinical Indication: Left lower lobe opacity, shortness of breath Technique: Contiguous sections were acquired throughout the chest without intravenous contrast. Dose reduction technique was used on this scan by utilizing automated exposure control and iterative recon struction technique. The dose-length product (DLP) was 464.75 mGy-cm. COMPARISON: 01/07/2023 Findings: There is no evidence of any significant mediastinal, hilar or axillary lymphadenopathy. Coronary grady ry calcifications are present. There is no evidence of pleural or pericardial effusion. Mild emphysema changes are similar to prior exam. Previously noted left lower lobe airspace opacity i s resolved, compatible with resolved infection. There is focal scarring at the right middle lobe. Images through the upper abdomen reveal 3.2 x 2.4 cm left adrenal nodule, unchanged, likely adenoma p robable smaller right adenoma also unchanged.. Probable subacute fracture deformity of the posterolat eral right eighth rib present. Impression: Mild emphysema. Previously noted left lower lobe opacity is resolved. Probable bilateral adrenal adenomas, left larger than right, stable from prior exam. Probable subacute fracture deformity of the posterolateral right eighth rib. Reviewed, dictated and finalized at location M. Impression: Mild emphysema. Previously noted left lower lobe opacity is resolved. Probable bilateral adrenal adenomas, left larger than right, stable from prior exam. Probable subacute fracture deformity of the posterolateral right eighth rib.
== END 2023-04-11 12:44 | disposition home or self-care (01) ==
LOC: CHSIMG 12:44
PROVIDERS: PCP Family Medicine; Visit Provider Nurse Practitioner Family
DX: R91.8 Other nonspecific abnormal finding of lung field (principal); J43.9 Emphysema, unspecified
CPT/HCPCS: 71250

== ENCOUNTER 2023-04-13 10:35 | Outpatient (CLI) | payer MEDICARE, SELFPAY ==
--- NOTE | ~2023-04-13 | MM_ITS ---
EXAMINATION: MM screening grady BI w lucien HISTORY: Screening TECHNIQUE: Craniocaudal and mediolateral oblique 3-D tomosynthesis images were obtained and synthetic 2-D images were generated. CAD analysis was submitted and interpreted. COMPARISON: Comparison to multiple prior studies sequentially, with oldest reviewed study dated 03/16. BREAST PARENCHYMAL COMPOSITION: There are scattered areas of fibroglandular density. FINDINGS: There is no evidence of suspicious mass, calcification, or architectural distortion to sugg est malignancy in either breast. There has been no suspicious interval change. IMPRESSION: 1. No mammographic evidence of malignancy. 2. Recommend routine screening mammography in one year. BI-RADS Category 1: Negative Reviewed, dictated and finalized at location A.
== END 2023-04-13 10:36 | disposition home or self-care (01) ==
LOC: CHSIMG 10:36
PROVIDERS: PCP Family Medicine; Visit Provider Family Medicine
DX: Z12.31 Encounter for screening mammogram for malignant neoplasm of breast (principal)
CPT/HCPCS: 77063; 77067

== ENCOUNTER 2023-05-02 11:13 | Outpatient (RCR) | payer MEDICARE, SELFPAY | END 2023-05-02 13:57 | disposition home or self-care (01) | LOC: CHSPT 11:13 | PROVIDERS: Visit Provider Family Medicine | DX: M48.04 Spinal stenosis, thoracic region (principal) | CPT/HCPCS: 97161 ==

== ENCOUNTER 2023-05-11 13:24 | Outpatient (CLI) | payer MEDICARE, SELFPAY ==
[2023-05-11 13:54] LABS: Basophils Absolute Auto 0.03 K/mm3 (0.00-0.10); Basophils Percent Auto 0.3 % (0.0-1.0); Eosinophils Absolute Auto 0.21 K/mm3 (0.02-0.50); Eosinophils Percent Auto 1.9 % (1.0-6.0); Hematocrit 44.4 % (35.0-42.0); Hemoglobin 14.1 g/dL (11.7-13.8); Immature Granulocyte Absolute 0.06 K/mm3 (0.00-0.00); Immature Granulocyte Percent A 0.5 % (0.0-0.0); Lymphocytes Absolute Auto 1.92 K/mm3 (1.10-4.50); Mean Corpuscular HGB Conc 31.8 g/dL (32.0-36.0); Mean Corpuscular Volume 97.6 fL (78.0-102.0); Mean Platelet Volume 9.7 fl (9.2-11.8); Monocytes Absolute Auto 0.87 K/mm3 (0.10-0.90); Monocytes Percent Auto 7.7 % (2.0-11.0); Neutrophils Absolute Auto 8.2 K/mm3 (1.7-7.2); Neutrophils Percent Auto 72.6 % (50.0-70.0); Platelet Count Result 203 K/mm3 (150-420); Red Blood Count 4.55 M/mm3 (4.20-5.40); Red Cell Distribution Width 15.2 % (11.6-14.4); White Blood Count 11.3 K/mm3 (4.8-10.8)
[2023-05-11 13:58] LABS: Appearance Urine Clear (Clear); Bilirubin Urine Negative (Negative); Blood Urine Negative (Negative); Color Urine Yellow (Yellow); Glucose Urine UA Negative (Negative); Ketones Urine Negative (Negative); Leukocyte Esterase Ur Negative (Negative); Nitrate Urine Negative (Negative); Protein Urine Negative (Negative); Specific Grav Ur 1.015 (1.010-1.020); Urobilinogen Urine 0.2 mg/dL (0.2-1.0); pH Urine 6.5 (5.0-8.0)
[2023-05-11 13:59] LABS: Add Urine Microscopic? NO
[2023-05-11 14:54] LABS: Alanine Aminotransferase 34 U/L (14-59); Albumin Level 3.7 g/dL (3.4-5.0); Alkaline Phosphatase 114 U/L (46-116); Anion Gap 7 mmol/L (8-16); Aspartate Amino Transferase 15 U/L (15-37); Bilirubin,Total 0.6 mg/dL (0.00-1.00); Blood Urea Nitrogen 26 mg/dL (7-18); Calcium 8.9 mg/dL (8.5-10.1); Carbon Dioxide 34 mmol/L (21-32); Chloride 106 mmol/L (98-108); Estimated Glomerular Filt Rate 50; Glucose 110 mg/dL (70-99); Osmolality Calculated 309 mOsm/kg (285-295); Potassium 4.1 mmol/L (3.5-5.1); Sodium 147 mmol/L (136-145); Total Protein 6.3 g/dL (6.4-8.2)
== END 2023-05-11 13:25 | disposition home or self-care (01) ==
LOC: CHSLAB 13:39
PROVIDERS: PCP Family Medicine; Visit Provider Orthopaedic Surgery
DX: Z79.899 Other long term (current) drug therapy (principal)
CPT/HCPCS: 36415; 80053; 81003; 85025; 87086; 87088

== ENCOUNTER 2023-05-16 10:59 | Outpatient (CLI) | payer MEDICARE, SELFPAY ==
--- NOTE | 2023-05-16 11:00 | ECG_ITS ---
Rate [place] QRSd QT QTc P QRS T Severity 69 168 142 429 462 50 -62 -5 Abnormal ECG SINUS RHYTHM RIGHT BUNDLE BRANCH BLOCK LEFT ANTERIOR FASCICULAR BLOCK VOLTAGE CRITERIA FOR LVH MINIMAL Q WAVES- HIGH LATERAL LEADS BASELINE ARTIFACT- V5-V6 ABNORMAL ECG COMPARED TO ECG 09/06/2022 14:13:10 NO SIGNIFICANT CHANGES Electronically Signed On 05-16-2023 11:35:29 CDT by Nasir TEIXEIRA
== END 2023-05-16 11:00 | disposition home or self-care (01) ==
LOC: CHSCARD 11:02
PROVIDERS: PCP Family Medicine; Visit Provider Orthopaedic Surgery
DX: Z01.818 Encounter for other preprocedural examination (principal); I45.10 Unspecified right bundle-branch block; R94.31 Abnormal electrocardiogram [ECG] [EKG]
CPT/HCPCS: 93005

== ENCOUNTER 2023-05-23 14:47 | Inpatient (IN) | payer MEDICARE, SELFPAY ==
--- NOTE | ~2023-05-23 | XR_ITS ---
Left Shoulder Technique: AP and scapular Y views were obtained. Clinical History: Pain Findings: Left shoulder arthroplasty is in place. No definite hardware complication seen. Mild subcut aneous soft tissue edema likely postoperative in nature. There is mild to moderate degenerative baez e at the AC joint. Impression: Left shoulder arthroplasty in place. No hardware complication seen. No acute fracture or dislocation. Degenerative change of the AC joint, as above. Reviewed, dictated and finalized at location M. Impression: Left shoulder arthroplasty in place. No hardware complication seen. No acute fracture or dislocation. Degenerative change of the AC joint, as above.
[2023-05-23 15:20] VITALS: BMI 48.7
[2023-05-23 15:55] VITALS: BP 105/43; PULSE 58; RESP 14; TEMP 36.6; O2SAT 92
--- NOTE | 2023-05-23 15:57 | ADMGEN ---
[facility]2. Patient/family oriented to hospital policies and general routines including ID bracelet, bed and alarms, visiting hours, pain management, procedures, bathroom and other care routines, personal items, smoking policy, room service/diet, and visiting hours. Pt son will bring in her cpap from home, pt has her purse and cell phone with her Information on how to activate the Rapid Response Team has been discussed. Patient/Family are encouraged to report perceived risks to care and to ask questions if they do not understand what they are told or what they should do.
[2023-05-23 16:41] VITALS: BP 105/43; PULSE 58; RESP 14; TEMP 36.6; O2SAT 92; BMI 48.7
--- NOTE | 2023-05-23 18:46 | PC.NURSE ---
pt visiting with son, requests pain pill, pt is aware we are waiting on orders from the juvenile detention officer and will bring one in as soon as it is available, call light in reach
[2023-05-23] MEDS: FUROSEMIDE 40 MG TABLET PO (19:25)
[2023-05-23] MEDS: POTASSIUM CHLORIDE 20 MEQ ER TABLET PO (19:25)
[2023-05-23] MEDS: oxyCODONE/ACETAMINOPHEN (*CRX) 5-325 MG TABLET 1 TABLET PO (19:26)
[2023-05-23] MEDS: ASPIRIN 81 MG ENTERIC TABLET PO (19:26)
[2023-05-23] MEDS: ASCORBIC ACID 500 MG TABLET PO (19:26)
[2023-05-23] MEDS: PRAVASTATIN SODIUM 10 MG TABLET PO (19:26)
[2023-05-23 20:00] VITALS: PULSE 78; RESP 18; O2SAT 94
[2023-05-23 21:05] VITALS: PULSE 78
[2023-05-23] MEDS: METOPROLOL TARTRATE 50 MG TAB PO (21:05)
[2023-05-23] MEDS: ACETAMINOPHEN 325 MG TABLET 650 MG PO (21:31)
[2023-05-23 22:19] VITALS: PULSE 67; RESP 20; O2SAT 92
[2023-05-23] MEDS: oxyCODONE/ACETAMINOPHEN (*CRX) 5-325 MG TABLET 2 TABLET PO (22:28)
[2023-05-23 23:08] VITALS: PULSE 78; RESP 18; O2SAT 94
[2023-05-24] VITALS (9 sets, daily range): BP systolic 124–130; BP diastolic 47–84; PULSE 54–86; RESP 16–20; TEMP 36.1–36.8; O2SAT 87–94
[2023-05-24 05:40] LABS: Potassium 3.9 mmol/L (3.5-5.1)
[2023-05-24] MEDS: LEVOTHYROXINE SODIUM 100 MCG TABLET PO (05:46)
[2023-05-24] MEDS: LEVOTHYROXINE SODIUM 75 MCG TABLET PO (05:46)
[2023-05-24] MEDS: oxyCODONE/ACETAMINOPHEN (*CRX) 5-325 MG TABLET 2 TABLET PO ×2 (05:47→13:25)
[2023-05-24] MEDS: PRAMIPEXOLE 0.25 MG TABLET 0.5 MG PO ×3 (08:51→16:57)
[2023-05-24] MEDS: THERAPEUTIC MULTIVITAMINS/MINERALS TAB (*BKC) 1 TABLET PO (08:52)
[2023-05-24] MEDS: MAGNESIUM OXIDE 400 MG TABLET PO ×2 (08:52→16:56)
[2023-05-24] MEDS: CHOLECALCIFEROL 1,000 UNITS TABLET 2000 UNITS PO (08:52)
[2023-05-24] MEDS: FUROSEMIDE 40 MG TABLET PO ×2 (08:52→16:56)
[2023-05-24] MEDS: PRAMIPEXOLE 1 MG TABLET PO ×3 (08:52→16:57)
[2023-05-24] MEDS: ASPIRIN 81 MG ENTERIC TABLET PO ×2 (08:52→16:57)
[2023-05-24] MEDS: POTASSIUM CHLORIDE 20 MEQ ER TABLET PO ×2 (08:53→16:56)
[2023-05-24] MEDS: ASCORBIC ACID 500 MG TABLET PO ×2 (08:53→16:59)
[2023-05-24] MEDS: SPIRONOLACTONE 25 MG TABLET 50 MG PO (08:53)
--- NOTE | 2023-05-24 09:31 | PM.IMHP ---
H&P: HPI History of Present Illness Date/Time: 05/24/23 09:31 Chief Complaint: swing, left shoulder repair Narrative: this is 78-year-old female being admitted to the swing bed after left shoulder reversal told her arthroplasty patient has a past medical history of arthritis, bladder cancer, depression, bilateral carpal tunnel, back surgery, hyperlipidemia, hypertension, COPD with oxygen dependency, peripheral not neuropathy, sleep apnea, spinal stenosis, hypothyroidism, has had stent placed, hemorrhoid surgeries, lumbar surgical fusion, tonsillectomy, and tubal ligation. On arrival patient had multiple complaints just in general as well as all look had no positive output to there is nothing up to mystic be going well patient encouraged to relax be less frustrated we take great care of her we will treat patient with physical therapy medically patient is stable we will continue to monitor. Review of Systems Review of Systems: CONSTITUTIONAL: Denies fever, chills, or sweats. EYES: Denies visual changes, redness, or discharge. ENT: Denies rhinorrhea, congestion, sore throat, or otalgia. CARDIOVASCULAR:Denies chest pain, palpitations, or edema. RESPIRATORY: Denies cough or dyspnea. GASTROINTESTINAL: Denies abdominal pain, nausea, vomiting, or diarrhea. GENITOURINARY: Denies dysuria or hematuria. SKIN:[Denies rash or itching. MUSCULOSKELETAL: report back pain, joint pain, or myalgia. NEUROLOGIC: Denies headache, reports numbness, or weakness. PSYCHIATRIC: reportsanxiety or depression [facility] Past Medical History Medical History Bladder cancer Tumor removed toe chemo radiation Chronic ulcer of right leg Claustrophobia COPD (chronic obstructive pulmonary disease) Diastolic congestive heart failure Hypothyroidism Peripheral vascular disease Right leg Restless leg syndrome Sleep apnea Compliant with CPAP Spinal cord stimulator status Surgical History Surgical History H/O dilation and curettage X2 H/O heart artery stent One stent on 03/[address] Nasir Kaminski H/O toe surgery H/O tubal ligation H/O: hysterectomy History of back surgery 2009, 2012, 2013 at [facility] History of bilateral carpal tunnel release History of bilateral knee arthroplasty [address] Allan Marquis History of cystoscopy Removal of bladder tumor History of neck surgery fusion x 3 in 2009 History of tonsillectomy Hx of cholecystectomy S/P rotator cuff repair X5 by Dr. Allan Marquis and Dr. Machado [id number] Family History Family History Mother Acute myocardial infarction Father Acute myocardial infarction Cancer Heart disease Other Arthritis Bladder cancer Cerebrovascular accident Depression FH: kidney cancer Hyperlipidemia Hypertension Malignant neoplasm of prostate Neuropathy Social History Social History Social History: The patient continues to smoke a half pack a cigarettes a day. She has 4 sons. Ryder is a durable power district attorney for healthcare and she desires to be a full code. The patient is . 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 She denies any alcohol marijuana or illicit drugs. She lives home alone. Smoking packs per day: 0.5 Smoking cigarettes per day: 10.0 Years smoked: 58 Smoking pack-years: 29.00 Smoking status: Former smoker Tobacco type: cigarettes Second hand tobacco smoke exposure: Yes Smoking end date: 02/04/23 Additional smoking assessment comments: 50+ years at most 2ppd Alcohol intake: never Alcohol use details: occasionally when social Substance use: current Substance use type: prescription drug Lack of Transportation: No Lack of Food: Never True Current Housing: I Have Housing Concerned About Future Housing: No Difficulty Paying Gas/El
[2023-05-24] MEDS: METOPROLOL TARTRATE 50 MG TAB PO ×2 (13:27→20:34)
--- NOTE | 2023-05-24 15:58 | PC.NURSE ---
1130 margarita from her pmd office, dr. gonzales, called and claims that their office was checking her dc from [facility] and med doses on synthroid is not right and there is no prozac on there. our sports analyst aware aware of med differences and patient claims she takes mirplex tid and has not used albuterol inhaler in long time. waiting for changes.
[2023-05-24] MEDS: FLUoxetine HCL 20 MG CAPSULE 40 MG PO (16:59)
--- NOTE | 2023-05-24 17:16 | PC.NURSE ---
Patient questioning clinical writer on medications she was being administered, particularly Vitamin C and Aspirin. Patient stated that she did not take Vitamin C and that she only takes Aspirin daily, not twice daily. Patient also questioned getting her Prozac in the pm. Gage Maker explained to patient that the Prozac in the pm was a one time dose due to the fact that she had not been taking it for several days post surgery, and that the Aspirin had been increased likely due to her surgery. Gage Maker took patient's chart in and told patient that clinical writer wanted to set her mind at ease on the medication. Gage Maker showed patient the medication list from her prior hospital stay with dosages and administration times. Patient agreed that seeing the medication list eased her mind. Gage Maker asked patient if she had any more questions that clinical writer could answer, and patient said no.
[2023-05-24] MEDS: traZODone HCL 50 MG TABLET PO (20:34)
[2023-05-24] MEDS: PRAVASTATIN SODIUM 10 MG TABLET PO (20:35)
[2023-05-24] MEDS: oxyCODONE/ACETAMINOPHEN (*CRX) 5-325 MG TABLET 1 TABLET PO (20:35)
[2023-05-25] VITALS (8 sets, daily range): BP systolic 112–124; BP diastolic 48–60; PULSE 58–60; RESP 14–18; TEMP 36.3–36.6; O2SAT 93–97
--- NOTE | 2023-05-25 00:57 | PC.NURSE ---
polar pack applied to pt per request the left shoulder
--- NOTE | 2023-05-25 03:51 | PC.NURSE ---
On 05/25/23, the PRIMARY CARE COORDINATOR, [ Azam Iqbal], provided care and completed [facility] documentation on this patient. I have reviewed the PRIMARY CARE COORDINATOR's documentation and agree with the findings.
[2023-05-25] MEDS: oxyCODONE/ACETAMINOPHEN (*CRX) 5-325 MG TABLET 1 TABLET PO (04:25)
[2023-05-25 05:17] LABS: Hematocrit 38.3 % (35.0-42.0); Hemoglobin 12.2 g/dL (11.7-13.8); Mean Corpuscular HGB Conc 31.9 g/dL (32.0-36.0); Mean Corpuscular Hemoglobin 31.3 pg (27.0-31.0); Mean Corpuscular Volume 98.2 fL (78.0-102.0); Mean Platelet Volume 10.1 fl (9.2-11.8); Platelet Count Result 215 K/mm3 (150-420); Red Cell Distribution Width 15.1 % (11.6-14.4); White Blood Count 9.1 K/mm3 (4.8-10.8)
[2023-05-25 05:31] LABS: Alanine Aminotransferase 37 U/L (14-59); Albumin Level 2.9 g/dL (3.4-5.0); Alkaline Phosphatase 115 U/L (46-116); Anion Gap 4 mmol/L (8-16); Aspartate Amino Transferase 17 U/L (15-37); Bilirubin,Total 0.7 mg/dL (0.00-1.00); Blood Urea Nitrogen 26 mg/dL (7-18); Calcium 8.5 mg/dL (8.5-10.1); Carbon Dioxide 36 mmol/L (21-32); Chloride 105 mmol/L (98-108); Estimated CRCL calculation 52 ml/min; Estimated Glomerular Filt Rate 57; Glucose 106 mg/dL (70-99); Osmolality Calculated 304 mOsm/kg (285-295); Sodium 145 mmol/L (136-145); Total Protein 5.9 g/dL (6.4-8.2)
[2023-05-25] MEDS: METOPROLOL TARTRATE 50 MG TAB PO ×3 (06:44→21:03)
[2023-05-25] MEDS: LEVOTHYROXINE SODIUM 75 MCG TABLET 150 MCG PO (06:45)
[2023-05-25] MEDS: THERAPEUTIC MULTIVITAMINS/MINERALS TAB (*BKC) 1 TABLET PO (08:56)
[2023-05-25] MEDS: POTASSIUM CHLORIDE 20 MEQ ER TABLET PO ×2 (08:56→17:18)
[2023-05-25] MEDS: CHOLECALCIFEROL 1,000 UNITS TABLET 2000 UNITS PO (08:56)
[2023-05-25] MEDS: ASPIRIN 81 MG ENTERIC TABLET PO ×2 (08:57→17:18)
[2023-05-25] MEDS: PRAMIPEXOLE 0.25 MG TABLET 0.5 MG PO ×3 (08:57→17:18)
[2023-05-25] MEDS: FUROSEMIDE 40 MG TABLET PO ×2 (08:57→17:18)
[2023-05-25] MEDS: FLUoxetine HCL 20 MG CAPSULE 40 MG PO (08:57)
[2023-05-25] MEDS: PRAMIPEXOLE 1 MG TABLET PO ×3 (08:58→17:19)
[2023-05-25] MEDS: ASCORBIC ACID 500 MG TABLET PO ×2 (08:58→17:18)
[2023-05-25] MEDS: SPIRONOLACTONE 25 MG TABLET 50 MG PO (08:58)
[2023-05-25] MEDS: MAGNESIUM OXIDE 400 MG TABLET PO ×2 (08:59→17:19)
[2023-05-25] MEDS: oxyCODONE/ACETAMINOPHEN (*CRX) 5-325 MG TABLET 2 TABLET PO ×2 (12:03→18:18)
[2023-05-25] MEDS: PRAVASTATIN SODIUM 10 MG TABLET PO (21:03)
[2023-05-25] MEDS: traZODone HCL 50 MG TABLET PO (21:03)
[2023-05-26] VITALS (9 sets, daily range): BP systolic 111–121; BP diastolic 43–64; PULSE 48–66; RESP 17–18; TEMP 36.3–36.5; O2SAT 92–100
[2023-05-26] MEDS: oxyCODONE/ACETAMINOPHEN (*CRX) 5-325 MG TABLET 2 TABLET PO ×4 (01:07→19:45)
[2023-05-26] MEDS: LEVOTHYROXINE SODIUM 75 MCG TABLET PO ×2 (05:14→05:56)
[2023-05-26] MEDS: LEVOTHYROXINE SODIUM 100 MCG TABLET PO (05:14)
[2023-05-26 05:35] LABS: Potassium 4.1 mmol/L (3.5-5.1)
--- NOTE | 2023-05-26 05:53 | PC.NURSE ---
On 05/26/23, the SORTING AND FOLDING SUPERVISOR, [Tha ], provided care and completed [facility] documentation on this patient. I have reviewed the SORTING AND FOLDING SUPERVISOR's documentation and agree with the findings.
[2023-05-26] MEDS: PRAMIPEXOLE 1 MG TABLET PO ×3 (09:19→17:47)
[2023-05-26] MEDS: ASCORBIC ACID 500 MG TABLET PO ×2 (09:20→17:47)
[2023-05-26] MEDS: FUROSEMIDE 40 MG TABLET PO ×2 (09:20→17:47)
[2023-05-26] MEDS: PRAMIPEXOLE 0.25 MG TABLET 0.5 MG PO ×3 (09:20→17:47)
[2023-05-26] MEDS: FLUoxetine HCL 20 MG CAPSULE 40 MG PO (09:20)
[2023-05-26] MEDS: ASPIRIN 81 MG ENTERIC TABLET PO ×2 (09:20→17:47)
[2023-05-26] MEDS: SPIRONOLACTONE 25 MG TABLET 50 MG PO (09:20)
[2023-05-26] MEDS: CHOLECALCIFEROL 1,000 UNITS TABLET 2000 UNITS PO (09:20)
[2023-05-26] MEDS: THERAPEUTIC MULTIVITAMINS/MINERALS TAB (*BKC) 1 TABLET PO (09:20)
[2023-05-26] MEDS: MAGNESIUM OXIDE 400 MG TABLET PO ×2 (09:20→17:47)
[2023-05-26] MEDS: POTASSIUM CHLORIDE 20 MEQ ER TABLET PO ×2 (09:21→17:47)
[2023-05-26] MEDS: METOPROLOL TARTRATE 50 MG TAB PO ×2 (13:32→21:01)
[2023-05-26] MEDS: PRAVASTATIN SODIUM 10 MG TABLET PO (21:01)
[2023-05-26] MEDS: traZODone HCL 50 MG TABLET PO (21:01)
[2023-05-26] MEDS: ACETAMINOPHEN 325 MG TABLET 650 MG PO (23:18)
--- NOTE | 2023-05-27 02:15 | PC.NURSE ---
At 0215 Percocet given for c/o left shoulder pain at level 10
--- NOTE | 2023-05-27 03:10 | PC.NURSE ---
Pt sleeping, FLACC score 0 at this time
--- NOTE | 2023-05-27 06:15 | PC.NURSE ---
Levothyroxine 150mcg given with Tylenol 650mg for c/o left shoulder pain
[2023-05-27 06:45] VITALS: O2SAT 95
[2023-05-27 08:00] VITALS: BP 107/45; PULSE 55; RESP 15; TEMP 36.5; O2SAT 92
[2023-05-27] MEDS: oxyCODONE/ACETAMINOPHEN (*CRX) 5-325 MG TABLET 2 TABLET PO ×3 (08:38→21:08)
[2023-05-27 08:41] VITALS: PULSE 64
[2023-05-27] MEDS: METOPROLOL TARTRATE 50 MG TAB PO ×2 (08:41→21:08)
[2023-05-27] MEDS: FUROSEMIDE 40 MG TABLET PO ×2 (08:41→17:48)
[2023-05-27] MEDS: CHOLECALCIFEROL 1,000 UNITS TABLET 2000 UNITS PO (08:41)
[2023-05-27] MEDS: PRAMIPEXOLE 1 MG TABLET PO ×3 (08:41→17:47)
[2023-05-27] MEDS: PRAMIPEXOLE 0.25 MG TABLET 0.5 MG PO ×3 (08:41→17:47)
[2023-05-27] MEDS: ASPIRIN 81 MG ENTERIC TABLET PO ×2 (08:42→17:48)
[2023-05-27] MEDS: FLUoxetine HCL 20 MG CAPSULE 40 MG PO (08:42)
[2023-05-27] MEDS: MAGNESIUM OXIDE 400 MG TABLET PO ×2 (08:42→17:48)
[2023-05-27] MEDS: ASCORBIC ACID 500 MG TABLET PO ×2 (08:42→17:48)
[2023-05-27] MEDS: SPIRONOLACTONE 25 MG TABLET 50 MG PO (08:42)
[2023-05-27] MEDS: THERAPEUTIC MULTIVITAMINS/MINERALS TAB (*BKC) 1 TABLET PO (08:42)
[2023-05-27] MEDS: POTASSIUM CHLORIDE 20 MEQ ER TABLET PO ×2 (08:42→17:48)
[2023-05-27 16:00] VITALS: BP 96/86; PULSE 51; RESP 16; TEMP 35.9; O2SAT 95
[2023-05-27] MEDS: PRAVASTATIN SODIUM 10 MG TABLET PO (21:08)
[2023-05-27] MEDS: traZODone HCL 50 MG TABLET PO (21:08)
[2023-05-27 23:59] VITALS: BP 114/50; PULSE 71; RESP 18; TEMP 36.3; O2SAT 97
[2023-05-28] MEDS: oxyCODONE/ACETAMINOPHEN (*CRX) 5-325 MG TABLET 2 TABLET PO ×3 (03:14→23:59)
[2023-05-28 05:19] LABS: Potassium 4.4 mmol/L (3.5-5.1)
[2023-05-28 05:46] VITALS: O2SAT 97
[2023-05-28] MEDS: LEVOTHYROXINE SODIUM 100 MCG TABLET PO (06:14)
[2023-05-28 08:00] VITALS: BP 126/63; PULSE 63; TEMP 36.5; O2SAT 99
[2023-05-28] MEDS: CHOLECALCIFEROL 1,000 UNITS TABLET 2000 UNITS PO (08:40)
[2023-05-28] MEDS: ASPIRIN 81 MG ENTERIC TABLET PO ×2 (08:41→17:38)
[2023-05-28] MEDS: FUROSEMIDE 40 MG TABLET PO ×2 (08:41→17:38)
[2023-05-28] MEDS: SPIRONOLACTONE 25 MG TABLET 50 MG PO (08:42)
[2023-05-28] MEDS: FLUoxetine HCL 20 MG CAPSULE 40 MG PO (08:42)
[2023-05-28] MEDS: THERAPEUTIC MULTIVITAMINS/MINERALS TAB (*BKC) 1 TABLET PO (08:42)
[2023-05-28 08:43] VITALS: PULSE 63
[2023-05-28] MEDS: ASCORBIC ACID 500 MG TABLET PO ×2 (08:43→17:38)
[2023-05-28] MEDS: METOPROLOL TARTRATE 50 MG TAB PO ×2 (08:43→20:53)
[2023-05-28] MEDS: MAGNESIUM OXIDE 400 MG TABLET PO ×2 (08:43→17:37)
[2023-05-28] MEDS: ACETAMINOPHEN 325 MG TABLET 650 MG PO ×2 (08:44→20:53)
[2023-05-28] MEDS: PRAMIPEXOLE 1 MG TABLET PO ×3 (08:44→17:38)
[2023-05-28] MEDS: PRAMIPEXOLE 0.25 MG TABLET 0.5 MG PO ×3 (08:50→17:37)
[2023-05-28 16:00] VITALS: BP 146/63; PULSE 66; RESP 14; TEMP 36.5; O2SAT 99
[2023-05-28 20:00] VITALS: PULSE 69; RESP 14; O2SAT 92
[2023-05-28 20:53] VITALS: PULSE 69
[2023-05-28] MEDS: PRAVASTATIN SODIUM 10 MG TABLET PO (20:53)
[2023-05-28] MEDS: traZODone HCL 50 MG TABLET PO (20:53)
[2023-05-29] VITALS (8 sets, daily range): BP systolic 109–133; BP diastolic 49–90; PULSE 53–78; RESP 14–17; TEMP 36.5–36.6; O2SAT 90–97
[2023-05-29] MEDS: LEVOTHYROXINE SODIUM 75 MCG TABLET 150 MCG PO (05:55)
[2023-05-29] MEDS: oxyCODONE/ACETAMINOPHEN (*CRX) 5-325 MG TABLET 2 TABLET PO ×3 (05:56→23:13)
[2023-05-29] MEDS: PRAMIPEXOLE 1 MG TABLET PO ×3 (08:48→16:30)
[2023-05-29] MEDS: CHOLECALCIFEROL 1,000 UNITS TABLET 2000 UNITS PO (08:48)
[2023-05-29] MEDS: THERAPEUTIC MULTIVITAMINS/MINERALS TAB (*BKC) 1 TABLET PO (08:49)
[2023-05-29] MEDS: FUROSEMIDE 40 MG TABLET PO ×2 (08:50→16:27)
[2023-05-29] MEDS: ASCORBIC ACID 500 MG TABLET PO ×2 (08:50→16:28)
[2023-05-29] MEDS: MAGNESIUM OXIDE 400 MG TABLET PO ×2 (08:51→16:27)
[2023-05-29] MEDS: FLUoxetine HCL 20 MG CAPSULE 40 MG PO (08:51)
[2023-05-29] MEDS: PRAMIPEXOLE 0.25 MG TABLET 0.5 MG PO ×3 (08:52→16:27)
[2023-05-29] MEDS: SPIRONOLACTONE 25 MG TABLET 50 MG PO (08:52)
[2023-05-29] MEDS: ASPIRIN 81 MG ENTERIC TABLET PO ×2 (08:53→16:28)
[2023-05-29] MEDS: METOPROLOL TARTRATE 50 MG TAB PO ×2 (08:54→20:15)
[2023-05-29] MEDS: ACETAMINOPHEN 325 MG TABLET 650 MG PO ×2 (08:55→20:15)
[2023-05-29] MEDS: traZODone HCL 50 MG TABLET PO (20:15)
[2023-05-29] MEDS: PRAVASTATIN SODIUM 10 MG TABLET PO (20:15)
[2023-05-30 05:19] LABS: Potassium 3.9 mmol/L (3.5-5.1)
[2023-05-30] MEDS: LEVOTHYROXINE SODIUM 100 MCG TABLET PO (05:33)
[2023-05-30] MEDS: oxyCODONE/ACETAMINOPHEN (*CRX) 5-325 MG TABLET 2 TABLET PO ×3 (05:33→23:29)
[2023-05-30] MEDS: LEVOTHYROXINE SODIUM 75 MCG TABLET PO (05:33)
[2023-05-30 05:54] VITALS: O2SAT 98
[2023-05-30 08:00] VITALS: BP 112/60; PULSE 60; RESP 14; TEMP 36.4; O2SAT 92
[2023-05-30] MEDS: THERAPEUTIC MULTIVITAMINS/MINERALS TAB (*BKC) 1 TABLET PO (08:28)
[2023-05-30] MEDS: FLUoxetine HCL 20 MG CAPSULE 40 MG PO (08:28)
[2023-05-30] MEDS: CHOLECALCIFEROL 1,000 UNITS TABLET 2000 UNITS PO (08:29)
[2023-05-30] MEDS: SPIRONOLACTONE 25 MG TABLET 50 MG PO (08:29)
[2023-05-30] MEDS: MAGNESIUM OXIDE 400 MG TABLET PO ×2 (08:29→17:02)
[2023-05-30] MEDS: FUROSEMIDE 40 MG TABLET PO ×2 (08:30→17:02)
[2023-05-30] MEDS: PRAMIPEXOLE 0.25 MG TABLET 0.5 MG PO ×3 (08:30→17:03)
[2023-05-30] MEDS: PRAMIPEXOLE 1 MG TABLET PO ×3 (08:30→17:04)
[2023-05-30 08:31] VITALS: PULSE 68
[2023-05-30] MEDS: METOPROLOL TARTRATE 50 MG TAB PO ×2 (08:31→20:45)
[2023-05-30] MEDS: ACETAMINOPHEN 325 MG TABLET 650 MG PO ×2 (08:32→20:45)
[2023-05-30] MEDS: ASPIRIN 81 MG ENTERIC TABLET PO ×2 (08:32→17:03)
[2023-05-30] MEDS: ASCORBIC ACID 500 MG TABLET PO ×2 (08:33→17:03)
--- NOTE | 2023-05-30 13:15 | PC.NURSE ---
spoke wtih nurse from [facility] can not be submerged -which she was not. she can take a shower as cristo as water is not beating down on her sjhoulder
[2023-05-30 16:00] VITALS: BP 125/95; PULSE 68; RESP 18; TEMP 36.3; O2SAT 93
[2023-05-30 20:00] VITALS: PULSE 56; RESP 18; O2SAT 96
[2023-05-30 20:45] VITALS: PULSE 56
[2023-05-30] MEDS: traZODone HCL 50 MG TABLET PO (20:45)
[2023-05-30] MEDS: PRAVASTATIN SODIUM 10 MG TABLET PO (20:45)
[2023-05-31] VITALS: BP 130/76; PULSE 56; RESP 16; TEMP 36.3; O2SAT 98
[2023-05-31] MEDS: LEVOTHYROXINE SODIUM 75 MCG TABLET 150 MCG PO (05:32)
[2023-05-31] MEDS: oxyCODONE/ACETAMINOPHEN (*CRX) 5-325 MG TABLET 2 TABLET PO ×3 (05:33→17:26)
[2023-05-31 05:45] VITALS: O2SAT 93
[2023-05-31 08:00] VITALS: BP 120/78; PULSE 69; RESP 17; TEMP 36.1; O2SAT 95
[2023-05-31 09:39] VITALS: PULSE 69
[2023-05-31] MEDS: METOPROLOL TARTRATE 50 MG TAB PO ×2 (09:39→20:51)
[2023-05-31] MEDS: ASCORBIC ACID 500 MG TABLET PO ×2 (09:39→17:25)
[2023-05-31] MEDS: ASPIRIN 81 MG ENTERIC TABLET PO ×2 (09:39→17:25)
[2023-05-31] MEDS: THERAPEUTIC MULTIVITAMINS/MINERALS TAB (*BKC) 1 TABLET PO (09:39)
[2023-05-31] MEDS: CHOLECALCIFEROL 1,000 UNITS TABLET 2000 UNITS PO (09:39)
[2023-05-31] MEDS: PRAMIPEXOLE 0.25 MG TABLET 0.5 MG PO ×3 (09:39→17:25)
[2023-05-31] MEDS: SPIRONOLACTONE 25 MG TABLET 50 MG PO (09:39)
[2023-05-31] MEDS: MAGNESIUM OXIDE 400 MG TABLET PO ×2 (09:39→17:26)
[2023-05-31] MEDS: PRAMIPEXOLE 1 MG TABLET PO ×3 (09:39→17:25)
[2023-05-31] MEDS: FUROSEMIDE 40 MG TABLET PO ×2 (09:39→17:25)
[2023-05-31] MEDS: FLUoxetine HCL 20 MG CAPSULE 40 MG PO (09:39)
[2023-05-31 16:00] VITALS: BP 121/64; PULSE 65; RESP 17; TEMP 35.6; O2SAT 100
[2023-05-31] MEDS: PRAVASTATIN SODIUM 10 MG TABLET PO (20:51)
[2023-05-31] MEDS: traZODone HCL 50 MG TABLET PO (20:51)
[2023-06-01] VITALS (7 sets, daily range): BP systolic 114–128; BP diastolic 47–70; PULSE 63–68; RESP 17–20; TEMP 36.1–36.8; O2SAT 92–94
[2023-06-01] MEDS: oxyCODONE/ACETAMINOPHEN (*CRX) 5-325 MG TABLET 2 TABLET PO ×3 (01:20→16:05)
[2023-06-01] MEDS: LEVOTHYROXINE SODIUM 100 MCG TABLET PO (06:17)
[2023-06-01] MEDS: LEVOTHYROXINE SODIUM 75 MCG TABLET PO (06:17)
[2023-06-01] MEDS: PRAMIPEXOLE 0.25 MG TABLET 0.5 MG PO ×3 (09:13→17:48)
[2023-06-01] MEDS: FLUoxetine HCL 20 MG CAPSULE 40 MG PO (09:13)
[2023-06-01] MEDS: FUROSEMIDE 40 MG TABLET PO ×2 (09:13→17:49)
[2023-06-01] MEDS: SPIRONOLACTONE 25 MG TABLET 50 MG PO (09:13)
[2023-06-01] MEDS: ASPIRIN 81 MG ENTERIC TABLET PO ×2 (09:14→17:48)
[2023-06-01] MEDS: POTASSIUM CHLORIDE 20 MEQ ER TABLET PO (09:14)
[2023-06-01] MEDS: CHOLECALCIFEROL 1,000 UNITS TABLET 2000 UNITS PO (09:14)
[2023-06-01] MEDS: ASCORBIC ACID 500 MG TABLET PO ×2 (09:14→17:48)
[2023-06-01] MEDS: MAGNESIUM OXIDE 400 MG TABLET PO ×2 (09:14→17:48)
[2023-06-01] MEDS: THERAPEUTIC MULTIVITAMINS/MINERALS TAB (*BKC) 1 TABLET PO (09:14)
[2023-06-01] MEDS: METOPROLOL TARTRATE 50 MG TAB PO ×2 (09:14→20:49)
[2023-06-01] MEDS: PRAMIPEXOLE 1 MG TABLET PO ×3 (09:18→17:49)
[2023-06-01] MEDS: TOLNAFTATE 1% POWDER 45 GM BTL 1 APPLIC TOPICAL (10:23)
--- NOTE | 2023-06-01 10:45 | PM.IMPN ---
Progress Note: A&P Assessment and Plan (1) Rotator cuff arthropathy of both shoulders: Code(s): M12.811 - Other specific arthropathies, not elsewhere classified, right shoulder; M12.812 - Other specific arthropathies, not elsewhere classified, left shoulder Status: Acute Assessment and Plan: Pain medication p.r.n. Medication for constipation no cardiac induced Physical therapy and occupational therapy to evaluate and treat Left arm sling Encourage patient to do as much as possible Shoulder xray with no acute findings Continue to trend incision site. (2) Hypothyroidism: Qualifiers: Hypothyroidism type: acquired Qualified Code(s): E03.9 - Hypothyroidism, unspecified Code(s): E03.9 - Hypothyroidism, unspecified Status: Chronic Assessment and Plan: stable continue home medication (3) Peripheral vascular disease: Code(s): I73.9 - Peripheral vascular disease, unspecified Status: Chronic Assessment and Plan: stable continue home medications Make sure patient wear socks at all times when ambulating on the floor to not allow (4) COPD (chronic obstructive pulmonary disease): Qualifiers: COPD type: unspecified COPD Qualified Code(s): J44.9 - Chronic obstructive pulmonary disease, unspecified Code(s): J44.9 - Chronic obstructive pulmonary disease, unspecified Status: Chronic Assessment and Plan: to walk barefoot oxygen as indicated BiPAP while sleeping Home medications continued Monitor pulse ox when indicated p.r.n. (5) Tobacco abuse: Code(s): Z72.0 - Tobacco use Status: Acute Assessment and Plan: will order a nicotine patch Time Spent With Patient Time: 38 minutes Time with patient: Greater than 35 minutes Subjective Date/time seen: 06/01/23 1045 Interval history: Patient is doing ok. She does have multiple complaints. Her worst complaint is the incision is burning and she is having a lot of pain. Currently she is about baseline. She denies any chest pain, shortness of breath, nausea, weakness, fatigue. Review of Systems Review of Systems: All systems reviewed & are unremarkable except as noted in HPI and below Exam Narrative: General: well-nourished, well-appearing 78-year-old female, sitting up in bed, comfortable, NARD Neuro: awake, alert and oriented x4, speech clear, no focal neuro deficits noted HEENMT: normocephalic, atraumatic, EOMI, sclerae anicteric, moist oral mucosa Respiratory: Clear to auscultation bilaterally without crackles, rhonchi or wheezes, nonlabored breathing Cardio: regular rate, regular rhythm with S1-S2 Abdomen: nondistended, normoactive bowel sounds, soft, nontender to palpation Extremities: no edema, erythema, or tenderness to palpation, DP pulses 2+ bilaterally Skin: no rashes or lesions, warm and dry. left armpit incision slightly swollen and warm to the touch Psych: appropriate mood and affect, judgment and insight intact Objective Data Vital Signs Vital Signs: Vital Signs - 24 hr 06/01/23 00:00 06/01/23 09:14 06/01/23 08:00 Temperature 97.2 F L 98.2 F Pulse Rate 63 64 68 Respiratory Rate 18 17 Blood Pressure 128/70 119/70 Pulse Oximetry 93 94 Oxygen Delivery Nasal Cannula Nasal Cannula Oxygen Flow Rate 3 3 Intake/Output Intake/Output: Intake & Output 05/29/23 05/30/23 05/31/23 06/01/23 23:59 23:59 23:59 23:59 Intake Total 2150 2560 2880 1150 Balance 2150 2560 2880 1150 Meds/Results Medications: Active Medications Generic Name Dose Route Start Last Admin Trade Name Freq PRN Reason Stop Dose Admin Acetaminophen 650 mg 05/23/23 19:08 05/30/23 20:45 Acetaminophen 325 Mg Tablet PO 650 mg Q6H PRN Administration Fever Ascorbic Acid 500 mg 05/23/23 17:00 06/01/23 09:14 Ascorbic Acid 500 Mg Tablet PO 500 mg BID SASCHA Administration Aspirin 81 mg 05/23/23 17:
[2023-06-01] MEDS: PRAVASTATIN SODIUM 10 MG TABLET PO (20:49)
[2023-06-01] MEDS: traZODone HCL 50 MG TABLET PO (20:49)
[2023-06-02] MEDS: oxyCODONE/ACETAMINOPHEN (*CRX) 5-325 MG TABLET 2 TABLET PO ×4 (02:26→23:03)
[2023-06-02 05:00] VITALS: O2SAT 97
[2023-06-02] MEDS: LEVOTHYROXINE SODIUM 75 MCG TABLET 150 MCG PO (06:18)
[2023-06-02 07:30] VITALS: BP 107/56; PULSE 55; RESP 16; TEMP 36.6; O2SAT 94
--- NOTE | 2023-06-02 07:34 | PM.IMPN ---
Progress Note: A&P Assessment and Plan (1) Rotator cuff arthropathy of both shoulders: Code(s): M12.811 - Other specific arthropathies, not elsewhere classified, right shoulder; M12.812 - Other specific arthropathies, not elsewhere classified, left shoulder Status: Acute Assessment and Plan: Pain medication p.r.n. Physical therapy and occupational therapy to evaluate and treat Left arm sling Encourage patient to do as much as possible Shoulder xray with no acute findings Continue to trend incision site. Wound care as ordered per surgeon Incision intact, clean, dry, well approximated Add cream for itching (2) Hypothyroidism: Qualifiers: Hypothyroidism type: acquired Qualified Code(s): E03.9 - Hypothyroidism, unspecified Code(s): E03.9 - Hypothyroidism, unspecified Status: Chronic Assessment and Plan: stable continue home medication (3) Peripheral vascular disease: Code(s): I73.9 - Peripheral vascular disease, unspecified Status: Chronic Assessment and Plan: stable continue home medications Make sure patient wear socks at all times when ambulating (4) COPD (chronic obstructive pulmonary disease): Qualifiers: COPD type: unspecified COPD Qualified Code(s): J44.9 - Chronic obstructive pulmonary disease, unspecified Code(s): J44.9 - Chronic obstructive pulmonary disease, unspecified Status: Chronic Assessment and Plan: oxygen per home dose BiPAP per home setting while sleeping Home medications continued Monitor pulse ox when indicated p.r.n. (5) Tobacco abuse: Code(s): Z72.0 - Tobacco use Status: Acute Assessment and Plan: Nicotine patch Smoking cessation education Oxygen safety education Time Spent With Patient Time: 25 minutes Time with patient: 25 - 35 minutes Subjective Date/time seen: 06/02/23 07:34 Interval history: She is sitting on the side of the bed. She put her make up on and she does look good. She stated that she is feeling better, and she is ready to go home. She is having some problems with itching of the incision site. Incision site appears stable. Swelling is minimal, and redness is dissipated. She denies any chest pain, shortness of breath, nausea, vomiting, diarrhea, constipation, weakness, or fatigue. She is stable for discharge in the morning. Will prepare discharge for tomorrow at 10am. Review of Systems Review of Systems: All systems reviewed & are unremarkable except as noted in HPI and below Exam Narrative: General: well-nourished, well-appearing 78-year-old female, sitting up in bed, comfortable, NARD Neuro: awake, alert and oriented x4, speech clear, no focal neuro deficits noted HEENMT: normocephalic, atraumatic, EOMI, sclerae anicteric, moist oral mucosa Respiratory: Clear to auscultation bilaterally without crackles, rhonchi or wheezes, nonlabored breathing Cardio: regular rate, regular rhythm with S1-S2 Abdomen: nondistended, normoactive bowel sounds, soft, nontender to palpation Extremities: no edema, erythema, or tenderness to palpation, DP pulses 2+ bilaterally Skin: no rashes or lesions, warm and dry. left armpit incision slightly swollen and warm to the touch Psych: appropriate mood and affect, judgment and insight intact Objective Data Vital Signs Vital Signs: Vital Signs - 24 hr 06/01/23 09:14 06/01/23 08:00 06/01/23 16:00 Temperature 98.2 F 96.9 F L Pulse Rate 64 68 68 Respiratory Rate 17 20 Blood Pressure 119/70 114/47 L Pulse Oximetry 94 94 Oxygen Delivery Nasal Cannula Nasal Cannula Oxygen Flow Rate 3 3 06/01/23 20:49 06/01/23 23:57 Temperature 97.7 F Pulse Rate 68 68 Respiratory Rate 20 Blood Pressure 114/57 L Pulse Oximetry 92 Oxygen Delivery Nasal Cannula Oxygen Flow Rate 3 Intake/Output Intake/Outp
--- NOTE | 2023-06-02 07:36 | PC.NURSE ---
Patient had rubbed antifungal powder onto her incision. Nurse educated patient that the incision was to remain clean and dry and assisted patient in washing the powder off. Printing Shop Supervisor educated patient on dangers of getting foreign materials into the incision and about risks of infection. Patient stated that she had done that to help with the itching. Printing Shop Supervisor explained that itching is part of the healing process. Incision continues to heal with 2 steri strips on the top edge, and ANTHONY. No s/s infection at this time.
--- NOTE | 2023-06-02 08:05 | P.DS_ITS ---
DS: Admitting Diagnosis Discharge Date 06/03/23 <HALIMA Brito - Last Filed: 06/02/23 08:51> Admitting Diagnosis Swing bed S/P left shoulder reversal surgery <Ramsey Arnie HALIMA Wiseman - Last Filed: 06/02/23 08:51> DS: Discharge Diagnosis Discharge Diagnosis (1) Rotator cuff arthropathy of both shoulders: Code(s): M12.811 - Other specific arthropathies, not elsewhere classified, right shoulder; M12.812 - Other specific arthropathies, not elsewhere classified, left shoulder <HALIMA Brito - Last Filed: 06/02/23 08:51> Status: Acute <HALIMA Brito - Last Filed: 06/02/23 08:51> Assessment and Plan: * Pain medication p.r.n. * Physical therapy and occupational therapy to evaluate and treat * Left arm sling * Encourage patient to do as much as possible * Shoulder xray with no acute findings * Continue to trend incision site. * Wound care as ordered per surgeon * Incision intact, clean, dry, well approximated * Add cream for itching <HALIMA Brito - Last Filed: 06/02/23 08:51> * Pain medication p.r.n. * Patient to continue exercises at home and home health to evaluate * Left arm sling * Encourage patient to do as much as possible * Shoulder x-ray with no acute findings * Continue to trend incision site. * Wound care as ordered per surgeon * Incision intact, clean, dry, well approximated * Add cream for itching <Catrachita Nuno APRN - Last Filed: 06/03/23 09:40> (2) Hypothyroidism: Qualifiers: Hypothyroidism type: acquired Qualified Code(s): E03.9 - Hypothyroidism, unspecified <HALIMA Brito - Last Filed: 06/02/23 08:51> Code(s): E03.9 - Hypothyroidism, unspecified <HALIMA Brito - Last Filed: 06/02/23 08:51> Status: Chronic <HALIMA Brito - Last Filed: 06/02/23 08:51> Assessment and Plan: * stable continue home medication <Ramsey Wiseman [facility] - Last Filed: 06/02/23 08:51> (3) Peripheral vascular disease: Code(s): I73.9 - Peripheral vascular disease, unspecified <Ramsey Wiseman [facility] - Last Filed: 06/02/23 08:51> Status: Chronic <RELL BritoC - Last Filed: 06/02/23 08:51> Assessment and Plan: * stable continue home medications * Make sure patient wear socks at all times when ambulating <Ramsey Wiseman [facility] - Last Filed: 06/02/23 08:51> (4) COPD (chronic obstructive pulmonary disease): Qualifiers: COPD type: unspecified COPD Qualified Code(s): J44.9 - Chronic obstructive pulmonary disease, unspecified <Ramsey Wiseman [facility] - Last Filed: 06/02/23 08:51> Code(s): J44.9 - Chronic obstructive pulmonary disease, unspecified <Ramsey Wiseman [facility] - Last Filed: 06/02/23 08:51> Status: Chronic <Ramsey Wiseman RE[facility] - Last Filed: 06/02/23 08:51> Assessment and Plan: * oxygen per home dose * BiPAP per home setting while sleeping * Home medications continued * Monitor pulse ox when indicated p.r.n. <Ramsey WisemanHALIMA - Last Filed: 06/02/23 08:51> * Oxygen per home dose * BiPAP per home setting while sleeping with 4 L of O2 bled in at night * Home medications continued * Monitor pulse ox when indicated p.r.n. <Catrachita Nuno APRN - Last Filed: 06/03/23 09:40> (5) Tobacco abuse: Code(s): Z72.0 - Tobacco use <Ramsey Zambrano
--- NOTE | 2023-06-02 08:05 | PM.DS ---
DS: Admitting Diagnosis Discharge Date 06/03/23 <Ramsey Arnie HALIMA Wiseman - Last Filed: 06/02/23 08:51> Admitting Diagnosis Swing bed S/P left shoulder reversal surgery <Ramsey Gaitan HALIMA Wiseman - Last Filed: 06/02/23 08:51> DS: Discharge Diagnosis Discharge Diagnosis (1) Rotator cuff arthropathy of both shoulders: Code(s): M12.811 - Other specific arthropathies, not elsewhere classified, right shoulder; M12.812 - Other specific arthropathies, not elsewhere classified, left shoulder <Ramsey Gaitan HALIMA Wiseman - Last Filed: 06/02/23 08:51> Status: Acute <Ramsey Gaitan HALIMA Wiseman - Last Filed: 06/02/23 08:51> Assessment and Plan: Pain medication p.r.n. Physical therapy and occupational therapy to evaluate and treat Left arm sling Encourage patient to do as much as possible Shoulder xray with no acute findings Continue to trend incision site. Wound care as ordered per surgeon Incision intact, clean, dry, well approximated Add cream for itching <Ramsey Gaitan HALIMA Wiseman - Last Filed: 06/02/23 08:51> Pain medication p.r.n. Patient to continue exercises at home and home health to evaluate Left arm sling Encourage patient to do as much as possible Shoulder x-ray with no acute findings Continue to trend incision site. Wound care as ordered per surgeon Incision intact, clean, dry, well approximated Add cream for itching <Catrachita Nuno APRN - Last Filed: 06/03/23 09:40> (2) Hypothyroidism: Qualifiers: Hypothyroidism type: acquired Qualified Code(s): E03.9 - Hypothyroidism, unspecified <Ramsey Gaitan HALIMA Wiseman - Last Filed: 06/02/23 08:51> Code(s): E03.9 - Hypothyroidism, unspecified <Ramsey Arnie HALIMA Wiseman - Last Filed: 06/02/23 08:51> Status: Chronic <HALIMA Brito - Last Filed: 06/02/23 08:51> Assessment and Plan: stable continue home medication <HALIMA Brito - Last Filed: 06/02/23 08:51> (3) Peripheral vascular disease: Code(s): I73.9 - Peripheral vascular disease, unspecified <Ramsey WisemanHALIMA - Last Filed: 06/02/23 08:51> Status: Chronic <Ramsey WisemanHALIMA - Last Filed: 06/02/23 08:51> Assessment and Plan: stable continue home medications Make sure patient wear socks at all times when ambulating <Ramsey ZambranoHALIMA mcbride - Last Filed: 06/02/23 08:51> (4) COPD (chronic obstructive pulmonary disease): Qualifiers: COPD type: unspecified COPD Qualified Code(s): J44.9 - Chronic obstructive pulmonary disease, unspecified <Ramsey WisemanHALIMA - Last Filed: 06/02/23 08:51> Code(s): J44.9 - Chronic obstructive pulmonary disease, unspecified <Ramsey ZambranoHALIMA mcbride - Last Filed: 06/02/23 08:51> Status: Chronic <Ramsey WisemanHALIMA - Last Filed: 06/02/23 08:51> Assessment and Plan: oxygen per home dose BiPAP per home setting while sleeping Home medications continued Monitor pulse ox when indicated p.r.n. <Ramsey ZambranoHALIMA mcbride - Last Filed: 06/02/23 08:51> Oxygen per home dose BiPAP per home setting while sleeping with 4 L of O2 bled in at night Home medications continued Monitor pulse ox when indicated p.r.n. <Catrachita Nuno APRN - Last Filed: 06/03/23 09:40> (5) Tobacco abuse: Code(s): Z72.0 - Tobacco use <Ramsey ZambranoHALIMA mcbride - Last Filed: 06/02/23 08:51> Status: Acute <Ramsey ZambranoHALIMA mcbride - Last Filed: 06/02/23 08:51> Assessment and Plan: Nicotine patch Smoking cessation education Oxygen safety education <Ramsey Gaitan HALIMA Wiseman - Last Filed: 06/02/23 08:51> Nicotine patch Smoking cessation education Oxygen safety education <Catrachita Nuno APRN - Last Filed: 06/03/23 09:40> DS: Summary Hospital Course Hos
[2023-06-02] MEDS: CHOLECALCIFEROL 1,000 UNITS TABLET 2000 UNITS PO (08:29)
[2023-06-02] MEDS: SPIRONOLACTONE 25 MG TABLET 50 MG PO (08:30)
[2023-06-02] MEDS: MAGNESIUM OXIDE 400 MG TABLET PO ×2 (08:30→16:52)
[2023-06-02] MEDS: THERAPEUTIC MULTIVITAMINS/MINERALS TAB (*BKC) 1 TABLET PO (08:31)
[2023-06-02 08:32] VITALS: PULSE 55
[2023-06-02] MEDS: ASPIRIN 81 MG ENTERIC TABLET PO ×2 (08:32→16:52)
[2023-06-02] MEDS: METOPROLOL TARTRATE 50 MG TAB PO (08:32)
[2023-06-02] MEDS: ASCORBIC ACID 500 MG TABLET PO ×2 (08:32→16:54)
[2023-06-02] MEDS: PRAMIPEXOLE 0.25 MG TABLET 0.5 MG PO ×3 (08:33→16:54)
[2023-06-02] MEDS: FLUoxetine HCL 20 MG CAPSULE 40 MG PO (08:35)
[2023-06-02] MEDS: PRAMIPEXOLE 1 MG TABLET PO ×3 (08:35→16:54)
[2023-06-02] MEDS: POTASSIUM CHLORIDE 20 MEQ ER TABLET PO (08:36)
[2023-06-02] MEDS: FUROSEMIDE 40 MG TABLET PO ×2 (08:38→16:52)
--- NOTE | 2023-06-02 09:44 | PC.NURSE ---
Two oxycodone/ acetaminophen administered at 0900 for pain rated at 8 in L shoulder. Patient questioned why medication was a different color. Fountain Pen Nibs Inspector provided blister pack for patient to read the medication name and dosage.
--- NOTE | 2023-06-02 10:18 | PC.NURSE ---
Visual Display Manager called to patient's room because patient didn't think her O2 was working. Patient SPO2 at 96% on 3 L via n/c. Visual Display Manager checked O2 setting and verified that O2 was coming from tubing. Patient stated that she did not see the bubbler moving and that it was full when she came here and now it's low. Visual Display Manager assessed the bubbler and was able to see that the bubbler is working properly. Visual Display Manager educated patient that the bubbler is only to humidify O2 and that the oxygen itself is coming from a pipe in the wall. Patient satisfied. Patient stated that her son is not going to help her with taking the dog out when patient is discharged. Patient became tearful and stated that she would like to speak with career services coordinator. Visual Display Manager told career services coordinator patient wanted to speak to her.
--- NOTE | 2023-06-02 11:40 | PC.NURSE ---
IV site discontinued in preparation of discharge.
[2023-06-02 16:00] VITALS: BP 138/55; PULSE 68; RESP 16; TEMP 36.4; O2SAT 90
[2023-06-02 20:00] VITALS: PULSE 52; RESP 16; O2SAT 92
[2023-06-02] MEDS: traZODone HCL 50 MG TABLET PO (21:03)
[2023-06-02] MEDS: PRAVASTATIN SODIUM 10 MG TABLET PO (21:03)
[2023-06-02] MEDS: ACETAMINOPHEN 325 MG TABLET 650 MG PO (21:03)
[2023-06-02 21:05] VITALS: PULSE 52
[2023-06-03] VITALS: BP 92/54; PULSE 52; RESP 16; TEMP 36.3; O2SAT 97
[2023-06-03] MEDS: LEVOTHYROXINE SODIUM 75 MCG TABLET PO (05:34)
[2023-06-03] MEDS: oxyCODONE/ACETAMINOPHEN (*CRX) 5-325 MG TABLET 2 TABLET PO (05:34)
[2023-06-03] MEDS: LEVOTHYROXINE SODIUM 100 MCG TABLET PO (05:34)
[2023-06-03 08:00] VITALS: BP 130/56; PULSE 57; RESP 18; TEMP 36.3; O2SAT 96
[2023-06-03] MEDS: FUROSEMIDE 40 MG TABLET PO (08:35)
[2023-06-03] MEDS: CHOLECALCIFEROL 1,000 UNITS TABLET 2000 UNITS PO (08:35)
[2023-06-03] MEDS: SPIRONOLACTONE 25 MG TABLET 50 MG PO (08:36)
[2023-06-03] MEDS: FLUoxetine HCL 20 MG CAPSULE 40 MG PO (08:37)
[2023-06-03] MEDS: ASCORBIC ACID 500 MG TABLET PO (08:37)
[2023-06-03 08:38] VITALS: PULSE 57
[2023-06-03] MEDS: POTASSIUM CHLORIDE 20 MEQ ER TABLET PO (08:38)
[2023-06-03] MEDS: METOPROLOL TARTRATE 50 MG TAB PO (08:38)
[2023-06-03] MEDS: THERAPEUTIC MULTIVITAMINS/MINERALS TAB (*BKC) 1 TABLET PO (08:38)
[2023-06-03] MEDS: MAGNESIUM OXIDE 400 MG TABLET PO (08:39)
[2023-06-03] MEDS: PRAMIPEXOLE 0.25 MG TABLET 0.5 MG PO (08:40)
[2023-06-03] MEDS: PRAMIPEXOLE 1 MG TABLET PO (08:40)
--- NOTE | 2023-06-03 10:13 | PC.NURSE ---
Discharge instructions gone over with patient with special emphasis placed on taking medications only as prescribed, changes to medications, and daily weights to monitor for CHF exacerbations. Patient voiced understanding of all instructions. Personal items sent home with patient. Patient left unit in w/c accompanied by bond underwriter and private caregiver, and left hospital property in privately owned vehicle.
[2023-06-03 10:15] VITALS: O2SAT 97
--- NOTE | 2023-06-07 13:11 | PC.NURSE ---
Unable to contact for discharge call back.
== END 2023-06-03 10:13 | disposition home health service (06) | DRG 560 ==
PROVIDERS: Nurse Practitioner Family; Admitting Provider Internal Medicine; PCP Internal Medicine; Visit Provider Internal Medicine
DX: Z47.1 Aftercare following joint replacement surgery (principal); I50.32 Chronic diastolic (congestive) heart failure; J96.10 Chronic respiratory failure, unspecified whether with hypoxia or hypercapnia; I11.0 Hypertensive heart disease with heart failure; J44.9 Chronic obstructive pulmonary disease, unspecified; I73.9 Peripheral vascular disease, unspecified; E78.5 Hyperlipidemia, unspecified; G62.9 Polyneuropathy, unspecified; G47.30 Sleep apnea, unspecified; M48.00 Spinal stenosis, site unspecified; E03.9 Hypothyroidism, unspecified; F17.210 Nicotine dependence, cigarettes, uncomplicated; F32.A Depression, unspecified; Z96.612 Presence of left artificial shoulder joint; Z85.51 Personal history of malignant neoplasm of bladder; Z99.81 Dependence on supplemental oxygen; Z98.1 Arthrodesis status; Z79.82 Long term (current) use of aspirin
CPT/HCPCS: 36415; 73030; 80053; 84132; 85027; 97110; 97161; 97165; 97530; 97535; A9270

== ENCOUNTER 2023-06-10 12:46 | Outpatient (CLI) | payer MEDICARE, SELFPAY ==
--- NOTE | ~2023-06-10 | US_ITS ---
EXAMINATION: US venous doppler [facility] DATE: 06/10/2023 13:18 INDICATION: Calf pain. TECHNIQUE: Grayscale ultrasound images without and with compression and Doppler ultrasound images of the bilateral lower extremity veins were obtained. COMPARISON: Ultrasound 12/07/2021 FINDINGS: The visualized portions of right common femoral vein, profunda (deep) femoral vein, femoral vein, pop liteal vein, peroneal veins, posterior tibial veins, and greater saphenous vein outflow are patent. The visualized portions of left common femoral vein, profunda femoral vein, femoral vein, popliteal v ein, peroneal veins, posterior tibial veins, and greater saphenous vein outflow are patent. IMPRESSION: 1. No deep venous thrombosis. Reviewed, dictated and finalized at location B.
== END 2023-06-10 12:47 | disposition home or self-care (01) ==
LOC: CHSIMG 12:48
PROVIDERS: PCP Internal Medicine; Visit Provider Physician Assistant
DX: M79.662 Pain in left lower leg (principal); M79.661 Pain in right lower leg
CPT/HCPCS: 93970

== ENCOUNTER 2023-06-16 14:26 | Outpatient (CLI) | payer MEDICARE, SELFPAY ==
[2023-06-16 15:20] LABS: Anion Gap 5 mmol/L (8-16); Blood Urea Nitrogen 29 mg/dL (7-18); Carbon Dioxide 36 mmol/L (21-32); Chloride 105 mmol/L (98-108); Estimated Glomerular Filt Rate 49; Glucose 107 mg/dL (70-99); Magnesium 1.9 mg/dL (1.8-2.4); Osmolality Calculated 307 mOsm/kg (285-295); Potassium 4.3 mmol/L (3.5-5.1); Sodium 146 mmol/L (136-145)
== END 2023-06-16 14:27 | disposition home or self-care (01) ==
LOC: CHSLAB 14:28
PROVIDERS: PCP Family Medicine; Visit Provider Internal Medicine Cardiovascular Disease
DX: R60.0 Localized edema (principal)
CPT/HCPCS: 36415; 80048; 83735

== ENCOUNTER 2023-09-19 15:38 | Outpatient (CLI) | payer MEDICARE, SELFPAY ==
--- NOTE | ~2023-09-19 | XR_ITS ---
EXAMINATION: XR shoulder LT min 2V DATE: 09/19/2023 15:56 INDICATION: 6 days of left shoulder pain and lump post COVID vaccination TECHNIQUE: AP internally and externally rotated, AP oblique externally rotated and transscapular Y vi ews of the left shoulder were obtained. COMPARISON: None FINDINGS: No appreciable change in a reverse left total shoulder arthroplasty which appears to remain well seat ed in near-anatomic alignment. No fracture. Distal left clavicle resection. Soft tissues are unremark able. Multilevel severe left cervical facet osteoarthritis. IMPRESSION: Reverse left total shoulder arthroplasty. No acute osseous abnormality. Reviewed, dictated and finalized at location A. [employer]
== END 2023-09-19 15:39 | disposition home or self-care (01) ==
LOC: CHSIMG 15:40
PROVIDERS: PCP Family Medicine; Visit Provider Internal Medicine Cardiovascular Disease
DX: M25.512 Pain in left shoulder (principal); Z96.612 Presence of left artificial shoulder joint
CPT/HCPCS: 73030

== ENCOUNTER 2023-09-30 11:24 | Emergency (ER) | payer OTHER, SELFPAY ==
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
[2023-09-30 11:24] VITALS: BP 143/53; PULSE 74; RESP 18; TEMP 36.2; O2SAT 94
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
[2023-09-30 14:03] VITALS: BP 107/63; PULSE 56; RESP 18; TEMP 36.6; O2SAT 90
== END 2023-09-30 14:10 | disposition home or self-care (01) ==
PROVIDERS: Emergency Provider Emergency Medicine; PCP Family Medicine
DX: M54.50 Low back pain, unspecified (principal); J44.9 Chronic obstructive pulmonary disease, unspecified; I50.30 Unspecified diastolic (congestive) heart failure; E03.9 Hypothyroidism, unspecified; F17.210 Nicotine dependence, cigarettes, uncomplicated; Z85.89 Personal history of malignant neoplasm of other organs and systems; Z85.51 Personal history of malignant neoplasm of bladder
CPT/HCPCS: 72128; 72131; 99284

== ENCOUNTER 2023-12-20 10:41 | Outpatient (CLI) | payer MEDICARE, SELFPAY ==
[2023-12-20 12:11] LABS: Alanine Aminotransferase 27 U/L (14-59); Albumin Level 3.4 g/dL (3.4-5.0); Alkaline Phosphatase 104 U/L (46-116); Anion Gap 8 mmol/L (8-16); Aspartate Amino Transferase < 10 U/L (15-37); Bilirubin,Total 0.6 mg/dL (0.00-1.00); Blood Urea Nitrogen 23 mg/dL (7-18); Calcium 8.5 mg/dL (8.5-10.1); Carbon Dioxide 32 mmol/L (21-32); Chloride 105 mmol/L (98-108); Cholesterol 125 mg/dL (0-200); Estimated Glomerular Filt Rate > 60; Glucose 105 mg/dL (70-99); HDL Direct 43 mg/dL (40-60); LDL Cholesterol Calculated 65 mg/dL (<130); Magnesium 1.7 mg/dL (1.8-2.4); Osmolality Calculated 303 mOsm/kg (285-295); Potassium 3.9 mmol/L (3.5-5.1); Sodium 145 mmol/L (136-145); Total Protein 6.1 g/dL (6.4-8.2); Triglycerides 83 mg/dL (0-150)
== END 2023-12-20 10:42 | disposition home or self-care (01) ==
LOC: CHSLAB 10:46
PROVIDERS: PCP Family Medicine; Visit Provider Internal Medicine Cardiovascular Disease
DX: R60.0 Localized edema (principal); E66.01 Morbid (severe) obesity due to excess calories; Z68.42 Body mass index [BMI] 45.0-49.9, adult
CPT/HCPCS: 36415; 80053; 80061; 83735

== ENCOUNTER 2024-04-24 07:51 | Outpatient (CLI) | payer MEDICARE, SELFPAY ==
--- NOTE | ~2024-04-24 | MM_ITS ---
EXAMINATION: MM screening grady BI w lucien HISTORY: Screening TECHNIQUE: Craniocaudal and mediolateral oblique 3-D tomosynthesis images were obtained and synthetic 2-D images were generated. CAD analysis was submitted and interpreted. COMPARISON: Comparison to multiple prior studies sequentially, with oldest reviewed study dated 03/16. BREAST PARENCHYMAL COMPOSITION: Not Dense: Breast are almost entirely fatty. FINDINGS: There is no evidence of suspicious mass, calcification, or architectural distortion to sugg est malignancy in either breast. There has been no suspicious interval change. IMPRESSION: 1. No mammographic evidence of malignancy. 2. Recommend routine screening mammography in one year. BI-RADS Category 1: Negative Reviewed, dictated and finalized at location B.
== END 2024-04-24 07:52 | disposition home or self-care (01) ==
LOC: CHSIMG 07:52
PROVIDERS: PCP Family Medicine; Visit Provider Family Medicine
DX: Z12.31 Encounter for screening mammogram for malignant neoplasm of breast (principal)
CPT/HCPCS: 77063; 77067

== ENCOUNTER 2024-07-18 08:38 | Outpatient (CLI) | payer MEDICARE, SELFPAY ==
--- NOTE | ~2024-07-18 | CT_ITS ---
EXAMINATION: CT abdomen pelvis wo con DATE: 07/18/2024 09:16 INDICATION: Abdominal pain. TECHNIQUE: Computed tomography (CT) of the abdomen and pelvis was performed without intravenous contr ast. Automated exposure control and iterative reconstruction technique were employed. The dose-length product was 1326.88 mGy-cm. COMPARISON: CT abdomen and pelvis 12/28/2016 FINDINGS: The visualized portions of lung bases demonstrate mild atelectasis. There is peripheral sep maame thickening in the lungs, consistent with mild pulmonary edema. No pleural effusion. Cardiomegaly is noted. There are coronary artery calcifications. No pericardial effusion. There is an 8 mm cyst in the liver. The spleen is normal. The gallbladder is absent. The pancreas is normal. There are masses in the adrenal glands measuring up to 2.9 cm on the left measuring low attenuation, consistent with adenomas. Right kidney is normal. There is moderate atrophy of left kidney. There are cysts in left k idney measuring up to 5.3 cm. There are 3 stones in left kidney measuring up to 3 mm. There is divert iculosis of the colon without evidence of diverticulitis. The appendix is not visualized. There is ca lcified atherosclerosis of the aorta and many of the other arteries. There are no pathologically enla rged lymph nodes. There is no free intraperitoneal fluid. There is wall thickening of bladder. Epidur al electrodes are noted. There are old healed right rib fractures. There is mild chronic anterior wed ging of multiple vertebral bodies. There is severe thoracic spondylosis. There are changes of posteri or fusion procedure from L1 to S1. There are changes of anterior fusion procedure L5-S1. There is mod erate lumbar spondylosis. IMPRESSION: 1. Mild pulmonary edema. 2. Bladder wall thickening, which is indeterminate for cystitis. Correlate with urinalysis. Reviewed, dictated and finalized at location A.
--- NOTE | ~2024-07-18 | XR_ITS ---
EXAMINATION: XR chest 2V DATE: 07/18/2024 09:16 INDICATION: Rib pain TECHNIQUE: frontal and lateral views of the chest were obtained. COMPARISON: Chest CT dated 04/11/2023 FINDINGS: Borderline heart size accounting for AP technique with pulmonary vascular congestion. Mild eventratio n along the right hemidiaphragm. Small bilateral paracardial fat pads with mild associated bibasilar atelectasis. No pleural effusion or pneumothorax. Old posterolateral right eighth rib fracture. Thora cic kyphosis with mild anterior wedging of several mid and lower thoracic vertebral bodies and with s evere associated spondylosis. Spinal stimulator lead projects over the posterior central canal of the midthoracic spine. Partially visualized left total shoulder arthroplasty and instrumented upper lumb ar posterior spinal fusion with bilateral vertical melonie and pedicle screw fixation. Status post distal right clavicle resection. IMPRESSION: 1. Borderline heart size with pulmonary vascular congestion but without teofilo pulmonary edema. Reviewed, dictated and finalized at location B. IMPRESSION: 1. Borderline heart size with pulmonary vascular congestion but without teofilo p ulmonary edema.
== END 2024-07-18 08:39 | disposition home or self-care (01) ==
PROVIDERS: PCP Family Medicine; Visit Provider Family Medicine
DX: R07.81 Pleurodynia (principal); R10.9 Unspecified abdominal pain; J81.1 Chronic pulmonary edema; R93.41 Abnormal radiologic findings on diagnostic imaging of renal pelvis, ureter, or bladder
CPT/HCPCS: 71046; 74176

== ENCOUNTER 2024-08-08 13:22 | Outpatient (CLI) | payer MEDICARE, SELFPAY ==
--- NOTE | ~2024-08-08 | US_ITS ---
EXAMINATION: US arterial ankle brachial ind DATE: 08/08/2024 13:58 INDICATION: Peripheral vascular disease. Nonpressure chronic ulcer of the left calf. TECHNIQUE: Segmental pressures and plethysmographic and Doppler waveforms of the brachial and lower e xtremity arteries were obtained. COMPARISON: None. FINDINGS: Right and left brachial artery pressures of 140 mm Hg and 142 mm Hg, respectively, are concordant (no rmal difference <= 30 mmHg). The right ankle-brachial index (COURTNEY) is 1.12 (normal >= 0.9-1.0). The right great toe-brachial index (TBI) is 0.62 (normal >= 0.65). Arterial Doppler waveforms are biphasic with brisk systolic upstrokes at both right posterior tibial and dorsalis pedis arteries. The left COURTNEY is 1.12. The left TBI is 0.63. Arterial Doppler waveforms are biphasic with brisk systol ic upstrokes at both left posterior tibial and dorsalis pedis arteries. IMPRESSION: 1. Mild arterial occlusive disease with normal bilateral ABIs and minimally decreased TBIs. Reviewed, dictated and finalized at location A. IMPRESSION: 1. Mild arterial occlusive disease with normal bilateral ABIs and minimally dec reased TBIs.
== END 2024-08-08 13:23 | disposition home or self-care (01) ==
LOC: CHSIMG 13:25
PROVIDERS: PCP Family Medicine
DX: L97.222 Non-pressure chronic ulcer of left calf with fat layer exposed (principal); I73.9 Peripheral vascular disease, unspecified
CPT/HCPCS: 93922

== ENCOUNTER 2024-09-13 10:08 | Outpatient (CLI) | payer MEDICARE, SELFPAY ==
--- NOTE | ~2024-09-13 | CT_ITS ---
EXAMINATION: CT lumbar spine wo con DATE: 09/13/2024 10:27 INDICATION: Lumbar radicular pain. TECHNIQUE: Computed tomography (CT) of the lumbar spine was performed without intravenous contrast. A utomated exposure control and iterative reconstruction technique were employed. The dose-length produ ct was 1315.51 mGy-cm. COMPARISON: CT lumbar spine 09/30/2023 FINDINGS: There is 6 degrees levocurvature of thoracolumbar spine. There is 3 mm retrolisthesis of T1 1 on T12, 5 mm retrolisthesis of T12 on L1 and L1 on L2, and 6 mm anterolisthesis of L4 on L5. There are changes of posterior fusion procedure from L1 to S1 with pedicle screws. There are changes of ant erior fusion procedure at L5-S1 with interbody device and anterior plate and screws. There is mild ch ronic anterior wedging of T10-T12 vertebral bodies. There is severely decreased disc height from T9-T 10 through L1-L2 and mildly decreased disc height at L2-L3, L3-L4, and L4-L5. There are changes of po sterior decompression in the lumbar spine. The following disc levels are specifically discussed: L1-L2: The disc does not extend beyond the endplate margin. There is mild bilateral facet joint hyper trophy. There is moderate bilateral neural foraminal stenosis. There is mild central canal stenosis. L2-L3: There is a right foraminal protrusion. There is mild right and moderate left facet joint hyper trophy. There is mild bilateral neural foraminal stenosis. There is no central canal stenosis. L3-L4: There is a right foraminal protrusion. There is mild bilateral facet joint hypertrophy. There is mild bilateral neural foraminal stenosis. There is no central canal stenosis. L4-L5: The disc does not extend beyond the endplate margin. There is mild bilateral facet joint hyper trophy. There is mild bilateral neural foraminal stenosis. There is no central canal stenosis. L5-S1: There is mild right and moderate left facet joint hypertrophy. There is mild bilateral neural foraminal stenosis. There is no central canal stenosis. IMPRESSION: 1. Severe thoracic spondylosis and moderate lumbar spondylosis. 2. Posterior fusion procedure from L1 to S1. Anterior fusion procedure at L5-S1. 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 Severe thoracic spondylosis and moderate lumbar spondylosis. 2. Posterior fusion procedure from L1 to S1. Anterior fusion procedure at L5-S1 .
[2024-09-13 12:03] LABS: Anion Gap 15 mmol/L (4-12); Blood Urea Nitrogen 26 mg/dL (7-18); Calcium 9.1 mg/dL (8.5-10.1); Carbon Dioxide 28 mmol/L (21-32); Chloride 102 mmol/L (98-108); Estimated Glomerular Filt Rate 44; Magnesium 1.8 mg/dL (1.8-2.4); Potassium 3.7 mmol/L (3.5-5.1); Sodium 145 mmol/L (136-145)
[2024-09-13 12:26] LABS: Glucose 103 mg/dL (70-99); Osmolality Calculated 304 mOsm/kg (285-295)
== END 2024-09-13 10:09 | disposition home or self-care (01) ==
PROVIDERS: Internal Medicine Cardiovascular Disease; PCP Family Medicine
DX: M79.89 Other specified soft tissue disorders (principal); M54.16 Radiculopathy, lumbar region; M43.06 Spondylolysis, lumbar region; M43.04 Spondylolysis, thoracic region; Z98.1 Arthrodesis status
CPT/HCPCS: 36415; 72131; 80048; 83735

== ENCOUNTER 2024-09-21 15:53 | Emergency (ER) | payer MEDICARE, SELFPAY ==
--- NOTE | ~2024-09-21 | XR_ITS ---
EXAMINATION: XR abdomen obstructive series DATE: 09/21/2024 16:22 INDICATION: Constipation. TECHNIQUE: Upright and supine views of the abdomen on 5 radiographs were obtained. COMPARISON: CT abdomen and pelvis 07/18/2024 FINDINGS: There are no dilated loops of bowel. There is a moderate volume of stool in the colon. No f ree intraperitoneal gas. There are changes of anterior and posterior fusion procedures in lumbosacral spine. Epidural electrodes are noted. IMPRESSION: 1. Normal bowel gas pattern. Reviewed, dictated and finalized at location A. IGERATION TECH
[2024-09-21 15:53] VITALS: BP 133/74; PULSE 92; RESP 22; TEMP 37; O2SAT 95
--- NOTE | 2024-09-21 16:13 | ED.GENADULT ---
HPI - General Adult General Chief complaint: Abdominal Pain Stated complaint: constipation 3 days Source: patient History of Present Illness HPI narrative: 79 years old white female came to the ED by private car complaining of constipation for the last 3 days. Patient normally have 1 bowel movement every 3-4 days. her main complaint today is rectal pain because she feels stool sitting in it. She denies any fever or chills or nausea or vomiting or abdominal pain. Related Data Home Medications Medication Instructions Recorded Confirmed levothyroxine 150 mcg capsule 150 mcg PO EVERY OTHER DAY 02/12/20 08/29/24 levothyroxine 175 mcg capsule 175 mcg PO EVERY OTHER DAY 02/12/20 08/29/24 [id number] 8 mg-folic 400 1 tablet PO DAILY 02/12/20 08/29/24 mcg-K 50 mcg-lutein 300 mcg tablet (Multivitamin Women 50 Plus) aspirin 81 mg tablet,delayed 81 mg PO BID 03/02/21 08/29/24 release pramipexole 1.5 mg tablet 1.5 mg PO TID 11/22/22 08/29/24 ascorbic acid (vitamin C) 500 mg 500 mg PO BID 05/23/23 08/29/24 chewable tablet (C-500) cholecalciferol (vitamin D3) 50 50 mcg PO DAILY 05/23/23 08/29/24 mcg (2,000 unit) capsule cyanocobalamin (vitamin B-12) 500 500 mcg sublingual DAILY 05/23/23 08/29/24 mcg disintegrating tablet,sublingual fluticasone propionate 50 2 spray intranasal BID PRN 05/23/23 08/29/24 mcg/actuation nasal Congestion spray,suspension (Flonase Allergy Relief) fluoxetine 20 mg tablet 20 mg PO DAILY 07/15/23 08/29/24 magnesium oxide 500 mg PO DAILY 08/17/24 08/29/24 semaglutide 0.25 mg or 0.5 mg (2 2 mg subcut WEEKLY 08/17/24 08/29/24 mg/3 mL) subcutaneous pen injector (Ozempic) Allergies Allergy/AdvReac Type Severity Reaction Status Date / Time morphine Allergy Unknown Itching Verified 08/29/24 11:23 Sulfa (Sulfonamide Allergy Unknown Other Verified 08/29/24 11:23 Antibiotics) Review of Systems Review of Systems: All systems reviewed & are unremarkable except as noted in HPI and below [facility] Past Medical History Medical History Bladder cancer Tumor removed toe chemo radiation Chronic ulcer of right leg Claustrophobia COPD (chronic obstructive pulmonary disease) Diastolic congestive heart failure Hypothyroidism Peripheral vascular disease Right leg Restless leg syndrome Sleep apnea Compliant with CPAP Spinal cord stimulator status Surgical History Surgical History H/O dilation and curettage X2 H/O heart artery stent One stent on 03/[address] Nasir Kaminski H/O shoulder surgery H/O toe surgery H/O tubal ligation H/O: hysterectomy History of back surgery 2009, 2012, 2013 at [facility] History of bilateral carpal tunnel release History of bilateral knee arthroplasty [address] Allan Marquis History of cystoscopy Removal of bladder tumor History of neck surgery fusion x 3 in 2008 History of tonsillectomy Hx of cholecystectomy S/P rotator cuff repair X5 by Dr. Allan Marquis and Dr. Machado [id number] Family History Family History Mother Acute myocardial infarction Father Acute myocardial infarction Cancer Heart disease Other Arthritis Bladder cancer Cerebrovascular accident Depression FH: kidney cancer Hyperlipidemia Hypertension Malignant neoplasm of prostate Neuropathy Social History Social History Social History: The patient continues to smoke a half pack a cigarettes a day. She has 4 sons. Ryder is a durable power associate attorney for healthcare and she desires to be a full code. The patient is . 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 She denies any alcohol marijuana or illicit drugs. She lives home alone. Smoking packs per day: 0.75 Smoking cigarettes per day: 15.0 Years smoked: 58 Smoking pack-years: 43.50 Smoking status: Current every day smoker Tobacco type: cigarettes Second hand tobacco smoke exposure: Yes Additional smoking assessment comments: 50+ years at most 2ppd Alcohol intake: never Alcohol use details: occasionally when social Substance use: current Substance use type: prescription drug Lack of Transportation: No Lack of Food: Never True Current Housing: I Have Housing Concerned About Future Housing: No Difficulty Paying Gas/Electric Bills: No Difficulty Paying for Meds: No Currently Unemployed: No Education: High School Diploma/GED Difficulty w/ Childcare or Family Care: No Living arrangements: alone Occupation/Education: retired Additional occupation/education comments: State of [place] Gender identity (if verbalized by the patient): Female Spiritual care concerns: No Exam Narrative: General appearance: Well-developed, well-nourished Skin: Normal color Head: Normocephalic, nontraumatic Eyes: Clear conjunctiva ENT: Oropharynx normal, ears normal, nose normal Neck: Supple, nontender Chest and respiratory: Airway patent, no respiratory distress, no accessory muscle use Heart: Regular rate/rhythm Abdomen: Soft, nontender, no organomegaly, quiet bowel sounds Rectal exam showed fecal impaction Vascular: Normal peripheral pulses, normal capillary refill. Musculoskeletal: Normal range of motion, nontender back Neurologic: Alert and oriented ?3, RINK RAT is normal as tested, no gross motor deficit Course Vital Signs Vital signs: Vital Signs Temperature 37.0 C 09/21/24 15:53 Pulse Rate 92 09/21/24 15:53 Respiratory Rate 22 H 09/21/24 15:53 Blood Pressure 133/74 09/21/24 15:53 Pulse Oximetry 95 09/21/24 15:53 Oxygen Delivery Room Air 09/21/24 15:53 Temperature 37.0 C 09/21/24 15:53 Pulse Rate 92 09/21/24 15:53 Respiratory Rate 22 H 09/21/24 15:53 Blood Pressure 133/74 09/21/24 15:53 Pulse Oximetry 95 09/21/24 15:53 Oxygen Delivery Room Air 09/21/24 15:53 Medical Decision Making [facility] Narrative Medical decision making narrative: patient presents to the ED with rectal pain secondary to constipation, failed enema at home prior to arrival History of constipation Vital signs are stable Physical examination showing rectal fecal impaction Obstructive series showed no acute abnormalities Soapsuds enema ordered, nurse was able to get some stool manually out prior to using soapsuds enema with good resolved. Patient feeling much better and ready to go home. Differential Diagnosis Differential Diagnosis: Constipation Vital Signs Vital Signs: Vital Signs Temperature 37.0 C 09/21/24 15:53 Pulse Rate 92 09/21/24 15:53 Respiratory Rate 22 H 09/21/24 15:53 Blood Pressure 133/74 09/21/24 15:53 Pulse Oximetry 95 11/15/24 15:53 Oxygen Delivery Room Air 09/21/24 15:53 Temperature 37.0 C 09/21/24 15:53 Pulse Rate 92 09/21/24 15:53 Respiratory Rate 22 H 09/21/24 15:53 Blood Pressure 133/74 09/21/24 15:53 Pulse Oximetry 95 09/21/24 15:53 Oxygen Delivery Room Air 09/21/24 15:53 Imaging Data Radiologist's impression: Impressions Abdomen X-Ray 09/21/24 16:30 IMPRESSION: 1. Normal bowel gas pattern. Critical Care Time Critical Care Time Critical Care Time: No Discharge Plan Discharge Clinical Impression: Acute constipation Patient Disposition: Home, Self-Care Condition: Improved Instructions: Constipation (ED) Additional Instructions: Return if symptoms are worsening , call your family physician for appointment, take Tylenol as as needed for aches and pain, continue home medications. Prescriptions: New polyethylene glycol 3350 [Miralax] 17 gram/dose powder 17 g PO QID Qty: 238 0RF bisacodyl [Dulcolax (bisacodyl)] 10 mg suppository 10 mg RECTAL TID PRN (Reason: constipation) Qty: 12 0RF No Action fluticasone propionate [Flonase Allergy Relief] 50 mcg/actuation spray,suspension 2 spray intranasal BID PRN (Reason: Congestion) Rx Instructions: administer into each nostril ascorbic acid (vitamin C) [C-500] 500 mg Tablet,Chewable 500 mg PO BID cholecalciferol (vitamin D3) 50 mcg (2,000 unit) Capsule 50 mcg PO DAILY cyanocobalamin (vitamin B-12) 500 mcg Tablet,Disintegrating 500 mcg SUBLINGUAL DAILY oxycodone-acetaminophen 5-325 mg Tablet 2 tablet PO Q6H PRN (Reason: Pain (Scale Score 7-10)) Qty: 30 0RF aspirin 81 mg tablet,delayed release (DR/EC) 81 mg PO BID Rx Instructions: for 10 days. End on 06/02/2023 magnesium oxide 250 mg magnesium tablet 500 mg PO DAILY fluoxetine 20 mg tablet 20 mg PO DAILY Multivitamin Women 50 Plus 8 mg iron-400 mcg-300 mcg tablet 1 tablet PO DAILY levothyroxine 150 mcg capsule 150 mcg PO EVERY OTHER DAY levothyroxine 175 mcg capsule 175 mcg PO EVERY OTHER DAY pramipexole 1.5 mg tablet 1.5 mg PO TID Ozempic 0.25 mg or 0.5 mg (2 mg/3 mL) pen injector 2 mg subcut WEEKLY Rx Instructions: for 4 weeks nystatin-triamcinolone 100,000-0.1 unit/g-% cream 1 applic topical DAILY PRN (Reason: irritation) Qty: 60 4RF nystatin [Nystop] 100,000 unit/gram powder 1 applic TOPICAL PRN PRN (Reason: Rash) Qty: 60 4RF Rx Instructions: abd folds nitroglycerin [Nitrostat] 0.4 mg Tablet, Sublingual 0.4 mg sublingual Q5MIN PRN (Reason: Chest Pain) 30 Days Qty: 20 0RF spironolactone 50 mg tablet See Rx Instructions .ROUTE .COMPLEX Qty: 30 5RF Dose Instruction: TAKE ONE TABLET BY MOUTH EVERY DAY Rx Instructions: TAKE ONE TABLET BY MOUTH EVERY DAY metoprolol tartrate 50 mg tablet See Rx Instructions .ROUTE .COMPLEX Qty: 270 5RF Dose Instruction: TAKE ONE TABLET BY MOUTH THREE TIMES A DAY Rx Instructions: TAKE ONE TABLET BY MOUTH THREE TIMES A DAY Trelegy Ellipta 100-62.5-25 mcg blister with device 1 inh inhalation Q24H Qty: 60 5RF Rx Instructions: Rinse and spit. This replaces Dulera. montelukast 10 mg tablet 10 mg PO QHS Qty: 30 5RF pravastatin 10 mg tablet See Rx Instructions .ROUTE .COMPLEX Qty: 90 2RF Dose Instruction: TAKE ONE TABLET BY MOUTH DAILY Rx Instructions: TAKE ONE TABLET BY MOUTH DAILY potassium chloride 20 mEq tablet,ER particles/crystals See Rx Instructions .ROUTE .COMPLEX Qty: 60 5RF Dose Instruction: TAKE ONE TABLET BY MOUTH TWICE A DAY Rx Instructions: TAKE ONE TABLET BY MOUTH TWICE A DAY bumetanide 1 mg tablet 1 mg PO BID Qty: 60 5RF Follow-up/Referrals: UNKNOWN,DOCTOR [Non-Staff] -
[2024-09-21 18:06] VITALS: BP 123/74; PULSE 90; RESP 18; TEMP 37; O2SAT 95
== END 2024-09-21 18:06 | disposition home or self-care (01) ==
PROVIDERS: Emergency Provider Emergency Medicine; PCP Family Medicine
DX: I11.0 Hypertensive heart disease with heart failure (principal); I50.30 Unspecified diastolic (congestive) heart failure; E03.9 Hypothyroidism, unspecified; Z85.51 Personal history of malignant neoplasm of bladder
CPT/HCPCS: 74019; 99283

== ENCOUNTER 2024-11-22 14:08 | Outpatient (CLI) | payer MEDICARE, SELFPAY ==
--- NOTE | ~2024-11-22 | CT_ITS ---
EXAMINATION: CT BRAIN & SINUS W/O DATE: 11/22/2024 14:26 INDICATION: Facial trauma and femoral head injury with episodic axis post fall 3 weeks prior TECHNIQUE: 1. Computed tomography (CT) of the head and sinuses was performed without intravenous contrast. Sagit maame and coronal reconstructions were obtained. The mA was adjusted according to patient size. Iterati ve reconstruction technique was employed. The dose-length product was 681.0 mGy-cm. COMPARISON: None. FINDINGS: Head CT: No calvarial fracture. No acute intracranial hemorrhage, acute infarction or abnormal extra axial flu id collection. There is mild scattered white matter hypoattenuation consistent with chronic small ves shankar ischemic disease. Symmetric prominence of the sulci consistent with mild age-appropriate diffuse cerebral volume loss. Ventricles are normal and symmetric. No mass/mass effect. The orbits, middle ea r cavities and mastoid air cells are normal. Sinuses: No maxillofacial fractures. Specifically the rogers of the orbits and paranasal sinuses, the nasal bon es, zygomatic arches and visualized portion of the mandible are normal. 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 Mucosal thickening and dependent bubbly mucus in the left maxilla ry sinus. Additional mucosal thickening and/or mucus in the lateral aspect of the right sphenoid sinu s. Both the left maxillary and lateral right sphenoid sinuses demonstrate associated thickened sclero tic rogers consistent with chronic sinusitis. Mild mucosal thickening at the right frontoethmoidal rec ess. Remainder the paranasal sinuses are clear. There mucosal thickening at the infundibulum of the b ilateral ostiomeatal units with significant narrowing on the right and appearing occluded on the left . Nasal septum is midline. IMPRESSION: 1. No calvarial or maxillofacial fractures. 2. Normal aging brain with mild diffuse volume loss and mild scattered white matter hypoattenuation c onsistent with chronic small vessel ischemic disease. No acute intracranial process. 3. Chronic left maxillary and right sphenoid sinus disease. Reviewed, dictated and finalized at location B. GRINDER OPERATOR EXTERNAL IMPRESSION: 1. No calvarial or maxillofacial fractures. 2. Normal aging brain with mild diffuse volume loss and mild scattered white ma tter hypoattenuation consistent with chronic small vessel ischemic disease. No acute intracranial process. 3. Chronic left maxillary and right sphenoid sinus disease.
== END 2024-11-22 14:09 | disposition home or self-care (01) ==
LOC: CHSIMG 14:09
PROVIDERS: PCP Family Medicine; Visit Provider Family Medicine
DX: S09.93XA Unspecified injury of face, initial encounter (principal); J32.8 Other chronic sinusitis
CPT/HCPCS: 70450; 70486

== ENCOUNTER 2025-01-29 11:13 | Outpatient (CLI) | payer MEDICARE, SELFPAY ==
[2025-01-29] VITALS (9 sets, daily range): PULSE 85–93; O2SAT 91–97
--- OUTSIDE RECORDS SUMMARY | 2025-01-29 13:24 | XMS_ITS | Continuity of Care Document ---
Author Organization [facility] Address [address] [place] [address] Phone Care Team Providers Care Certified Detention Deputy Name Role Phone Dino Garcia MD Unavailable Unavailable Procedures Procedure Date Copies Of Medical Records Office/outpatient visit,est, mod 2010 Drain/inject major jointor bursa 2010 Kenalog X-ray exam of shoulder, complete 2010 X-ray exam of pelvis, 1-2 views 011 X-ray exam of hip, 1 view X-ray exam of hip, 1 view Treat metatarsal fracture Walking Boot, Pneumatic, With Or Without Joints, W Advance Directives Directive Yes / No Effective Date File Name No Information Encounters Encounter Description Practice Location Reason(s) For Visit Diagnoses Date Provider Providers Copied on Encounter [facility], [address] [place] [address], [id number], tel:[phone] [facility] No Information 1 Jose Sun. [address] [place] [address], [id number] , . [phone] Referring Provider: Lai Juarez, [facility] Not There Anymore, [place]. Office/outpat ient visit,est, mod [facility], [address] [place] [address], [id number], tel:[phone] [facility] No Information 1 Jose Sun. [address] [place] [address], [id number] , . tel:[phone] Referring Provider: Lai Juarez, Was [facility] Not There Anymore, [place]. [facility], [address] [place] [address], [id number], tel:[phone] [facility] No Information 1 Panfilo Marquez. [address] [employer], [place], [id number] , . tel:[phone] Referring Provider: Lai Juarez, [facility] Not There Anymore, [place]. [facility], [address] [place] [address], [id number], tel:[phone] [facility] No Information 1 Jose Sun. [address] [place] [address], [id number] , . tel:[phone] Referring Provider: Dino Garcia, [address] [place] [address], [id number]. tel:[phone] Family History Family Member Type Diagnosis Age At Onset No Information Payers Payer name Insurance type Covered democrat ID Authoriza tion(s) No Information Social History Type Description Quantity Date Captured Comments Sex Female Smoking Status No Information Chief Complaint And Reason For Visit No Information Reason For Referral Reason For Referral No Information History Of Present Illness Encounter Date Complaint History Of Prese nt Illness No Information Functional Status Date Functional Assessmen t No Information Instructions Date Instruction Additional Infor mation No Information Assessments Type Assessment Date No Information Patient Care Teams Name Effective Dates (start - stop) Status Members No Information
--- OUTSIDE RECORDS SUMMARY | 2025-01-29 13:24 | XMS_ITS ---
Author Organization [facility] Address [address] [place], [place] [id number] Care Team Providers Care Supervisor Edging Name Role Phone CHICHI BARRETO Unavailable [phone] Ssuhant Gonzalez Unavailable Unavailable LUH RAYO Unavailable [phone] REASON FOR VISIT *General care Medications Medication SIG (Take, Route, Frequency, Duration) Notes Start Date End Date Status oxycodone hydrochloride 10 MG Oral Tablet ORAL oxycodone hydrochloride 10 M G Oral TabletOriginal Medicationoxycodone hydrochloride 10 MG Oral Tablet *Reorder from [facility] for eRx and Interaction Alerts* 6 Active gabapentin 100 MG Oral Capsule [Neurontin] ORAL gabapentin 100 MG Oral Capsule [Neurontin]Original Medicationgabapentin 100 MG Oral Capsule [Neurontin] *Reorder from [facility] for eRx and Interaction Alerts* 6 Active fluoxetine 10 MG Oral Capsule [Prozac] ORAL fluoxetine 10 MG Oral Capsul e [Prozac]Original Medicationfluoxetine 10 MG Oral Capsule [Prozac] *Reorder from [facility] for eRx and Interaction Alerts* 6 Active cholecalciferol 0.025 MG Chewable Tablet ORAL cholecalciferol 0.025 MG Chewable TabletOriginal Medicationcholecalciferol 0.025 MG Chewable Tablet *Reorder from [facility] for eRx and Interaction Alerts* 7 Active Meloxicam 15 MG Oral Tablet ORAL meloxicam 15 MG Oral TabletOriginal Medicationmeloxicam 15 MG Oral Tablet *Reorder from [facility] for eRx and Interaction Alerts* 6 Active pramipexole dihydrochloride 0.5 MG Oral Tablet [Mirapex] ORAL pramipexole dihydrochloride 0.5 MG Oral Tablet [Mirapex]Original Medicationpramipexole dihydrochloride 0.5 MG Oral Tablet [Mirapex] *Reorder from [facility] for eRx and Interaction Alerts* 7 Active Potassium Gluconate 2.5 MEQ Oral Tablet ORAL potassium gluconate 2.5 MEQ Oral TabletOriginal Medicationpotassium gluconate 2.5 MEQ Oral Tablet *Reorder from [facility] for eRx and Interaction Alerts* 6 Active Vital Signs Height 62.00 in 04/12/2024 Weight 240 lbs 04/12/2024 BMI 43.89 kg/m2 04/12/2024 Height-cm 157.48 cm 04/12/2024 Weight-kg 108.86 kg 04/12/2024 Encounters Encounter Location Date Provider Diagnosis [address] [id number] 04/12/2024 [facility] 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, bilateral legs I70.203 ; Tinea unguium B35.1 ; Other hammer toe(s) (acquired), right foot M20.41 ; Other hammer toe(s) (acquired), left foot M20.42 ; Pain in right toe(s) M79.674 and Pain in left toe(s) M79.675 Assessments Encounter Date Diagnosis (ICD Code) Assessment Notes Treatment Notes Treatment Clinical Notes Section Notes 04/12/2024 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 The patient was educated regarding all treatment options that include topical and oral antifungal treatments. I discussed the options of taking a sample of the nail to confirm diagnosis. Nail clippings were not sent for pathology analysis. The patient was educated why and how the fungal infection evolved in their feet and the patient was given information regarding how to prevent further infection. The patient was told to keep feet dry and change socks. The patient was told to be careful with old shoes and excessive sweating. The patient was educated regarding both OTC and prescription treatments. 04/12/2024 Other hammer toe(s) (acquired), right foot (ICD-10 - M20.41) The patient was educated regarding how to mechanically stabilize their deformity. The patient was given education about shoe recommendations specific for the condition. The patient was educated about custom orthotics and how appropriate shoes and orthotics can prevent further worsening of the deformity. The patient was educated about how bad shoe habits can worsen the condition. NSAIDS, P.T., injections and other conservative treatments were discussed. Both surgical and non surgical treatments were discussed, but conservative options were emphasized. 04/12/2024 Other hammer toe(s) (acquired), left foot (ICD-10 - M20.42) 04/12/2024 Pain in right toe(s) (ICD-10 - M79.674) 04/12/2024 Pain in left toe(s) (ICD-10 - M79.675) Plan Of Treatment Treatment Notes Assessment Notes 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, bilateral legs Patient educated on risks and aggravating factors of PVD, including conservative treatment options such as a diet and exercise regimen to aid in slowing progression of vascular disease Tinea unguium Aseptic debridement of elongated thickened nails x 10 using sterile nippers, nails were debrided in length and thickness by 30% utilizing a nail nipper without incident. The patient was educated regarding all treatment options that include topical and oral antifungal treatments. I discussed the options of taking a sample of the nail to confirm diagnosis. Nail clippings were not sent for pathology analysis. The patient was educated why and how the fungal infection evolved in their feet and the patient was given information regarding how to prevent further infection. The patient was told to keep feet dry and change socks. The patient was told to be careful with old shoes and excessive sweating. The patient was educated regarding both OTC and prescription treatments. Other hammer toe(s) (acquired), right fo ot The patient was educated regarding how to mechanically stabilize their deformity. The patient was given education about shoe recommendations specific for the condition. The patient was educated about custom orthotics and how appropriate shoes and orthotics can prevent further worsening of the deformity. The patient was educated about how bad shoe habits can worsen the condition. NSAIDS, P.T., injections and other conservative treatments were discussed. Both surgical and non surgical treatments were discussed, but conservative options were emphasized. Next Appt Details Follow Up: 3 Months, Reason: Progress Notes * YVONNE NEGRON MDOB:1944 (79 yo F)Acc No.[id number]:04/12/2024 Patient: Jad YVONNE TAYLOR Provider: Marc RAYO :1945 A ge:79 Y S ex:Female Date:04/12/2024 Address:[address] [place] [address] Subjective: * Chief Complaints: * 1 . *General care. * HPI: H PI: General care P atient presents to the office for diabetic foot care. Patient states that their nails are thickened, elongated and painful. Patient states that it is aggravated by shoe gear. Onset is gradual., Patient denies taking prescription blood thinners but does take a daily aspirin., Date last seen by Dr. Gonzalez was March., Initials As. * ROS: G eneral / Constitutional: Patient denies w eakness. R espiratory: Patient denies c hronic cough, shortness of breath, sputum production. C ardiovascular: Patient denies c hest pain, history of UT, irregular heartbeat. M usculoskeletal: Patient complains of h ammertoes, arch pain. ? P eripheral Vascular: Patient denies b lanching of skin, cold extremities, decreased sensation in extremities. S kin: Patient complains of n ail changes. N eurologic: Patient denies d izziness, gait abnormality, headache. * Medical History: * Medications: T aking Potassium Gluconate 2.5 MEQ Oral Tablet ORAL , Notes to Pharmacist: potassium gluconate 2.5 MEQ Oral TabletOriginal Medicationpotassium gluconate 2.5 MEQ Oral Tablet *Reorder from [facility] for eRx and Interaction Alerts*, Taking Meloxicam 15 MG Oral Tablet ORAL , Notes to Pharmacist: meloxicam 15 MG Oral TabletOriginal Medicationmeloxicam 15 MG Oral Tablet *Reorder from [facility] for eRx and Interaction Alerts*, Taking cholecalciferol 0.025 MG Chewable Tablet ORAL , Notes to Pharmacist: cholecalciferol 0.025 MG Chewable TabletOriginal Medicationcholecalciferol 0.025 MG Chewable Tablet *Reorder from [facility] for eRx and Interaction Alerts*, Taking fluoxetine 10 MG Oral Capsule [Prozac] ORAL , Notes to Pharmacist: fluoxetine 10 MG Oral Capsule [Prozac]Original Medicationfluoxetine 10 MG Oral Capsule [Prozac] *Reorder from [facility] for eRx and Interaction Alerts*, Taking gabapentin 100 MG Oral Capsule [Neurontin] ORAL , Notes to Pharmacist: gabapentin 100 MG Oral Capsule [Neurontin]Original Medicationgabapentin 100 MG Oral Capsule [Neurontin] *Reorder from [facility] for eRx and Interaction Alerts*, Taking oxycodone hydrochloride 10 MG Oral Tablet ORAL , Notes to Pharmacist: oxycodone hydrochloride 10 MG Oral TabletOriginal Medicationoxycodone hydrochloride 10 MG Oral Tablet *Reorder from [facility] for eRx and Interaction Alerts*, Taking pramipexole dihydrochloride 0.5 MG Oral Tablet [Mirapex] ORAL , Notes to Pharmacist: pramipexole dihydrochloride 0.5 MG Oral Tablet [Mirapex]Original Medicationpramipexole dihydrochloride 0.5 MG Oral Tablet [Mirapex] *Reorder from [facility] for eRx and Interaction Alerts* Objective: * Vitals: W t: 240 lbs, Wt-k.86 kg, Ht: 62.00 in, Ht-cm: 157.48 cm, BMI: 43.89 Index, Body Surface Area: 2.18. * Examination: P hysical Examination: V ascular: Dorsalis Pedis pulse noted at 1/4 right foot and 1/4 left foot and Posterior Tibial pulse noted at 1/4 right foot and 1/4 left foot, Capillary refill times noted to be less than three seconds x ten, Temperature gradient noted to be warm to cool to bilateral foot, pedal hair present to bilateral foot and no varicosities are noted Dermatologic: there are no open lesions, no signs of active clinical infection, no erythema noted, no ecchymoses, nails are elongated thickened and dystrophic with subungual debris x ten Musculoskeletal: there is pain to palpation onto nail plate x ten, no calf pain noted bilaterally, arch height noted at 2/5 non-weight bearing bilaterally, first metatarsophalangeal joint range of motion 30 deg non-weight bearing bilaterally, flexible fifth digit hammer toe deformity noted to bilateral foot reducible with kelikian push up test Neurology: protective sensation intact to light touch bilateral digits one through five, vibratory sensation intact to first metatarsophalangeal joint bilaterally. Assessment: * Assessment: 1. T inea unguium - B35.1 (Primary) 2 . U nspecified atherosclerosis of hoopa arteries of extremities, bilateral legs - I70.203 3 . O ther hammer toe(s) (acquired), right foot - M20.41 4 . O ther hammer toe(s) (acquired), left foot - M20.42 5 . P ain in right toe(s) - M79.674 6 . P ain in left toe(s) - M79.675 Plan: * Treatment: 2. U nspecified atherosclerosis of hoopa arteries of extremities, bilateral legs Notes: Patient educated on risks and aggravating factors of PVD, including conservative treatment options such as a diet and exercise regimen to aid in slowing progression of vascular disease ? 3. O ther hammer toe(s) (acquired), right foot Notes: The patient was educated regarding how to mechanically stabilize their deformity. The patient was given education about shoe recommendations specific for the condition. The patient was educated about custom orthotics and how appropriate shoes and orthotics can prevent further worsening of the deformity. The patient was educated about how bad shoe habits can worsen the condition. NSAIDS, P.T., injections and other conservative treatments were discussed. Both surgical and non surgical treatments were discussed, but conservative options were emphasized. * Follow Up: 3 Months * Billing Information: * Visit Code: [id number] Office Visit, Est Pt., Level 3. * Procedure Codes: * Sign off status: Completed true * Provider: Marc RAYO Date: 0 04/12/2024 Generated for Juan F lujan/Cherie/Jess on: 0 01/29/2025 01:24 PM CDT History and Physical Notes * HPI (History of Present Illness) Category Sub-Category Detail Notes Category Not es HPI General care Patient presents to the office for diabetic foot care. Patient states that their nails are thickened, elongated and painful. Patient states that it is aggravated by shoe gear. Onset is gradual., Patient denies taking prescription blood thinners but does take a daily aspirin., Date last seen by Dr. Gonzalez was March., Initials As Examination Category Sub-Category Detail Notes Category Not es Physical Examination Vascular: Dorsalis Pedis pulse noted at 1/4 right foot and 1/4 left foot and Posterior Tibial pulse noted at 1/4 right foot and 1/4 left foot, Capillary refill times noted to be less than three seconds x ten, Temperature gradient noted to be warm to cool to bilateral foot, pedal hair present to bilateral foot and no varicosities are noted Dermatologic: there are no open lesions, no signs of active clinical infection, no erythema noted, no ecchymoses, nails are elongated thickened and dystrophic with subungual debris x ten Musculoskeletal: there is pain to palpation onto nail plate x ten, no calf pain noted bilaterally, arch height noted at 2/5 non-weight bearing bilaterally, first metatarsophalangeal joint range of motion 30 deg non-weight bearing bilaterally, flexible fifth digit hammer toe deformity noted to bilateral foot reducible with kelikian push up test Neurology: protective sensation intact to light touch bilateral digits one through five, vibratory sensation intact to first metatarsophalangeal joint bilaterally
--- OUTSIDE RECORDS SUMMARY | 2025-01-29 13:25 | XMS_ITS | Referral Summary ---
Author Organization [facility] [address] Address [address] [place] [address] Care Team Providers Care Softball Player Name Role Phone Nasir Kaminski DO Unavailable [phone] Nazia Jenkins Unavailable Sushant Gonzalez MD Primary Care Provider [phone] Encounters Date Type Department Care Team Description 12/06/2024 7:45 AM DIRECTOR OF VOCATIONAL TRAINING - 12/06/2024 11:59 PM DIRECTOR OF VOCATIONAL TRAINING Hospital Encounter [facility] Medical [facility] [address] [place] [address] [address], [place] [address] Discharge Disposition: Discharge to home or self care 12/06/2024 1:30 PM DIRECTOR OF VOCATIONAL TRAINING Office Visit [facility] Medical [facility] [address] [place] [address] [address], [place] [address] Nazia Jenkins PA Strain of deltoid muscle, left, initial encounter (Primary Dx); S/P reverse total shoulder arthroplasty, left; Osteoarthritis of left AC (acromioclavicular) joint; Contusion of left shoulder, initial encounter 12/03/2024 Telephone [facility] [address] [facility] [address] [place] [address] Abdoul Celeste MD from Last 3 Months Allergies Active Allergy Reactions Criticality Noted Date Comments Metformin Diarrhea Low 02/28/2024 Morphine Itching,Rash High Reaction: ITCHING, Reaction: Rash, Sulfa (Sulfonamide Antibiotics) Other (See comments) Reaction: HAIR FALLS OUT, DRY SKIN, , Reaction: Other, Medications pramipexole (MIRAPEX) 1.5 mg tablet take 1 tablet by oral route 3 times every day 270 3 3 Active levothyroxine (SYNTHROID, LEVOTHROID) 100 mcg tablet take 1 tablet by oral route every day 0 0 4 Active magnesium I-znvgjv-doacnk amide 42 mg (500 mg)- 250 mg tablet extended release Take 250 mg by mouth 3 (three) times a day 1 Active furosemide (LASIX) 40 mg tablet Take 1 tablet (40 mg total) by mouth 2 (two) times a day 3 Active spironolactone (ALDACTONE) 50 mg tablet Take 1 tablet (50 mg total) by mouth daily 3 Active pravastatin (PRAVACHOL) 10 mg tablet Take 1 tablet (10 mg total) by mouth nightly 3 Active metoprolol tartrate (LOPRESSOR) 50 mg immediate release tablet Take 1 tablet (50 mg total) by mouth 2 (two) times a day 3 Active cyanocobalamin, vitamin B-12, 500 mcg tablet,disinteg rating Place 1 tablet under the tongue daily 8 Active nystatin powder Nystop 100,000 unit/gram topical powder Active nitroglycerin (NITROSTAT) 0.[address] 1 tablet (0.4 mg total) under the tongue every 5 (five) minutes as needed 1 Active fluticasone propionate (FLONASE) 50 mcg/actuation nasal spray fluticasone propionate 50 mcg/actuation nasal spray,suspension Active multivit-min/fe rrous fumarate (MULTI VITAMIN ORAL) Take by mouth Active potassium chloride ER 20 mEq CR tablet Take 1 tablet (20 mEq total) by mouth 2 (two) times a day 3 Active triamcinolone (KENALOG) 0.1 % cream 3 Active levothyroxine (SYNTHROID) 150 mcg tablet Take 1 tablet (150 mcg total) by mouth reclaimer before breakfast 3 Active oxyCODONE-aceta minophen (PERCOCET) 5-325 mg per tabletIndicatio ns:Pain Take 1-2 tablets by mouth every 4 (four) hours as needed for pain 30 tablet 3 Active aspirin 81 mg enteric coated tabletIndicatio ns:Deep Vein Thrombosis Prevention Take 1 tablet (81 mg total) by mouth 2 (two) times a day for 10 days 20 tablet 3 Active cholecalciferol (VITAMIN D-3) 2000 unit capsule Take 1 capsule (2,000 Units total) by mouth daily 30 capsule 3 Active ascorbic acid (VITAMIN C) 500 mg tablet,chewable Indications:Vit lloyd deficiency prevention Take 1 tablet/chew tab (500 mg total) by mouth 2 (two) times a day 60 tablet/chew tab 3 Active bisacodyl EC (DULCOLAX EC) 5 mg EC tabletIndicatio ns:constipation Take 1 tablet (5 mg total) by mouth daily as needed for constipation 30 tablet 3 Active clobetasoL (TEMOVATE) 0.05 % external solution 4 Active fluconazole (DIFLUCAN) 150 mg tablet 4 Active FLUoxetine (PROzac) 40 mg capsule Take 1 capsule (40 mg total) by mouth daily 3 Active ipratropium (ATROVENT) 0.02 % nebulizer solution 4 Active ipratropium-alb uteroL (DUO-NEB) 0.5-2.5 mg/3 mL nebulizer solution 4 Active montelukast (SINGULAIR) 10 mg tablet 4 Active semaglutide 0.25 mg or 0.5 mg (2 mg/3 mL) pen injector injection Inject 0.5 mg under the skin once a week 3 mL 6 4 Active Active Problems Problem Noted Date Diagnosed Date Chronic respiratory failure with hypoxia 023 Severe pulmonary hypertension 06/07/2023 CKD (chronic kidney disease) stage 2, GFR 60-89 ml/min 06/06/2023 S/P reverse total shoulder arthroplasty, left Primary osteoarthritis, left shoulder 05/16/2023 Rotator cuff arthropathy, left 05/04/2023 Type 2 diabetes mellitus wit h hyperglycemia, with long-term current use of insulin 05/04/2022 Assessment & Plan (02/28/2024 12:41 PM CDT): With multiple comorbidities, including morbid obesity. The patient is not a candidate for metformin due to chronic diarrhea, close by spastic colon. She would benefit from GLP 1 see if it does which will help with weight loss. She has agreed on starting Ozempic Start Ozempic 0.25 mg weekly for 4 weeks and then continue with 0.5 mg weekly The patient is advised to call in case of severe nausea or vomiting She took the 1st injection here at the office Chronic bilateral low back pain with bilateral s ciatica 07/21/2020 Chronic pain syndrome 07/21/2020 Failed back surgical syndrome 07/21/2020 S/P lumbar laminectomy 07/21/2020 S/P lumbar spinal fusion 07/21/2020 Bifascicular block 03/10/2019 Dyspnea on exertion 03/10/2019 SUKH (obstructive sleep apnea) 03/10/2019 Allergic rhinitis 03/01/2018 Chronic back pain 12/24/2016 Kidney stone on left side 12/24/2016 Depression 10/25/2016 Edema 10/25/2016 Obesity, Class III, BMI 40-49.9 (morbid obesity) 10/25/2016 Spinal stenosis 10/25/2016 Sleep disorder 03/23/2014 Overview (02/11/2017): SLEEP STAGE DYSFUNC NEC Abnormal glucose tolerance test (GTT) 03/23/2014 Overview (02/11/2017): IMPAIRED ORAL GLUCSE SYLVIA Hypothyroidism 03/23/2014 Overview (02/11/2017): HYPOTHYROIDISM NOS Benign hypertension 03/23/2014 Overview (02/11/2017): BENIGN HYPERTENSION Vitamin D deficiency 03/23/2014 Overview (02/11/2017): VITAMIN D DEFICIENCY NOS Restless legs syndrome 12/17/2013 Overview (02/11/2017): Restless legs syndrome Immunizations Immunization Administration Dates Next Due Influenza, Trivalent, High D ose, Split, Preservative Free, Intramuscular 08/08/2013 Pneumococcal Polysaccharide PPV23 08/08/2013 Social History Tobacco Use Types Packs/Day Years Used Date Smoking Tobacco: Every Day Cigarettes Last attempted to quit: 03/13/2023 Smokeless Tobacco: Never Alcohol Use Standard Drinks/Week Comments Yes 0 (1 standard drink = 0.6 oz pur e alcohol) Social Connection and Isolat ion Panel [NHANES] Answer Date Recorded In a typical week, how many times do you talk on the phone with family, friends, or neighbors? More than three times a week 05/18/2023 How often do you get togethe r with friends or relatives? More than three times a week 05/18/2023 How often do you attend chur or pentecostal services? Patient declined 05/18/2023 Do you belong to any clubs o r organizations such as holiness groups, unions, fraternal or athletic groups, or school groups? Patient declined 05/18/2023 How often do you attend meet ings of the clubs or organizations you belong to? Patient declined 05/18/2023 Are you , , di vorced, , never , or living with a partner? 05/18/2023 AUDIT-C Answer Date Recorded Q1: How often do you have a drink containing alcohol? Never 05/17/2023 Q2: How many drinks containi ng alcohol do you have on a typical day when you are drinking? Patient does not drink Q3: How often do you have si x or more drinks on one occasion? Never 05/17/2023 Overall Financial Resource Strain (CARDIA) Answe r Date Recorded How hard is it for you to pa y for the very basics like food, housing, medical care, and heating? Somewhat hard 05/18/2023 PRAPARE - Transportation Answer Date Re corded In the past 12 months, has l ack of transportation kept you from medical appointments or from getting medications? No 05/07 In the past 12 months, has l ack of transportation kept you from meetings, work, or from getting things needed for daily living? No 05/18/2023 Housing Stability Vital Sign Answer Jareth e Recorded In the last 12 months, was t here a time when you were not able to pay the mortgage or rent on time? Yes 05/18/2023 In the last 12 months, how many places have you lived? 0 05/18/2023 In the last 12 months, was t here a time when you did not have a steady place to sleep or slept in a chcf (including now)? No 05/18/2023 Personal Safety Answer Date Recorded Have you ever been in or are you currently in a harmful physical or emotional relationship or is someone making you feel afraid or unsafe? Denies 05/17/2023 Comments Unknown Sex and Gender Information Value Date Recorded Sex Assigned at Not on file Legal Sex Female 9:01 AM DIRECTOR OF VOCATIONAL TRAINING Gender Identity Not on file Sexual Orientation Not on file Last Filed Vital Signs Vital Sign Reading Time Taken Comments Blood Pressure 114/73 12/06/2024 1:23 PM DIRECTOR OF VOCATIONAL TRAINING Pulse 89 12/06/2024 1:23 PM DIRECTOR OF VOCATIONAL TRAINING Temperature 37.1 C (98.8 F) 05/23/2023 11:00 AM CDT Respiratory Rate 18 05/23/2023 11:00 AM CDT Oxygen Saturation 96% 05/23/2023 11:00 AM CDT Inhaled Oxygen Concentration - - Weight 109.8 kg (242 lb) 12/06/2024 1:23 PM DIRECTOR OF VOCATIONAL TRAINING Height 152.4 cm (5') 12/06/2024 1:23 PM DIRECTOR OF VOCATIONAL TRAINING Body Mass Index 47.26 12/06/2024 1:23 PM DIRECTOR OF VOCATIONAL TRAINING Plan of Treatment Not on file Medical Devices Implanted Type Area Inbound Customer Service Representative Device Identifier Shelf Expiration Date Model / Serial / Lot [employer] Baseplate 24mm 20 Deg Full Augment Oblique [id number] - [id number] Implanted:Qty: 1 on 05/17/2023 by Abdoul Celeste MD at [facility] Left: Shoulder [employer] [id number] 02/05/2028 AR-9580-2 420 / / [id number] [employer] Univers Revers 20mm Modular Post Component Glenoid Porous Ar-9582-20 - [id number] Implanted:Qty: 1 on 05/17/2023 by Abdoul Celeste MD at [facility] Left: Shoulder [employer] [id number] 03/06/2028 AR-9582-2 0 / / [employer] 5.5mm 36mm Lock Peripheral Screw Bone Sterile Ar-9563-36 - [id number] Implanted:Qty: 1 on 05/17/2023 by Abdoul Celeste MD at [facility] Left: Shoulder [employer] [id number] 12/07/2027 AR-9563-3 6 / / [id number] [employer] 36mm 24 Baseplate Taper Sphere Glenoid [id number] - [id number] Implanted:Qty: 1 on 05/17/2023 by Abdoul Celeste MD at [facility] Left: Shoulder [employer] [id number] 12/07/2027 AR-9564-2 436 / / [id number] [employer] 5.5mm 20mm Lock Peripheral Screw Bone Sterile Ar-9563-20 - [id number] Implanted:Qty: 1 on 05/17/2023 by Abdoul Celeste MD at [facility] Left: Shoulder [employer] [id number] 12/07/2027 AR-9563-2 0 / / [id number] [employer] Implant Suture Cup Humeral Reverse Left Univers Revers +2x33mm Titanium [id number] - [id number] Implanted:Qty: 1 on 05/17/2023 by Abdoul Celetse MD at [facility] Left: Shoulder [employer] [id number] 09/06/2027 AR-9502F- 33LCPC / / [id number] [employer] Insert Humeral Combo Reverse Poly Univers Revers +3x33mm [id number] - [id number] Implanted:Qty: 1 on 05/17/2023 by Abdoul Celeste MD at [facility] Left: Shoulder [employer] [id number] 07/07/2027 AR-9503-3 336-3 .98032 [employer] Arthrex Univers Revers Shoulder 7 Stem Humeral Sterile Ar-9501-07p - [id number] Implanted:Qty: 1 on 05/17/2023 by Abdoul Celeste MD at [facility] Left: Shoulder [employer] [id number] 06/06/2027 AR-9501-0 7.82588 Procedures Procedure Name Priority Date/Time Associated Diagnosis Comments XR SHOULDER LEFT 2 OR MORE VIEWS Routine 12/06/2024 1:17 PM DIRECTOR OF VOCATIONAL TRAINING S/P reverse total shoulder arthroplasty, left HEMOGLOBIN A1C Routine 08/20/2024 3:21 PM CDT Numbness and tingling Type 2 diabetes mellitus without complication, without long-term current use of insulin (HCC) LIPID PANEL Routine 08/20/2024 3:21 PM CDT Numbness and tingling EGFR Routine 05/18/2023 3:50 AM CDT from Last 3 Months or Most Recently Relevant to Health Maintenance Results * XR Shoulder Left 2 or More Views (12/06/2024 1:17 PM DIRECTOR OF VOCATIONAL TRAINING) Anatomical Region Laterality Modality Upper Extremities, Shoulder Left Digi maame Radiography Narrative 12/06/2024 1:57 PM DIRECTOR OF VOCATIONAL TRAINING Views of the left shoulder reviewed and interpreted today. No evidence of fracture, dislocation, or destructive osseous lesion. Changes related to previous left reverse total shoulder arthroplasty noted with implants in acceptable position no evidence of periprosthetic fracture or loosening noted. There are osteoarthritic changes noted at the left AC joint as evidenced by joint space narrowing subchondral sclerosis and subacromial spurring. Nazia BAH IMG XR PROCEDURES Edit ed Result - Final * (ABNORMAL) Hemoglobin A1c (08/20/2024 3:21 PM CDT) Hgb A1C 6.3(H) 4.0 - 5.6 % Estimated Average Glucose 134 mg/dL [facility] Comment: The ADA recommends reporting an estimated Average Glucose (eAG) with all Hemoglobin A1c results using the equation derived from a study of 507 normal and diabetic adults. Minority populations were underrepresented and children were not included. (Diabetes Care 2020; 43(S1): S66-S76). The eAG is not equivalent to a fasting glucose. Blood Venous blood specimen / Unknown 08/20/2024 3:21 PM CDT 08/20/2024 3:58 PM CDT us Dudley Ray MD LAB BLOOD ORDERABLES Delfina borrero Result [facility] Department [place] [address] * Lipid panel (08/20/2024 3:21 PM CDT) Cholesterol 114 30 - 199 mg/dL Comment: Interpretive Data Ages < or = 19 years Acceptable: <170 mg/dL Borderline high: 170-199 mg/dL High: >or= 200 mg/dL Ages > or = 20 years Desirable: <200 mg/dL Borderline high: 200-239 mg/dL High: >or= 240 mg/dL Literature References: 1. Expert Panel on Integrated Guidelines for Cardiovascular Health and Risk Reduction in Children and Adolescents. Pediatrics 2011;128:S213 2. NCEP Expert Panel. Circulation 2004;110:227 Current Interpretive Data was last revised on 2018. Triglycerides 85 <=149 mg/dL [facility] Comment: Interpretive Data Ages < or = 9 years Acceptable: <75 mg/dL Borderline high: 75-99 mg/dL High: >or= 100 mg/dL Ages 10 to 20 years Acceptable: <90 mg/dL Borderline high: 90-129 mg/dL High: >or= 130 mg/dL Ages > or = 20 years Desirable: <150 mg/dL Borderline high: 150-199 mg/dL High: 200-499 mg/dL Very high: >or= 499 mg/dL Literature References: 1. Expert Panel on Integrated Guidelines for Cardiovascular Health and Risk Reduction in Children and Adolescents. Pediatrics 2011;128:S213 2. NCEP Expert Panel. Circulation 2004;110:227 Current Interpretive Data was last revised on 2018. HDL 42 >=40 mg/dL [facility] Comment: Interpretive Data Ages < or = 19 years Acceptable: >45 mg/dL Borderline low: 40-45 mg/dL Low: <40 mg/dL Ages > or = 20 years Desirable: >or= 60 mg/dL Low: <40 mg/dL Literature References: 1. Expert Panel on Integrated Guidelines for Cardiovascular Health and Risk Reduction in Children and Adolescents. Pediatrics 2011;128:S213 2. NCEP Expert Panel. Circulation 2004;110:227 Current Interpretive Data was last revised on 2018. LDL, calculated 55 <=129 mg/dL [facility] Comment: Interpretive Data Ages < or = 19 years Acceptable: <110 mg/dL Borderline high: 110-129 mg/dL High: >or= 130 mg/dL Ages > or = 20 years Optimal: <100 mg/dL Near optimal: 100-129 mg/dL Borderline high: 130-159 mg/dL High: >160 mg/dL Calculated using the Franco LDL-C estimating equation. This equation was implemented on 2024. Prior to this date LDL-C was estimated using the Friedewald equation. Literature References: 1. Expert Panel on Integrated Guidelines for Cardiovascular Health and Risk Reduction in Children and Adolescents. Pediatrics 2011;128:S213 2. NCEP Expert Panel. Circulation 2004;110:227 3. Franco Traylor al. OMARI Cardiol. 2019March 07;5(5):540-548. doi: 10.1001/jamacardio.2020.0013 Current Interpretive Data was last revised on 2024. Non-HDL Cholesterol 72 mg/dL [facility] Comment: Interpretive Data Ages < or = 19 years Acceptable: <120 mg/dL Borderline high: 120-144 mg/dL High: >145 mg/dL Ages > or = 20 years When triglycerides are >200 mg/dL, Non-HDL cholesterol is a secondary target of therapy with treatment goals that are 30 mg/dL greater than the LDL cholesterol target. Literature References: 1. Expert Panel on Integrated Guidelines for Cardiovascular Health and Risk Reduction in Children and Adolescents. Pediatrics 2011;128:S213 2. NCEP Expert Panel. Circulation 2004;110:227 Current Interpretive Data was last revised on 2018. Chol/HDL ratio 3 [facility] Blood Venous blood specimen / Unknown 08/20/2024 3:21 PM CDT 08/20/2024 3:58 PM CDT us Dudley Ray MD LAB BLOOD ORDERABLES Delfina l Result [facility] [address] [facility] Department [place] [address] * eGFR (05/18/2023 3:50 AM CDT) eGFR 63 mL/min/1. 73 m2 [facility] Comment: Interpretive Data Reference Interval Normal >/= 90 mL/min/1.73m2 Mildly decreased* 60 - 89 mL/min/1.73m2 Mildly to moderately decreased 45 - 59 mL/min/1.73m2 Moderately to severely decreased 30 - 44 mL/min/1.73m2 Severely decreased 15 - 29 mL/min/1.73m2 Kidney Failure < 15 mL/min/1.73m2 *Relative to young adult level Estimated glomerular filtration rate is determined by the 2020 CKD-EPI equation recommended by the National Kidney Foundation (A Unifying Approach to GFR Estimation: Recommendations of the NKF-ASK Task Force on Reassessing the Inclusion of Race in Diagnosing Kidney Disease, JASN 202). The CKD-EPI equation should not be used for patients with unstable renal function and has not been validated in children and those over 70. Current interpretive data was last reviewed 2021. Blood 05/18/2023 3:50 AM CDT 05/18/2023 4:00 AM CDT us Nazia BAH LAB BLOOD ORDERABLES F inal Result [facility] [address] [facility] Department [place] [address] from Last 3 Months or Most Recently Relevant to Health Maintenance Insurance [employer] MEDICARE T MEDICARE Advance Directives For more information, please contact: [phone] * Full Code (Latest Code Status on File) Date Activated Date Inactivated Comments 05/17/2023 2:36 PM 05/23/2023 6:06 PM Care Teams Softball Player Relationship Specialty [place] [address] [facility] [address] [address] PCP - General Family Practice 02/28/24 Nasir Kaminski DO [address] [facility] [address] [place] [address] Referring Physician Cardiology 05/12/23 Nazia Jenkins PA [address] [place] [address] [address] Orthopedic Surgery 05/23/23
--- OUTSIDE RECORDS SUMMARY | 2025-01-29 13:25 | XMS_ITS | Clinical Summary ---
Author Organization [facility] Address [address] [place] [address] Care Team Providers Care Battery Service Technician Name Role Phone Poppy Quiroz MD Primary Care Provider [phone] Source Comments [facility],non-owned Affiliates and Associated Physician Practices is amultiple site organization consisting of ambulatory clinics and hospital sitesin [place], [place] and [place]. This disclosure is being madepursuant to the Care Everywhere program and may not contain all information available regarding this patient. Last updated 18.[facility] Social History Tobacco Use Types Packs/Day Years Used Date Smoking Tobacco: Never Assessed PHQ-2 Answer Date Recorded PHQ2 TOTAL SCORE 3 07/19/2022 Sex and Gender Information Value Date Recorded Sex Assigned at Not on file Gender Identity Not on file Sexual Orientation Not on file Plan of Treatment Health Maintenance Due Date Last Done Comments BONE DENSITY TESTING 1945 HEPATITIS C SCREENING 01/17/1965 DTAP/TDAP/TD VACCINES (1 - Tdap) 1966 PNEUMOCOCCAL VACCINE 50+ (1 of 1 - PCV) 1997 ZOSTER VACCINE (1 of 2) 1997 Respiratory Syncytial Virus (RSV) Vaccine Pt: or over 60 yrs (1 - 1-dose 75+ series) 2022 COVID-19 VACCINE (1 - 2023- season) 2024 INFLUENZA VACCINE (#1) 2024 , 07/30/2020, 08/09/2019, Additional history exists DEPRESSION SCREENING 11/07/2024 07/07/2022 HEPATITIS B VACCINE Aged Out No longe r eligible based on patient's age to complete this topic HIB VACCINE Aged Out No longer eligi ble based on patient's age to complete this topic HPV VACCINE Aged Out No longer eligi ble based on patient's age to complete this topic MENINGOCOCCAL (Group B) VACCINE SHARED DECISION-MAKING Aged Out No longer eligible based on patient's age to complete this topic MENINGOCOCCAL GROUPS A/C/Y/W VACCINE Aged Out No longer eligible based on patient's age to complete this topic Care Teams Battery Service Technician Relationship Specialty Start Date End Date Poppy Quiroz MD PCP - General 05/07/22
--- OUTSIDE RECORDS SUMMARY | 2025-01-29 13:25 | XMS_ITS | Clinical Summary ---
Author Organization [facility] Address [address] [place] [address] Phone Care Team Providers Care Valve Pipe Irrigator Name Role Phone Unavailable Primary Care Provider Unavailabl e Allergies Active Allergy Reactions Criticality Noted Date Comments Morphine Itching,Rash High 10/25/2016 Reaction: ITCHING, Reaction: Rash, Sulfa (Sulfonamide Antibiotics) Itching,Other (See Comments) Low 10/25/2016 Reaction: HAIR FALLS OUT, DRY SKIN, Medications pramipexole (MIRAPEX) 1.5 mg Tablet Take 1.5 mg by mouth 2 times daily. 4 Active potassium chloride (KLOR-CON) 20 mEq Extended Release tablet Take 20 mEq by mouth 2 times daily. 3 Active Trelegy Ellipta 100-62.5-25 mcg Disk with Device Take 1 Puff by inhalation daily. 4 Active pravastatin (PRAVACHOL) 10 mg tablet Take 10 mg by mouth daily at bedtime. 3 Active magnesium oxide 500 mg magnesium Tablet Take 1 Tablet by mouth daily. Active oxyCODONE-aceta minophen (PERCOCET) 7.5-325 mg Tablet Take 1 Tablet by mouth every 12 hours as needed for Pain, Moderate. Active semaglutide (Ozempic) 0.25 mg or 0.5 mg (2 mg/3 mL) Pen Injector Inject 0.5 mg by subcutaneous injection every 7 days. Active spironolactone (ALDACTONE) 50 mg tablet Take 50 mg by mouth daily. Active furosemide (LASIX) 40 mg tablet Take 40 mg by mouth 2 times daily. Active cyanocobalamin (VITAMIN B-12) 500 mcg tablet Take 500 mcg by mouth daily. Active cholecalciferol , Vitamin D3, 50 mcg (2,000 unit) Tablet Take 2,000 Units by mouth daily. Active Active Problems No known active problems Encounters Date Type Department Care Team Description 12/26/2024 External Device Data ST[facility] ABSTRACTION Provider, Abstract 12/05/2024 External Device Data ST[facility] ABSTRACTION Provider, Abstract 11/29/2024 External Device Data ST[facility] ABSTRACTION Provider, Abstract from Last 3 Months Social History Tobacco Use Types Packs/Day Years Used Date Smoking Tobacco: Every Day Cigarettes Tobacco Cessation:Ready to Q uit: Not Asked; Counseling Given: Not Answered Alcohol Use Standard Drinks/Week Comments Yes 0 (1 standard drink = 0.6 oz pur e alcohol) Comments Unknown Sex and Gender Information Value Date Recorded Sex Assigned at Not on file Legal Sex Female 10:00 AM CDT Gender Identity Not on file Sexual Orientation Not on file Last Filed Vital Signs Vital Sign Reading Time Taken Comments Blood Pressure 114/60 05/24/2024 2:42 PM CDT Pulse 91 05/24/2024 2:42 PM CDT Temperature 36.2 C (97.2 F) 05/24/2024 2:42 PM CDT Respiratory Rate - - Oxygen Saturation 96% 05/24/2024 2:42 PM CDT Inhaled Oxygen Concentration - - Weight 120.2 kg (265 lb) 05/24/2024 2:42 PM CDT Height 154.9 cm (5' 1 ) 05/24/2024 2:42 PM CDT Body Mass Index 50.07 05/24/2024 2:42 PM CDT Plan of Treatment Health Maintenance Due Date Last Done Comments DIABETES ANNUAL FOOT EXAM 1965 DIABETES ANNUAL RETINAL EXAM 1965 DIABETES MICROALBUMIN ANNUAL SCREEN 1965 LDL CHOLESTEROL ANNUAL 1965 DTAP/TDAP/TD VACCINES (1 - Tdap) 1966 RSV VACCINE (60+ or ) (1 - 1-dose 75+ series) 2022 ZOSTER VACCINE (3 of 3) 05/04/2024 03/09/2024, 09/02 INFLUENZA VACCINE (#1) 2024 2, 07/17/2021, 07/12/2018, Additional history exists COVID-19 Vaccine (5 - 2023-2 5 season) 2024 03/06/2022, 08/04/2021, 01/02/2021, Additional history exists DIABETES HBA1C Q 6 MONTHS 08/29/2024 02/28/2024, OSTEOPOROSIS SCREENING Completed 11/27/2021 PNEUMOCOCCAL VACCINE 50+ YEARS Completed 0 01/20/2022, 05/05/2020, 08/21/2015, Additional history exists Insurance AETNA PPO [facility]
--- OUTSIDE RECORDS SUMMARY | 2025-01-29 13:25 | XMS_ITS | Clinical Summary ---
Author Organization [facility] [address] Address [address] [place] [address] Care Team Providers Care Document Restorer Name Role Phone Nasir Kaminski DO Unavailable [phone] Nazia Jenkins Unavailable Sushant Gonzalez MD Primary Care Provider [phone] Allergies Active Allergy Reactions Criticality Noted Date [...] every day 0 0 4 Active magnesium V-gbvpsn-ktaywq amide 42 mg (500 mg)- 250 mg [...] 1 tablet (150 mcg total) by mouth service person before breakfast 3 Active oxyCODONE-aceta minophen (PERCOCET) [...] syndrome 12/17/2013 Overview (02/11/2017): Restless legs syndrome Encounters Date Type Department Care Team Description 12/06/2024 1:30 PM MEMORY CARE PROGRAM DIRECTOR Office Visit [facility] Orthopedics and Sports Medicine [address] [place] [phone] Nazia Jenkins PA Strain of deltoid muscle, left, initial encounter (Primary Dx); S/P reverse total shoulder arthroplasty, left; Osteoarthritis of left AC (acromioclavicular) joint; Contusion of left shoulder, initial encounter 12/06/2024 7:45 AM MEMORY CARE PROGRAM DIRECTOR - 12/06/2024 11:59 PM MEMORY CARE PROGRAM DIRECTOR Hospital Encounter [facility] Orthopedics and Sports Medicine [address] [place] [address] [place] [phone] Discharge Disposition: Discharge to home or self care 12/03/2024 Telephone [facility] Orthopedics and Sports Medicine [address] [facility] [address] [place] [address] Abdoul Celeste MD from Last 3 Months Immunizations Immunization Administration Dates Next Due Influenza, Trivalent, High D ose, Split, Preservative Free, Intramuscular 08/08/2013 Pneumococcal Polysaccharide PPV23 08/08/2013 Surgical History Surgery Date Site/Laterality Comments OTHER SURGICAL HISTORY 1999 SPURS: DISC REMOVAL/FUSION C4-5 C5-6 CHOLECYSTECTOMY 1971 Cholecystectomy HYSTERECTOMY 1982 Hysterectomy HEMORRHOID SURGERY 1972 HEMORRHOIDECTOMY OTHER SURGICAL HISTORY 2006 SPINAL STENOSIS: SURGERY C6-C7, repair w/o fusion OTHER SURGICAL HISTORY 2002 BLADDER CA: BLADDER TUMOR REMOVED OTHER SURGICAL HISTORY 1977 Bilateral carpal tunner: Bilateral Carpal tunnel release CARDIAC STENT PLACEMENT 03/07/2022 - 04/06/2022 1 stent REPLACEMENT TOTAL KNEE BILATERAL Bilateral CARPAL TUNNEL RELEASE Bilateral OTHER SURGICAL HISTORY Pain stimulator implant CYST REMOVAL Right breast, between kidney TONSILLECTOMY VAGINA SURGERY TUBAL LIGATION ROTATOR CUFF REPAIR Bilateral x5 LUMBAR FUSION Medical History Medical History Date Comments Hx Other Medical SPURS Hx Other Medical 01-ORTHOPEDIST Hx Other Medical 02-UROLOGIST Spinal stenosis SPINAL STENOSIS Hx Other Medical BLADDER CA Hx Other Medical Bilateral carpa l tunner Depression Depression Arthritis Arthritis Hypertension Hypertension Hx Other Medical back surgery; O utcome: 01/28/14 Poor circulation Hypercholesteremia Peripheral neuropathy Cancer (HCC) 2000 bladder cancer Thyroid disease Sleep apnea uses a Bi-pap an d has a 5L bleed in Lung disease COPD Oxygen dependent patient states during the day she uses 2-3L of oxygen Restless leg syndrome Family History Medical History Relation Name Comments Cancer Father Cancer -; Heart disease Father Heart disease; Hypertension Father Hypertension; Stroke Father Stroke; Heart disease Mother Heart disease; Stroke Mother Stroke; Arthritis Other Blood Clot Other Diabetes Other Kidney disease Other Relation Name Status Comments Father Mother Other Social History Tobacco Use Types Packs/Day Years [...] 05/18/2023 How often do you attend chur ch or sikhism services? Patient declined 05/18/2023 Do you belong to any clubs o r organizations such as orthodoxy groups, unions, fraternal or athletic groups, or [...] place to sleep or slept in a skilled nursing (including now)? No 05/18/2023 Personal Safety Answer Date Recorded Have you ever been in or are you currently in a harmful physical or emotional relationship or is someone making you feel afraid or unsafe? Denies 05/17/2023 Comments Unknown Sex and Gender Information Value Date Recorded Sex Assigned at Not on file Legal Sex Female 9:01 AM MEMORY CARE PROGRAM DIRECTOR Gender Identity Not on file Sexual Orientation Not on file Obstetrics History Last Filed Vital Signs Vital Sign Reading Time Taken Comments Blood Pressure 114/73 12/06/2024 1:23 PM MEMORY CARE PROGRAM DIRECTOR Pulse 89 12/06/2024 1:23 PM MEMORY CARE PROGRAM DIRECTOR Temperature 37.1 C (98.8 F) 05/23/2023 11:00 AM CDT Respiratory Rate 18 05/23/2023 11:00 AM CDT Oxygen Saturation 96% 05/23/2023 11:00 AM CDT Inhaled Oxygen Concentration - - Weight 109.8 kg (242 lb) 12/06/2024 1:23 PM MEMORY CARE PROGRAM DIRECTOR Height 152.4 cm (5') 12/06/2024 1:23 PM MEMORY CARE PROGRAM DIRECTOR Body Mass Index 47.26 12/06/2024 1:23 PM MEMORY CARE PROGRAM DIRECTOR Plan of Treatment Health Maintenance Due Date Last Done Comments Albumin Creatinine Ratio, Urine 1945 Depression Screening 1945 Hepatitis C Screening 1945 Osteoporosis Screening-Bone Density Scan 1945 Dilated Eye Exam 1945 Foot Exam 1945 DTaP/Tdap/Td Vaccine (1 - Tdap) 1958 Hepatitis B Screening 1965 Well Visit 65+ 01/23/2012 Zoster Vaccine (3 of 3) 05/04/2024 03/09/2024, 09/02 eGFR 05/18/2024 05/18/2023 Fall Risk Assessment 05/23/2024 05/23/2023 Covid-19 Vaccine (6 - 2023-2 5 season) 2024 08/26/2022, 03/06/2022, 08/04/2021, Additional history exists Influenza Vaccine (#1) 2024 , 07/20/2021, 07/17/2021, Additional history exists Hemoglobin A1C 02/18/2025 08/20/2024, 02/28/2024 Lipid Panel 08/20/2025 08/20/2024, 08/0 12/2023, 04/29/2020 Pneumococcal vaccine 65+ Completed 022, 05/05/2020, 08/21/2015, Additional history exists Medical Devices Implanted Type Area Maintenance Inspector Device Identifier Shelf Expiration Date Model / Serial / Lot [employer] Baseplate 24mm 20 Deg Full Augment Oblique [id number] - [id number] Implanted:Qty: 1 on 05/17/2023 by Abdoul Celeste MD at [facility] Left: Shoulder [employer] [id number] 02/05/2028 AR-9580-2 420 / / [id number] [employer] Univers Revers 20mm Modular Post Component Glenoid Porous Ar-9582-20 - [id number] Implanted:Qty: 1 on 05/17/2023 by Abdoul Celeste MD at [facility] Left: Shoulder [employer] [id number] 03/06/2028 AR-9582-2 0 / / [employer] 5.5mm 36mm Lock Peripheral Screw Bone Sterile Ar-9563-36 - [id number] Implanted:Qty: 1 on 05/17/2023 by Abdoul Celeste MD at [facility] Left: Shoulder [employer] [id number] 12/07/2027 AR-9563-3 6 / / [id number] [employer] 36mm 24 Baseplate Taper Sphere Glenoid [id number] - [id number] Implanted:Qty: 1 on 05/17/2023 by Abdoul Celeste MD at [facility] Left: Shoulder [employer] [id number] 12/07/2027 AR-9564-2 436 / / [id number] [employer] 5.5mm 20mm Lock Peripheral Screw Bone Sterile Ar-9563-20 - [id number] Implanted:Qty: 1 on 05/17/2023 by Abdoul Celeste MD at [facility] Left: Shoulder [employer] [id number] 12/07/2027 AR-9563-2 0 / / [id number] [employer] Implant Suture Cup Humeral Reverse Left Univers Revers +2x33mm Titanium [id number] - [id number] Implanted:Qty: 1 on 05/17/2023 by Abdoul Celeste MD at [facility] Left: Shoulder [employer] [id number] 09/06/2027 AR-9502F- 33LCPC / / .[id number] [employer] Insert Humeral Combo Reverse Poly Univers Revers +3x33mm Bg-[id number] - [id number] Implanted:Qty: 1 on 05/17/2023 by Abdoul Celeste MD at [facility] Left: Shoulder [employer] [id number] 07/07/2027 AR-9503-3 336-3 / .[id number] [employer] Arthrex Univers Revers Shoulder 7 Stem Humeral Sterile Ar-9501-07p - [id number] Implanted:Qty: 1 on 05/17/2023 by Abdoul Celeste MD at [facility] Left: Shoulder [employer] [id number] 06/06/2027 AR-9501-0 7P / .[id number] Procedures Procedure Name Priority Date/Time Associated Diagnosis Comments XR SHOULDER LEFT 2 OR MORE VIEWS Routine 12/06/2024 1:17 PM MEMORY CARE PROGRAM DIRECTOR S/P reverse total shoulder arthroplasty, left HEMOGLOBIN [...] 2 or More Views (12/06/2024 1:17 PM MEMORY CARE PROGRAM DIRECTOR) Anatomical Region Laterality Modality Upper Extremities, Shoulder Left Digi maame Radiography Narrative 12/06/2024 1:57 PM MEMORY CARE PROGRAM DIRECTOR Views of the left shoulder reviewed and interpreted today. No evidence of fracture, dislocation, or destructive osseous lesion. Changes related to previous left reverse total shoulder arthroplasty noted with implants in acceptable position no evidence of periprosthetic fracture or loosening noted. There are osteoarthritic changes noted at the left AC joint as evidenced by joint space narrowing subchondral sclerosis and subacromial spurring. us Nazia BAH IMG XR PROCEDURES Edit ed Result - Final * (ABNORMAL) Hemoglobin A1c (08/20/2024 3:21 PM CDT) Hgb A1C 6.3(H) 4.0 - 5.6 % Estimated Average Glucose 134 mg/dL [facility] EMERY Comment: The ADA recommends reporting an estimated [...] MD LAB BLOOD ORDERABLES Delfina l Result [facility] Department [place] [address] * Lipid panel (08/20/2024 3:21 PM CDT) [...] revised on 2018. Triglycerides 85 <=149 mg/dL [facility] EMERY Comment: Interpretive Data Ages < or = [...] on 2018. HDL 42 >=40 mg/dL ARIAS [facility] Comment: Interpretive Data Ages < or = [...] on 2018. LDL, calculated 55 <=129 mg/dL [facility] Comment: Interpretive Data Ages < or = [...] 2004;110:227 3. Franco Traylor al. OMARI Cardiol. 2020 March 07;5(5):540-548. doi: [email or web address] Current Interpretive Data was last revised on 2024. Non-HDL Cholesterol 72 mg/dL [facility] Comment: Interpretive Data Ages < or = [...] last revised on 2018. Chol/HDL ratio [address] [facility] Blood Venous blood specimen / Unknown 08/20/2024 3:21 PM CDT 08/20/2024 3:58 PM CDT us Dudley Ray MD LAB BLOOD ORDERABLES Delfina borrero Result [facility] Department [place] [address] * eGFR (05/18/2023 3:50 AM CDT) eGFR 63 mL/min/1. 73 m2 ARIAS [facility] ([facility]) Comment: Interpretive Data Reference Interval Normal >/= [...] of Race in Diagnosing Kidney Disease, JASN 2020). The CKD-EPI equation should not be used for patients with unstable renal function and has not been validated in children and those over 70. Current interpretive data was last reviewed 2021. Blood 05/18/2023 3:50 AM CDT 05/18/2023 4:00 AM CDT Nazia BAH LAB BLOOD ORDERABLES F inal Result [facility] ([place]) [address] [facility] Department [place] [address] from Last 3 Months or Most Recently Relevant to Health Maintenance Insurance T MEDICARE AET MEDICARE AETNA MEDICARE AETNA MEDICARE Advance Directives For more information, please contact: [phone] * Full Code (Latest Code Status on File) Date Activated Date Inactivated Comments 05/17/2023 2:36 PM 05/23/2023 6:06 PM Care Teams Document Restorer Relationship Specialty Start [place] [address] [address] PCP - General Family Practice 02/28/24 Nasir Kaminski DO [address] [address] Referring Physician Cardiology 05/12/23 Nazia Jenkins PA [address] [place] [address] [place] [address] Orthopedic Surgery 05/23/23
--- OUTSIDE RECORDS SUMMARY | 2025-01-29 13:25 | XMS_ITS ---
Author Organization [facility] Address [address] [place], [place] [address] Care Team Providers Care Furniture Painter Name Role Phone CHICHI BARRETO Unavailable [phone] Sushant Gonzalez Unavailable Unavailable LUH RAYO Unavailable [phone] REASON FOR VISIT *General care Encounters Encounter Location Date Provider Diagnosis [address] [id number] 06/14/2024 LUH RAYO Plan Of Treatment No Information Progress Notes * YVONNE NEGRON MDOB:1944 (80 yo F)Acc No.[id number]:06/14/2024 Patient: Jad YVONNE TAYLOR Provider: Marc RAYO :1945 A ge:79 Y S ex:Female Date:06/14/2024 Address:[address] [place], [place] [id number] Subjective: * Chief Complaints: * 1 . *General care. * Medical History: Objective: * Vitals: Assessment: Plan: * Treatment: * Billing Information: * Visit Code: * Procedure Codes: * Electronic signature of TRENT RAYO DPM on 01/29/2025 at 01:25 PM CDT Sign off status: Pending * Provider: Marc RAYO Date: 0 06/14/2024 Generated for Sharathi tai/Cherie/eTransmitting on: 0 01/29/2025 01:25 PM CDT
--- OUTSIDE RECORDS SUMMARY | 2025-01-29 13:25 | XMS_ITS | Patient Health Record ---
Author Organization [facility] Address [address] [place], [place] [address] Care Team Providers Care Treatment Counselor Name Role Phone CHICHI BARRETO Unavailable [phone] Sushant Gonzalez Unavailable Unavailable LUH RAYO Unavailable [phone] Reason For Referral No Information Medications Medication SIG (Take, Route, Frequency, Duration) Notes Start Date End Date Status pramipexole dihydrochloride 0.5 MG Oral Tablet [Mirapex] ORAL pramipexole dihydrochloride 0.5 MG Oral Tablet [Mirapex]Original Medicationpramipexole dihydrochloride 0.5 MG Oral Tablet [Mirapex] *Reorder from [email or web address] for eRx and Interaction Alerts* 7 Active oxycodone hydrochloride 10 MG Oral Tablet ORAL oxycodone hydrochloride 10 M G Oral TabletOriginal Medicationoxycodone hydrochloride 10 MG Oral Tablet *Reorder from [email or web address] for eRx and Interaction Alerts* 6 Active gabapentin 100 MG Oral Capsule [Neurontin] ORAL gabapentin 100 MG Oral Capsule [Neurontin]Original Medicationgabapentin 100 MG Oral Capsule [Neurontin] *Reorder from [email or web address] for eRx and Interaction Alerts* 6 Active fluoxetine 10 MG Oral Capsule [Prozac] ORAL fluoxetine 10 MG Oral Capsul e [Prozac]Original Medicationfluoxetine 10 MG Oral Capsule [Prozac] *Reorder from [facility] for eRx and Interaction Alerts* 6 Active cholecalciferol 0.025 MG Chewable Tablet ORAL cholecalciferol 0.025 MG Chewable TabletOriginal Medicationcholecalciferol 0.025 MG Chewable Tablet *Reorder from [facility] for eRx and Interaction Alerts* 7 Active Meloxicam 15 MG Oral Tablet ORAL meloxicam 15 MG Oral TabletOriginal Medicationmeloxicam 15 MG Oral Tablet *Reorder from [facility] for eRx and Interaction Alerts* 6 Active Potassium Gluconate 2.5 MEQ Oral Tablet ORAL potassium gluconate 2.5 MEQ Oral TabletOriginal Medicationpotassium gluconate 2.5 MEQ Oral Tablet *Reorder from [facility] for eRx and Interaction Alerts* 6 Active Vital Signs Height-cm 157.48 cm 04/12/2024 Weight-kg 108.86 kg 04/12/2024 Height 62.00 in 04/12/2024 Weight 240 lbs 04/12/2024 BMI 43.89 kg/m2 04/12/2024 Encounters Encounter Location Date Provider Diagnosis [address] [id number] 04/12/2024 LUH RIVERAADRIANA 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, bilateral legs (ICD-10 - I70.203) Patient educated on risks and aggravating factors of PVD, including conservative treatment options such as a diet and exercise regimen to aid in slowing progression of vascular disease 04/12/2024 Other hammer toe(s) (acquired), right foot [...] toe(s) (ICD-10 - M79.675) Plan Of Treatment No Information Insurance Providers Payer Name Payer Address Payer Phone Subscriber Number Group Number Insured Name Patient Relationship to Insured Coverage Start Date Coverage End Date [employer] [address] [place] [phone] [id number] YVONNE NEGRON Self - patient is the insured
--- NOTE | 2025-01-29 15:03 | HOMEO2EVAL ---
Evaluation was performed at [facility] Home Oxygen Evaluation RC: Home Oxygen (O2) Evaluation Start: 01/29/25 14:41 Freq: Status: Active Protocol: RPE Activity Type Activity Date Activity User E-sign Co-sign Detail Recorded Client Recorded Date Recorded By Document 01/29/25 11:21 RES [id number] 01/29/25 14:56 RES Document 01/29/25 11:22 RES [id number] 01/29/25 14:56 RES Document 01/29/25 11:23 RES [id number] 01/29/25 14:56 RES Document 01/29/25 11:24 RES [id number] 01/29/25 15:03 RES Document 01/29/25 11:25 RES [id number] 01/29/25 15:03 RES Document 01/29/25 11:26 RES [id number] 01/29/25 15:03 RES Document 01/29/25 11:27 RES [id number] 01/29/25 15:03 RES Document 01/29/25 11:28 RES [id number] 01/29/25 15:03 RES Document 01/29/25 11:29 RES [id number] 01/29/25 15:03 RES 01/29/25 01/29/25 01/29/25 11:21 11:22 11:23 Home O2 Evaluation [Oxygen] -Test Phase Resting Exercise Exercise -Oxygen Delivery Room Air Room Air Room Air -Fraction of Inspired Oxygen (%) 21 21 21 [Pulse Oximetry] -Pulse Oximetry (90-100 %) 96 96 97 [Pulse Rate] -Pulse Rate (60-100 beats/min) 85 88 87 [Evaluation] -Activity Tolerance Good Good Good -Rating of Perceived Dyspnea (PD) +2 Mild, Some +2 Mild, Some +2 Mild, Some Difficulty, Difficulty, Difficulty, Noticeable to Noticeable to Noticeable to the Observer the Observer the Observer -Rate of Perceived Exertion (PE) 9 Very light 10 11 Fairly light Query Text:Click the Protocol Button to View the RPE Scale [Exercise] -Ambulation Distance (feet) -Ambulation Distance (meters) [Comments] -Home Oxygen Evaluation Comments Patient had to take a 30 second break at this time [Charges] -Evaluation Charges O2 Evaluation Charge 01/29/25 01/29/25 01/29/25 11:24 11:25 11:26 Home O2 Evaluation [Oxygen] -Test Phase Exercise Exercise Exercise -Oxygen Delivery Room Air Room Air Room Air -Fraction of Inspired Oxygen (%) 21 21 21 [Pulse Oximetry] -Pulse Oximetry (90-100 %) 95 93 94 [Pulse Rate] -Pulse Rate (60-100 beats/min) 89 91 90 [Evaluation] -Activity Tolerance Good Good Good -Rating of Perceived Dyspnea (PD) +3 Moderate +3 Moderate +3 Moderate Difficulty, But Difficulty, But Difficulty, But Can Continue Can Continue Can Continue -Rate of Perceived Exertion (PE) 12 12 13 Somewhat Query Text:Click the Protocol Button Hard to View the RPE Scale [Exercise] -Ambulation Distance (feet) -Ambulation Distance (meters) [Comments] -Home Oxygen Evaluation Comments Patient had to take a 30 second break at this time [Charges] -Evaluation Charges 01/29/25 01/29/25 01/29/25 11:27 11:28 11:29 Home O2 Evaluation [Oxygen] -Test Phase Exercise Exercise Resting -Oxygen Delivery Room Air Room Air Room Air -Fraction of Inspired Oxygen (%) 21 21 21 [Pulse Oximetry] -Pulse Oximetry (90-100 %) 92 91 93 [Pulse Rate] -Pulse Rate (60-100 beats/min) 89 93 90 [Evaluation] -Activity Tolerance Good Good Good -Rating of Perceived Dyspnea (PD) +3 Moderate +3 Moderate +2 Mild, Some Difficulty, But Difficulty, But Difficulty, Can Continue Can Continue Noticeable to the Observer -Rate of Perceived Exertion (PE) 13 Somewhat 13 Somewhat 12 Query Text:Click the Protocol Button Hard Hard to View the RPE Scale [Exercise] -Ambulation Distance (feet) 300 -Ambulation Distance (meters) 91.43 [Comments] -Home Oxygen Evaluation Comments [Charges] -Evaluation Charges
== END 2025-01-29 11:14 | disposition home or self-care (01) ==
LOC: CHSCARD 11:15
PROVIDERS: PCP Family Medicine; Visit Provider Family Medicine
DX: J96.11 Chronic respiratory failure with hypoxia (principal)
CPT/HCPCS: 94618

== ENCOUNTER 2025-02-01 09:40 | Outpatient (CLI) | payer MEDICARE, SELFPAY ==
--- OUTSIDE RECORDS SUMMARY | 2025-02-01 10:20 | XMS_ITS | Referral Summary ---
Author Organization [facility] [place] [address] Address [address] [place] [address] Care Team Providers Care Railroad Cook Name Role Phone Nasir Kaminski DO Unavailable [phone] Nazia Jenkins Unavailable Sushant Gonzalez MD Primary Care Provider [phone] Encounters Date Type Department Care Team Description 12/06/2024 7:45 AM PEAR PICKER - 12/06/2024 11:59 PM PEAR PICKER Hospital Encounter [facility] Medical [facility] Orthopedics and Sports Medicine [address] [place] [address] [address], [place] [address] Discharge Disposition: Discharge to home or self care 12/06/2024 1:30 PM PEAR PICKER Office Visit [facility] Medical [facility] Orthopedics and Sports Medicine [address] [place] [address] [address], [place] [address] Nazia Jenkins PA Strain of deltoid muscle, left, initial encounter (Primary Dx); S/P reverse total shoulder arthroplasty, left; Osteoarthritis of left AC (acromioclavicular) joint; Contusion of left shoulder, initial encounter 12/03/2024 Telephone [facility] Orthopedics and Sports Medicine [address] [facility] [address] [place] [address] Abdoul Celeste MD from Last [...] every day 0 0 4 Active magnesium Q-iaodwb-uxdhgq amide 42 mg (500 mg)- 250 mg [...] 1 tablet (150 mcg total) by mouth window caser before breakfast 3 Active oxyCODONE-aceta minophen (PERCOCET) [...] How often do you attend chur or restorationist services? Patient declined 05/18/2023 Do you belong to any clubs o r organizations such as hindu groups, unions, fraternal or athletic groups, or [...] on file Legal Sex Female 9:01 AM PEAR PICKER Gender Identity Not on file Sexual Orientation Not on file Last Filed Vital Signs Vital Sign Reading Time Taken Comments Blood Pressure 114/73 12/06/2024 1:23 PM PEAR PICKER Pulse 89 12/06/2024 1:23 PM PEAR PICKER Temperature 37.1 C (98.8 F) 05/23/2023 11:00 AM CDT Respiratory Rate 18 05/23/2023 11:00 AM CDT Oxygen Saturation 96% 05/23/2023 11:00 AM CDT Inhaled Oxygen Concentration - - Weight 109.8 kg (242 lb) 12/06/2024 1:23 PM PEAR PICKER Height 152.4 cm (5') 12/06/2024 1:23 PM PEAR PICKER Body Mass Index 47.26 12/06/2024 1:23 PM PEAR PICKER Plan of Treatment Not on file Medical Devices Implanted Type Area Print Controller Device Identifier Shelf Expiration Date Model / Serial / Lot Arthrex Inc Baseplate 24mm 20 Deg Full Augment Oblique [id number] - [id number] Implanted:Qty: 1 on 05/17/2023 by Abdoul Celeste MD at [facility] Left: Shoulder [employer] [id number] 02/05/2028 AR-9580-2 420 / / [id number] Ar[employer] Univers Revers 20mm Modular Post Component Glenoid Porous Ar-9582-20 - [id number] Implanted:Qty: 1 on 05/17/2023 by Abdoul Celeste MD at [facility] Left: Shoulder [employer] [id number] 03/06/2028 AR-9582-2 0 / / Ar[employer]rex Inc 5.5mm 36mm Lock Peripheral Screw Bone Sterile Ar-9563-36 - [id number] Implanted:Qty: 1 on 05/17/2023 by Abdoul Celeste MD at [facility] Left: Shoulder [employer] [id number] 12/07/2027 AR-9563-3 6 / / [id number] Ar[employer]rex [employer] 36mm 24 Baseplate Taper Sphere Glenoid [id number] - [id number] Implanted:Qty: 1 on 05/17/2023 by Abdoul Celeste MD at [facility] Left: Shoulder [employer] [id number] 12/07/2027 AR-9564-2 436 / / [id number] Ar[employer] 5.5mm 20mm Lock Peripheral Screw Bone Sterile Ar-9563-20 - [id number] Implanted:Qty: 1 on 05/17/2023 by Abdoul Celeste MD at [facility] Left: Shoulder [employer] [id number] 12/07/2027 AR-9563-2 0 / / [id number] Ar[employer] Implant Suture Cup Humeral Reverse Left Univers Revers +2x33mm Titanium [id number] - [id number] Implanted:Qty: 1 on 05/17/2023 by Abdoul Celeste MD at [facility] Left: Shoulder [employer] [id number] 09/06/2027 AR-9502F- 33LCPC / / [id number] Ar[employer]rex Inc Insert Humeral Combo Reverse Poly Univers Revers +3x33mm Wo-6007-1717-3 - [id number] Implanted:Qty: 1 on 05/17/2023 by Abdoul Celeste MD at [facility] Left: Shoulder [employer] [id number] 07/07/2027 AR-9503-3 336-3 .29115 Arthrex Inc Arthrex Univers Revers Shoulder 7 Stem Humeral Sterile Ar-9501-07p - [id number] Implanted:Qty: 1 on 05/17/2023 by Abdoul Celeste MD at [facility] Left: Shoulder [employer] [id number] 06/06/2027 AR-9501-0 7.35673 Procedures Procedure Name Priority Date/Time Associated Diagnosis Comments XR SHOULDER LEFT 2 OR MORE VIEWS Routine 12/06/2024 1:17 PM PEAR PICKER S/P reverse total shoulder arthroplasty, left HEMOGLOBIN [...] 2 or More Views (12/06/2024 1:17 PM PEAR PICKER) Anatomical Region Laterality Modality Upper Extremities, Shoulder Left Digi maame Radiography Narrative 12/06/2024 1:57 PM PEAR PICKER Views of the left shoulder reviewed and [...] % Estimated Average Glucose 134 mg/dL [facility] Comment: The ADA recommends reporting an estimated [...] MD LAB BLOOD ORDERABLES Delfina borrero Result [facility] Department [place] [address] * Lipid panel (08/20/2024 3:21 PM CDT) [...] revised on 2018. Triglycerides 85 <=149 mg/dL [facility] Comment: Interpretive Data Ages < or [...] on 2018. HDL 42 >=40 mg/dL [facility] Comment: Interpretive Data Ages < or [...] 2018. LDL, calculated 55 <=129 mg/dL [facility] Comment: Interpretive Data Ages < or [...] revised on 2024. Non-HDL Cholesterol 72 mg/dL [facility] Comment: Interpretive Data Ages < or [...] last revised on 2018. Chol/HDL ratio 3 [facility] Blood Venous blood specimen / Unknown 08/20/2024 3:21 PM CDT 08/20/2024 3:58 PM CDT us Dudley Ray MD LAB BLOOD ORDERABLES Delfina l Result [facility] Department [place] [address] * eGFR (05/18/2023 3:50 AM CDT) eGFR 63 mL/min/1. 73 m2 [facility] Comment: Interpretive Data Reference Interval Normal >/= [...] F inal Result [facility] ([facility]) [address] [facility] Department [place] [address] from Last 3 Months or Most Recently Relevant to Health Maintenance Insurance AETNA MEDICARE T MEDICARE Advance Directives For more information, please contact: [phone] * Full Code (Latest Code Status on File) Date Activated Date Inactivated Comments 05/17/2023 2:36 PM 05/23/2023 6:06 PM Care Teams Railroad Cook Relationship Specialty [place] [address] [facility] [address] [address] PCP - General Family Practice 02/28/24 Nasir Kaminski DO [address] [facility] [address] [place] [address] Referring Physician Cardiology 05/12/23 Nazia Jenkins PA [address] [place] [address] [address] Orthopedic Surgery 05/23/23
--- OUTSIDE RECORDS SUMMARY | 2025-02-01 10:20 | XMS_ITS ---
Author Organization [facility] Address [address] [place], [place] [address] Care Team Providers Care Residential Direct Support Professional Name Role Phone CHICHI BARRETO Unavailable [phone] Sushant Gonzalez Unavailable Unavailable LUH RAYO Unavailable [phone] REASON FOR VISIT *General care Medications Medication SIG (Take, Route, Frequency, Duration) Notes Start Date End Date Status oxycodone hydrochloride 10 MG Oral Tablet ORAL oxycodone hydrochloride 10 M G Oral TabletOriginal Medicationoxycodone hydrochloride 10 MG Oral Tablet *Reorder from [facility] for eRx and Interaction Alerts* 6 Active gabapentin 100 MG Oral Capsule [Neurontin] ORAL gabapentin 100 MG Oral Capsule [Neurontin]Original Medicationgabapentin 100 MG Oral Capsule [Neurontin] *Reorder from [facility] for eRx and Interaction Alerts* 6 Active fluoxetine 10 MG Oral Capsule [Prozac] ORAL fluoxetine 10 MG Oral Capsul e [Prozac]Original Medicationfluoxetine 10 MG Oral Capsule [Prozac] *Reorder from [facility] for eRx and Interaction Alerts* 6 Active cholecalciferol 0.025 MG Chewable Tablet ORAL cholecalciferol 0.025 MG Chewable TabletOriginal Medicationcholecalciferol 0.025 MG Chewable Tablet *Reorder from [facility] for eRx and Interaction Alerts* 7 Active Meloxicam 15 MG Oral Tablet ORAL meloxicam 15 MG Oral TabletOriginal Medicationmeloxicam 15 MG Oral Tablet *Reorder from [facility] for eRx and Interaction Alerts* 6 Active pramipexole dihydrochloride 0.5 MG Oral Tablet [Mirapex] ORAL pramipexole dihydrochloride 0.5 MG Oral Tablet [Mirapex]Original Medicationpramipexole dihydrochloride 0.5 MG Oral Tablet [Mirapex] *Reorder from [facility] for eRx and Interaction Alerts* 7 Active Potassium Gluconate 2.5 MEQ Oral Tablet ORAL potassium gluconate 2.5 MEQ Oral TabletOriginal Medicationpotassium gluconate 2.5 MEQ Oral Tablet *Reorder from [facility] for eRx and Interaction Alerts* 6 Active Vital Signs Height 62.00 in 04/12/2024 Weight 240 lbs 04/12/2024 BMI 43.89 kg/m2 04/12/2024 Height-cm 157.48 cm 04/12/2024 Weight-kg 108.86 kg 04/12/2024 Encounters Encounter Location Date Provider Diagnosis [address] [id number] 04/12/2024 [facility] Unspecified atherosclerosis of [place] arteries of extremities, bilateral legs I70.203 ; Tinea unguium B35.1 ; Other hammer toe(s) (acquired), right foot M20.41 ; Other hammer toe(s) (acquired), left foot M20.42 ; Pain in right toe(s) M79.674 and Pain in left toe(s) M79.675 Assessments Encounter Date Diagnosis (ICD Code) Assessment Notes Treatment Notes Treatment Clinical Notes Section Notes 04/12/2024 Unspecified atherosclerosis of [place] arteries of extremities, bilateral legs (ICD-10 - [...] Treatment Notes Assessment Notes Unspecified atherosclerosis of [place] arteries of extremities, bilateral legs Patient educated [...] * YVONNE NEGRON MDOB:1944 (79 yo F)Acc No.[id number]:04/12/2024 Patient: Jad YVONNE TAYLOR Provider: Marc RAYO :1945 A ge:79 Y S ex:Female Date:04/12/2024 Address:[address] [place] [address] Subjective: * Chief Complaints: * 1 . [...] Patient denies c hest pain, history of WI, irregular heartbeat. M usculoskeletal: Patient complains of [...] gluconate 2.5 MEQ Oral Tablet *Reorder from [facility] for eRx and Interaction Alerts*, Taking Meloxicam 15 MG Oral Tablet ORAL , Notes to Pharmacist: meloxicam 15 MG Oral TabletOriginal Medicationmeloxicam 15 MG Oral Tablet *Reorder from [facility] for eRx and Interaction Alerts*, Taking cholecalciferol 0.025 MG Chewable Tablet ORAL , Notes to Pharmacist: cholecalciferol 0.025 MG Chewable TabletOriginal Medicationcholecalciferol 0.025 MG Chewable Tablet *Reorder from [facility] for eRx and Interaction Alerts*, Taking fluoxetine 10 MG Oral Capsule [Prozac] ORAL , Notes to Pharmacist: fluoxetine 10 MG Oral Capsule [Prozac]Original Medicationfluoxetine 10 MG Oral Capsule [Prozac] *Reorder from [facility] for eRx and Interaction Alerts*, Taking gabapentin 100 MG Oral Capsule [Neurontin] ORAL , Notes to Pharmacist: gabapentin 100 MG Oral Capsule [Neurontin]Original Medicationgabapentin 100 MG Oral Capsule [Neurontin] *Reorder from [facility] for eRx and Interaction Alerts*, Taking oxycodone hydrochloride 10 MG Oral Tablet ORAL , Notes to Pharmacist: oxycodone hydrochloride 10 MG Oral TabletOriginal Medicationoxycodone hydrochloride 10 MG Oral Tablet *Reorder from [facility] for eRx and Interaction Alerts*, Taking pramipexole dihydrochloride 0.5 MG Oral Tablet [Mirapex] ORAL , Notes to Pharmacist: pramipexole dihydrochloride 0.5 MG Oral Tablet [Mirapex]Original Medicationpramipexole dihydrochloride 0.5 MG Oral Tablet [Mirapex] *Reorder from [facility] for eRx and Interaction Alerts* Objective: [...] (Primary) 2 . U nspecified atherosclerosis of cher-ae [place] arteries of extremities, bilateral legs - I70.203 3 . O ther hammer toe(s) (acquired), right foot - M20.41 4 . O ther hammer toe(s) (acquired), left foot - M20.42 5 . P ain in right toe(s) - M79.674 6 . P ain in left toe(s) - M79.675 Plan: * Treatment: 2. U nspecified atherosclerosis of cher[place] arteries of extremities, bilateral legs Notes: Patient [...] Months * Billing Information: * Visit Code: 78214 Office Visit, Est Pt., Level 3. * Procedure Codes: * Sign off status: Completed true * Provider: Marc RAYO Date: 0 04/12/2024 Generated for Juan F lujan/Cherie/Jess on: 0 02/01/2025 10:20 AM CDT History and Physical Notes * HPI [...]
--- OUTSIDE RECORDS SUMMARY | 2025-02-01 10:20 | XMS_ITS | Clinical Summary ---
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 3 Active oxyCODONE-aceta minophen (PERCOCET) [...] Department Care Team Description 12/06/2024 1:30 PM CUTCH CLEANER Office Visit [facility] Medical [facility] Orthopedics and Sports Medicine [address] [place] [phone] Nazia Jenkins PA Strain of deltoid muscle, left, initial encounter (Primary Dx); S/P reverse total shoulder arthroplasty, left; Osteoarthritis of left AC (acromioclavicular) joint; Contusion of left shoulder, initial encounter 12/06/2024 7:45 AM CUTCH CLEANER - 12/06/2024 11:59 PM CUTCH CLEANER Hospital Encounter [facility] Orthopedics and Sports Medicine [address] [place] [address] [place] [phone] Discharge Disposition: Discharge to home or self care 12/03/2024 Telephone [facility] Orthopedics and Sports Medicine [address] [facility] [address] [place] [address] Abdoul Celeste MD from Last [...] often do you attend chur ch or catholic services? Patient declined 05/18/2023 Do you belong to any clubs o r organizations such as mormonism groups, unions, fraternal or athletic groups, or [...] place to sleep or slept in a mcfp (including now)? No 05/18/2023 Personal Safety Answer Date Recorded Have you ever been in or are you currently in a harmful physical or emotional relationship or is someone making you feel afraid or unsafe? Denies 05/17/2023 Comments Unknown Sex and Gender Information Value Date Recorded Sex Assigned at Not on file Legal Sex Female 9:01 AM CUTCH CLEANER Gender Identity Not on file Sexual Orientation Not on file Obstetrics History Last Filed Vital Signs Vital Sign Reading Time Taken Comments Blood Pressure 114/73 12/06/2024 1:23 PM CUTCH CLEANER Pulse 89 12/06/2024 1:23 PM CUTCH CLEANER Temperature 37.1 C (98.8 F) 05/23/2023 11:00 AM CDT Respiratory Rate 18 05/23/2023 11:00 AM CDT Oxygen Saturation 96% 05/23/2023 11:00 AM CDT Inhaled Oxygen Concentration - - Weight 109.8 kg (242 lb) 12/06/2024 1:23 PM CUTCH CLEANER Height 152.4 cm (5') 12/06/2024 1:23 PM CUTCH CLEANER Body Mass Index 47.26 12/06/2024 1:23 PM CUTCH CLEANER Plan of Treatment Health Maintenance Due Date [...] history exists Medical Devices Implanted Type Area Geospatial Imagery Intelligence Analyst Device Identifier Shelf Expiration Date Model / Serial / Lot Ar[employer] Baseplate 24mm 20 Deg Full Augment Oblique [id number] - [id number] Implanted:Qty: 1 on 05/17/2023 by Abdoul Celeste MD at [facility] Left: Shoulder [employer] [id number] 02/05/2028 AR-9580-2 420 / / [id number] [employer] Univers Revers 20mm Modular Post Component Glenoid Porous Ar-9582-20 - [id number] Implanted:Qty: 1 on 05/17/2023 by Abdoul Celeste MD at [facility] Left: Shoulder [employer] [id number] 03/06/2028 AR-9582-2 0 / / [employer] 5.5mm 36mm Lock Peripheral Screw Bone Sterile Ar-9563-36 - [id number] Implanted:Qty: 1 on 05/17/2023 by Abdoul Celeste MD at [facility] Left: Shoulder [employer] [id number] 12/07/2027 AR-9563-3 6 / / [id number] Ar[employer] 36mm 24 Baseplate Taper Sphere Glenoid [id number]-[id number] - [id number] Implanted:Qty: 1 on 05/17/2023 by Abdoul Celeste MD at [facility] Left: Shoulder [employer] [id number] 12/07/2027 AR-9564-2 436 / / [id number] [employer] 5.5mm 20mm Lock Peripheral Screw Bone Sterile Ar-9563-20 - [id number] Implanted:Qty: 1 on 05/17/2023 by Abdoul Celeste MD at [facility] Left: Shoulder [employer] [id number] 12/07/2027 AR-9563-2 0 / / [id number] Ar[employer] Implant Suture Cup Humeral Reverse Left Univers Revers +2x33mm Titanium [id number] - [id number] Implanted:Qty: 1 on 05/17/2023 by Abdoul Celeste MD at [facility] Left: Shoulder [employer] [id number] 09/06/2027 AR-9502F- 33LCPC / / .[id number] Ar[employer]rex [employer] Insert Humeral Combo Reverse Poly Univers Revers +3x33mm Ff-[id number] - [id number] Implanted:Qty: 1 on 05/17/2023 by Abdoul Celeste MD at [facility] Left: Shoulder [employer] Inc [id number] 07/07/2027 AR-9503-3 336-3 / .[id number] Arthrex Inc Arthrex Univers Revers Shoulder 7 Stem Humeral Sterile Ar-9501-07p - [id number] Implanted:Qty: 1 on 05/17/2023 by Abdoul Celeste MD at [facility] Left: Shoulder [employer] [id number] 06/06/2027 AR-9501-0 7P / .[id number] Procedures Procedure Name Priority Date/Time Associated Diagnosis Comments XR SHOULDER LEFT 2 OR MORE VIEWS Routine 12/06/2024 1:17 PM CUTCH CLEANER S/P reverse total shoulder arthroplasty, left HEMOGLOBIN [...] 2 or More Views (12/06/2024 1:17 PM CUTCH CLEANER) Anatomical Region Laterality Modality Upper Extremities, Shoulder Left Digi maame Radiography Narrative 12/06/2024 1:57 PM CUTCH CLEANER Views of the left shoulder reviewed and [...] MD LAB BLOOD ORDERABLES Delfina l Result [facility] One [facility] Department [place] [address] * Lipid panel (08/20/2024 3:21 PM CDT) [...] on 2018. HDL 42 >=40 mg/dL [facility] Comment: Interpretive Data Ages < or [...] on 2018. LDL, calculated 55 <=129 mg/dL [facility] Comment: Interpretive Data Ages < or [...] on 2024. Non-HDL Cholesterol 72 mg/dL [facility] Comment: Interpretive Data Ages < or [...] last revised on 2018. Chol/HDL ratio 3 [facility] Blood Venous blood specimen / Unknown 08/20/2024 3:21 PM CDT 08/20/2024 3:58 PM CDT us Dudley Ray MD LAB BLOOD ORDERABLES Delfina borrero Result [facility] One [facility] Department [place] [address] * eGFR (05/18/2023 3:50 AM CDT) eGFR 63 mL/min/1. 73 m2 [facility] ([facility] Comment: Interpretive Data Reference Interval Normal [...] BLOOD ORDERABLES F inal Result [facility] [address] [facility] Department of [place] [address] from Last 3 Months or Most Recently Relevant to Health Maintenance Insurance T MEDICARE AET MEDICARE AETNA MEDICARE AETNA MEDICARE Advance Directives For more information, please contact: [phone] * Full Code (Latest Code Status on File) Date Activated Date Inactivated Comments 05/17/2023 2:36 PM 05/23/2023 6:06 PM Care Teams Inspector Wire Rope Relationship Specialty Start [place] [address] [address] PCP - General Family Practice 02/28/24 Nasir Kaminski DO [address] [address] Referring Physician Cardiology 05/12/23 Nazia Jenkins PA [address] [place] [address] [place] [address] Orthopedic Surgery 05/23/23
--- OUTSIDE RECORDS SUMMARY | 2025-02-01 10:20 | XMS_ITS | Clinical Summary ---
Author Organization [facility] Address [address] [place] [address] Care Team Providers Care Production Maintenance Mechanic Name Role Phone Poppy Quiroz MD Primary Care Provider [phone] Source Comments [facility],non-owned Affiliates and Associated Physician Practices is amultiple site organization consisting of ambulatory clinics and hospital sitesin [place], [place], [place] and [place]. This disclosure is being madepursuant to the Care Everywhere program and may not contain all information available regarding this patient. Last updated 18.[facility] Social History Tobacco Use Types Packs/Day [...] age to complete this topic Care Teams Production Maintenance Mechanic Relationship Specialty Start Date End Date Poppy Quiroz MD PCP - General 05/07/22
--- OUTSIDE RECORDS SUMMARY | 2025-02-01 10:20 | XMS_ITS | Continuity of Care Document ---
Author Organization [facility] Address [address] [place] [address] Phone Care Team Providers Care Chimney Builder Helper Name Role Phone Dino Garcia MD Unavailable [...] Diagnoses Date Provider Providers Copied on Encounter [facility], [address] [place] [address], [id number], tel:[phone] [facility] No Information 1 Jose Sun. [address] [place] [address], [id number] , . [phone] Referring Provider: Lai Juarez, Was @[facility] But Not There Anymore, ID. Office/outpat ient visit,est, mod [facility], [address] [place] [address], [id number], tel:[phone] [place] [facility] No Information 1 Jose Sun. [address] [place] [address], [id number] , . tel:[phone] Referring Provider: Lai Juarez, Was @[facility] But Not There Anymore, ID. [facility], [address] [place] [address], [id number], tel:[phone] [place] [facility] No Information 1 Panfilo Marquez. [address] [place], [place], [id number] , . tel:[phone] Referring Provider: Lai Juarez, Was @[facility] But Not There Anymore, [place]. [facility], [address] [place] [address], [id number], tel:[phone] [place] [facility] No Information 1 Jose Sun. [address] [place] [address], [id number] , . tel:[phone] Referring Provider: Dino Garcia, [address] [place] [address], [id number]. tel:[phone] Family History Family Member Type Diagnosis Age At Onset No Information Payers Payer name Insurance type Covered alliance party ID Authoriza tion(s) No Information Social History [...]
--- OUTSIDE RECORDS SUMMARY | 2025-02-01 10:20 | XMS_ITS | Clinical Summary ---
Author Organization [facility] Address [address] [place] [address] Phone Care Team Providers Care Label Coder Name Role Phone Unavailable Primary Care Provider [...] 08/21/2015, Additional history exists Insurance AETNA PPO [facility]
--- OUTSIDE RECORDS SUMMARY | 2025-02-01 10:21 | XMS_ITS | Patient Health Record ---
Author Organization [facility] Address [address] [place], [place] [address] Care Team Providers Care Clinical Exercise Physiologist Name Role Phone CHICHI BARRETO Unavailable [phone] Sushant Gonzalez Unavailable Unavailable LUH RAYO Unavailable [phone] Reason For Referral No Information Medications Medication SIG (Take, Route, Frequency, Duration) Notes Start Date End Date Status pramipexole dihydrochloride 0.5 MG Oral Tablet [Mirapex] ORAL pramipexole dihydrochloride 0.5 MG Oral Tablet [Mirapex]Original Medicationpramipexole dihydrochloride 0.5 MG Oral Tablet [Mirapex] *[facility]* 7 Active oxycodone hydrochloride 10 MG Oral Tablet ORAL oxycodone hydrochloride 10 M G Oral TabletOriginal Medicationoxycodone hydrochloride 10 MG Oral Tablet *Reorder from [facility] for eRx and Interaction Alerts* 6 Active gabapentin 100 MG Oral Capsule [Neurontin] ORAL gabapentin 100 MG Oral Capsule [Neurontin]Original Medicationgabapentin 100 MG Oral Capsule [Neurontin] *Reorder from [facility] [facility] for eRx and Interaction Alerts* 6 Active fluoxetine 10 MG Oral Capsule [Prozac] ORAL fluoxetine 10 MG Oral Capsul e [Prozac]Original Medicationfluoxetine 10 MG Oral Capsule [Prozac] *[facility]* 6 Active cholecalciferol 0.025 MG Chewable Tablet ORAL cholecalciferol 0.025 MG Chewable TabletOriginal Medicationcholecalciferol 0.025 MG Chewable Tablet *[facility] Interaction [facility]* 7 Active Meloxicam 15 MG Oral Tablet ORAL meloxicam 15 MG Oral TabletOriginal Medicationmeloxicam 15 MG Oral Tablet *[facility] and Interaction Alert[facility]* 6 Active Potassium Gluconate 2.5 MEQ Oral Tablet ORAL potassium gluconate 2.5 MEQ Oral TabletOriginal Medicationpotassium gluconate 2.5 MEQ Oral Tablet *Reorder from [facility] for eRx and Interaction Alerts* 6 Active Vital Signs Height-cm 157.48 cm 04/12/2024 Weight-kg 108.86 kg 04/12/2024 Height 62.00 in 04/12/2024 Weight 240 lbs 04/12/2024 BMI 43.89 kg/m2 04/12/2024 Encounters Encounter Location Date Provider Diagnosis [address] [id number] 04/12/2024 LUH RIVERAADRIANA Unspecified atherosclerosis of three affiliated arteries of extremities, bilateral legs I70.203 ; [...] and prescription treatments. 04/12/2024 Unspecified atherosclerosis of three affiliated arteries of extremities, bilateral legs (ICD-10 - [...] Start Date Coverage End Date [place] [address] [place] [phone] [id number] YVONNE NEGRON Self - patient is the insured
--- OUTSIDE RECORDS SUMMARY | 2025-02-01 10:21 | XMS_ITS ---
Author Organization [facility] Address [address] [place], [place] [address] Care Team Providers Care Assembler Type Bar And Segment Name Role Phone CHICHI BARRETO Unavailable [phone] Sushant Gonzalez Unavailable Unavailable LUH RAYO Unavailable [phone] REASON FOR VISIT *General care Encounters Encounter Location Date Provider Diagnosis [address] [id number] 06/14/2024 LUH RAYO Plan Of Treatment No Information Progress Notes * YVONNE NEGRON MDOB:1944 (80 yo F)Acc No.[id number]:06/14/2024 Patient: Jad YVONNE TAYLOR Provider: Marc RAYO :1945 A ge:79 Y S ex:Female Date:06/14/2024 Address:[address] [place], [place] [id number] Subjective: * Chief Complaints: * 1 . *General care. * Medical History: Objective: * Vitals: Assessment: Plan: * Treatment: * Billing Information: * Visit Code: * Procedure Codes: * Electronic signature of TRENT RAYO DPM on 02/01/2025 at 10:20 AM CDT Sign off status: Pending * Provider: Marc RAYO Date: 0 06/14/2024 Generated for Sharathi tai/Cherie/eTransmitting on: 0 02/01/2025 10:20 AM CDT
--- NOTE | 2025-02-01 16:03 | P.PCNPFT_ITS ---
PFT Procedure Performed PFT Procedure Performed Spirometry with Pre/Post Bronchodilator Plethysmography (Lung Vol) Diffusing Cap (DLCO) PFT Interpretation DOS: 02/01/2025 REQUESTING: Sushant Gonzalez MD REASON FOR TESTING: Chronic respiratory failure with hypoxemia PULMONARY FUNCTION TESTS Results are reliable and reproducible. Repeatability of spirometry FEV1 maneuver pre and post bronchodilator is Grade A. [place]: Norris Cotton Dust reference equations were used. Spirometry: The pre-bronchodilator FEV1 is 1.26 L, 74% predicted. The pre- bronchodilator FVC is 1.73 L, 80% predicted. The FEV1/FVC ratio is 73%, normal. After bronchodilator, the FEV1 is 1.28 L, 75%, +2%. After bronchodilator, the FVC is 1.75 L, 82%, +1%. The FEV1/FVC ratio is 73%. There is no significant response to bronchodilator administration. Lung volumes: The total lung capacity is 3.88 L, 98%. The residual volume is 2.09 L, 124%. The RV/TLC is 54%, increased. Airway resistance is normal. Diffusion: DLCO is 9.2, 40%, severely reduced. The DLCO/VA is 3.64, 108%, normal. Flow volume loop: The flow volume loop is unremarkable. IMPRESSION: This study shows normal spirometry without response to bronchodilator, mild air trapping, severe diffusion impairment that corrects for alveolar volume. Lack of response to bronchodilator should not preclude use of clinically indicated. Compared to prior study on 01/15/2022 values are similar. Diffusion impairment has progressed. Shala Brown MD
== END 2025-02-01 09:41 | disposition home or self-care (01) ==
LOC: CHSCARD 09:41
PROVIDERS: PCP Family Medicine; Visit Provider Family Medicine
DX: J96.11 Chronic respiratory failure with hypoxia (principal)
CPT/HCPCS: 94060; 94726; 94729

== ENCOUNTER 2025-03-01 10:57 | Outpatient (CLI) | payer MEDICARE, SELFPAY ==
--- OUTSIDE RECORDS SUMMARY | 2025-03-01 11:18 | XMS_ITS | Encounter Summary ---
Author Organization [facility] Address [address] [place] [address] Care Team Providers Care Road Commissioner Name Role Phone Poppy Quiroz MD Primary Care Provider [phone] Alexsander Chen MD Unavailable [phone] Klarissa Tran HEALTHCARE CUSTOMER SERVICE Unavailable [phone] Cortez Goins MD Primary Care Provider Sushant Gonzalez MD Primary Care Provider [phone] Vy Smith RN Unavailable [phone] Richie Mcmahan MD Unavailable Encounter Details Date Type Department Care Team (Late st Contact Info) Description 11/27/2021 MyChart Message Enc [facility] Family & Internal Medicine [facility] [address] [place] [address] Poppy Quiroz MD [address] [place] [address] results from bone density scan 11/27/21 and all the blood work test results Social History Tobacco Use Types Packs/Day Years Used Date Smoking Tobacco: Every Day Cigarettes 1 52 Smokeless Tobacco: Never Alcohol Use Standard Drinks/Week Comments Not Currently 0 (1 standard drink = 0.6 oz pur e alcohol) socially AUDIT-C Answer Date Recorded Q1: How often do you have a drink containing alc ohol? 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 Unable to assess 11/16/2021 6:59 AM SHEETER MACHINE OPERATOR documented as of this encounter Progress Notes * Latonya Valle RN - 11/30/2021 3:36 PM CST This has been addressed TER MACHINE OPERATOR documented in this encounter Plan of Treatment Upcoming Encounters Date Type Department Care Team (Late st Contact Info) Description 04/11/2025 10:40 AM CDT Office Visit [facility] Family & Internal Medicine - [place] [phone] [place] [address] [place]ush[place] [id number] [place] [address] documented as of this encounter Visit Diagnoses Not on filedocumented in this encounter Additional Health Concerns Infection Onset Date Last Indicated Resolved Time COVID-19 Confirmed 07/18/2023 07/18/2023 12:32 AM CDT COVID-19 Rule Out 08/02/2023 07/18/2023 08/02/2023 10:55 AM CDT documented as of this encounter Care Teams Road Commissioner Relationship Specialty Start Date End Date Poppy Quiroz MD PCP - General INTERNAL MEDICINE 08/17/18 02/10/23 Cortez Goins MD [address] [address] PCP - General INTERNAL MEDICINE 02/11/23 02/13/23 [place] [address] [place] [address] PCP - General FAMILY PRACTICE 02/14/23 Alexsander Chen MD [address] [place] [phone] CARDIOVASCULAR DISEASE 03/02/19 Klarissa Tran APRN 3 [facility] [address] [place] [address] NURSE PRACTITIONER 07/30/20 Vy Smith, RN [address] [place] [address] Line Assembler (Ambulatory) REGISTERED NURSE 05/19/23 06/14/23 Richie Mcmahan MD [address] [facility] [place] [address] Consulting Physician CARDIOVASCULAR DISEASE 08/15/24 1 documented as of this encounter
--- OUTSIDE RECORDS SUMMARY | 2025-03-01 11:18 | XMS_ITS | Patient Health Record ---
Author Organization [facility] Address [address] [place], [place] [address] Care Team Providers Care Radiology Assistant Name Role Phone CHICHI BARRETO Unavailable [phone] Sushant Gonzalez Unavailable Unavailable LUH RAYO Unavailable [phone] Reason For Referral No Information Medications Medication SIG (Take, Route, Frequency, Duration) Notes Start Date End Date Status pramipexole dihydrochloride 0.5 MG Oral Tablet [Mirapex] ORAL pramipexole dihydrochloride 0.5 MG Oral Tablet [Mirapex]Original Medicationpramipexole dihydrochloride 0.5 MG Oral Tablet [Mirapex] *[facility] from [facility] for eRx and Interaction Alerts* 7 Active oxycodone hydrochloride 10 MG Oral Tablet ORAL oxycodone hydrochloride 10 M G Oral TabletOriginal Medicationoxycodone hydrochloride 10 MG Oral Tablet *Reorder from [facility] [employer] [facility] for eRx and Interaction Alerts* 6 Active gabapentin 100 MG Oral Capsule [Neurontin] ORAL gabapentin 100 MG Oral Capsule [Neurontin]Original Medicationgabapentin 100 MG Oral Capsule [Neurontin] *Reorder from [facility] for eRx and Interaction Alerts* 6 Active fluoxetine 10 MG Oral Capsule [Prozac] ORAL fluoxetine 10 MG Oral Capsul e [Prozac]Original Medicationfluoxetine 10 MG Oral Capsule [Prozac] *Re[facility] from [facility] for eRx and Interaction Alerts* 6 Active cholecalciferol 0.025 MG Chewable Tablet ORAL cholecalciferol 0.025 MG Chewable TabletOriginal Medicationcholecalciferol 0.025 MG Chewable Tablet *Reorder from [facility] for eRx and Interaction Alerts* 7 Active Meloxicam 15 MG Oral Tablet ORAL meloxicam 15 MG Oral TabletOriginal Medicationmeloxicam 15 MG Oral Tablet *Re[facility] from [facility] for eRx and Interaction Alerts* 6 Active Potassium Gluconate 2.5 MEQ Oral Tablet ORAL potassium gluconate 2.5 MEQ Oral TabletOriginal Medicationpotassium gluconate 2.5 MEQ Oral Tablet *Reorder from [facility] for eRx and Interaction Alerts* 6 Active Vital Signs Height-cm 157.48 cm 04/12/2024 Weight-kg 108.86 kg 04/12/2024 Height 62.00 in 04/12/2024 Weight 240 lbs 04/12/2024 BMI 43.89 kg/m2 04/12/2024 Encounters Encounter Location Date Provider Diagnosis [address] [id number] 04/12/2024 LUH RIVERAADRIANA 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
--- OUTSIDE RECORDS SUMMARY | 2025-03-01 11:18 | XMS_ITS | Encounter Summary ---
Author Organization [facility] Address [address] [place] [address] Care Team Providers Care Roper Operator Name Role Phone Alexsander Chen MD Unavailable [phone] Klarissa Tran APRN Unavailable [phone] Sushant Gonzalez MD Primary Care Provider [phone] Richie Mcmahan MD Unavailable Encounter Details Date Type Department Care Team (Latest Contact Info) Description 02/27/2025 Scan HEALTH INFO SRVCS Scanned, Doc Med Group Social History Tobacco Use Types Packs/Day Years Used Date Smoking Tobacco: Former Cigarettes 1 52 0 03/13/1971 - 03/13/2023 Passive Smoke Exposure: Past Smokeless Tobacco: Never Alcohol Use Standard Drinks/Week Comments Not Currently 0 (1 standard drink = 0.6 oz pur e alcohol) socially AUDIT-C Answer Date Recorded Q1: How often do you have a drink containing alc ohol? 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 file documented as of this encounter Plan of Treatment Upcoming Encounters Date Type Department Care Team (Late st Contact Info) Description 04/11/2025 10:40 AM CDT Office Visit [facility] Family & Internal Medicine [facility] [address] [place] [address] [place] [address] [place] [address] documented as of this encounter Visit Diagnoses Not on filedocumented in this encounter Additional Health Concerns Assessment Noted Time PHQ-9 Depression Total Score: 7 07/13/20 24 10:50 AM CDT documented as of this encounter Care Teams Roper Operator Relationship Specialty [place] [address] [place] [address] PCP - General FAMILY PRACTICE 02/14/23 Alexsander Chen MD [address] [place] [address] CARDIOVASCULAR DISEASE 03/02/19 Klarissa Tran APRN 3 [facility] [address] [place] [address] NURSE PRACTITIONER 07/30/20 Richie Mcmahan MD [address] [facility] [place] [address] Consulting Physician CARDIOVASCULAR DISEASE 08/15/24 1 documented as of this encounter
--- OUTSIDE RECORDS SUMMARY | 2025-03-01 11:18 | XMS_ITS | Encounter Summary ---
Author Organization [facility] Address [address] [place] [address] Care Team Providers Care University Relations Recruiter Name Role Phone Poppy Quiroz MD Primary Care Provider [phone] Alexsander Chen MD Unavailable [phone] Klarissa Tran STITCHER FEEDER Unavailable [phone] Cortez Goins MD Primary Care Provider [phone] Sushant Gonzalez MD Primary Care Provider [phone] Vy Smith RN Unavailable [phone] Richie Mcmahan MD Unavailable Encounter Details Date Type Department Care Team (Late st Contact Info) Description 06/24/2021 [employer] Message Enc [facility] Family & Internal Medicine [address] [address] [facility] Provider RE:Forms Social History Tobacco Use Types Packs/Day Years [...] Sex Assigned at Female 11/22/2024 10:56 AM POLE INCISOR OPERATOR Legal Sex Female 7:10 PM CDT [...] Description 04/11/2025 10:40 AM CDT Office Visit [facility] Family & Internal Medicine [facility] [address] [place] [phone] [place]ush[place] [address] [place] [address] documented as of this encounter Visit Diagnoses Not on filedocumented in this encounter Additional Health Concerns Infection Onset Date Last Indicated Resolved Time COVID-19 Confirmed 07/18/2023 07/18/2023 12:32 AM CDT COVID-19 Rule Out 08/02/2023 07/18/2023 08/02/2023 10:55 AM CDT documented as of this encounter Care Teams University Relations Recruiter Relationship Specialty Start Date End Date Poppy Quiroz MD PCP - General INTERNAL MEDICINE 08/17/18 02/10/23 Cortez Goins MD [address] [address] PCP - General INTERNAL MEDICINE 02/11/23 02/13/23 Sushant Gonzalez MD [address] [place] [address] PCP - General FAMILY PRACTICE 02/14/23 Alexsander Chen MD [address] [place] [address] CARDIOVASCULAR DISEASE 03/02/19 Klarissa Tran APRN 3 [facility] [address] [place] [address] NURSE PRACTITIONER 07/30/20 Vy Smith, RN [address] [place] [address] Telecommunications Consultant (Ambulatory) REGISTERED NURSE 05/19/23 06/14/23 Richie Mcmahan MD [address] [place] [address] Consulting Physician CARDIOVASCULAR DISEASE 08/15/24 1 documented as of this encounter
--- OUTSIDE RECORDS SUMMARY | 2025-03-01 11:18 | XMS_ITS | Encounter Summary ---
Author Organization [facility] Address [address] [place] [address] Care Team Providers Care Night Patrol Inspector Name Role Phone Poppy Quiroz MD Primary Care Provider [phone] Alexsander Chen MD Unavailable [phone] Klarissa Tran CANE PUSHER Unavailable [phone] Cortez Goins MD Primary Care Provider [phone] Sushant Gonzalez MD Primary Care Provider [phone] Vy Smith RN Unavailable [phone] Richie Mcmahan MD Unavailable Encounter Details Date Type Department Care Team (Late st Contact Info) Description 06/17/2021 MyChart Message Enc [facility] Family & Internal Medicine [facility] [address] [place] [address] [place]ppy Quiroz [place] [address] [place] [address] Other Social History Tobacco Use Types Packs/Day [...] Sex Assigned at Female 11/22/2024 10:56 AM CABLE INSPECTOR Legal Sex Female 7:10 PM CDT Gender Identity Female 01/28/2025 9:06 AM CDT Sexual Orientation Not on file 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 Mcwilliams aware that pt has called again * Germania Hermosillo - 06/23/2021 12:11 PM CDT Pt called wanting to know if Dr. Mcwilliams filled out her papers Please advise [phone] * Alisson To LPN - 06/18/2021 8:55 AM CDT Pt called she had faxed 5 pages as talked about this morning for Dr. Mcwilliams * Alisson To LPN - 06/17/2021 4:53 PM CDT Pt called States dr. Mcwilliams has to return the forms she will be faxing to us tomorrow There are 5 pages * Sarah Cotton MA - 06/17/2021 4:53 PM CDT Please advise documented in this encounter Plan of Treatment Upcoming Encounters Date Type Department Care Team (Late st Contact Info) Description 04/11/2025 10:40 AM CDT Office Visit [facility] Family & Internal Medicine [address] [address] [place]ush[place] [phone] [place] [address] documented as of this encounter Visit Diagnoses Not on filedocumented in this encounter Additional Health Concerns Infection Onset Date Last Indicated Resolved Time COVID-19 Confirmed 07/18/2023 07/18/2023 12:32 AM CDT COVID-19 Rule Out 08/02/2023 07/18/2023 08/02/2023 10:55 AM CDT documented as of this encounter Care Teams Night Patrol Inspector Relationship Specialty Start Date End Date Poppy Quiroz MD PCP - General INTERNAL MEDICINE 08/17/18 02/10/23 Cortez Goins MD [address] [address] PCP - General INTERNAL MEDICINE 02/11/23 02/13/23 Sushant Gonzalez [place] [address] [place] [address] PCP - General FAMILY PRACTICE 02/14/23 Alexsander Chen MD [address] [place] [address] CARDIOVASCULAR DISEASE 03/02/19 Klarissa Tran APRN 3 [facility] [address] [place] [address] NURSE PRACTITIONER 07/30/20 Vy Smith, RN [address] [place] [address] Insurance Verification Representative (Ambulatory) REGISTERED NURSE 05/19/23 06/14/23 [place] [address] [place] [address] [place] [address] Consulting Physician CARDIOVASCULAR DISEASE 08/15/24 1 documented as of this encounter
--- OUTSIDE RECORDS SUMMARY | 2025-03-01 11:18 | XMS_ITS | Encounter Summary ---
Author Organization [facility] Address [address] [place] [address] Care Team Providers Care Curtain Mender Name Role Phone Poppy Quiroz MD Primary Care Provider [phone] Alexsander Chen MD Unavailable [phone] Klarissa Tran AIR CONDITIONING SERVICE TECHNICIAN Unavailable [phone] Cortez Goins MD Primary Care Provider [phone] Sushant Gonzalez MD Primary Care Provider [phone] Vy Smith RN Unavailable [phone] Richie Mcmahan MD Unavailable Encounter Details Date Type Department Care Team (Late st Contact Info) Description 08/08/2021 MyChart Message Enc [facility] Family & Internal Medicine [facility] [address] [place] [address] [place]ppy Quiroz [place] [address] [place] [address] Other Social History Tobacco Use Types [...] Sex Assigned at Female 11/22/2024 10:56 AM 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 Unable to assess 08/10/2021 7:00 AM CDT documented as of this encounter Plan of Treatment Upcoming Encounters Date Type Department Care Team (Late st Contact Info) Description 04/11/2025 10:40 AM CDT Office Visit [facility] Family & Internal Medicine [address] [address] Sushant Gonzalez MD [address] [place] [address] documented as of this encounter Visit Diagnoses Not on filedocumented in this encounter Additional Health Concerns Infection Onset Date Last Indicated Resolved Time COVID-19 Confirmed 07/18/2023 07/18/2023 12:32 AM CDT COVID-19 Rule Out 08/02/2023 07/18/2023 08/02/2023 10:55 AM CDT documented as of this encounter Care Teams Curtain Mender Relationship Specialty Start Date End Date Poppy Quiroz MD PCP - General INTERNAL MEDICINE 08/17/18 02/10/23 Cortez Goins MD [address] [facility] [address] [place] [address] PCP - General INTERNAL MEDICINE 02/11/23 02/13/23 [place] [address] [place] [address] PCP - General FAMILY PRACTICE 02/14/23 Alexsander Chen MD [address] [place] [address] CARDIOVASCULAR DISEASE 03/02/19 Klarissa Tran APRN 3 [facility] [address] [place] [address] NURSE PRACTITIONER 07/30/20 Vy Smith, RN [address] [place] [address] Farm Instructor (Ambulatory) REGISTERED NURSE 05/19/23 06/14/23 Richie Mcmahan MD [address] [place] [address] Consulting Physician CARDIOVASCULAR DISEASE 08/15/24 1 documented as of this encounter
--- OUTSIDE RECORDS SUMMARY | 2025-03-01 11:18 | XMS_ITS ---
Author Organization [facility] Address [address] [place], [place] [id number] Care Team Providers Care Air Control/Anti Air Warfare Officer Name Role Phone CHICHI BARRETO Unavailable [phone] Sushant Gonzalez Unavailable Unavailable LUH RAYO Unavailable [phone] REASON FOR VISIT *General care Encounters Encounter Location Date Provider Diagnosis [address] [phone] 06/14/2024 LUH RAYO Plan Of Treatment No Information Progress Notes * YVONNE NEGRON MDOB:1944 (80 yo F)Acc No.[id number]:06/14/2024 Patient: Jad YVONNE TAYLOR Provider: Marc RAYO :1945 A ge:79 Y S ex:Female Date:06/14/2024 Address:[address] [place], [place] [id number] Subjective: * Chief Complaints: * 1 . *General care. * Medical History: Objective: * Vitals: Assessment: Plan: * Treatment: * Billing Information: * Visit Code: * Procedure Codes: * Electronic signature of TRENT RAYO DPM on 03/01/2025 at 11:18 AM CDT Sign off status: Pending * Provider: Marc RAYO Date: 0 06/14/2024 Generated for Sharathi tai/Cherie/eTransmitting on: 0 03/01/2025 11:18 AM CDT
--- OUTSIDE RECORDS SUMMARY | 2025-03-01 11:18 | XMS_ITS | Encounter Summary ---
Author Organization [facility] Address [address] [place] [address] Care Team Providers Care Director Of Optimization Name Role Phone Poppy Quiroz MD Primary Care Provider [phone] Alexsander Chen MD Unavailable [phone] Klarissa Tran [employer] Unavailable [phone] Cortez Goins MD Primary Care Provider [phone] Sushant Gonzalez MD Primary Care Provider [phone] Vy Smith RN Unavailable [phone] Richie Mcmahan MD Unavailable Encounter Details Date Type Department Care Team (Late st Contact Info) Description 10/26/2021 MyChart Message Enc [facility] Family & Internal Medicine [facility] [address] [place] [address] Poppy Quiroz MD [address] [place] [phone] King information Social History Tobacco Use Types Packs/Day Years [...] Sex Assigned at Female 11/22/2024 10:56 AM BUSINESS SERVICES SPECIALIST SALES Legal Sex Female 7:10 PM CDT [...] Description 04/11/2025 10:40 AM CDT Office Visit [facility] Family & Internal Medicine - [place] [id number] [place] [phone] [place] [id number] [place] [phone] documented as of this encounter Visit Diagnoses Not on filedocumented in this encounter Additional Health Concerns Infection Onset Date Last Indicated Resolved Time COVID-19 Confirmed 07/18/2023 07/18/2023 12:32 AM CDT COVID-19 Rule Out 08/02/2023 07/18/2023 08/02/2023 10:55 AM CDT documented as of this encounter Care Teams Director Of Optimization Relationship Specialty Start Date End Date Poppy Quiroz MD PCP - General INTERNAL MEDICINE 08/17/18 02/10/23 Cortez Goins MD [address] [address] PCP - General INTERNAL MEDICINE 02/11/23 02/13/23 [place] [address] [facility] [place] [address] PCP - General FAMILY PRACTICE 02/14/23 Alexsander Chen MD [address] [place] [phone] CARDIOVASCULAR DISEASE 03/02/19 Klarissa Tran APRN 3 [facility] [address] [place] [address] NURSE PRACTITIONER 07/30/20 Vy Smith, RN [address] [place], [place] [address] Big Data Engineer (Ambulatory) REGISTERED NURSE 05/19/23 06/14/23 Richie Mcmahan MD [address] [place] [address] Consulting Physician CARDIOVASCULAR DISEASE 08/15/24 1 documented as of this encounter
--- OUTSIDE RECORDS SUMMARY | 2025-03-01 11:18 | XMS_ITS | Clinical Summary ---
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 3 Active oxyCODONE-aceta minophen (PERCOCET) [...] Department Care Team Description 12/06/2024 1:30 PM REEL MAN Office Visit [facility] Medical [facility] [address] [place] [phone] Nazia Jenkins PA Strain of deltoid muscle, left, initial encounter (Primary Dx); S/P reverse total shoulder arthroplasty, left; Osteoarthritis of left AC (acromioclavicular) joint; Contusion of left shoulder, initial encounter 12/06/2024 7:45 AM REEL MAN - 12/06/2024 11:59 PM REEL MAN Hospital Encounter [facility] [address] [place] [address] [place] [phone] Discharge Disposition: Discharge to home or self care 12/03/2024 Telephone [facility] Orthopedics and Sports Medicine [address] [facility] [address] [place] [address] Abdoul Celeste MD from Last [...] often do you attend chur ch or baptist services? Patient declined 05/18/2023 Do you belong to any clubs o r organizations such as restorationism groups, unions, fraternal or athletic groups, or [...] place to sleep or slept in a mcc (including now)? No 05/18/2023 Personal Safety Answer Date Recorded Have you ever been in or are you currently in a harmful physical or emotional relationship or is someone making you feel afraid or unsafe? Denies 05/17/2023 Comments Unknown Sex and Gender Information Value Date Recorded Sex Assigned at Not on file Legal Sex Female 9:01 AM REEL MAN Gender Identity Not on file Sexual Orientation Not on file Obstetrics History Last Filed Vital Signs Vital Sign Reading Time Taken Comments Blood Pressure 114/73 12/06/2024 1:23 PM REEL MAN Pulse 89 12/06/2024 1:23 PM REEL MAN Temperature 37.1 C (98.8 F) 05/23/2023 11:00 AM CDT Respiratory Rate 18 05/23/2023 11:00 AM CDT Oxygen Saturation 96% 05/23/2023 11:00 AM CDT Inhaled Oxygen Concentration - - Weight 109.8 kg (242 lb) 12/06/2024 1:23 PM REEL MAN Height 152.4 cm (5') 12/06/2024 1:23 PM REEL MAN Body Mass Index 47.26 12/06/2024 1:23 PM REEL MAN Plan of Treatment Health Maintenance Due Date [...] 2024 08/26/2022, 03/06/2022, 08/04/2021, Additional history exists Hemoglobin A1C 02/18/2025 08/20/2024, 02/28/2024 Influenza Vaccine (Season Ended) 2025 09/07/2022, 07/20/2021, 07/17/2021, Additional history exists Lipid Panel 08/20/2025 08/20/2024, 08/0 12/2023, 04/29/2020 Pneumococcal vaccine 65+ Completed 022, 05/05/2020, 08/21/2015, Additional history exists Medical Devices Implanted Type Area Rope Twisting Machine Operator Device Identifier Shelf Expiration Date Model / Serial / Lot [employer] Baseplate 24mm 20 Deg Full Augment Oblique [id number] - [id number] Implanted:Qty: 1 on 05/17/2023 by Abdoul Celeste MD at [facility] Left: Shoulder [employer] [id number] 02/05/2028 AR-9580-2 420 / / [id number] [employer] Univers Revers 20mm Modular Post Component Glenoid Porous Ar-9582-20 - [id number] Implanted:Qty: 1 on 05/17/2023 by Abdoul Celeste MD at [facility] Left: Shoulder [employer] [id number] 03/06/2028 AR-9582-2 0 / / [employer] 5.5mm 36mm Lock Peripheral Screw Bone Sterile Ar-9563-36 - [id number] Implanted:Qty: 1 on 05/17/2023 by Abdoul Celeste MD at [facility] Left: Shoulder [employer] [id number] 12/07/2027 AR-9563-3 6 / / [id number] [employer] 36mm 24 Baseplate Taper Sphere Glenoid [id number] - [id number] Implanted:Qty: 1 on 05/17/2023 by Abdoul Celeste MD at [facility] Left: Shoulder [employer] [id number] 12/07/2027 AR-9564-2 436 / / [id number] [employer] 5.5mm 20mm Lock Peripheral Screw Bone Sterile Ar-9563-20 - [id number] Implanted:Qty: 1 on 05/17/2023 by Abdoul Celeste MD at [facility] Left: Shoulder [employer] [id number] 12/07/2027 AR-9563-2 0 / / [id number] [employer] Implant Suture Cup Humeral Reverse Left Univers Revers +2x33mm Titanium [id number] - [id number] Implanted:Qty: 1 on 05/17/2023 by Abdoul eCleste MD at [facility] Left: Shoulder [employer] [id number] 09/06/2027 AR-9502F- 33LCPC / / .[id number] [employer] Insert Humeral Combo Reverse Poly Univers Revers +3x33mm [id number] - [id number] Implanted:Qty: 1 on 05/17/2023 by Abdoul Celeste MD at [facility] Left: Shoulder [employer] [id number] 07/07/2027 AR-9503-3 336-3 / .[id number] [employer] Arthrex Univers Revers Shoulder 7 Stem Humeral Sterile Ar-9501-07p - [id number] Implanted:Qty: 1 on 05/17/2023 by Abdoul Celeste MD at [facility] Left: Shoulder [employer] [id number] 06/06/2027 AR-9501-0 7P / .[id number] Procedures Procedure Name Priority Date/Time Associated Diagnosis Comments XR SHOULDER LEFT 2 OR MORE VIEWS Routine 12/06/2024 1:17 PM REEL MAN S/P reverse total shoulder arthroplasty, left HEMOGLOBIN [...] 2 or More Views (12/06/2024 1:17 PM REEL MAN) Anatomical Region Laterality Modality Upper Extremities, Shoulder Left Digi maame Radiography Narrative 12/06/2024 1:57 PM REEL MAN Views of the left shoulder reviewed and [...] LAB BLOOD ORDERABLES Delfina l Result [facility] Department [place] [address] * Lipid panel (08/20/2024 3:21 PM CDT) [...] on 2018. HDL 42 >=40 mg/dL [facility] Comment: Interpretive Data Ages < or = [...] on 2018. LDL, calculated 55 <=129 mg/dL [facility] Comment: Interpretive Data Ages < or = [...] on 2024. Non-HDL Cholesterol 72 mg/dL [facility] Comment: Interpretive Data Ages < or = [...] revised on 2018. Chol/HDL ratio 3 [facility] Blood Venous blood specimen / Unknown 08/20/2024 3:21 PM CDT 08/20/2024 3:58 PM CDT us Dudley Ray MD LAB BLOOD ORDERABLES Delfina borrero Result [facility] Department [place] [address] * eGFR (05/18/2023 3:50 AM CDT) eGFR 63 mL/min/1. 73 m2 [facility] ([facility] Comment: Interpretive Data Reference Interval Normal [...] BLOOD ORDERABLES F inal Result [facility] [address] [facility] [place] [address] from Last 3 Months or Most Recently Relevant to Health Maintenance Insurance T MEDICARE AET MEDICARE AETNA MEDICARE AETNA MEDICARE Advance Directives For more information, please contact: [phone] * Full Code (Latest Code Status on File) Date Activated Date Inactivated Comments 05/17/2023 2:36 PM 05/23/2023 6:06 PM Care Teams Collateral Analyst Relationship Specialty Start [place] [address] [address] PCP - General Family Practice 02/28/24 Nasir Kaminski DO [address] [address] Referring Physician Cardiology 05/12/23 Nazia Jenkins PA [address] [place] [address] [place] [address] Orthopedic Surgery 05/23/23
--- OUTSIDE RECORDS SUMMARY | 2025-03-01 11:18 | XMS_ITS | Clinical Summary ---
Author Organization [facility] Address [address] [place] [address] Care Team Providers Care Shotblaster Name Role Phone Alexsander Chen MD Unavailable [phone] Klarissa Tran APRN Unavailable [phone] Minerva Gonzalez MD Primary Care Provider [phone] Richie Mcmahan MD Unavailable Allergies Active Allergy Reactions Criticality Noted Date Comments Metformin Diarrhea Low 02/28/2024 Morphine Rash,Itching High 10/25/2016 Oxcarbazepine Other (see comment) 09/03/2020 States she has all the side effect, severe itching Sulfa Antibiotics Itching,Other (see comment) Low 10/25/2016 Hair falls out, dry skin Medications Cyanocobalamin (VITAMIN B-12) 500 MCG SL TabIndications: Supplement Place 1 tablet under the tongue daily. Indications: Supplement 07/12/20 18 Active Multiple Vitamins-Minera ls (MULTIVITAMIN WOMEN 50+) TabIndications: Nutritional Support Take 1 tablet by mouth daily. Indications: Nutritional Support 07/12/20 18 Active pravastatin 10 MG tablet Take 1 tablet (10 mg total) by mouth daily. 03/02/20 21 Active Misc. Devices MiscIndications :Skin yeast infection Use InterDry to abd folds daily as needed 1 each 09/13/20 22 Active vitamin D2, ergocalciferol, (DRISDOL) 1.25 mg capsule Active metoprolol tartrate (LOPRESSOR) 50 MG tabletIndicatio ns:Hypertension , essential Take 1 tablet (50 mg total) by mouth 3 (three) times daily. 60 tablet 11 01/27/20 23 Active fluticasone propionate (FLONASE) 50 MCG/ACT nasal sprayIndication s:Allergic rhinitis due to other allergic trigger, unspecified seasonality SHAKE AND USE 2 SPRAYS IN EACH NOSTRIL DAILY NEEDED 16 mL 5 01/27/20 23 Active nystatin (NYSTOP) powderIndicatio ns:Fungal Skin Infection Indications: Skin Infection caused by a Fungus APPLY SPARINGLY TO TO THE AFFECTED AREA THREE TIMES DAILY DIRECTED 60 g 5 01/27/20 23 Active triamcinolone (KENALOG) 0.1 % creamIndication s:Rash Apply topically 2 (two) times daily. 45 g 01/28/20 23 Active bisacodyl EC (DULCOLAX) 5 MG Tab EC tablet Take 1 tablet (5 mg total) by mouth daily as needed. 05/23/20 23 Active potassium chloride CR (KLOR-CON M) 20 MEQ tablet Take 1 tablet (20 mEq total) by mouth 2 (two) times daily. 01/11/20 23 Active WHEELCHAIR MOTORIZED, DME,Indications :Severe pulmonary hypertension (CMS/HCC HHS/HCC),Obesit y, Class III, BMI 40-49.9 (morbid obesity),Chroni c bilateral low back pain with bilateral sciatica,Chroni c respiratory failure with hypoxia (CMS/HCC HHS/HCC) Please get patient a motorized wheelchair 1 Device 10/03/20 23 Active montelukast (SINGULAIR) 10 MG tablet 02/10/20 24 Active ipratropium-alb uterol (DUONEB) 0.5-2.5 (3) MG/3ML Solution 12/22/19 24 Active ipratropium (ATROVENT) 0.02 % nebulizer solution 01/13/20 24 Active clobetasol (TEMOVATE) 0.05 % cream Apply topically 2 (two) times daily. Active TRELEGY ELLIPTA 100-62.5-25 MCG/ACT AEROSOL POWDER, BREATH ACTIVATED 05/11/20 24 Active DULERA 100-5 MCG/ACT inhaler 03/26/20 24 Active Magnesium Oxide -Mg Supplement 500 MG Tab Take 1 tablet by mouth daily. Active Vitamin D3 (CHOLECALCIFERO L) 50 mcg tablet Take 1 tablet (2,000 Units total) by mouth daily. Active WHEELCHAIR MOTORIZED, DME,Indications :Severe pulmonary hypertension (CMS/HCC HHS/HCC),Chroni c respiratory failure with hypoxia (CMS/HCC HHS/HCC),Chroni c bilateral low back pain with bilateral sciatica,Obesit y, Class III, BMI 40-49.9 (morbid obesity) Foldable, lightweight motorized wheelchair 1 Device 06/19/20 24 Active azelastine (ASTELIN) 0.1 % nasal spray 12/28/19 24 Active fluconazole (DIFLUCAN) 150 MG tablet 12/26/19 24 Active Clobetasol Propionate 0.05 % Shampoo 06/07/20 24 Active clobetasol (TEMOVATE) 0.05 % ointment 06/06/20 24 Active bumetanide (BUMEX) 1 MG tablet Take 1 tablet (1 mg total) by mouth 2 (two) times daily. 09/04/20 24 Active nitroglycerin (NITROSTAT) 0.4 MG SL tabletIndicatio ns:Chest pain Place 1 tablet (0.4 mg total) under the tongue every 5 (five) minutes as needed. FOR CHEST PAIN x 3 doses, if chest pain persists after 3 doses, need to go to emergency room 90 tablet 2 10/01/20 24 Active spironolactone (ALDACTONE) 50 MG tabletIndicatio ns:Localized edema TAKE ONE TABLET BY MOUTH DAILY 30 tablet 5 10/12/20 24 Active clotrimazole-be tamethasone (LOTRISONE) cream 08/06/20 24 Active nystatin-triamc inolone (MYCOLOG II) cream 08/29/20 24 Active FLUoxetine (PROZAC) 40 MG capsuleIndicati ons:Recurrent major depressive disorder, remission status unspecified TAKE ONE CAPSULE BY MOUTH DAILY 90 capsule 1 11/30/19 25 Active pramipexole (MIRAPEX) 1.5 MG tabletIndicatio ns:Restless legs syndrome TAKE ONE TABLET BY MOUTH AT SUPPER AND TAKE ONE TABLET BY MOUTH AT BEDTIME 180 tablet 12/21/19 25 Active clindamycin (CLEOCIN) 300 MG capsule Take 1 capsule (300 mg total) by mouth 3 (three) times daily. 12/25/19 25 Active amoxicillin-cla vulanate (AUGMENTIN) 875-125 MG tablet Take 1 tablet (875 mg total) by mouth 2 (two) times daily. 12/19/19 25 Active aspirin EC (ECOTRIN) 81 MG tablet Take 1 tablet (81 mg total) by mouth daily. Active loratadine (CLARITIN) 10 MG tablet Take 1 tablet (10 mg total) by mouth daily. Active albuterol sulfate HFA 108 (90 Base) MCG/ACT inhalerIndicati ons:Chronic respiratory failure with hypoxia (CMS/HCC HHS/HCC) Inhale 2 puffs into the lungs every 6 (six) hours as needed for Wheezing. 6.7 g 1 01/29/20 25 Active pentoxifylline CR (TRENTAL) 400 MG tablet TAKE 1 TABLET (400 MG TOTAL) BY MOUTH 3 (THREE) TIMES DAILY WITH MEALS. 90 tablet 1 02/02/20 25 Active oxyCODONE-aceta minophen (PERCOCET) 5-325 MG tabletIndicatio ns:Chronic Pain INDICATIONS: CHRONIC PAIN TAKE 1 OR 2 TABLETS BY MOUTH EVERY FOUR HOURS NEEDED FOR PAIN 60 tablet 02/02/20 25 Active levothyroxine (SYNTHROID) 175 MCG tabletIndicatio ns:Hypothyroidi sm, unspecified type TAKE ONE TABLET BY MOUTH EVERY OTHER DAY 45 tablet 02/23/20 25 Active levothyroxine (SYNTHROID) 150 MCG tabletIndicatio ns:Hypothyroidi sm, unspecified type TAKE ONE TABLET BY MOUTH EVERY OTHER DAY 45 tablet 02/23/20 25 Active tirzepatide (MOUNJARO) 10 MG/0.5ML injectionIndica tions:Diabetes Mellitus Indications: Diabetes Inject 10mg into the skin once per week. Indications: Diabetes 2 mL 5 03/01/20 25 Active levothyroxine (SYNTHROID) 175 MCG tabletIndicatio ns:Hypothyroidi sm, unspecified type take one tablet by mouth every other day 45 tablet 1 08/17/20 24 2024 Discontinued levothyroxine (SYNTHROID) 150 MCG tabletIndicatio ns:Hypothyroidi sm, unspecified type TAKE ONE TABLET BY MOUTH EVERY OTHER DAY 45 tablet 11/16/19 25 2024 Discontinued oxyCODONE-aceta minophen (PERCOCET) 5-325 MG tabletIndicatio ns:Chronic Pain Indications: Chronic Pain TAKE 1 OR 2 TABLETS BY MOUTH EVERY FOUR HOURS NEEDED FOR PAIN 60 tablet 12/31/19 25 2024 Discontinued tirzepatide (MOUNJARO) 10 MG/0.5ML injectionIndica tions:Diabetes Mellitus Indications: Diabetes Inject 10mg into the skin once per week. Indications: Diabetes 2 mL 5 12/31/19 25 2024 Discontinued(R eorder) Active Problems Problem Noted Date Diagnosed Date Venous insufficiency 09/11/2024 Lymphedema 09/11/2024 Ulcer of lower extremity, li mited to breakdown of skin, unspecified laterality ([facility]) 09/11/2024 Severe pulmonary hypertension ([facility]) 06/07/2023 Chronic respiratory failure with hypoxia ([facility]) 06/07/2023 CKD (chronic kidney disease) stage 2, GFR 60-89 ml/min 06/06/2023 S/P reverse total shoulder arthroplasty, left Primary osteoarthritis, left shoulder 05/16/2023 Rotator cuff arthropathy, left 05/04/2023 Controlled type 2 diabetes m ellitus with diabetic polyneuropathy, without long-term current use of insulin ([facility]) 05/04/2022 Chronic pain syndrome 07/21/2020 Chronic bilateral low back pain with bilateral s ciatica 07/21/2020 S/P lumbar spinal fusion 07/21/2020 S/P lumbar laminectomy 07/21/2020 Failed back surgical syndrome 07/21/2020 Benign hypertension 03/10/2019 SUKH (obstructive sleep apnea) 03/10/2019 Dyspnea on exertion 03/10/2019 Bifascicular block 03/10/2019 Allergic rhinitis 03/01/2018 Chronic back pain 12/24/2016 Kidney stone on left side 12/24/2016 GERD (gastroesophageal reflux disease) 6 Depression 10/25/2016 Edema 10/25/2016 Hypothyroidism 10/25/2016 Overview (02/26/2019): Overview: HYPOTHYROIDISM NOS Obesity, Class III, BMI 40-49.9 (morbid obesity) 10/25/2016 Restless legs syndrome 10/25/2016 Overview (02/26/2019): Overview: Restless legs syndrome Spinal stenosis 10/25/2016 Sleep apnea 03/23/2014 Overview (02/26/2019): Overview: SLEEP STAGE DYSFUNC NEC Vitamin D deficiency 03/23/2014 Overview (02/26/2019): Overview: VITAMIN D DEFICIENCY NOS Non-pressure chronic ulcer o f left calf with fat layer exposed ([facility]) Arthritis Malignant neoplasm ([facility]) Overview (12/25/2024): bladder Bladder infection Chronic headaches Closed displaced fracture of distal phalanx of t oe Irritable bowel syndrome Kidney infection Metatarsal bone fracture Peripheral neuropathy Wrist fracture Resolved Problems Problem Noted Date Diagnosed Date Resolved Date Influenza vaccine administered 11/07/2018 12/31/2024 Candidal intertrigo 07/12/2018 06/06/20 23 Chronic constipation 04/26/2017 023 Change in bowel habit 04/25/20172022 Major depressive disorder, r ecurrent episode, moderate with mixed features 01/10/2017 04/08/2023 Atypical chest pain 11/03/2016 06/06/20 23 BMI 45.0-49.9, adult 10/25/2016 023 Osteoarthritis of multiple joints 10/25/2016 04/08/2023 Abnormal glucose tolerance test (GTT) 03/23/2014 06/06/2023 Overview (04/08/2023): IMPAIRED ORAL GLUCSE SYLVIA Encounters Date Type Department Care Team Description 02/27/2025 Scan [employer] [facility] Scanned, Doc Med Group 02/26/2025 Telephone [facility] Family [facility] [address] [place] [address] Minerva Gonzalez MD FYI 02/15/2025 Scan [facility] INFO [facility]VCS Scanned, Doc Med [facility] 02/05/2025 Scan [facility] Scanned, Doc Med [facility] 02/04/2025 Telephone [facility] Internal [facility] [address] [place] [address] Minerva Gonzalez MD Results 02/01/2025 Scan [facility] INFO [facility] Scanned, Doc Med [facility] PFT (SCAN) 01/31/2025 Scan [facility] Scanned, Doc [facility] Procedure (SCAN) 01/29/2025 Scan [facility] Scanned, Doc Med [facility] 01/29/2025 Orders Only [facility] Internal [facility] [id number] [place] [phone] Minerva Gonzalez MD 01/29/2025 Telephone [facility] Internal [facility] [id number] [place] [phone] Minerva Gonzalez MD Other (Oximetry ) 01/28/2025 12:43 PM CDT - 01/28/2025 11:59 PM CDT Hospital Encounter [facility] [address] [place], [place] [phone] Minerva Gonzalez MD Discharge Disposition: Home or Self Care (Routine Discharge) 01/28/2025 10:01 AM CDT - 01/28/2025 12:42 PM CDT Hospital Encounter [facility] [id number] [place] [address] Minerva Gonzalez MD Discharge Disposition: Home or Self Care (Routine Discharge) 01/28/2025 9:40 AM CDT Laboratory Only [facility] Internal [facility] [address] [place] [phone] Minerva Gonzalez MD 01/28/2025 9:00 AM CDT Office Visit [facility] [address] [address] Minerva Gonzalez MD Shortness Of Breath (Pt states it just started about a week ago /Pt states it been since she started abx ) 01/28/2025 Scan [facility] INFO [facility] Scanned, Doc Med [facility] 01/28/2025 Travel 01/25/2025 Orders Only [facility] [address] [phone] Minerva Gonzalez MD 01/24/2025 Telephone [facility] [address] [phone] Minerva Gonzalez MD Other 01/23/2025 Scan [facility] INFO [facility] Scanned, Doc Med [facility] 01/17/2025 Telephone [facility] [address] [phone] Minerva Gonzalez MD Lab Order 01/15/2025 Scan [facility] Scanned, Doc [facility] 01/14/2025 Scan [facility] Scanned, Doc [facility] 01/14/2025 Telephone [facility] [address] [phone] Minerva Gonzalez MD Other (Requesting AB again ) 01/08/2025 1:07 PM MAORI PHYSIOTHERAPIST - 01/08/2025 11:59 PM MAORI PHYSIOTHERAPIST Hospital Encounter [facility] [address] [place] [address] Minerva Gonzalez MD Discharge Disposition: Home or Self Care (Routine Discharge) 01/08/2025 11:00 AM MAORI PHYSIOTHERAPIST Laboratory Only [facility] [address] [phone] Minerva Gonzalez MD 01/08/2025 10:00 AM MAORI PHYSIOTHERAPIST Office Visit [facility] [address] [phone] Minerva Gonzalez MD Medication Management 01/08/2025 Travel 12/27/2024 Telephone [facility] [address] [place] [address] Minerva Gonzalez MD Question; Referral 12/25/2024 2:30 PM MAORI PHYSIOTHERAPIST Office Visit [facility] [address] [place] [address] Richie Mcmahan MD Follow Up (Chronic venous insuff) 12/25/2024 Travel 12/20/2024 Telephone [facility] [address] [place] [address] Minerva Gonzalez MD Information; Question 12/19/2024 Scan [facility] INFO SRVCS Scanned, Doc Med Group 12/05/2024 Telephone [facility] [address] [place] [address] Richie Mcmahan MD Follow Up Call (Message to OT for follow up on stocking blackburn./) from Last 3 Months Immunizations Immunization Administration Dates Next Due Arexvy Respiratory Syncytial Virus (RSV, adjuvanted) 0.5 mL, PF 09/01/2023 Fluzone High Dose (IIV, triv alent, 0.5mL) 07/22/2015 Fluzone High Dose - >Age 65 (Prefilled Syringe) 09/07/2022,07/17/2021,07/12/2018,2016,07/22/2015 Influenza (Generic) 07/30/2020 Influenza Adult (Generic) 07/20/2021,,08/09/2019,2017,08/02/2017,08/27/2016,07/22/2015,1 PFIZER COVID-19 (COREY CAP), MRNA, LNP-S, PF, 30 MCG/0.3 ML LOU-SUCROSE, IM 03/06/2022 PFIZER COVID-19 (ORIGINAL FORMULATION, PURPLE CAP) mRNA, LNP-S, PF, 30 MCG/0.3 ML DOSE 08/04/2021,01/02/2021,12/12/2020 Pneumococcal (Pneumovax 23) 01/20/2022, 5,08/08/2013 Pneumococcal (Prevnar 13) 05/05/2020 Shingrix 03/09/2024 Zoster (Zostavax) [address] Unt/0.65Ml 09/02/2014 Family History Medical History Relation Comments bone cancer Brother esophageal cancer Brother Cancer Father Heart Attack Father No Known Problems Maternal Aunt No Known Problems Maternal Grandfather No Known Problems Maternal Grandmother No Known Problems Maternal Uncle Heart Attack Mother No Known Problems Paternal Aunt No Known Problems Paternal Grandfather No Known Problems Paternal Grandmother No Known Problems Paternal Uncle No Known Problems Sister Relation Status Comments Brother Father Maternal Aunt Maternal Grandfather Maternal Grandmother Maternal Uncle Mother Paternal Aunt Paternal Grandfather Paternal Grandmother Paternal Uncle Sister Social History Tobacco Use Types Packs/Day Years Used Date Smoking Tobacco: Former Cigarettes 1 52 0 03/13/1971 - 03/13/2023 Passive Smoke Exposure: Past Smokeless Tobacco: Never Tobacco Cessation:Counseling Given: No Alcohol Use Standard Drinks/Week Comments Not Currently [...] Sex Assigned at Female 11/22/2024 10:56 AM MAORI PHYSIOTHERAPIST Legal Sex Female 7:10 PM CDT Gender Identity Female 01/28/2025 9:06 AM CDT Sexual Orientation Not on file 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 file Last Filed Vital Signs Vital Sign Reading Time Taken Comments Blood Pressure 129/73 01/28/2025 8:57 AM CDT Pulse 78 01/28/2025 8:57 AM CDT Temperature 36.1 C (97 F) 01/28/2025 8:57 AM CDT Respiratory Rate 16 01/28/2025 8:57 AM CDT Oxygen Saturation 96% 01/28/2025 8:57 AM CDT Inhaled Oxygen Concentration - - Weight 115.7 kg (255 lb) 01/28/2025 8:57 AM CDT Height 152.4 cm (5') 01/28/2025 8:57 AM CDT Body Mass Index 49.8 01/28/2025 8:57 AM CDT Plan of Treatment Upcoming Encounters Date Type Department Care Team (Late st Contact Info) Description 04/11/2025 10:40 AM CDT Office Visit [facility] Family & Internal [facility] [address] [place] [address] [place] [address] [place] [address] Health Maintenance Due Date Last Done Comments ASCVD Statin 1945 Kidney Health Evaluation 1945 Diabetes: Retinopathy Eye Exam 1965 DTaP, Tdap and Td Vaccines (1 - Tdap) 1966 Annual Medicare Wellness Visit 01/23/2012 Zoster Vaccines (3 of 3) 05/04/2024 03/09/2024, 08/08 COVID-19 Vaccine ( season) 2024 03/09/2024, 09/13/2023, 08/26/2022, Additional history exists PHQ-2 (Physician [place]) 11/07/2024 07/13/2024 Hemoglobin A1C 02/18/2025 08/20/2024, 08/0 12/2023, 09/20/2023, Additional history exists Lipid Panel 06/08/2025 06/08/2024, 04/08, 11/27/2019, Additional history exists Colorectal Cancer Screening Colonoscopy (10 Years) Discontinued 08/19/2017 Hepatitis C Completed 09/08/2020 Dexa Scan (General) Completed 11/27/2021 Pneumococcal Vaccine: 50+ Years Completed 01/20/2022, 05/05/2020, 08/21/2015, Additional history exists RSV Immunization or 60+ Years Completed 09/01/2023 Meningococcal B Vaccine Aged Out No l onger eligible based on patient's age to complete this topic Meningococcal Vaccine Aged Out No ramila madonna eligible based on patient's age to complete this topic RSV Immunizations Under 20 Months Aged Out No longer eligible based on patient's age to complete this topic Procedures Procedure Name Priority Date/Time Associated Diagnosis Comments PFT GENERIC (SCAN ORDER) 02/01/2025 PFT GENERIC (SCAN ORDER) 02/01/2025 PFT GENERIC (SCAN ORDER) 02/01/2025 PULMONARY GENERIC 01/31/2025 XR CHEST PA+LAT Routine 01/28/2025 10:17 AM CDT SOB (shortness of breath) COLLECTION VENOUS BLOOD VENIPUNCTURE Routine 01/28/2025 9:52 AM CDT SOB (shortness of breath) PRO-BRAIN NATRIURETIC PEPTIDE Routine 01/28/2025 9:38 AM CDT SOB (shortness of breath) BASIC METABOLIC PANEL Routine 01/28/2025 9:38 AM CDT SOB (shortness of breath) COLLECTION VENOUS BLOOD VENIPUNCTURE Routine 01/08/2025 11:00 AM MAORI PHYSIOTHERAPIST Benign hypertension BASIC METABOLIC PANEL Routine 01/08/2025 10:52 AM MAORI PHYSIOTHERAPIST Benign hypertension LIPID PANEL Routine 06/08/2024 11:21 AM CDT Hyperlipidemia, unspecified hyperlipidemia type HEMOGLOBIN, GLYCOSYLATED Routine 06/08/2024 11:21 AM CDT Controlled type 2 diabetes mellitus with diabetic polyneuropathy, without long-term current use of insulin BONE DENSITY GENERIC (SCAN ORDER) 11/27/2021 HEPATITIS C ANTIBODY Routine 09/08/2020 9:45 AM MAORI PHYSIOTHERAPIST Need for hepatitis C screening test COLONOSCOPY Routine 08/19/2017 12:00 AM CDT from Last 3 Months or Most Recently Relevant to Health Maintenance Results * PFT GENERIC (SCAN ORDER) (02/01/2025) 02/01/2025 [facility] Scanned SCANNING Final Resu lt * PFT GENERIC (SCAN ORDER) (02/01/2025) 02/01/2025 [facility] Scanned SCANNING Final Resu lt * PFT GENERIC (SCAN ORDER) (02/01/2025) 02/01/2025 [facility] Scanned SCANNING Final Resu lt * PULMONARY GENERIC (01/31/2025) 01/31/2025 Result [facility] Scanned SCANNING Final Resu lt * XR CHEST PA+LAT (01/28/2025 10:17 AM CDT) Anatomical Region Laterality Modality Chest Radiographic Gladys ging 01/28/2025 5:01 PM CDT Impressions 01/28/2025 5:03 PM CDT =====IMPRESSION:===== Fbvi-is-ufirswsv CHF. Age indeterminate right lateral seventh rib fracture. No pneumothorax Ordered By: MINERVA GONZALEZ Interpreted By: Fady Martinez, 01/28/2025 5:01 PM Narrative 01/28/2025 5:03 PM CDT [facility] [address] [place] [address] EXAMINATION: PA AND LATERAL CHEST Exam date/time: 01/28/2025 10:04 AM Reason For Exam: sob Comparison: None Technique: 2 views. Findings: Xcrm-cz-uxwdppeh CHF. No patchy infiltrate. No pleural effusion or pneumothorax. Mild to moderate cardiomegaly. Left shoulder prosthesis. Upper lumbar hardware. Electrodes overlie the posterior mid to lower thoracic spine. Age indeterminate right seventh lateral rib fracture. Procedure Note Michelle, Dexter C, MD - 01/28/2025 [facility] [address] [place] [address] EXAMINATION: PA AND LATERAL CHEST Exam date/time: 01/28/2025 10:04 AM Reason For Exam: sob Comparison: None Technique: 2 views. Findings: Cjwz-[id number] CHF. No patchy infiltrate. No pleural effusion or pneumothorax. Mild to moderate cardiomegaly. Left shoulder prosthesis. Upper lumbarhardware. Electrodes overlie the posterior mid to lower thoracic spine. Age indeterminate right seventh lateral rib fracture. =====IMPRESSION:===== Xwuv-fo-oahohnea CHF. Age indeterminate right lateral seventh rib fracture. No pneumothorax Ordered By: MINERVA GONZALEZ Interpreted By: Fady Martinez, 01/28/2025 5:01 PM us Minerva Gonzalez MD GENERAL IMAGING Final Resul t * (ABNORMAL) PRO-BNP (01/28/2025 9:38 AM CDT) PRO-B TYPE NATRIURETIC PEPTIDE 759(H) <450 PG/ML 01/28/2025 1:50 PM CDT [facility] Comment: CUT POINTS ESTABLISHED BY [employer] ON NT PROBNP (ICON) STUDY (2006). AGE INDEPENDENT: <300 PG/ML HAS A 99% NEGATIVE PREDICTIVE VALUE FOR EXCLUDING ACUTE CHF <50 YEARS: >450 PG/ML IS CONSISTENT WITH ACUTE CHF 50-75 YEARS: >900 PG/ML IS CONSISTENT WITH ACUTE CHF >75 YEARS: >1800 PG/ML IS CONSISTENT WITH ACUTE CHF IN PATIENTS WITH RENAL INSUFFICIENCY (GFR <60), >1200 PG/ML YIELDS A DIAGNOSTIC SENSITIVITY AND SPECIFICITY OF 89% AND 72% FOR ACUTE CHF. 01/28/2025 9:38 AM CDT us Minerva Gonzalez MD LABORATORY Final Resul t [facility] [address] [place] [address], [place] [phone] * (ABNORMAL) BASIC METABOLIC PANEL (01/28/2025 9:38 AM CDT) Only the most recent of2 resultswithin the time period is included. [facility] GLUCOSE 83 70 - 99 MG/DL 01/28/2025 1:50 PM CDT [facility] BUN 25(H) 7 - 18 MG/DL 01/28/2025 1:50 PM T [facility] CREATININE S/P/B 1.05(H) 0.55 - 1.02 MG/DL 01/28/2025 1:50 PM T [facility] SODIUM S/P/B 144 136 - 145 MMOL/L 01/28/2025 1:50 PM T [facility] POTASSIUM S/P/B 4.1 3.5 - 5.1 MMOL/L 01/28/2025 1:50 PM T [facility] CHLORIDE S/P/B 104 100 - 108 MMOL/L 01/28/2025 1:50 PM T [facility] CO2 32.6(H) 21 - 32 MMOL/L 01/28/2025 1:50 PM T [facility] CALCIUM S/P/B 9.2 8.5 - 10.1 MG/DL 01/28/2025 1:50 PM T [facility] ANION GAP 7.4 5 - 15 MMOL/L 01/28/2025 1:50 PM T [facility] BUN CREATININE RATIO 23.8 6 - 26 01/28/2025 1:50 PM T [facility] GFR ESTIMATE 54(L) >90 ML/MIN/1.7 3 M2 01/28/2025 1:50 PM T [facility] Comment: NOTE: eGFR is not calculated for patients <18 years of age. This is an estimated GFR calculation using the new CKD EPI creatinine equation without race and so does not require a correction factor for race. This estimated GFR should not be used for calculating drug doses. 01/28/2025 9:38 AM CDT Minerva Gonzalez MD LABORATORY Final Resul t Performing Organization Address [facility] de Phone Number [facility] [address] [place] [address], [place] [phone] * (ABNORMAL) HEMOGLOBIN, GLYCOSYLATED (06/08/2024 11:21 AM CDT) HGB A1C 6.3(H) <5.7 % 06/08/2024 3:38 PM CDT [facility] Comment: INCREASED RISK OF DIABETES <5.7% NON-DIABETES 5.7-6.4% INCREASED RISK FOR FUTURE DIABETES > OR = 6.5 CONSISTENT WITH DIABETES STANDARDS OF MEDICAL CARE IN DIABETES-2010 DIABETES CARE, 33(SUPP 1): S1-S61,2010 ESTIMATED AVG GLUCOSE 134 mg/dL 06/08/2024 3:38 PM CDT [facility] 06/08/2024 11:2 1 AM CDT Minerva Gonzalez MD LABORATORY Final Resul t Performing Organization Address [facility] de Phone Number [facility] [address] [place] [address], [place] [phone] * LIPID PANEL (06/08/2024 11:21 AM CDT) CHOLESTEROL 127 <200.0 MG/DL 06/08/2024 2:35 PM CDT [facility] TRIGLYCERIDES 87 <150 MG/DL 06/08/2024 2:35 PM CDT [facility] HDL 42 >40.0 MG/DL 06/08/2024 2:35 PM CDT [facility] LDL (CALCULATED) 68 <100 MG/DL 06/08/20 2:35 PM CDT [facility] NON HDL CHOLESTEROL 85 <130 MG/DL 06/08 2:35 PM CDT [facility] CHOL/HDL RATIO 3.0 0.0 - 4.5 06/08/2024 2:35 PM CDT [facility] VLDL CALCULATION 17 5 - 55 MG/DL 06/08/2024 2:35 PM CDT [facility] LIPID INTERPRETATION 06/08/2024 2:35 PM T [facility] Comment: NIH CONCENSUS REPORT RECOMMENDATIONS: ADULT CHILD LOW RISK: CHOLESTEROL <200 <170 TRIGLYCERIDE <150 --- HDL >=60 --- LDL <100 <110 BORDERLINE: CHOLESTEROL 200-239 170-199 TRIGLYCERIDE 150-199 --- HDL 40-59 --- LDL 100-159 110-129 HIGH RISK: CHOLESTEROL >=240 >=200 TRIGLYCERIDE >=200 --- HDL <40 --- LDL >=160 >=130 06/08/2024 11:2 1 AM CDT Minerva Gonzalez MD LABORATORY Final Resul t Performing Organization Address City/State/[facility] Co de Phone Number [facility] [address] [place] [address], * BONE DENSITY GENERIC (11/27/2021) Anatomical Region Laterality Modality Other 11/27/2021 Narrative 11/27/2021 Ordered by an unspecified provider. us Documents Scanned SCANNING Final Result * HEPATITIS C ANTIBODY (09/08/2020 9:45 AM MAORI PHYSIOTHERAPIST) HEPATITIS C AB NON-REACTI VE NON-REACTI VE 09/08/2020 11:01 PM MAORI PHYSIOTHERAPIST [facility] 09/08/2020 9:45 AM MAORI PHYSIOTHERAPIST us Poppy Quiroz MD LABORATORY Final Result Performing Organization Address City/[facility]/ZIP Co de Phone Number [facility] [address] [place] [address], [place] [phone] * Colonoscopy (08/19/2017 12:00 AM CDT) 08/19/2017 08/19/2017 Narrative [facility] TO EPIC CONVERSION - 08/19/2017 12:00 AM CDT Documented hx of procedure Procedure Note , Generic Conversion, - 09/10/2018 Documented hx of procedure us Generic Conversion Md HERNANDEZ GI PROCEDURE ORDERABLES Final Result Performing Organization Address City/[facility] Co de Phone Number [facility] TO EPIC CONVERSION from Last 3 Months or Most Recently Relevant to Health Maintenance Insurance AET Advance Directives * Full Code (Latest Code Status on File) Date Activated Date Inactivated Comments 03/22/2020 4:00 PM 08/29/2020 11:58 AM * Full Code Date Activated Date Inactivated Comments 02/17/2020 5:51 PM 03/20/2020 4:01 PM Care Teams Shotblaster Relationship Specialty [place] [address] [place] [address] PCP - General FAMILY PRACTICE 02/14/23 Alexsander Chen MD [address] [place] [address] CARDIOVASCULAR DISEASE 03/02/19 Klarissa Tran APRN 3 [facility] [address] [place] [address] NURSE PRACTITIONER 07/30/20 Richie Mcmahan MD [address] [facility] [place] [address] Consulting Physician CARDIOVASCULAR DISEASE 08/15/24 1
--- OUTSIDE RECORDS SUMMARY | 2025-03-01 11:18 | XMS_ITS | Encounter Summary ---
Author Organization [facility] Address [address] [place] [address] Care Team Providers Care Heel Stiffener Name Role Phone Poppy Quiroz MD Primary Care Provider + [phone] Alexsander Chen MD Unavailable [phone] Klarissa Tran TINT LAYER Unavailable [phone] Cortez Goins MD Primary Care Provider [phone] Sushant Gonzalez MD Primary Care Provider [phone] Vy Smith RN Unavailable [phone] Richie Mcmahan MD Unavailable Encounter Details Date Type Department Care Team (Late st Contact Info) Description 12/10/2021 Ecwid Message Enc [facility] Medical Group Family & Internal Medicine [address] [address] [facility] Provider Appointment Social History Tobacco Use Types Packs/Day Years [...] Sex Assigned at Female 11/22/2024 10:56 AM EQUAL OPPORTUNITY REPRESENTATIVE Legal Sex Female 7:10 PM CDT Gender [...] COVID-19? Unable to assess 11/16/2021 6:59 AM EQUAL OPPORTUNITY REPRESENTATIVE documented as of this encounter Plan of Treatment Upcoming Encounters Date Type Department Care Team (Late st Contact Info) Description 04/11/2025 10:40 AM CDT Office Visit [facility] Medical Group Family & Internal Medicine - [place] [address] [place] [address] [place] [address] [place] [address] documented as of this encounter Visit Diagnoses Not on filedocumented in this encounter Additional Health Concerns Infection Onset Date Last Indicated Resolved Time COVID-19 Confirmed 07/18/2023 07/18/2023 12:32 AM CDT COVID-19 Rule Out 08/02/2023 07/18/2023 08/02/2023 10:55 AM CDT documented as of this encounter Care Teams Heel Stiffener Relationship Specialty Start Date End Date Poppy Quiroz MD PCP - General INTERNAL MEDICINE 08/17/18 02/10/23 Cortez Goins MD [address] [address] PCP - General INTERNAL MEDICINE 02/11/23 02/13/23 [place] [address] [place] [address] PCP - General FAMILY PRACTICE 02/14/23 Alexsander Chen MD [address] [place] [address] CARDIOVASCULAR DISEASE 03/02/19 Klarissa Tran APRN 3 [facility] [address] [place] [address] NURSE PRACTITIONER 07/30/20 Vy Smith, RN [address] [place], [place] [address] Front Load Trash Truck Driver (Ambulatory) REGISTERED NURSE 05/19/23 06/14/23 Richie Mcmahan MD [address] [facility] [place] [address] Consulting Physician CARDIOVASCULAR DISEASE 08/15/24 1 documented as of this encounter
--- OUTSIDE RECORDS SUMMARY | 2025-03-01 11:18 | XMS_ITS | Encounter Summary ---
Author Organization [facility] Address [address] [place] [address] Care Team Providers Care Pharmacovigilance Specialist Name Role Phone Poppy Quiroz MD Primary Care Provider [phone] Alexsander Chen MD Unavailable [phone] Klarissa Tran MANAGER MSW Unavailable [phone] Cortez Goins MD Primary Care Provider [phone] Sushant Gonzalez MD Primary Care Provider [phone] Vy Smtih RN Unavailable [phone] Richie Mcmahan MD Unavailable Encounter Details Date Type Department Care Team (Late st Contact Info) Description 12/29/2021 MyChart Message Enc [facility] Medical Group Family & Internal Medicine [facility] [address] [place] [address] Poppy Quiroz MD [address] [place] [address] 12/28/21 blood tests results Social History Tobacco Use Types Packs/Day [...] Sex Assigned at Female 11/22/2024 10:56 AM ASSEMBLER PING PONG TABLE Legal Sex Female 7:10 PM CDT Gender Identity Female 01/28/2025 9:06 AM CDT Sexual Orientation Not on file 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 Unable to assess 12/14/2021 7:13 AM ASSEMBLER PING PONG TABLE documented as of this encounter Progress Notes * Latonya Valle RN - 01/01/2022 2:03 PM CST FYI MBLER PING PONG TABLE * Irene Valdivia LPN - 01/01/2022 8:11 AM CST Printed for Poppy to review MBLER PING PONG TABLE * Rabia Ernst MA - 12/31/2021 1:07 PM CST Informed. MBLER PING PONG TABLE * Rabia Ernst MA - 12/31/2021 11:47 AM CST LMOM to call office. Per Dr. Mcwilliams Decrease NA intake Increase her water pill per cardiology Wear compression stockings Increase protein Walk or elevate legs. MBLER PING PONG TABLE * Rabia Ernst MA - 12/31/2021 7:52 AM CST Printed for provider to review. MBLER PING PONG TABLE * Rabia Ernst MA - 12/31/2021 7:52 AM CST Printed for patient MBLER PING PONG TABLE * Latonya Valle RN - 12/30/2021 9:25 AM CST Printed to make Dr. Mcwilliams aware MBLER PING PONG TABLE documented in this encounter Plan of Treatment Upcoming Encounters Date Type Department Care Team (Late st Contact Info) Description 04/11/2025 10:40 AM CDT Office Visit [facility] Medical Group Family & Internal Medicine [facility] [phone] [place] [address] Sushant Gonzalez MD [address] [place] [address] documented as of this encounter Visit Diagnoses Not on filedocumented in this encounter Additional Health Concerns Infection Onset Date Last Indicated Resolved Time COVID-19 Confirmed 07/18/2023 07/18/2023 12:32 AM CDT COVID-19 Rule Out 08/02/2023 07/18/2023 08/02/2023 10:55 AM CDT documented as of this encounter Care Teams Pharmacovigilance Specialist Relationship Specialty Start Date End Date Poppy Quiroz MD PCP - General INTERNAL MEDICINE 08/17/18 02/10/23 Cortez Goins MD [address] [address] PCP - General INTERNAL MEDICINE 02/11/23 02/13/23 [place] [address] [place] [address] PCP - General FAMILY PRACTICE 02/14/23 Alexsander Chen MD [address] [place] [address] CARDIOVASCULAR DISEASE 03/02/19 Klarissa Tran APRN 3 [facility] [address] [place] [address] NURSE PRACTITIONER 07/30/20 Vy Smith, RN [address] [place] [address] Process Architect (Ambulatory) REGISTERED NURSE 05/19/23 06/14/23 Richie Mcmahan MD [address] [facility] [place] [address] Consulting Physician CARDIOVASCULAR DISEASE 08/15/24 1 documented as of this encounter
--- OUTSIDE RECORDS SUMMARY | 2025-03-01 11:18 | XMS_ITS | Encounter Summary ---
Author Organization [facility] Address [address] [place] [address] Care Team Providers Care Medical Imaging Technologist Name Role Phone Poppy Quiroz MD Primary Care Provider + [phone] Alexsander Chen MD Unavailable [phone] Klarissa Tran LAY BROTHER Unavailable [phone] Cortez Goins MD Primary Care Provider [phone] Sushant Gonzalez MD Primary Care Provider [phone] Vy Smith RN Unavailable [phone] Richie Mcmahan MD Unavailable Encounter Details Date Type Department Care Team (Late st Contact Info) Description 09/04/2021 TagSeats Message Enc [facility] Medical Group Family & Internal Medicine [address] [address] [facility] Provider Labs Social History Tobacco Use Types Packs/Day Years [...] Sex Assigned at Female 11/22/2024 10:56 AM RED CROSS EXECUTIVE DIRECTOR Legal Sex Female 7:10 PM CDT Gender [...] Description 04/11/2025 10:40 AM CDT Office Visit [facility] Medical Group Family & Internal Medicine - [place] [address] [place] [address] [place] [address] [place] [address] documented as of this encounter Visit Diagnoses Not on filedocumented in this encounter Additional Health Concerns Infection Onset Date Last Indicated Resolved Time COVID-19 Confirmed 07/18/2023 07/18/2023 12:32 AM CDT COVID-19 Rule Out 08/02/2023 07/18/2023 08/02/2023 10:55 AM CDT documented as of this encounter Care Teams Medical Imaging Technologist Relationship Specialty Start Date End Date Poppy Quiroz MD PCP - General INTERNAL MEDICINE 08/17/18 02/10/23 Cortez Goins MD [address] [address] PCP - General INTERNAL MEDICINE 02/11/23 02/13/23 [place] [address] [place] [address] PCP - General FAMILY PRACTICE 02/14/23 Alexsander Chen MD [address] [place] [address] CARDIOVASCULAR DISEASE 03/02/19 Klarissa Tran APRN 3 [facility] [address] [place] [address] NURSE PRACTITIONER 07/30/20 Vy Smith, RN [address] [place], [place] [address] Climate Change Analyst (Ambulatory) REGISTERED NURSE 05/19/23 06/14/23 Richie Mcmahan MD [address] [facility] [place] [address] Consulting Physician CARDIOVASCULAR DISEASE 08/15/24 1 documented as of this encounter
--- OUTSIDE RECORDS SUMMARY | 2025-03-01 11:18 | XMS_ITS | Encounter Summary ---
Author Organization [facility] Address [address] [place] [address] Care Team Providers Care Service Operator Name Role Phone Alexsander Chen MD Unavailable [phone] Klarissa Tran APRN Unavailable [phone] Sushant Gonzalez MD Primary Care Provider [phone] Richie Mcmahan MD Unavailable Encounter Details Date Type Department Care Team (Late st Contact Info) Description 02/10/2024 Swift Endeavorhart Message Enc [facility] Medical Group Family & Internal Medicine [address] [address] [facility] Provider refill Social History Tobacco Use Types Packs/Day Years Used Date Smoking Tobacco: Former Cigarettes 1 52 0 03/13/1971 - 03/13/2023 Smokeless Tobacco: Never Alcohol Use Standard Drinks/Week Comments Not Currently 0 (1 standard drink = 0.6 oz pur e alcohol) socially AUDIT-C Answer Date Recorded Q1: How often do you have a drink containing alc ohol? 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 file documented as of this encounter Plan of Treatment Upcoming Encounters Date Type Department Care Team (Late st Contact Info) Description 04/11/2025 10:40 AM CDT Office Visit [facility] Medical Group Family & Internal Medicine [facility] [address] [place] [address] [place] [address] [place] [address] documented as of this encounter Visit Diagnoses Not on filedocumented in this encounter Additional Health Concerns Assessment Noted Time PHQ-9 Depression Total Score: 4 11/09/19 23 12:56 PM COMMUNICATION INSTRUCTOR documented as of this encounter Care Teams Service Operator Relationship Specialty [place] [address] [place] [address] PCP - General FAMILY PRACTICE 02/14/23 Alexsander Chen MD [address] [place] [address] CARDIOVASCULAR DISEASE 03/02/19 Klarissa Tran APRN [address] [facility] [address] [place] [address] NURSE PRACTITIONER 07/30/20 Richie Mcmahan MD [address] [facility] [place] [address] Consulting Physician CARDIOVASCULAR DISEASE 08/15/24 1 documented as of this encounter
--- OUTSIDE RECORDS SUMMARY | 2025-03-01 11:18 | XMS_ITS | Encounter Summary ---
Author Organization [facility] Address [address] [place] [address] Care Team Providers Care Tester Electronic Scale Name Role Phone Poppy Quiroz MD Primary Care Provider + [phone] Alexsander Chen MD Unavailable [phone] Klarissa Tran FERMENTATION SCIENTIST Unavailable [phone] Cortez Goins MD Primary Care Provider [phone] Sushant Gonzalez MD Primary Care Provider [phone] yV Smith RN Unavailable [phone] Richie Mcmahan MD Unavailable Encounter Details Date Type Department Care Team (Late st Contact Info) Description 08/11/2021 MyChart Message Enc [facility] Medical Group Family & Internal Medicine [facility] [address] [place] [address] [place] Quiro[place] [address] [place] [address] RE: Test Results Social History Tobacco Use Types Packs/Day Years [...] Sex Assigned at Female 11/22/2024 10:56 AM DONOR SERVICES COORDINATOR Legal Sex Female 7:10 PM CDT Gender [...] Description 04/11/2025 10:40 AM CDT Office Visit [facility] Medical Group Family & Internal Medicine - [place] [address] [place] [address] [place] [phone] [place] [address] documented as of this encounter Visit Diagnoses Not on filedocumented in this encounter Additional Health Concerns Infection Onset Date Last Indicated Resolved Time COVID-19 Confirmed 07/18/2023 07/18/2023 12:32 AM CDT COVID-19 Rule Out 08/02/2023 07/18/2023 08/02/2023 10:55 AM CDT documented as of this encounter Care Teams Tester Electronic Scale Relationship Specialty Start Date End Date Poppy Quiroz MD PCP - General INTERNAL MEDICINE 08/17/18 02/10/23 Cortez Goisn MD [address] [facility] [address] [place] [address] PCP - General INTERNAL MEDICINE 02/11/23 02/13/23 [place] [address] [place] [address] PCP - General FAMILY PRACTICE 02/14/23 Alexsander Chen MD [address] [place] [address] CARDIOVASCULAR DISEASE 03/02/19 Klarissa Tran APRN 3 [facility] [address] [place] [address] NURSE PRACTITIONER 07/30/20 Vy Smith, RN [address] [place] [address] Assistant Professor Of German (Ambulatory) REGISTERED NURSE 05/19/23 06/14/23 Richie Mcmahan MD [address] [facility] [place] [place] [address] Consulting Physician CARDIOVASCULAR DISEASE 08/15/24 1 documented as of this encounter
--- OUTSIDE RECORDS SUMMARY | 2025-03-01 11:18 | XMS_ITS | Referral Summary ---
Author Organization [facility] [address] Address [address] [place] [address] Care Team Providers Care Yard Manager Name Role Phone Nasir Kaminski DO Unavailable [phone] Nazia Jenkins Unavailable Sushant Gonzalez MD Primary Care Provider [phone] Encounters Date Type Department Care Team Description 12/06/2024 7:45 AM GUITAR REPAIRER - 12/06/2024 11:59 PM GUITAR REPAIRER Hospital Encounter [facility] Medical [facility] Orthopedics and Sports Medicine [address] [place] [address] [address], [place] [address] Discharge Disposition: Discharge to home or self care 12/06/2024 1:30 PM GUITAR REPAIRER Office Visit [facility] Medical [facility] Orthopedics and Sports Medicine [address] [place] [address] [address], [place] [address] Nazia Jenkins PA Strain of deltoid muscle, left, initial encounter (Primary Dx); S/P reverse total shoulder arthroplasty, left; Osteoarthritis of left AC (acromioclavicular) joint; Contusion of left shoulder, initial encounter 12/03/2024 Telephone [facility] Orthopedics and Sports Medicine [address] [facility] [address] [place] [address] Abdoul Celeste MD from Last [...] every day 0 0 4 Active magnesium H-qxfeir-yfrqlc amide 42 mg (500 mg)- 250 mg [...] 1 tablet (150 mcg total) by mouth supervisor publications before breakfast 3 Active oxyCODONE-aceta minophen (PERCOCET) [...] How often do you attend chur or oriental orthodox services? Patient declined 05/18/2023 Do you belong to any clubs o r organizations such as gnosticism groups, unions, fraternal or athletic groups, or [...] on file Legal Sex Female 9:01 AM GUITAR REPAIRER Gender Identity Not on file Sexual Orientation Not on file Last Filed Vital Signs Vital Sign Reading Time Taken Comments Blood Pressure 114/73 12/06/2024 1:23 PM GUITAR REPAIRER Pulse 89 12/06/2024 1:23 PM GUITAR REPAIRER Temperature 37.1 C (98.8 F) 05/23/2023 11:00 AM CDT Respiratory Rate 18 05/23/2023 11:00 AM CDT Oxygen Saturation 96% 05/23/2023 11:00 AM CDT Inhaled Oxygen Concentration - - Weight 109.8 kg (242 lb) 12/06/2024 1:23 PM GUITAR REPAIRER Height 152.4 cm (5') 12/06/2024 1:23 PM GUITAR REPAIRER Body Mass Index 47.26 12/06/2024 1:23 PM GUITAR REPAIRER Plan of Treatment Not on file Medical Devices Implanted Type Area Continuous Dryout Operator Device Identifier Shelf Expiration Date Model / Serial / Lot [employer] Baseplate 24mm 20 Deg Full Augment Oblique [id number] - [id number] Implanted:Qty: 1 on 05/17/2023 by Abdoul Celeste MD at [facility] Left: Shoulder [employer] [id number] 02/05/2028 AR-9580-2 420 / / [id number] [employer] Univers Revers 20mm Modular Post Component Glenoid Porous Ar-9582-20 - [id number] Implanted:Qty: 1 on 05/17/2023 by Abdoul Celeste MD at [facility] Left: Shoulder [employer] [id number] 03/06/2028 AR-9582-2 0 / / [employer] 5.5mm 36mm Lock Peripheral Screw Bone Sterile Ar-9563-36 - [id number] Implanted:Qty: 1 on 05/17/2023 by Abdoul Celeste MD at [facility] Left: Shoulder [employer] [id number] 12/07/2027 AR-9563-3 6 / / [id number] [employer] 36mm 24 Baseplate Taper Sphere Glenoid [id number]-[id number] - [id number] Implanted:Qty: 1 on 05/17/2023 by Abdoul Celeste MD at [facility] Left: Shoulder [employer] [id number] 12/07/2027 AR-9564-2 436 / / [id number] [employer] 5.5mm 20mm Lock Peripheral Screw Bone Sterile Ar-9563-20 - [id number] Implanted:Qty: 1 on 05/17/2023 by Abdoul Celeste MD at [facility] Left: Shoulder [employer] [id number] 12/07/2027 AR-9563-2 0 / / [id number] [employer] Implant Suture Cup Humeral Reverse Left Univers Revers +2x33mm Titanium [id number] - [id number] Implanted:Qty: 1 on 05/17/2023 by Abdoul Celeste MD at [facility] Left: Shoulder [employer] [id number] 09/06/2027 AR-9502F- 33LCPC / / [id number] [employer] Insert Humeral Combo Reverse Poly Univers Revers +3x33mm Lb-6750-0350-3 - [id number] Implanted:Qty: 1 on 05/17/2023 by Abdoul Celeste MD at [facility] Left: Shoulder [employer] [id number] 07/07/2027 AR-9503-3 336-3 .50329 [employer] Arthrex Univers Revers Shoulder 7 Stem Humeral Sterile Ar-9501-07p - [id number] Implanted:Qty: 1 on 05/17/2023 by Abdoul Celeste MD at [facility] Left: Shoulder [employer] [id number] 06/06/2027 AR-9501-0 7.51873 Procedures Procedure Name Priority Date/Time Associated Diagnosis Comments XR SHOULDER LEFT 2 OR MORE VIEWS Routine 12/06/2024 1:17 PM GUITAR REPAIRER S/P reverse total shoulder arthroplasty, left HEMOGLOBIN [...] 2 or More Views (12/06/2024 1:17 PM GUITAR REPAIRER) Anatomical Region Laterality Modality Upper Extremities, Shoulder Left Digi maame Radiography Narrative 12/06/2024 1:57 PM GUITAR REPAIRER Views of the left shoulder reviewed and [...] % Estimated Average Glucose 134 mg/dL [facility] Comment: The ADA recommends reporting an estimated [...] MD LAB BLOOD ORDERABLES Delfina borrero Result [facility] [place] [address] * Lipid panel (08/20/2024 3:21 PM CDT) [...] on 2018. Triglycerides 85 <=149 mg/dL [facility] Comment: Interpretive Data Ages < or [...] on 2018. HDL 42 >=40 mg/dL [facility] Comment: Interpretive Data Ages < or [...] 2018. LDL, calculated 55 <=129 mg/dL [facility] Comment: Interpretive Data Ages < or [...] revised on 2024. Non-HDL Cholesterol 72 mg/dL [facility] Comment: Interpretive Data Ages < or = [...] last revised on 2018. Chol/HDL ratio 3 [facility] Blood Venous blood specimen / Unknown 08/20/2024 3:21 PM CDT 08/20/2024 3:58 PM CDT us Dudley Ray MD LAB BLOOD ORDERABLES Delfina l Result [facility] Department [place] [address] * eGFR (05/18/2023 3:50 AM CDT) eGFR 63 mL/min/1. 73 m2 [facility] Comment: Interpretive Data Reference Interval Normal >/= [...] F inal Result [facility] [address] [facility] Department [place] [address] from Last 3 Months or Most Recently Relevant to Health Maintenance Insurance [employer] MEDICARE T MEDICARE Advance Directives For more information, please contact: [phone] * Full Code (Latest Code Status on File) Date Activated Date Inactivated Comments 05/17/2023 2:36 PM 05/23/2023 6:06 PM Care Teams Yard Manager Relationship Specialty [place] [address] [facility] [address] [address] PCP - General Family Practice 02/28/24 Nasir Kaminski DO [address] [facility] [address] [place] [address] Referring Physician Cardiology 05/12/23 Nazia Jenkins PA [address] [place] [address] [address] Orthopedic Surgery 05/23/23
--- OUTSIDE RECORDS SUMMARY | 2025-03-01 11:18 | XMS_ITS | Encounter Summary ---
Author Organization [facility] Address [address] [place] [address] Care Team Providers Care Junior Php Developer Name Role Phone Poppy Quiroz MD Primary Care Provider + [phone] Alexsander Chen MD Unavailable [phone] Klarissa Tran SOAP MAKER Unavailable [phone] Cortez Goins MD Primary Care Provider [phone] Sushant Gonzalez MD Primary Care Provider [phone] Vy Smith RN Unavailable [phone] Richie Mcmahan MD Unavailable Encounter Details Date Type Department Care Team (Late st Contact Info) Description 07/22/2021 MagnomaticsharInRadio Message Enc [facility] Medical Group Family & Internal Medicine [address] [address] [facility] Provider Covid Booster Social History Tobacco Use Types Packs/Day Years [...] Sex Assigned at Female 11/22/2024 10:56 AM EMD TEACHER Legal Sex Female 7:10 PM CDT Gender Identity Female 01/28/2025 9:06 AM CDT Sexual Orientation Not on file 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 file documented as of this encounter Plan of Treatment Upcoming Encounters Date Type Department Care Team (Late st Contact Info) Description 04/11/2025 10:40 AM CDT Office Visit [facility] Medical Group Family & Internal Medicine [facility] [address] [place] [phone] [place]ushant Gonzalez [place] [address] [place] [address] documented as of this encounter Visit Diagnoses Not on filedocumented in this encounter Additional Health Concerns Infection Onset Date Last Indicated Resolved Time COVID-19 Confirmed 07/18/2023 07/18/2023 12:32 AM CDT COVID-19 Rule Out 08/02/2023 07/18/2023 08/02/2023 10:55 AM CDT documented as of this encounter Care Teams Junior Php Developer Relationship Specialty Start Date End Date Poppy Quiroz MD PCP - General INTERNAL MEDICINE 08/17/18 02/10/23 Cortez Goins MD [address] [address] PCP - General INTERNAL MEDICINE 02/11/23 02/13/23 Sushant Gonzalez MD [address] [place] [address] PCP - General FAMILY PRACTICE 02/14/23 Alexsander Chen MD [address] [place] [address] CARDIOVASCULAR DISEASE 03/02/19 Klarissa Tran APRN 3 [facility] [address] [place] [address] NURSE PRACTITIONER 07/30/20 Vy Smith, RN [address] [place] [address] Instructor Nurse (Ambulatory) REGISTERED NURSE 05/19/23 06/14/23 Richie Mcmahan MD [address] [place] [address] Consulting Physician CARDIOVASCULAR DISEASE 08/15/24 1 documented as of this encounter
--- OUTSIDE RECORDS SUMMARY | 2025-03-01 11:18 | XMS_ITS | Encounter Summary ---
Author Organization [facility] Address [address] [place] [address] Care Team Providers Care Formula Bottler Name Role Phone Poppy Quiroz MD Primary Care Provider [phone] Alexsander Chen MD Unavailable [phone] Klarissa Tran MEDICAL TECH Unavailable [phone] Cortez Goins MD Primary Care Provider [phone] Sushant Gonzalez MD Primary Care Provider [phone] Vy Smith RN Unavailable [phone] Richie Mcmahan MD Unavailable Encounter Details Date Type Department Care Team (Late st Contact Info) Description 08/12/2021 MyChart Message Enc [facility] Medical Group Family & Internal Medicine [facility] [address] [place] [address] [place] Quiro[place] [address] [place] [address] RE: Test Results Social History Tobacco [...] Sex Assigned at Female 11/22/2024 10:56 AM CAR SUPERVISOR Legal Sex Female 7:10 PM CDT Gender [...] AM CDT documented as of this encounter Progress Notes * Latonya Valle RN - 08/14/2021 3:18 PM CDT Nurse called pt and made her aware * Latonya Valle RN - 08/14/2021 11:21 AM CDT Message sent to Dr. Mcwilliams to clarify * Sarah Cotton MA - 08/12/2021 4:28 PM CDT Please advise documented in this encounter Plan of Treatment Upcoming Encounters Date Type Department Care Team (Late st Contact Info) Description 04/11/2025 10:40 AM CDT Office Visit [facility] Medical Group Family & Internal Medicine [address] [address] [place] [address] [place] [address] documented as of this encounter Visit Diagnoses Not on filedocumented in this encounter Additional Health Concerns Infection Onset Date Last Indicated Resolved Time COVID-19 Confirmed 07/18/2023 07/18/2023 12:32 AM CDT COVID-19 Rule Out 08/02/2023 07/18/2023 08/02/2023 10:55 AM CDT documented as of this encounter Care Teams Formula Bottler Relationship Specialty Start Date End Date Poppy Quiroz MD PCP - General INTERNAL MEDICINE 08/17/18 02/10/23 Cortez Goins MD [address] [address] PCP - General INTERNAL MEDICINE 02/11/23 02/13/23 [place] [address] [place] [address] PCP - General FAMILY PRACTICE 02/14/23 Alexsander Chen MD [address] [place] [address] CARDIOVASCULAR DISEASE 03/02/19 Klarissa Tran APRN 3 [facility] [address] [place] [address] NURSE PRACTITIONER 07/30/20 Vy Smith, RN [address] [place] [address] Airport Representative (Ambulatory) REGISTERED NURSE 05/19/23 06/14/23 Richie Mcmahan MD [address] [facility] [place] [address] Consulting Physician CARDIOVASCULAR DISEASE 08/15/24 1 documented as of this encounter
--- OUTSIDE RECORDS SUMMARY | 2025-03-01 11:18 | XMS_ITS ---
Author Organization [facility] Address [address] [place], [place] [address] Care Team Providers Care Unit Tender Name Role Phone CHICHI BARRETO Unavailable [phone] Sushant Gonzalez Unavailable Unavailable LUH RAYO Unavailable [phone] REASON FOR VISIT *General care Medications Medication SIG (Take, Route, Frequency, Duration) Notes Start Date End Date Status oxycodone hydrochloride 10 MG Oral Tablet ORAL oxycodone hydrochloride 10 M G Oral TabletOriginal Medicationoxycodone hydrochloride 10 MG Oral Tablet *Reorder from [employer] for eRx and Interaction Alerts* 6 Active gabapentin 100 MG Oral Capsule [Neurontin] ORAL gabapentin 100 MG Oral Capsule [Neurontin]Original Medicationgabapentin 100 MG Oral Capsule [Neurontin] *Reorder from [employer] for eRx and Interaction Alerts* 6 Active fluoxetine 10 MG Oral Capsule [Prozac] ORAL fluoxetine 10 MG Oral Capsul e [Prozac]Original Medicationfluoxetine 10 MG Oral Capsule [Prozac] *Reorder from [employer] for eRx and Interaction Alerts* 6 Active cholecalciferol 0.025 MG Chewable Tablet ORAL cholecalciferol 0.025 MG Chewable TabletOriginal Medicationcholecalciferol 0.025 MG Chewable Tablet *Reorder from [employer] for eRx and Interaction Alerts* 7 Active Meloxicam 15 MG Oral Tablet ORAL meloxicam 15 MG Oral TabletOriginal Medicationmeloxicam 15 MG Oral Tablet *Reorder from [employer] for eRx and Interaction Alerts* 6 Active pramipexole dihydrochloride 0.5 MG Oral Tablet [Mirapex] ORAL pramipexole dihydrochloride 0.5 MG Oral Tablet [Mirapex]Original Medicationpramipexole dihydrochloride 0.5 MG Oral Tablet [Mirapex] *Reorder from [employer] for eRx and Interaction Alerts* 7 Active Potassium Gluconate 2.5 MEQ Oral Tablet ORAL potassium gluconate 2.5 MEQ Oral TabletOriginal Medicationpotassium gluconate 2.5 MEQ Oral Tablet *Reorder from [employer] for eRx and Interaction Alerts* 6 Active Vital Signs Height 62.00 in 04/12/2024 Weight 240 lbs 04/12/2024 BMI 43.89 kg/m2 04/12/2024 Height-cm 157.48 cm 04/12/2024 Weight-kg 108.86 kg 04/12/2024 Encounters Encounter Location Date Provider Diagnosis [address] [id number] 04/12/2024 [facility] 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, bilateral legs I70.203 ; Tinea unguium B35.1 ; Other hammer toe(s) (acquired), right foot M20.41 ; Other hammer toe(s) (acquired), left foot M20.42 ; Pain in right toe(s) M79.674 and Pain in left toe(s) M79.675 Assessments Encounter Date Diagnosis (ICD Code) Assessment Notes Treatment Notes Treatment Clinical Notes Section Notes 04/12/2024 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, bilateral legs (ICD-10 - [...] Treatment Notes Assessment Notes 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 [...] Patient denies c hest pain, history of MS, irregular heartbeat. M usculoskeletal: Patient complains of [...] MEQ Oral Tablet *Reorder from [facility] for eRx and Interaction Alerts*, Taking Meloxicam 15 MG Oral Tablet ORAL , Notes to Pharmacist: meloxicam 15 MG Oral TabletOriginal Medicationmeloxicam 15 MG Oral Tablet *Reorder from [facility] for eRx and Interaction Alerts*, Taking cholecalciferol 0.025 MG Chewable Tablet ORAL , Notes to Pharmacist: cholecalciferol 0.025 MG Chewable TabletOriginal Medicationcholecalciferol 0.025 MG Chewable Tablet *Reorder from [facility] for eRx and Interaction Alerts*, Taking fluoxetine 10 MG Oral Capsule [Prozac] ORAL , Notes to Pharmacist: fluoxetine 10 MG Oral Capsule [Prozac]Original Medicationfluoxetine 10 MG Oral Capsule [Prozac] *Reorder from [facility] for eRx and Interaction Alerts*, Taking gabapentin 100 MG Oral Capsule [Neurontin] ORAL , Notes to Pharmacist: gabapentin 100 MG Oral Capsule [Neurontin]Original Medicationgabapentin 100 MG Oral Capsule [Neurontin] *Reorder from [facility] for eRx and Interaction Alerts*, Taking oxycodone hydrochloride 10 MG Oral Tablet ORAL , Notes to Pharmacist: oxycodone hydrochloride 10 MG Oral TabletOriginal Medicationoxycodone hydrochloride 10 MG Oral Tablet *Reorder from [facility] for eRx and Interaction Alerts*, Taking pramipexole dihydrochloride 0.5 MG Oral Tablet [Mirapex] ORAL , Notes to Pharmacist: pramipexole dihydrochloride 0.5 MG Oral Tablet [Mirapex]Original Medicationpramipexole dihydrochloride 0.5 MG Oral Tablet [Mirapex] *Reorder from [facility] for eRx and Interaction Alerts* Objective: [...] (Primary) 2 . U nspecified atherosclerosis of chippewa-cree arteries of extremities, bilateral legs - I70.203 3 . O ther hammer toe(s) (acquired), right foot - M20.41 4 . O ther hammer toe(s) (acquired), left foot - M20.42 5 . P ain in right toe(s) - M79.674 6 . P ain in left toe(s) - M79.675 Plan: * Treatment: 2. U nspecified atherosclerosis of chippewa-cree arteries of extremities, bilateral legs Notes: Patient [...] Months * Billing Information: * Visit Code: 78936 Office Visit, Est Pt., Level 3. * Procedure Codes: * Sign off status: Completed true * Provider: Marc RAYO Date: 0 04/12/2024 Generated for Juan F lujan/Cherie/Jess on: 0 03/01/2025 11:18 AM CDT History and Physical Notes * [...]
--- OUTSIDE RECORDS SUMMARY | 2025-03-01 11:19 | XMS_ITS | Encounter Summary ---
Author Organization [facility] Address [address] [place] [address] Care Team Providers Care Machine Applicator Cementer Name Role Phone Poppy Quiroz MD Primary Care Provider + [phone] Alexasnder Chen MD Unavailable [phone] Klarissa Tran MOLDER SETTER Unavailable [phone] Cortez Goins MD Primary Care Provider [phone] Sushant Gonzalez MD Primary Care Provider [phone] Vy Smith RN Unavailable [phone] Richie Mcmahan MD Unavailable Encounter Details Date Type Department Care Team (Late st Contact Info) Description 03/30/2021 MyChart Message Enc [facility] Medical Group Wound Clinic [facility] [address] [place] [address] [place]ppy Quiroz [place] [address] [place] [address] RE: Medication Questions Social History Tobacco Use Types Packs/Day Years [...] Sex Assigned at Female 11/22/2024 10:56 AM HAND FLATWORK FINISHER Legal Sex Female 7:10 PM CDT Gender Identity Female 01/28/2025 9:06 AM CDT Sexual Orientation Not on file 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 file documented as of this encounter Plan of Treatment Upcoming Encounters Date Type Department Care Team (Late st Contact Info) Description 04/11/2025 10:40 AM CDT Office Visit [facility] Medical Group Family & Internal Medicine - [place] [address] [place] [address] Sushant Gonzalez MD [address] [place] [id number] documented as of this encounter Visit Diagnoses Not on filedocumented in this encounter Additional Health Concerns Infection Onset Date Last Indicated Resolved Time COVID-19 Confirmed 07/18/2023 07/18/2023 12:32 AM CDT COVID-19 Rule Out 08/02/2023 07/18/2023 08/02/2023 10:55 AM CDT documented as of this encounter Care Teams Machine Applicator Cementer Relationship Specialty Start Date End Date Poppy Quiroz MD PCP - General INTERNAL MEDICINE 08/17/18 02/10/23 Cortez Goins MD [address] [address] PCP - General INTERNAL MEDICINE 02/11/23 02/13/23 [place] [address] [facility] [place] [place] [address] PCP - General FAMILY PRACTICE 02/14/23 Alexsander Chen MD [address] [place] [address] CARDIOVASCULAR DISEASE 03/02/19 Klarissa Tran APRN 3 [facility] [address] [place] [address] NURSE PRACTITIONER 07/30/20 Vy Smith, RN [address] [place], [place] [address] Alley Worker (Ambulatory) REGISTERED NURSE 05/19/23 06/14/23 Richie Mcmahan MD [address] [place] [address] Consulting Physician CARDIOVASCULAR DISEASE 08/15/24 1 documented as of this encounter
--- OUTSIDE RECORDS SUMMARY | 2025-03-01 11:19 | XMS_ITS | Encounter Summary ---
Author Organization [facility] Address [address] [place] [address] Care Team Providers Care Toll Operator Name Role Phone Poppy Quiroz MD Primary Care Provider Alexsander Chen MD Unavailable [phone] Klarissa Tran PEDIATRIC PHYSICAL THERAPY ASSISTANT Unavailable [phone] Cortez Goins MD Primary Care Provider Sushant Gonzalez MD Primary Care Provider [phone] Vy Smith RN Unavailable [phone] Richie Mcmahan MD Unavailable Encounter Details Date Type Department Care Team (Late st Contact Info) Description 09/07/2020 MyChart Message Enc [facility] Group Multispecialty Care - [facility] 3 [facility], [address] [address] Sherry Cruz MD 1 [place] [address] Question Social History Tobacco Use Types Packs/Day Years Used Date Smoking Tobacco: Every Day Cigarettes 1 52 Smokeless Tobacco: Never Alcohol Use Standard Drinks/Week Comments Yes 0 (1 standard drink = 0.6 oz pur e alcohol) socially PHQ-2 Answer Date Recorded PHQ-2 Score - If the patient scores above 3, please move on to questions 3-9 1 08/28/2020 Comments No Sex and Gender Information Value Date Recorded Sex Assigned at Female 11/22/2024 10:56 AM REACHER Legal Sex Female 7:10 PM CDT Gender Identity Female 01/28/2025 9:06 AM CDT Sexual Orientation Not on file 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 No / Unsure 09/08/2020 8:47 AM REACHER documented as of this encounter Plan of Treatment Upcoming Encounters Date Type Department Care Team (Late st Contact Info) Description 04/11/2025 10:40 AM CDT Office Visit [facility] Medical Group Family & Internal Medicine [facility] [address] [place] [address] [place]ush[place] [address] [place] [address] documented as of this encounter Visit Diagnoses Not on filedocumented in this encounter Additional Health Concerns Infection Onset Date Last Indicated Resolved Time COVID-19 Confirmed 07/18/2023 07/18/2023 12:32 AM CDT COVID-19 Rule Out 08/02/2023 07/18/2023 08/02/2023 10:55 AM CDT documented as of this encounter Care Teams Toll Operator Relationship Specialty Start Date End Date Poppy Quiroz MD PCP - General INTERNAL MEDICINE 08/17/18 02/10/23 [place] Goins MD [address] [address] PCP - General INTERNAL MEDICINE 02/11/23 02/13/23 [place] [address] [place] [address] PCP - General FAMILY PRACTICE 02/14/23 Alexsander Chen MD [address] [place] [address] CARDIOVASCULAR DISEASE 03/02/19 Klarissa Tran APRN 3 [facility] [address] [place] [address] NURSE PRACTITIONER 07/30/20 Vy Smith, RN [address] [place] [address] Costumed Character (Ambulatory) REGISTERED NURSE 05/19/23 06/14/23 Richie Mcmahan MD [address] [place] [address] Consulting Physician CARDIOVASCULAR DISEASE 08/15/24 1 documented as of this encounter
--- OUTSIDE RECORDS SUMMARY | 2025-03-01 11:19 | XMS_ITS | Encounter Summary ---
Author Organization [facility] Address [address] [place] [address] Care Team Providers Care Sparmaker Name Role Phone Poppy Quiroz MD Primary Care Provider [phone] Alexsander Chen MD Unavailable [phone] Klarissa Tran FRONT DESK CLERK Unavailable [phone] [place] Goins MD Primary Care Provider [phone] Sushant Gonzalez MD Primary Care Provider [phone] Vy Smith RN Unavailable [phone] Richie Mcmahan MD Unavailable Encounter Details Date Type Department Care Team (Late st Contact Info) Description 09/08/2020 MyChart Message Enc [facility] Medical [facility] Family & Internal Medicine [facility] [address] [place] [address] [place] Quiro[place] [address] [place] [address] RE: Test Results Social History Tobacco [...] Sex Assigned at Female 11/22/2024 10:56 AM A P MECHANIC Legal Sex Female 7:10 PM CDT Gender [...] COVID-19? No / Unsure 09/08/2020 8:47 AM A P MECHANIC documented as of this encounter Plan of Treatment Upcoming Encounters Date Type Department Care Team (Late st Contact Info) Description 04/11/2025 10:40 AM CDT Office Visit [facility] Medical Group Family & Internal Medicine [facility] [address] [place] [address] [place]ush[place] [address] [place] [address] documented as of this encounter Visit Diagnoses Not on filedocumented in this encounter Additional Health Concerns Infection Onset Date Last Indicated Resolved Time COVID-19 Confirmed 07/18/2023 07/18/2023 12:32 AM CDT COVID-19 Rule Out 08/02/2023 07/18/2023 08/02/2023 10:55 AM CDT documented as of this encounter Care Teams Sparmaker Relationship Specialty Start Date End Date Poppy Quiroz MD PCP - General INTERNAL MEDICINE 08/17/18 02/10/23 [place] Goins MD [address] [address] PCP - General INTERNAL MEDICINE 02/11/23 02/13/23 [place] [address] [place] [address] PCP - General FAMILY PRACTICE 02/14/23 Alexsander Chen MD [address] [place] [address] CARDIOVASCULAR DISEASE 03/02/19 Klarissa Tran APRN 3 [facility] [address] [place] [address] NURSE PRACTITIONER 07/30/20 Vy Smith, RN [address] [place] [address] Director Of Physical Therapy (Ambulatory) REGISTERED NURSE 05/19/23 06/14/23 Richie Mcmahan MD [address] [facility] [place] [address] Consulting Physician CARDIOVASCULAR DISEASE 08/15/24 1 documented as of this encounter
--- OUTSIDE RECORDS SUMMARY | 2025-03-01 11:19 | XMS_ITS | Encounter Summary ---
Author Organization [facility] Address [address] [place] [address] Care Team Providers Care Filter Helper Name Role Phone Poppy Quiroz MD Primary Care Provider [phone] Alexsander Chen MD Unavailable [phone] Klarissa Tran CHOREOGRAPHY DIRECTOR Unavailable [phone] [place] Goins MD Primary Care Provider [phone] Sushant Gonzalez MD Primary Care Provider [phone] Vy Smith RN Unavailable [phone] Richie Mcmahan MD Unavailable Encounter Details Date Type Department Care Team (Late st Contact Info) Description 09/08/[address] [facility] Medical [facility] Family & Internal Medicine [facility] [address] [place] [address] [place]ppy Quiroz [place] [address] [place] [address] RE: Test Results Social History Tobacco [...] Sex Assigned at Female 11/22/2024 10:56 AM FIELD OPERATIONS COORDINATOR Legal Sex Female 7:10 PM CDT [...] COVID-19? No / Unsure 09/08/2020 8:47 AM FIELD OPERATIONS COORDINATOR documented as of this encounter Plan of Treatment Upcoming Encounters Date Type Department Care Team (Late st Contact Info) Description 04/11/2025 10:40 AM CDT Office Visit [facility] Medical [facility] Family & Internal Medicine [facility] [address] [place] [address] [place]ush[place] Gonz[place]ze [place] [address] [place] [address] documented as of this encounter Visit Diagnoses Not on filedocumented in this encounter Additional Health Concerns Infection Onset Date Last Indicated Resolved Time COVID-19 Confirmed 07/18/2023 07/18/2023 12:32 AM CDT COVID-19 Rule Out 08/02/2023 07/18/2023 08/02/2023 10:55 AM CDT documented as of this encounter Care Teams Filter Helper Relationship Specialty Start Date End Date Poppy Quiroz MD PCP - General INTERNAL MEDICINE 08/17/18 02/10/23 [place] Goins MD [address] [address] PCP - General INTERNAL MEDICINE 02/11/23 02/13/23 [place] [address] [place] [address] PCP - General FAMILY PRACTICE 02/14/23 Alexsander Chen MD [address] [place] [address] CARDIOVASCULAR DISEASE 03/02/19 Klarissa Tran APRN 3 [facility] [address] [place] [address] NURSE PRACTITIONER 07/30/20 Vy Smith, RN [address] [place] [address] Rn Pain Management (Ambulatory) REGISTERED NURSE 05/19/23 06/14/23 Richie Mcmahan MD [address] [facility] [place] [address] Consulting Physician CARDIOVASCULAR DISEASE 08/15/24 1 documented as of this encounter
--- OUTSIDE RECORDS SUMMARY | 2025-03-01 11:19 | XMS_ITS | Encounter Summary ---
Author Organization [facility] Address [address] [place] [address] Care Team Providers Care Regional Operations Manager Name Role Phone Poppy Quiroz MD Primary Care Provider + [phone] Alexsander Cehn MD Unavailable [phone] Klarissa Tran SPECIALTY THERAPIST Unavailable [phone] [place] Goins MD Primary Care Provider [phone] Sushant Gonzalez MD Primary Care Provider [phone] Vy Smith RN Unavailable [phone] Richie Mcmahan MD Unavailable Encounter Details Date Type Department Care Team (Late st Contact Info) Description 03/11/2021 MyChart Message Enc [facility] Medical Group Wound Clinic [facility] [address] [place] [address] Poppy Quiro[place] [address] [place] [address] RE: Other Social History Tobacco Use Types Packs/Day [...] Sex Assigned at Female 11/22/2024 10:56 AM RECORDS MANAGEMENT CLERK Legal Sex Female 7:10 PM CDT Gender [...] have Coronavirus / COVID-19? No / Unsure 02/17/2021 11:59 AM CDT documented as of this encounter Progress Notes * Sarah Cotton MA - 03/11/2021 2:36 PM CDT Printed for provider to advise documented in this encounter Plan of Treatment Upcoming Encounters Date Type Department Care Team (Late st Contact Info) Description 04/11/2025 10:40 AM CDT Office Visit [facility] Medical Group Family & Internal Medicine - [place] [address] [place] [address] Sushant Gonzalez MD [address] [place] [address] documented as of this encounter Visit Diagnoses Not on filedocumented in this encounter Additional Health Concerns Infection Onset Date Last Indicated Resolved Time COVID-19 Confirmed 07/18/2023 07/18/2023 12:32 AM CDT COVID-19 Rule Out 08/02/2023 07/18/2023 08/02/2023 10:55 AM CDT documented as of this encounter Care Teams Regional Operations Manager Relationship Specialty Start Date End Date Poppy Quiroz MD PCP - General INTERNAL MEDICINE 08/17/18 02/10/23 [place]ez Goins MD 1188 [facility] [address] [place] [address] PCP - General INTERNAL MEDICINE 02/11/23 02/13/23 [place] [address] [place] [address] PCP - General FAMILY PRACTICE 02/14/23 Alexsander Chen MD [address] [place] [address] CARDIOVASCULAR DISEASE 03/02/19 Klarissa Tran APRN 3 [facility] [address] [place] [phone] NURSE PRACTITIONER 07/30/20 Vy Smith, RN [address] [place] [address] Malt Liquors Sales Representative (Ambulatory) REGISTERED NURSE 05/19/23 06/14/23 Richie Mcmahan MD [address] [facility] [place] [place] [address] Consulting Physician CARDIOVASCULAR DISEASE 08/15/24 1 documented as of this encounter
--- OUTSIDE RECORDS SUMMARY | 2025-03-01 11:19 | XMS_ITS | Encounter Summary ---
Author Organization [facility] Address [address] [place] [address] Care Team Providers Care Wrapper Cashier Name Role Phone Poppy Quiroz MD Primary Care Provider + [phone] Alexsander Chen MD Unavailable [phone] Klarissa Tran SEMICONDUCTOR PACKAGES TESTER Unavailable [phone] [place] Goins MD Primary Care Provider [phone] Sushant Gonzalez MD Primary Care Provider [phone] Vy Smith RN Unavailable [phone] Richie Mcmahan MD Unavailable Encounter Details Date Type Department Care Team (Late st Contact Info) Description 12/11/[address] [facility] Medical [facility] W[facility] Clinic [facility] [address] [place] [address] Poppy Quiroz [place] [address] [place] [address] RE: Question Social History Tobacco Use Types Packs/Day [...] Sex Assigned at Female 11/22/2024 10:56 AM STAFF MIDWIFE/APPRENTICESHIP DIRECTOR Legal Sex Female 7:10 PM CDT [...] 10:40 AM CDT Office Visit [facility] Medical Group Family & Internal Medicine [facility] [address] [place] [address] Sushant Gonzalez MD [address] [place] [address] documented as of this encounter Visit Diagnoses Not on filedocumented in this encounter Additional Health Concerns Infection Onset Date Last Indicated Resolved Time COVID-19 Confirmed 07/18/2023 07/18/2023 12:32 AM CDT COVID-19 Rule Out 08/02/2023 07/18/2023 08/02/2023 10:55 AM CDT documented as of this encounter Care Teams Wrapper Cashier Relationship Specialty Start Date End Date Poppy Quiroz MD PCP - General INTERNAL MEDICINE 08/17/18 02/10/23 [place] Goins MD [address] [address] PCP - General INTERNAL MEDICINE 02/11/23 02/13/23 [place] [address] [facility] [place] [address] PCP - General FAMILY PRACTICE 02/14/23 Alexsander Chen MD [address] [place] [address] CARDIOVASCULAR DISEASE 03/02/19 Klarissa Tran APRN 3 [facility] [address] [place] [address] NURSE PRACTITIONER 07/30/20 Vy Smith, RN [address] [place] [address] Wind Turbine Mechanical Engineer (Ambulatory) REGISTERED NURSE 05/19/23 06/14/23 Richie Mcmahan MD [address] [facility] [place] [address] Consulting Physician CARDIOVASCULAR DISEASE 08/15/24 1 documented as of this encounter
--- OUTSIDE RECORDS SUMMARY | 2025-03-01 11:19 | XMS_ITS | Encounter Summary ---
Author Organization [facility] Address [address] [place] [address] Care Team Providers Care Spinning Bath Person Name Role Phone Poppy Quiroz MD Primary Care Provider [phone] Alexsander Chen MD Unavailable [phone] Klarissa Tran FACING CUTTING MACHINE OPERATOR Unavailable [phone] [place] Goins MD Primary Care Provider [phone] Sushant Gonzalez MD Primary Care Provider [phone] Vy Smith RN Unavailable [phone] Richie Mcmahan MD Unavailable Encounter Details Date Type Department Care Team (Late st Contact Info) Description 10/06/2020 MyChart Message Enc [facility] Medical Group Family & Internal Medicine [facility] [address] [place] [address] Poppy Quiroz [place] [address] [place] [address] RE: Question Social History Tobacco Use [...] Sex Assigned at Female 11/22/2024 10:56 AM ATTENDANT CHILD ACTIVITY Legal Sex Female 7:10 PM CDT Gender [...] have Coronavirus / COVID-19? No / Unsure 10/06/2020 12:26 PM ATTENDANT CHILD ACTIVITY documented as of this encounter Progress Notes * Sarah Cotton MA - 10/07/2020 8:13 AM CST Printed for provider to advise NDANT CHILD ACTIVITY documented in this encounter Plan of Treatment Upcoming Encounters Date Type Department Care Team (Late st Contact Info) Description 04/11/2025 10:40 AM CDT Office Visit [facility] Medical Group Family & Internal Medicine - [address] [address] Sushant Gonzalez MD [address] [place] [address] documented as of this encounter Visit Diagnoses Not on filedocumented in this encounter Additional Health Concerns Infection Onset Date Last Indicated Resolved Time COVID-19 Confirmed 07/18/2023 07/18/2023 12:32 AM CDT COVID-19 Rule Out 08/02/2023 07/18/2023 08/02/2023 10:55 AM CDT documented as of this encounter Care Teams Spinning Bath Person Relationship Specialty Start Date End Date Poppy Quiroz MD PCP - General INTERNAL MEDICINE 08/17/18 02/10/23 [place] Goins MD [address] [facility] [address] [place] [address] PCP - General INTERNAL MEDICINE 02/11/23 02/13/23 [place] [address] [place] [address] PCP - General FAMILY PRACTICE 02/14/23 Alexsander Chen MD [address] [place] [address] CARDIOVASCULAR DISEASE 03/02/19 Klarissa Tran APRN 3 [facility] [address] [place] [id number] NURSE PRACTITIONER 07/30/20 Vy Smith, RN [address] [place], [place] [address] Academic Adviser (Ambulatory) REGISTERED NURSE 05/19/23 06/14/23 Richie Mcmahan MD 1215 [place] [address] Consulting Physician CARDIOVASCULAR DISEASE 08/15/24 1 documented as of this encounter
--- OUTSIDE RECORDS SUMMARY | 2025-03-01 11:19 | XMS_ITS | Continuity of Care Document ---
Author Organization [facility] Address [address] [place] [address] Phone Care Team Providers Care Director Clinical Information Services Name Role Phone Dino Garcia MD Unavailable [...] Diagnoses Date Provider Providers Copied on Encounter [facility], [address] [place] [address], [id number], tel:[phone] [facility] No Information 1 Jose Sun. [address] [place] [address], [id number] , . [phone] Referring Provider: Lai Juarez, Was @[email or web address] But Not There Anymore, [place]. Office/outpat ient visit,est, mod [facility], [address] [place] [address], [id number], tel:[phone] [facility] No Information 1 Jose Sun. [address] [place] [address], [id number] , . tel:[phone] Referring Provider: Lai Juarez, Was @[facility] But Not There Anymore, [place]. [facility], [address] [place] [address], [id number], tel:[phone] [facility] No Information 1 Panfilo Marquez. [address] [place], [id number] , . tel:[phone] Referring Provider: Lai Juarez, Was @[facility] But Not There Anymore, [place]. [facility], [address] [place] [address], [id number], tel:[phone] [facility] No Information 1 Jose Sun. [address] [place] [address], [id number] , . tel:[phone] Referring Provider: Dino Garcia, [address] [place] [address], [id number]. tel:[phone] Family History Family Member Type Diagnosis Age At Onset No Information Payers Payer name Insurance type Covered republican ID Authoriza tion(s) No Information Social History [...]
--- OUTSIDE RECORDS SUMMARY | 2025-03-01 11:19 | XMS_ITS | Encounter Summary ---
Author Organization [facility] Address [address] [place] [address] Care Team Providers Care Scale Reclamation Tender Name Role Phone Poppy Quiroz MD Primary Care Provider + [phone] Alexsander Chen MD Unavailable [phone] Klarissa Tran SALES SUPPORT ENGINEER Unavailable [phone] [place] Goins MD Primary Care Provider [phone] Sushant Gonzalez MD Primary Care Provider [phone] Vy Smith RN Unavailable [phone] Richie Mcmahan MD Unavailable Encounter Details Date Type Department Care Team (Late st Contact Info) Description 03/20/2021 Hubskipjose albertoActualSun Message Enc [facility] Medical Group Family & Internal Medicine [address] [address] [facility] Provider RE:Referral Social History Tobacco Use Types Packs/Day Years [...] Sex Assigned at Female 11/22/2024 10:56 AM WOOD DOWEL MACHINE OPERATOR Legal Sex Female 7:10 PM [...] Description 04/11/2025 10:40 AM CDT Office Visit [facility] Medical Group Family & Internal Medicine [facility] [address] [place] [phone] [place] [address] [place] [address] documented as of this encounter Visit Diagnoses Not on filedocumented in this encounter Additional Health Concerns Infection Onset Date Last Indicated Resolved Time COVID-19 Confirmed 07/18/2023 07/18/2023 12:32 AM CDT COVID-19 Rule Out 08/02/2023 07/18/2023 08/02/2023 10:55 AM CDT documented as of this encounter Care Teams Scale Reclamation Tender Relationship Specialty Start Date End Date Poppy Quiroz MD PCP - General INTERNAL MEDICINE 08/17/18 02/10/23 [place] Goins MD [address] [address] PCP - General INTERNAL MEDICINE 02/11/23 02/13/23 Sushant Gonzalez MD [address] [place] [address] PCP - General FAMILY PRACTICE 02/14/23 Alexsander Chen MD [address]19 [place] [address] CARDIOVASCULAR DISEASE 03/02/19 Klarissa Tran APRN 3 [facility] [address] [place] [address] NURSE PRACTITIONER 07/30/20 Vy Smith, RN [address] [place] [address] Marketing Director (Ambulatory) REGISTERED NURSE 05/19/23 06/14/23 Richie Mcmahan MD [address] [place] [address] Consulting Physician CARDIOVASCULAR DISEASE 08/15/24 1 documented as of this encounter
--- OUTSIDE RECORDS SUMMARY | 2025-03-01 11:19 | XMS_ITS | Encounter Summary ---
Author Organization [facility] Address [address] [place] [address] Care Team Providers Care Jet Handler Name Role Phone Poppy Quiroz MD Primary Care Provider [phone] Alexsander Chen MD Unavailable [phone] Klarissa Tran STRUCTURAL LAYOUT WORKER Unavailable [phone] [place] Goins MD Primary Care Provider [phone] Sushant Gonzalez MD Primary Care Provider [phone] Vy Smith RN Unavailable [phone] Richie Mcmahan MD Unavailable Encounter Details Date Type Department Care Team (Late st Contact Info) Description 10/15/2020 MyChart Message Enc [facility] Medical Group Family & Internal Medicine [facility] [address] [place] [address] [place]ppy Quiroz [place] [address] [place] [address] RE: Other Social History Tobacco Use [...] Sex Assigned at Female 11/22/2024 10:56 AM FISHER TRAP Legal Sex Female 7:10 PM CDT Gender [...] have Coronavirus / COVID-19? No / Unsure 10/15/2020 8:18 AM FISHER TRAP documented as of this encounter Plan of Treatment Upcoming Encounters Date Type Department Care Team (Late st Contact Info) Description 04/11/2025 10:40 AM CDT Office Visit [facility] Medical Group Family & Internal Medicine [facility] [address] [place] [address] Sushant Gonzalez MD [address] [place] [phone] documented as of this encounter Visit Diagnoses Not on filedocumented in this encounter Additional Health Concerns Infection Onset Date Last Indicated Resolved Time COVID-19 Confirmed 07/18/2023 07/18/2023 12:32 AM CDT COVID-19 Rule Out 08/02/2023 07/18/2023 08/02/2023 10:55 AM CDT documented as of this encounter Care Teams Jet Handler Relationship Specialty Start Date End Date Poppy Quiroz MD PCP - General INTERNAL MEDICINE 08/17/18 02/10/23 [place] Goins MD [address] [address] PCP - General INTERNAL MEDICINE 02/11/23 02/13/23 [place] [address] [place] [address] PCP - General FAMILY PRACTICE 02/14/23 Alexsander Chen MD [address] [place] [address] CARDIOVASCULAR DISEASE 03/02/19 Klarissa Tran [address] 3 [facility] [address] [place] [address] NURSE PRACTITIONER 07/30/20 Vy Smith, RN [address] [place] [address] Newspaper Deliverer (Ambulatory) REGISTERED NURSE 05/19/23 06/14/23 Richie Mcmahan MD 1215 [facility] [address] Consulting Physician CARDIOVASCULAR DISEASE 08/15/24 1 documented as of this encounter
--- OUTSIDE RECORDS SUMMARY | 2025-03-01 11:19 | XMS_ITS | Encounter Summary ---
Author Organization [facility] Address [address] [place] [address] Care Team Providers Care Cloud Engagement Partner Name Role Phone Poppy Quiroz MD Primary Care Provider + [phone] Alexsander Chen MD Unavailable [phone] Klarissa Tran FORESTRY SCIENTIST Unavailable [phone] Cortez Goins MD Primary Care Provider [phone] Sushant Gonzalez MD Primary Care Provider +[phone] Vy Smith RN Unavailable [phone] Richie Mcmahan MD Unavailable Encounter Details Date Type Department Care Team (Late st Contact Info) Description 01/29/2021 [facility] Message [facility] [address] [place] [address] [facility] Provider RE:Appointment Request - Medicare Wellness Visit Social History Tobacco Use Types Packs/Day Years [...] Assigned at Female 11/22/2024 10:56 AM HAND FRETTED INSTRUMENT MAKER Legal Sex Female 7:10 PM CDT Gender [...] have Coronavirus / COVID-19? No / Unsure 01/30/2021 1:03 PM CDT documented as of this encounter Plan of Treatment Upcoming Encounters Date Type Department Care Team (Late st Contact Info) Description 04/11/2025 10:40 AM CDT Office Visit [facility] Medical Group Family & Internal Medicine [facility] [address] [place] [address] [place] [address] [place] [address] documented as of this encounter Visit Diagnoses Not on filedocumented in this encounter Additional Health Concerns Infection Onset Date Last Indicated Resolved Time COVID-19 Confirmed 07/18/2023 07/18/2023 12:32 AM CDT COVID-19 Rule Out 08/02/2023 07/18/2023 08/02/2023 10:55 AM CDT documented as of this encounter Care Teams Cloud Engagement Partner Relationship Specialty Start Date End Date Poppy Quiroz MD PCP - General INTERNAL MEDICINE 08/17/18 02/10/23 Cortez Goins MD [address] [address] PCP - General INTERNAL MEDICINE 02/11/23 02/13/23 [place] [address] [place] [address] PCP - General FAMILY PRACTICE 02/14/23 Alexsander Chen MD 619 [place] [address] CARDIOVASCULAR DISEASE 03/02/19 Klarissa Tran APRN 3 [facility] [address] [place] [address] NURSE PRACTITIONER 07/30/20 Vy Smith RN 3051 [place] [address] Straw Hat Brim Raiser Operator (Ambulatory) REGISTERED NURSE 05/19/23 06/14/23 Richie Mcmahan MD [address] [facility] [place] [address] Consulting Physician CARDIOVASCULAR DISEASE 08/15/24 1 documented as of this encounter
--- OUTSIDE RECORDS SUMMARY | 2025-03-01 11:19 | XMS_ITS | Clinical Summary ---
Author Organization [facility] Address [address] [place] [address] Care Team Providers Care Wood Ski Maker Name Role Phone Poppy Quiroz MD Primary Care Provider + [phone] Source Comments [facility],non-owned Affiliates and Associated Physician Practices is amultiple site organization consisting of ambulatory clinics and hospital sitesin [place], [place] and [place]. This disclosure is being madepursuant to the Care Everywhere program and may not contain all information available regarding this patient. 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
--- OUTSIDE RECORDS SUMMARY | 2025-03-01 11:19 | XMS_ITS | Encounter Summary ---
Author Organization [facility] Address [address] [place] [address] Care Team Providers Care Satellite Installer Name Role Phone Poppy Quiroz MD Primary Care Provider Alexsander Chen MD Unavailable [phone] Klarissa Tran WELDING ENGINEER Unavailable [phone] Cortez Goins MD Primary Care Provider [phone] Sushant Gonzalez MD Primary Care Provider Vy Smith RN Unavailable [phone] Richie Mcmahan MD Unavailable Encounter Details Date Type Department Care Team (Latest Contact Info) Description 09/06/2020 MyChart Message Enc [facility] Medical Group Multispecialty Care - [facility] [address] [facility] [address], [address] [address] Sherry Cruz MD 1 [place] [address] RE: Test Results Social History Tobacco Use [...] Sex Assigned at Female 11/22/2024 10:56 AM LABORER PRESTRESSED CONCRETE Legal Sex Female 7:10 PM CDT Gender [...] COVID-19? No / Unsure 09/08/2020 8:47 AM LABORER PRESTRESSED CONCRETE documented as of this encounter Plan of Treatment Upcoming Encounters Date Type Department Care Team (Late st Contact Info) Description 04/11/2025 10:40 AM CDT Office Visit [facility] Medical Group Family & Internal Medicine [facility] [address] [place] [address] Sushant Gonzalez MD [address] [place] [address] documented as of this encounter Visit Diagnoses Not on filedocumented in this encounter Additional Health Concerns Infection Onset Date Last Indicated Resolved Time COVID-19 Confirmed 07/18/2023 07/18/2023 12:32 AM CDT COVID-19 Rule Out 08/02/2023 07/18/2023 08/02/2023 10:55 AM CDT documented as of this encounter Care Teams Satellite Installer Relationship Specialty Start Date End Date Poppy Quiroz MD PCP - General INTERNAL MEDICINE 08/17/18 02/10/23 Cortez Goins MD [address] [address] PCP - General INTERNAL MEDICINE 02/11/23 02/13/23 [place] [address] [place] [address] PCP - General FAMILY PRACTICE 02/14/23 Alexsander Chen MD 619 [place] [address] CARDIOVASCULAR DISEASE 03/02/19 Klarissa Tran APR[address] [facility] [address] [place] [address] NURSE PRACTITIONER 07/30/20 Vy Smith, RN 3051 [place] [address] Pastrycook (Ambulatory) REGISTERED NURSE 05/19/23 06/14/23 Richie Mcmahan MD [address] [facility] [place] [address] Consulting Physician CARDIOVASCULAR DISEASE 08/15/24 1 documented as of this encounter
--- OUTSIDE RECORDS SUMMARY | 2025-03-01 11:19 | XMS_ITS | Encounter Summary ---
Author Organization [facility] Address [address] [place] [address] Care Team Providers Care Manager Quantitative Name Role Phone Poppy Quiroz MD Primary Care Provider + [phone] Alexsander Chen MD Unavailable [phone] Klarissa Tran EDUCATION AND DEVELOPMENT MANAGER Unavailable [phone] Cortez Goins MD Primary Care Provider [phone] Sushant Gonzalez MD Primary Care Provider [phone] Vy Smith RN Unavailable [phone] Richie Mcmahan MD Unavailable Encounter Details Date Type Department Care Team (Late st Contact Info) Description 12/12/2020 [facility] Message [facility] [address] [place] [address] [place] [address] [place] [address] Question Social History Tobacco Use Types Packs/Day [...] Sex Assigned at Female 11/22/2024 10:56 AM LIFE INSURANCE SALES AGENT Legal Sex Female 7:10 PM CDT Gender Identity Female 01/28/2025 9:06 AM CDT Sexual Orientation Not on file 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 file documented as of this encounter Functional Status documented as of this encounter Plan of Treatment Upcoming Encounters Date Type Department Care Team (Late st Contact Info) Description 04/11/2025 10:40 AM CDT Office Visit [facility] Medical Group Family & Internal Medicine [facility] [address] [place] [address] Sushant Gonzalez MD [address] [place] [id number] documented as of this encounter Visit Diagnoses Not on filedocumented in this encounter Additional Health Concerns Infection Onset Date Last Indicated Resolved Time COVID-19 Confirmed 07/18/2023 07/18/2023 12:32 AM CDT COVID-19 Rule Out 08/02/2023 07/18/2023 08/02/2023 10:55 AM CDT documented as of this encounter Care Teams Manager Quantitative Relationship Specialty Start Date End Date Poppy Quiroz MD PCP - General INTERNAL MEDICINE 08/17/18 02/10/23 Cortez Goins MD [address] [address] PCP - General INTERNAL MEDICINE 02/11/23 02/13/23 [place] [address] [place] [address] PCP - General FAMILY PRACTICE 02/14/23 Alexsander Chen MD [address] [place] [address] CARDIOVASCULAR DISEASE 03/02/19 [address] [facility] [address] [place] [address] NURSE PRACTITIONER 07/30/20 Vy Smith, RN 3051 [place], [place] [address] Web Feeder (Ambulatory) REGISTERED NURSE 05/19/23 06/14/23 Richie Mcmahan MD [address] [facility] [place] [address] Consulting Physician CARDIOVASCULAR DISEASE 08/15/24 1 documented as of this encounter
--- OUTSIDE RECORDS SUMMARY | 2025-03-01 11:19 | XMS_ITS | Encounter Summary ---
Author Organization [facility] Address [address] [place] [address] Care Team Providers Care Gas Welder Apprentice Name Role Phone Poppy Quiroz MD Primary Care Provider + [phone] Alexsander Chen MD Unavailable [phone] Klarissa Tran CREW BOSS Unavailable [phone] Cortez Goins MD Primary Care Provider [phone] Sushant Gonzalez MD Primary Care Provider [phone] Vy Smith RN Unavailable [phone] Richie Mcmahan MD Unavailable Encounter Details Date Type Department Care Team (Late st Contact Info) Description 01/15/2021 [email or web address] Message [facility] [address] [place] [address] [facility] Provider RE:Information Social History Tobacco Use Types Packs/Day Years [...] Sex Assigned at Female 11/22/2024 10:56 AM ARCHITECTURAL PROJECT CAPTAIN Legal Sex Female 7:10 PM CDT Gender Identity Female 01/28/2025 9:06 AM CDT Sexual Orientation Not on file 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 file documented as of this encounter Plan of Treatment Upcoming Encounters Date Type Department Care Team (Late st Contact Info) Description 04/11/2025 10:40 AM CDT Office Visit [facility] Medical Group Family & Internal Medicine [facility] [address] [place] [address] [place] [address] [place] [address] documented as of this encounter Visit Diagnoses Not on filedocumented in this encounter Additional Health Concerns Infection Onset Date Last Indicated Resolved Time COVID-19 Confirmed 07/18/2023 07/18/2023 12:32 AM CDT COVID-19 Rule Out 08/02/2023 07/18/2023 08/02/2023 10:55 AM CDT documented as of this encounter Care Teams Gas Welder Apprentice Relationship Specialty Start Date End Date Poppy Quiroz MD PCP - General INTERNAL MEDICINE 08/17/18 02/10/23 Cortez Goins MD [address] [address] PCP - General INTERNAL MEDICINE 02/11/23 02/13/23 [place] [address] [place] [address] PCP - General FAMILY PRACTICE 02/14/23 Alexsander Chen MD 619 [place] [address] CARDIOVASCULAR DISEASE 03/02/19 Klarissa Tran APRN 3 [facility] [address] [place] [address] NURSE PRACTITIONER 07/30/20 Vy Smith, RN 3051 [place] [address] Shoe Lining Fitter (Ambulatory) REGISTERED NURSE 05/19/23 06/14/23 [place] [address] [place] [address] [place] [address] Consulting Physician CARDIOVASCULAR DISEASE 08/15/24 1 documented as of this encounter
--- OUTSIDE RECORDS SUMMARY | 2025-03-01 11:19 | XMS_ITS | Encounter Summary ---
Author Organization [facility] Address [address] [place] [address] Care Team Providers Care Concrete Carpenter Name Role Phone Poppy Quiroz MD Primary Care Provider + [phone] Alexsander Chen MD Unavailable [phone] Klarissa Tran TRANSPLANT SURGEON Unavailable [phone] Cortez Goins MD Primary Care Provider [phone] Sushant Gonzalez MD Primary Care Provider [phone] Vy Smith RN Unavailable [phone] Richie Mcmahan MD Unavailable Encounter Details Date Type Department Care Team (Late st Contact Info) Description 01/13/2021 [employer] Message [facility] [address] [place] [address] [place] [address] [place] [address] Other Social History Tobacco Use Types [...] Sex Assigned at Female 11/22/2024 10:56 AM COST AND RISK ANALYSIS MANAGER Legal Sex Female 7:10 PM CDT Gender Identity Female 01/28/2025 9:06 AM CDT Sexual Orientation Not on file 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 file documented as of this encounter Plan of Treatment Upcoming Encounters Date Type Department Care Team (Late st Contact Info) Description 04/11/2025 10:40 AM CDT Office Visit [facility] Medical Group Family & Internal Medicine [facility] [address] [place] [address] Sushant Gonzalez MD [address] [place] [address] documented as of this encounter Visit Diagnoses Not on filedocumented in this encounter Additional Health Concerns Infection Onset Date Last Indicated Resolved Time COVID-19 Confirmed 07/18/2023 07/18/2023 12:32 AM CDT COVID-19 Rule Out 08/02/2023 07/18/2023 08/02/2023 10:55 AM CDT documented as of this encounter Care Teams Concrete Carpenter Relationship Specialty Start Date End Date Poppy Quiroz MD PCP - General INTERNAL MEDICINE 08/17/18 02/10/23 Cortez Goins MD [address] [address] PCP - General INTERNAL MEDICINE 02/11/23 02/13/23 [place] [address] [place] [address] PCP - General FAMILY PRACTICE 02/14/23 Alexsander Chen MD [address] [place] [address] CARDIOVASCULAR DISEASE 03/02/19 Klarissa Tran APRN [address] [facility] [address] [place] [address] NURSE PRACTITIONER 07/30/20 Vy Smith, RN 3051 [place] [address] Secretary Receptionist (Ambulatory) REGISTERED NURSE 05/19/23 06/14/23 Richie Mcmahan MD [address] [facility] [place] [address] Consulting Physician CARDIOVASCULAR DISEASE 08/15/24 1 documented as of this encounter
--- OUTSIDE RECORDS SUMMARY | 2025-03-01 11:19 | XMS_ITS | Encounter Summary ---
Author Organization [facility] Address [address] [place] [address] Care Team Providers Care Lead Ingot Molder Name Role Phone Poppy Quiroz MD Primary Care Provider + [phone] Alexsander Chen MD Unavailable [phone] Klarissa Tran HAT BRIM CURLER Unavailable [phone] Cortez Goins MD Primary Care Provider [phone] Sushant Gonzalez MD Primary Care Provider [phone] Vy Smith RN Unavailable [phone] Richie Mcmahan MD Unavailable Encounter Details Date Type Department Care Team (Late st Contact Info) Description 01/31/2021 [place] Message [facility] [address] [place] [address] [place] [address] [place] [address] RE: Other Social History Tobacco Use [...] Sex Assigned at Female 11/22/2024 10:56 AM SENIOR GENETIC COUNSELOR Legal Sex Female 7:10 PM CDT Gender [...] PM CDT documented as of this encounter Progress Notes * Porsha Vazquez RN - 02/04/2021 8:29 AM CDT Printed to inform * Sarah Cotton MA - 02/03/2021 12:59 PM CDT Called the patient to inform her of the results per Dr. Mcwilliams. No answer. Left a message to call the office back. Per Dr. Mcwilliams, we can order a 48 hour Holter to see if we can catch the heart rate changes. We can also have her see maintenance helper utility engineer(HTN) and see other options. * Mally Huerta RN - 02/02/2021 8:53 AM CDT Printed and will discuss with Dr Mcwilliams documented in this encounter Plan of Treatment Upcoming Encounters Date Type Department Care Team (Late st Contact Info) Description 04/11/2025 10:40 AM CDT Office Visit [facility] Medical Group Family & Internal Medicine [facility] [address] [place] [address] [place] [address] [place] [address] documented as of this encounter Visit Diagnoses Not on filedocumented in this encounter Additional Health Concerns Infection Onset Date Last Indicated Resolved Time COVID-19 Confirmed 07/18/2023 07/18/2023 12:32 AM CDT COVID-19 Rule Out 08/02/2023 07/18/2023 08/02/2023 10:55 AM CDT documented as of this encounter Care Teams Lead Ingot Molder Relationship Specialty Start Date End Date Poppy Quiroz MD PCP - General INTERNAL MEDICINE 08/17/18 02/10/23 Cortez Goins MD [address] [address] PCP - General INTERNAL MEDICINE 02/11/23 02/13/23 [place] [address] [place] [address] PCP - General FAMILY PRACTICE 02/14/23 Alexsander Chen MD [address] [place] [address] CARDIOVASCULAR DISEASE 03/02/19 Klarissa Tran APRN 3 [facility] [address] [place] [address] NURSE PRACTITIONER 9/23/20 Vy Smith, RN 3051 [place], [place] [address] Welding Equipment Sales Representative (Ambulatory) REGISTERED NURSE 05/19/23 06/14/23 Richie Mcmahan MD [address] [facility] [place] [address] Consulting Physician CARDIOVASCULAR DISEASE 08/15/24 1 documented as of this encounter
--- OUTSIDE RECORDS SUMMARY | 2025-03-01 11:19 | XMS_ITS | Encounter Summary ---
Author Organization [facility] Address [address] [place] [address] Care Team Providers Care Exercise Rider Name Role Phone Poppy Quiroz MD Primary Care Provider Alexsander Chen MD Unavailable [phone] Klarissa Tran SENIOR PHYSICAL THERAPIST Unavailable [phone] Cortez Goins MD Primary Care Provider Sushant Gonzalez MD Primary Care Provider Vy Smith RN Unavailable [phone] Richie Mcmahan MD Unavailable Encounter Details Date Type Department Care Team (Late st Contact Info) Description 10/06/2020 Prep for Procedure [facility] [place] [address] [id number] Juana Armas APNP [address] [place] [address] Social History Tobacco Use Types Packs/Day Years [...] Sex Assigned at Female 11/22/2024 10:56 AM SLIDE MAKER Legal Sex Female 7:10 PM CDT [...] COVID-19? No / Unsure 10/06/2020 12:26 PM SLIDE MAKER documented as of this encounter Plan of Treatment Upcoming Encounters Date Type Department Care Team (Late st Contact Info) Description 04/11/2025 10:40 AM CDT Office Visit [facility] Medical [facility] [address] [place] [address] Sushant Gonzalez MD [address] [place] [id number] documented as of this encounter Visit Diagnoses Not on filedocumented in this encounter Additional Health Concerns Infection Onset Date Last Indicated Resolved Time COVID-19 Confirmed 07/18/2023 07/18/2023 12:32 AM CDT COVID-19 Rule Out 08/02/2023 07/18/2023 08/02/2023 10:55 AM CDT documented as of this encounter Care Teams Exercise Rider Relationship Specialty Start Date End Date Poppy Quiroz MD PCP - General INTERNAL MEDICINE 08/17/18 02/10/23 Cortez Goins MD [address] [address] PCP - General INTERNAL MEDICINE 02/11/23 02/13/23 [place] [address] [facility] [address] PCP - General FAMILY PRACTICE 02/14/23 Alexsander Chen MD [address] [place] [address] CARDIOVASCULAR DISEASE 03/02/19 Klarissa Tran APRN 3 [facility] [address] [place] [address] NURSE PRACTITIONER 07/30/20 Vy Smith, RN 3051 [place], [place] [address] Advertising Space Clerk (Ambulatory) REGISTERED NURSE 05/19/23 06/14/23 Richie Mcmahan MD [address] [facility] [place] [address] Consulting Physician CARDIOVASCULAR DISEASE 08/15/24 1 documented as of this encounter
--- OUTSIDE RECORDS SUMMARY | 2025-03-01 11:19 | XMS_ITS | Encounter Summary ---
Author Organization [facility] Address [address] [place] [address] Care Team Providers Care Blind Lacer Name Role Phone Poppy Quiroz MD Primary Care Provider + [phone] Alexsander Chen MD Unavailable [phone] Klarissa Tran DIRECTOR OF FUNDRAISING Unavailable [phone] Cortez Goins MD Primary Care Provider [phone] Sushant Gonzalez MD Primary Care Provider [phone] Vy Smith RN Unavailable [phone] Richie Mcmahan MD Unavailable Encounter Details Date Type Department Care Team (Late st Contact Info) Description 01/14/2021 [employer] Message [employer] [facility] [address] [place] [address] [place] [address] [place] [address] RE: Other Social History Tobacco [...] Assigned at Female 11/22/2024 10:56 AM WOOD CUTTER Legal Sex Female 7:10 PM CDT Gender [...] 10:40 AM CDT Office Visit [facility] Medical Group Family & Internal Medicine [facility] [address] [place] [address] [place] [address] [place] [phone] documented as of this encounter Visit Diagnoses Not on filedocumented in this encounter Additional Health Concerns Infection Onset Date Last Indicated Resolved Time COVID-19 Confirmed 07/18/2023 07/18/2023 12:32 AM CDT COVID-19 Rule Out 08/02/2023 07/18/2023 08/02/2023 10:55 AM CDT documented as of this encounter Care Teams Blind Lacer Relationship Specialty Start Date End Date Poppy Quiroz MD PCP - General INTERNAL MEDICINE 08/17/18 02/10/23 Cortez Goins MD [address] [address] PCP - General INTERNAL MEDICINE 02/11/23 02/13/23 [place] [address] [place] [address] PCP - General FAMILY PRACTICE 02/14/23 Alexsander Chen MD [address] [place] [address] CARDIOVASCULAR DISEASE 03/02/19 Klarissa Tran APRN 3 [facility] [address] [place] [address] NURSE PRACTITIONER 07/30/20 Vy Smith, RN 3051 [place] [address] [place] Hardware Installer (Ambulatory) REGISTERED NURSE 05/19/23 06/14/23 Richie Mcmahan MD [address] [facility] [place] [address] Consulting Physician CARDIOVASCULAR DISEASE 08/15/24 1 documented as of this encounter
--- OUTSIDE RECORDS SUMMARY | 2025-03-01 11:19 | XMS_ITS | Encounter Summary ---
Author Organization [facility] Address [address] [place] [address] Care Team Providers Care Chair Installer Name Role Phone Poppy Quiroz MD Primary Care Provider + [phone] Alexsander Chen MD Unavailable [phone] Klarissa Tran PASTRY COOK HELPER Unavailable [phone] Cortez Goins MD Primary Care Provider [phone] Sushant Gonzalez MD Primary Care Provider [phone] Vy Smith RN Unavailable [phone] Richie Mcmahan MD Unavailable Encounter Details Date Type Department Care Team (Late st Contact Info) Description 09/09/2020 Via [employer] Message Enc [facility] Family & Internal Medicine [address] [address] [facility] Provider Vit D Social History Tobacco Use Types Packs/Day Years [...] Sex Assigned at Female 11/22/2024 10:56 AM WIRE STRAIGHTENING MACHINE OPERATOR Legal Sex Female 7:10 PM [...] COVID-19? No / Unsure 09/08/2020 8:47 AM WIRE STRAIGHTENING MACHINE OPERATOR documented as of this encounter Plan of Treatment Upcoming Encounters Date Type Department Care Team (Late st Contact Info) Description 04/11/2025 10:40 AM CDT Office Visit [facility] Family & Internal Medicine [facility] [id number] [place] [address] [place] [address] [place] [address] documented as of this encounter Visit Diagnoses Not on filedocumented in this encounter Additional Health Concerns Infection Onset Date Last Indicated Resolved Time COVID-19 Confirmed 07/18/2023 07/18/2023 12:32 AM CDT COVID-19 Rule Out 08/02/2023 07/18/2023 08/02/2023 10:55 AM CDT documented as of this encounter Care Teams Chair Installer Relationship Specialty Start Date End Date Poppy Quiroz MD PCP - General INTERNAL MEDICINE 08/17/18 02/10/23 Cortez Goins MD [address] [address] PCP - General INTERNAL MEDICINE 02/11/23 02/13/23 [place]ushant Gonzalez [place] [id number] [place] [address] PCP - General FAMILY PRACTICE 02/14/23 Alexsander Chen MD [address]19 [place] [address] CARDIOVASCULAR DISEASE 03/02/19 Klarissa Tran APRN 3 [facility] [address] [place] [address] NURSE PRACTITIONER 07/30/20 Vy Smith, RN [address]1 [place] [address] Pediatric Dental Assistant (Ambulatory) REGISTERED NURSE 05/19/23 06/14/23 Richie Mcmahan MD [address] [facility] [place] [address] Consulting Physician CARDIOVASCULAR DISEASE 08/15/24 1 documented as of this encounter
--- OUTSIDE RECORDS SUMMARY | 2025-03-01 11:19 | XMS_ITS | Clinical Summary ---
Author Organization [facility] Address [address] [facility] [place] [address] Phone Care Team Providers Care Unemployment Claims Adjudicator Name Role Phone Unavailable Primary Care Provider [...] Additional history exists COVID-19 Vaccine (5 - 2024-2 5 season) 2024 03/06/2022, 08/04/2021, 01/02/2021, Additional history exists DIABETES HBA1C Q 6 MONTHS 08/29/2024 02/28/2024, OSTEOPOROSIS SCREENING 11/27/2026 11/27/2021 PNEUMOCOCCAL VACCINE 50+ YEARS Completed 0 01/20/2022, 05/05/2020, 08/21/2015, Additional history exists Insurance [employer] PPO [facility]
--- OUTSIDE RECORDS SUMMARY | 2025-03-01 11:19 | XMS_ITS | Encounter Summary ---
Author Organization [facility] Address [address] [place] [address] Care Team Providers Care Sewing Machine Bobbin Winder Name Role Phone Alexsander Chen MD Unavailable [phone] Klarissa Tran APRN Unavailable [phone] Sushant Gonzalez MD Primary Care Provider [phone] Vy Smith RN Unavailable [phone] Richie Mcmahan MD Unavailable Encounter Details Date Type Department Care Team (Late st Contact Info) Description 05/04/2023 MyChart Message Enc [facility] - [facility] [address] [place], [place] [address] [facility] Provider Air Quality Message Social History Tobacco Use Types Packs/Day Years [...] Sex Assigned at Female 11/22/2024 10:56 AM DIRECTOR PRODUCT DEVELOPMENT Legal Sex Female 7:10 PM CDT Gender Identity Female 01/28/2025 9:06 AM CDT Sexual Orientation Not on file 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 No / Unsure 04/08/2023 1:17 PM CDT documented as of this encounter Plan of Treatment Upcoming Encounters Date Type Department Care Team (Late st Contact Info) Description 04/11/2025 10:40 AM CDT Office Visit [facility] Family & Internal Medicine [facility] [address] [place] [address] [place] [address] [place], [place] [id number] documented as of this encounter Visit Diagnoses Not on filedocumented in this encounter Additional Health Concerns Infection Onset Date Last Indicated Resolved Time COVID-19 Confirmed 07/18/2023 07/18/2023 12:32 AM CDT COVID-19 Rule Out 08/02/2023 07/18/2023 08/02/2023 10:55 AM CDT Assessment Noted Time PHQ-9 Depression Total Score: 4 11/09/19 23 12:56 PM DIRECTOR PRODUCT DEVELOPMENT documented as of this encounter Care Teams Sewing Machine Bobbin Winder Relationship Specialty Start [place] [address] [place], [place] [id number] PCP - General FAMILY PRACTICE 02/14/23 Alexsander Chen MD [address] [place] [address] CARDIOVASCULAR DISEASE 03/02/19 Klarissa Tran APRN 3 [facility] [address] [place] [address] NURSE PRACTITIONER 07/30/20 Vy Smith, RN [address] [place] [address] Manager Strategy & Account (Ambulatory) REGISTERED NURSE 05/19/23 06/14/23 Richie Mcmahan MD [address] [place] [address] Consulting Physician CARDIOVASCULAR DISEASE 08/15/24 1 documented as of this encounter
--- OUTSIDE RECORDS SUMMARY | 2025-03-01 11:19 | XMS_ITS | Encounter Summary ---
Author Organization [facility] Address [address] [place] [address] Care Team Providers Care Tester Food Products Name Role Phone Poppy Quiroz MD Primary Care Provider Alexsander Chen MD Unavailable Klarissa Tran MOBILE MECHANIC Unavailable [phone] Cortez Goins MD Primary Care Provider [phone] Sushant Gonzalez MD Primary Care Provider Vy Smith RN Unavailable [phone] Richie Mcmahan MD Unavailable Encounter Details Date Type Department Care Team (Late st Contact Info) Description 08/01/2020 Prep for Procedure [facility] [place], [place] [id number] Leila Garvey MD Three [facility] [address] [place] [address] Social History Tobacco Use Types Packs/Day Years Used Date Smoking Tobacco: Every Day Cigarettes 0.5 52 Smokeless Tobacco: Never Alcohol Use Standard Drinks/Week Comments Yes 0 (1 standard drink = 0.6 oz pur e alcohol) socially PHQ-2 Answer Date Recorded PHQ-2 Score 1 10/10/2019 Comments No Sex and Gender Information Value Date Recorded Sex Assigned at Female 11/22/2024 10:56 AM TOWER CONTROL OPERATOR Legal Sex Female 7:10 PM CDT Gender Identity Female 01/28/2025 9:06 AM CDT Sexual Orientation Not on file COVID-19 Exposure Response Date Recorded In the last month, have you been in contact with someone who was confirmed or suspected to have Coronavirus / COVID-19? No / Unsure 07/21/2020 2:10 PM CDT documented as of this encounter Plan of Treatment Upcoming Encounters Date Type Department Care Team (Late st Contact Info) Description 04/11/2025 10:40 AM CDT Office Visit [facility] Medical Group Family & Internal Medicine [address] [address] Sushant Gonzalez MD [address] [place] [id number] documented as of this encounter Visit Diagnoses Not on filedocumented in this encounter Additional Health Concerns Infection Onset Date Last Indicated Resolved Time COVID-19 Confirmed 07/18/2023 07/18/2023 12:32 AM CDT COVID-19 Rule Out 08/02/2023 07/18/2023 08/02/2023 10:55 AM CDT documented as of this encounter Care Teams Tester Food Products Relationship Specialty Start Date End Date Poppy Quiroz MD PCP - General INTERNAL MEDICINE 08/17/18 02/10/23 Cortez Goins MD [address] [address] PCP - General INTERNAL MEDICINE 02/11/23 02/13/23 Sushant Gonzalez MD [address] [place] [address] PCP - General FAMILY PRACTICE 02/14/23 Alexsander Chen MD [address] [place] [address] CARDIOVASCULAR DISEASE 03/02/19 Klarissa Tran APRN 3 [facility] [address] [place] [address] NURSE PRACTITIONER 07/30/20 Vy Smith, RN [address] [place] [address] Accounts Clerk (Ambulatory) REGISTERED NURSE 05/19/23 06/14/23 Richie Mcmahan MD [address] [place] [address] Consulting Physician CARDIOVASCULAR DISEASE 08/15/24 1 documented as of this encounter
--- OUTSIDE RECORDS SUMMARY | 2025-03-01 11:19 | XMS_ITS | Encounter Summary ---
Author Organization [facility] Address Counts include 234 beds at the [facility] [place] [address] Care Team Providers Care Substation Maintenance Technician Name Role Phone Poppy Quiroz MD Primary Care Provider Alexsander Chen MD Unavailable Klarissa Tran ACADEMIC ADVISEMENT DIRECTOR Unavailable [phone] Cortez Goins MD Primary Care Provider [phone] Sushant Gonzalez MD Primary Care Provider Vy Smith RN Unavailable [phone] Richie Mcmahan MD Unavailable Encounter Details Date Type Department Care Team (Latest Contact Info) Description 09/08/2020 MyChart Message Enc [facility] Medical Group Multispecialty Care - [facility] 3 [facility], [address] [address] Sherry Cruz MD 1 [place] [address] Referral Request Social History Tobacco Use Types Packs/Day Years [...] Sex Assigned at Female 11/22/2024 10:56 AM FURNACE WORKER Legal Sex Female 7:10 PM CDT Gender [...] COVID-19? No / Unsure 09/08/2020 8:47 AM FURNACE WORKER documented as of this encounter Plan of Treatment Upcoming Encounters Date Type Department Care Team (Late st Contact Info) Description 04/11/2025 10:40 AM CDT Office Visit [facility] Medical Group Family & Internal Medicine [facility] [address] [place] [address] [place]ush[place] [id number] [place] [address] documented as of this encounter Visit Diagnoses Not on filedocumented in this encounter Additional Health Concerns Infection Onset Date Last Indicated Resolved Time COVID-19 Confirmed 07/18/2023 07/18/2023 12:32 AM CDT COVID-19 Rule Out 08/02/2023 07/18/2023 08/02/2023 10:55 AM CDT documented as of this encounter Care Teams Substation Maintenance Technician Relationship Specialty Start Date End Date Poppy Quiroz MD PCP - General INTERNAL MEDICINE 08/17/18 02/10/23 Cortez Goins MD [address] [address] PCP - General INTERNAL MEDICINE 02/11/23 02/13/23 [place] [address] [place] [address] PCP - General FAMILY PRACTICE 02/14/23 Alexsander Chen MD [address] [place] [phone] CARDIOVASCULAR DISEASE 03/02/19 Klarissa Tran APRN 3 [facility] [address] [place] [address] NURSE PRACTITIONER 07/30/20 Vy Smith, RN [address] [place] [address] Accounting Office Manager (Ambulatory) REGISTERED NURSE 05/19/23 06/14/23 Richie Mcmahan MD [address] [place] [address] Consulting Physician CARDIOVASCULAR DISEASE 08/15/24 1 documented as of this encounter
--- OUTSIDE RECORDS SUMMARY | 2025-03-01 11:19 | XMS_ITS | Encounter Summary ---
Author Organization [facility] Address [address] [place] [address] Care Team Providers Care Election Judge Name Role Phone Poppy Quiroz MD Primary Care Provider Alexsander Chen MD Unavailable [phone] Klarissa Tran VENTILATING EXPERT Unavailable [phone] Cortez Goins MD Primary Care Provider Sushant Gonzalez MD Primary Care Provider Vy Smith RN Unavailable [phone] Richie cMmahan MD Unavailable Reason for Visit * Reason Onset Date Comments Other 09/08/2020 Encounter Details Date Type Department Care Team (Late st Contact Info) Description 09/08/2020 Telephone [facility] Medical Group Multispecialty Care - [facility] 3 [facility], [address] [address] Sherry Cruz MD 1 [place] [address] Other Social History Tobacco Use Types Packs/Day [...] Sex Assigned at Female 11/22/2024 10:56 AM VICE PRESIDENT INTEGRATED Legal Sex Female 7:10 PM CDT Gender [...] COVID-19? No / Unsure 09/08/2020 8:47 AM VICE PRESIDENT INTEGRATED documented as of this encounter Progress Notes * Latonya Valle RN - 09/08/2020 2:[address] Mcwilliams, pt needs to wait until after her lumbar puncture and labs to try this medication. PTmade aware and v/u PRESIDENT INTEGRATED * Latonya Valle RN - 09/08/2020 1:28 PM CST Printed to discuss with Dr. Mcwilliams PRESIDENT INTEGRATED * Alisson To LPN - 09/08/2020 1:22 PM CST Pt called states that She forgot to ask DR. Mcwilliams today during OV about Diet pills Burn thermogenic Bought online Can pt take this With other meds she is on ? Directions 2x days cb green tea caffeine cayenne capfimx are the ingredients Magnesium cb [phone] PRESIDENT INTEGRATED documented in this encounter Plan of Treatment Upcoming Encounters Date Type Department Care Team (Late st Contact Info) Description 04/11/2025 10:40 AM CDT Office Visit [facility] Medical Group Family & Internal Medicine [facility] [address] [place] [address] [place] [address] [place] [address] documented as of this encounter Visit Diagnoses Not on filedocumented in this encounter Additional Health Concerns Infection Onset Date Last Indicated Resolved Time COVID-19 Confirmed 07/18/2023 07/18/2023 12:32 AM CDT COVID-19 Rule Out 08/02/2023 07/18/2023 08/02/2023 10:55 AM CDT documented as of this encounter Care Teams Election Judge Relationship Specialty Start Date End Date Poppy Quiroz MD PCP - General INTERNAL MEDICINE 08/17/18 02/10/23 Cortez Goins MD [address] [address] PCP - General INTERNAL MEDICINE 02/11/23 02/13/23 [place] [address] [place] [address] PCP - General FAMILY PRACTICE 02/14/23 Alexsander Chen MD [address] [place] [address] CARDIOVASCULAR DISEASE 03/02/19 Klarissa Tran APRN 3 [facility] [address] [place] [address] NURSE PRACTITIONER 07/30/20 Vy Smith, RN [address] [place] [address] Machine Accountant (Ambulatory) REGISTERED NURSE 05/19/23 06/14/23 Richie Mcmahan MD [address] [facility] [place] [address] Consulting Physician CARDIOVASCULAR DISEASE 08/15/24 1 documented as of this encounter
--- OUTSIDE RECORDS SUMMARY | 2025-03-01 11:19 | XMS_ITS | Encounter Summary ---
Author Organization [facility] Address [address] [place] [address] Care Team Providers Care Tumbling Barrel Painter Name Role Phone Poppy Quiroz MD Primary Care Provider [phone] Alexsander Chen MD Unavailable [phone] Klarissa Tran RN SHIFT MGR Unavailable [phone] Cortez Goins MD Primary Care Provider [phone] Sushant Gonzalez MD Primary Care Provider [phone] Vy Smith RN Unavailable [phone] Richie Mcmahan MD Unavailable Encounter Details Date Type Department Care Team (Late st Contact Info) Description 02/21/2021 MyChart Message Enc [facility] Medical Group [facility] [address] [place] [address] [place] Quiro[place] [id number] [place] [address] Question Social History Tobacco Use Types [...] Sex Assigned at Female 11/22/2024 10:56 AM RESPIRATORY SERVICES MANAGER Legal Sex Female 7:10 PM CDT [...] Progress Notes * Sarah Cotton MA - 02/23/2021 9:00 AM CDT Provider aware * Sarah Cotton MA - 02/23/2021 8:17 AM CDT Printed for provider to advise documented in this encounter Plan of Treatment Upcoming Encounters Date Type Department Care Team (Late st Contact Info) Description 04/11/2025 10:40 AM CDT Office Visit [facility] Medical Group Family & Internal Medicine - [place] [address] [place] [address] [place] [address] [place] [address] documented as of this encounter Visit Diagnoses Not on filedocumented in this encounter Additional Health Concerns Infection Onset Date Last Indicated Resolved Time COVID-19 Confirmed 07/18/2023 07/18/2023 12:32 AM CDT COVID-19 Rule Out 08/02/2023 07/18/2023 08/02/2023 10:55 AM CDT documented as of this encounter Care Teams Tumbling Barrel Painter Relationship Specialty Start Date End Date Poppy Quiroz MD PCP - General INTERNAL MEDICINE 08/17/18 02/10/23 Cortez Goins MD 1188 [facility] [address] [place] [address] PCP - General INTERNAL MEDICINE 02/11/23 02/13/23 [place] [address] [place] [address] PCP - General FAMILY PRACTICE 02/14/23 Alexsander Chen MD [address] [place] [address] CARDIOVASCULAR DISEASE 03/02/19 Klarissa Tran APRN [address] [facility] [address] [place] [address] NURSE PRACTITIONER 07/30/20 Vy Smith, RN [address] [place] [address] Assistant Director Of Security (Ambulatory) REGISTERED NURSE 05/19/23 06/14/23 Richie Mcmahan MD [address] [facility] [address] Consulting Physician CARDIOVASCULAR DISEASE 08/15/24 1 documented as of this encounter
[2025-03-01 11:35] LABS: Anion Gap 7 mmol/L (4-12); Blood Urea Nitrogen 25 mg/dL (7-18); Calcium 9.3 mg/dL (8.5-10.1); Carbon Dioxide 36 mmol/L (21-32); Chloride 103 mmol/L (98-108); Estimated Glomerular Filt Rate 44; Glucose 89 mg/dL (70-99); Osmolality Calculated 305 mOsm/kg (285-295); Potassium 3.7 mmol/L (3.5-5.1); Sodium 146 mmol/L (136-145)
[2025-03-01 11:40] LABS: Magnesium 1.7 mg/dL (1.8-2.4)
== END 2025-03-01 10:58 | disposition home or self-care (01) ==
PROVIDERS: PCP Family Medicine; Visit Provider Internal Medicine Cardiovascular Disease
DX: I50.42 Chronic combined systolic (congestive) and diastolic (congestive) heart failure (principal)
CPT/HCPCS: 36415; 80048; 83735

== ENCOUNTER 2025-03-19 10:49 | Outpatient (CLI) | payer MEDICARE, SELFPAY ==
--- NOTE | 2025-03-19 10:56 | ECG_ITS ---
Test Date: 2025-03-19 11:07:20 Measurements Intervals Wright Rate: 81 P: 44 KS: 159 QRS: -75 QRSD: 146 T: 13 QT: 406 QTc: 474 Interpretive Statements SINUS RHYTHM RIGHT BUNDLE BRANCH BLOCK [120+ ms QRS DURATION, UPRIGHT V1, 40+ ms S IN I/aVL/V4/V5/V6] LEFT ANTERIOR FASCICULAR BLOCK [QRS AXIS <= -45, QR IN I, RS IN II] No previous ECG available for comparison Electronically Signed On 03-19-2025 14:00:18 CDT by Gerry Chester M.D.
--- OUTSIDE RECORDS SUMMARY | 2025-03-19 11:13 | XMS_ITS ---
Author Organization [facility] Address [address] [place], [place] [address] Care Team Providers Care Sorting Livestock Worker Name Role Phone CHICHI BARRETO Unavailable [phone] Sushant Gonzalez Unavailable Unavailable LUH RAYO Unavailable [phone] REASON FOR VISIT *General care Medications Medication SIG (Take, Route, Frequency, Duration) Notes Start Date End Date Status oxycodone hydrochloride 10 MG Oral Tablet ORAL oxycodone hydrochloride 10 M G Oral TabletOriginal Medicationoxycodone hydrochloride 10 MG Oral Tablet *Reorder from [facility] for eRx and Interaction Alerts* 6 Active gabapentin 100 MG Oral Capsule [Neurontin] ORAL gabapentin 100 MG Oral Capsule [Neurontin]Original Medicationgabapentin 100 MG Oral Capsule [Neurontin] *Reorder from [facility] for eRx and Interaction Alerts* 6 Active fluoxetine 10 MG Oral Capsule [Prozac] ORAL fluoxetine 10 MG Oral Capsul e [Prozac]Original Medicationfluoxetine 10 MG Oral Capsule [Prozac] *Reorder from [facility] for eRx and Interaction Alerts* 6 Active cholecalciferol 0.025 MG Chewable Tablet ORAL cholecalciferol 0.025 MG Chewable TabletOriginal Medicationcholecalciferol 0.025 MG Chewable Tablet *Reorder from [facility] for eRx and Interaction Alerts* 7 Active Meloxicam 15 MG Oral Tablet ORAL meloxicam 15 MG Oral TabletOriginal Medicationmeloxicam 15 MG Oral Tablet *Reorder from [facility] for eRx and Interaction Alerts* 6 Active pramipexole dihydrochloride 0.5 MG Oral Tablet [Mirapex] ORAL pramipexole dihydrochloride 0.5 MG Oral Tablet [Mirapex]Original Medicationpramipexole dihydrochloride 0.5 MG Oral Tablet [Mirapex] *Reorder from [facility] for eRx and Interaction Alerts* 7 Active Potassium Gluconate 2.5 MEQ Oral Tablet ORAL potassium gluconate 2.5 MEQ Oral TabletOriginal Medicationpotassium gluconate 2.5 MEQ Oral Tablet *Reorder from [employer] [facility] for eRx and Interaction Alerts* 6 Active Vital Signs Height 62.00 in 04/12/2024 Weight 240 lbs 04/12/2024 BMI 43.89 kg/m2 04/12/2024 Height-cm 157.48 cm 04/12/2024 Weight-kg 108.86 kg 04/12/2024 Encounters Encounter Location Date Provider Diagnosis [address] [id number] 04/12/2024 [facility] Unspecified atherosclerosis of [place] arteries of extremities, bilateral legs I70.203 ; Tinea unguium B35.1 ; Other hammer toe(s) (acquired), right foot M20.41 ; Other hammer toe(s) (acquired), left foot M20.42 ; Pain in right toe(s) M79.674 and Pain in left toe(s) M79.675 Assessments Encounter Date Diagnosis (ICD Code) Assessment Notes Treatment Notes Treatment Clinical Notes Section Notes 04/12/2024 Unspecified atherosclerosis of [place] arteries of extremities, bilateral legs (ICD-10 - [...] Treatment Notes Assessment Notes Unspecified atherosclerosis of [place] arteries of extremities, bilateral legs Patient educated [...] * YVONNE NEGRON MDOB:1944 (79 yo F)Acc No.[id number]:04/12/2024 Patient: Jad YVONNE TAYLOR Provider: Marc RAYO :1945 A ge:79 Y S ex:Female Date:04/12/2024 Address:[address] [place] [address] Subjective: * Chief Complaints: * 1 . [...] Patient denies c hest pain, history of [place], irregular heartbeat. M usculoskeletal: Patient complains of h ammertoes, arch pain. P eripheral Vascular: Patient denies b lanching [...] gluconate 2.5 MEQ Oral Tablet *Reorder from [facility] for eRx and Interaction Alerts*, Taking Meloxicam 15 MG Oral Tablet ORAL , Notes to Pharmacist: meloxicam 15 MG Oral TabletOriginal Medicationmeloxicam 15 MG Oral Tablet *Reorder from [facility] for eRx and Interaction Alerts*, Taking cholecalciferol 0.025 MG Chewable Tablet ORAL , Notes to Pharmacist: cholecalciferol 0.025 MG Chewable TabletOriginal Medicationcholecalciferol 0.025 MG Chewable Tablet *Reorder from [facility] for eRx and Interaction Alerts*, Taking fluoxetine 10 MG Oral Capsule [Prozac] ORAL , Notes to Pharmacist: fluoxetine 10 MG Oral Capsule [Prozac]Original Medicationfluoxetine 10 MG Oral Capsule [Prozac] *Reorder from [facility] for eRx and Interaction Alerts*, Taking gabapentin 100 MG Oral Capsule [Neurontin] ORAL , Notes to Pharmacist: gabapentin 100 MG Oral Capsule [Neurontin]Original Medicationgabapentin 100 MG Oral Capsule [Neurontin] *Reorder from [facility] for eRx and Interaction Alerts*, Taking oxycodone hydrochloride 10 MG Oral Tablet ORAL , Notes to Pharmacist: oxycodone hydrochloride 10 MG Oral TabletOriginal Medicationoxycodone hydrochloride 10 MG Oral Tablet *Reorder from [facility] for eRx and Interaction Alerts*, Taking pramipexole dihydrochloride 0.5 MG Oral Tablet [Mirapex] ORAL , Notes to Pharmacist: pramipexole dihydrochloride 0.5 MG Oral Tablet [Mirapex]Original Medicationpramipexole dihydrochloride 0.5 MG Oral Tablet [Mirapex] *Reorder from [facility] for eRx and Interaction Alerts* Objective: * [...] (Primary) 2 . U nspecified atherosclerosis of [place] arteries of extremities, bilateral legs - I70.203 3 . O ther hammer toe(s) (acquired), right foot - M20.41 4 . O ther hammer toe(s) (acquired), left foot - M20.42 5 . P ain in right toe(s) - M79.674 6 . P ain in left toe(s) - M79.675 Plan: * Treatment: 2. U nspecified atherosclerosis of [place] arteries of extremities, bilateral legs Notes: Patient educated on risks and aggravating factors of PVD, including conservative treatment options such as a diet and exercise regimen to aid in slowing progression of vascular disease 3. O ther hammer toe(s) (acquired), right [...] Months * Billing Information: * Visit Code: 60093 Office Visit, Est Pt., Level 3. * Procedure Codes: * Sign off status: Completed true * Provider: Marc RAYO Date: 0 04/12/2024 Generated for Juan F lujan/Cherie/Jess on: 0 03/19/2025 11:13 AM CDT History and Physical Notes * [...]
--- OUTSIDE RECORDS SUMMARY | 2025-03-19 11:13 | XMS_ITS | Clinical Summary ---
Author Organization [facility] Address [address] [place] [address] Care Team Providers Care Gluing Machine Adjuster Name Role Phone Poppy Quiroz MD Primary Care Provider [phone] Source Comments [facility],non-owned Affiliates and Associated Physician Practices is amultiple site organization consisting of ambulatory clinics and hospital sitesin [place], [place], [place] and [place]. This disclosure is being madepursuant to the Care Everywhere program and may not contain all information available regarding this patient. Last updated 18.[facility] Social History Tobacco Use Types Packs/Day Years Used Date Smoking Tobacco: Never Assessed PHQ-2 Answer Date Recorded PHQ2 TOTAL SCORE 3 07/19/2022 Comments Unknown Sex and Gender Information Value Date Recorded Sex Assigned at Not on file Legal Sex Female 4:21 AM CHILD CARE PROVIDER Gender Identity Not on file Sexual Orientation [...] 75+ series) 2022 COVID-19 VACCINE (1 - season) 2024 DEPRESSION SCREENING 11/07/2024 07/07/2022 [...] age to complete this topic Care Teams Gluing Machine Adjuster Relationship Specialty Start Date End Date Poppy Quiroz MD PCP - General 05/07/22
--- OUTSIDE RECORDS SUMMARY | 2025-03-19 11:14 | XMS_ITS | Referral Summary ---
Author Organization [facility] [address] Address [address] [place] [address] Care Team Providers Care Contract Lead Name Role Phone Nasir Kaminski DO Unavailable Nazia Jenkins Unavailable [phone] Sushant Gonzalez MD Primary Care Provider [phone] Allergies Active Allergy Reactions Criticality Noted Date [...] every day 0 0 4 Active magnesium W-mgsrhz-cbnpod amide 42 mg (500 mg)- 250 mg [...] 1 tablet (150 mcg total) by mouth music professor before breakfast 3 Active oxyCODONE-aceta minophen (PERCOCET) [...] often do you attend chur ch or yarsanism services? Patient declined 05/18/2023 Do you belong to any clubs o r organizations such as anabaptist groups, unions, fraternal or athletic groups, or [...] place to sleep or slept in a care home (including now)? No 05/18/2023 Personal Safety Answer Date Recorded Have you ever been in or are you currently in a harmful physical or emotional relationship or is someone making you feel afraid or unsafe? Denies 05/17/2023 Comments Unknown Sex and Gender Information Value Date Recorded Sex Assigned at Not on file Legal Sex Female 9:01 AM BEND UP Gender Identity Not on file Sexual Orientation Not on file Last Filed Vital Signs Vital Sign Reading Time Taken Comments Blood Pressure 114/73 12/06/2024 1:23 PM BEND UP Pulse 89 12/06/2024 1:23 PM BEND UP Temperature 37.1 C (98.8 F) 05/23/2023 11:00 AM CDT Respiratory Rate 18 05/23/2023 11:00 AM CDT Oxygen Saturation 96% 05/23/2023 11:00 AM CDT Inhaled Oxygen Concentration - - Weight 109.8 kg (242 lb) 12/06/2024 1:23 PM BEND UP Height 152.4 cm (5') 12/06/2024 1:23 PM BEND UP Body Mass Index 47.26 12/06/2024 1:23 PM BEND UP Plan of Treatment Not on file Medical Devices Implanted Type Area Brushing Machine Operator Device Identifier Shelf Expiration Date Model / Serial / Lot [employer] Baseplate 24mm 20 Deg Full Augment Oblique [id number] - [id number] Implanted:Qty: 1 on 05/17/2023 by Abdoul Celeste MD at [facility] Left: Shoulder [employer] [id number] 02/05/2028 AR-9580-2 420 / / [id number] [employer] Univers Revers 20mm Modular Post Component Glenoid Porous Ar-9582-20 - [id number] Implanted:Qty: 1 on 05/17/2023 by Abdoul Celeste MD at [facility] Left: Shoulder [employer] [id number] 03/06/2028 AR-9582-2 0 / / [employer] 5.5mm 36mm Lock Peripheral Screw Bone Sterile Ar-9563-36 - [id number] Implanted:Qty: 1 on 05/17/2023 by Abdoul Celeste MD at [facility] Left: Shoulder [employer] [id number] 12/07/2027 AR-9563-3 6 / / [id number] [employer] 36mm 24 Baseplate Taper Sphere Glenoid [id number] - [id number] Implanted:Qty: 1 on 05/17/2023 by Abdoul Celeste MD at [facility] Left: Shoulder [employer] [id number] 12/07/2027 AR-9564-2 436 / / [id number] [employer] 5.5mm 20mm Lock Peripheral Screw Bone Sterile Ar-9563-20 - [id number] Implanted:Qty: 1 on 05/17/2023 by Abdoul Celeste MD at [facility] Left: Shoulder [employer] [id number] 12/07/2027 AR-9563-2 0 / / [id number] [employer] Implant Suture Cup Humeral Reverse Left Univers Revers +2x33mm Titanium [id number] - [id number] Implanted:Qty: 1 on 05/17/2023 by Abdoul Celeste MD at [facility] Left: Shoulder [employer] [id number] 09/06/2027 AR-9502F- 33LCPC / / .[id number] [employer] Insert Humeral Combo Reverse Poly Univers Revers +3x33mm [id number] - [id number] Implanted:Qty: 1 on 05/17/2023 by Abdoul Celeste MD at [facility] Left: Shoulder [employer] [id number] 07/07/2027 AR-9503-3 336-3 / / .[id number] [employer] Arthrex Univers Revers Shoulder 7 Stem Humeral Sterile Ar-9501-07p - [id number] Implanted:Qty: 1 on 05/17/2023 by Abdoul Celeste MD at [facility] Left: Shoulder [employer] [id number] 06/06/2027 AR-9501-0 7P / .[id number] Procedures Procedure Name Priority Date/Time Associated Diagnosis Comments HEMOGLOBIN A1C Routine 08/20/2024 3:21 PM CDT Numbness and tingling Type 2 diabetes mellitus without complication, without long-term current use of insulin (HCC) LIPID PANEL Routine 08/20/2024 3:21 PM CDT Numbness and tingling EGFR Routine 05/18/2023 3:50 AM CDT from Last 3 Months or Most Recently Relevant to Health Maintenance Results * (ABNORMAL) Hemoglobin A1c (08/20/2024 3:21 PM [...] MD LAB BLOOD ORDERABLES Delfina l [facility] Department [place] [address] * Lipid panel (08/20/2024 3:21 PM CDT) [...] on 2018. HDL 42 >=40 mg/dL [facility] Comment: Interpretive Data Ages < or [...] 2018. LDL, calculated 55 <=129 mg/dL [facility] Comment: Interpretive Data Ages < or [...] revised on 2024. Non-HDL Cholesterol 72 mg/dL [facility] Comment: Interpretive Data Ages < or [...] ORDERABLES Delfina l Result [facility] Department [place] [address] * eGFR (05/18/2023 3:50 AM CDT) eGFR 63 mL/min/1. 73 m2 [facility] Comment: Interpretive Data Reference [...] BAH LAB BLOOD ORDERABLES F inal Result [facility] [address] [facility] [place] [address] from Last 3 Months or Most Recently Relevant to Health Maintenance Insurance AETNA MEDICARE AETNA MEDICARE AETNA MEDICARE AETNA MEDICARE Advance Directives For more information, please contact: [phone] * Full Code (Latest Code Status on File) Date Activated Date Inactivated Comments 05/17/2023 2:36 PM 05/23/2023 6:06 PM Care Teams Contract Lead Relationship Specialty [place] [address] [facility] [address] [address] PCP - General Family Practice 02/28/24 Nasir Kaminski DO [address] [place] [address] [address] [place] [address] Referring Physician Cardiology 05/12/23 Nazia Jenkins PA [address] [place] [address] [phone] (work) Orthopedic Surgery 05/23/23
--- OUTSIDE RECORDS SUMMARY | 2025-03-19 11:14 | XMS_ITS | Continuity of Care Document ---
Author Organization [facility] Address [address] [place] [address] Phone Care Team Providers Care Deicer Repairer Name Role Phone Dino Garcia MD Unavailable [...] Diagnoses Date Provider Providers Copied on Encounter [facility], [address] [place] [address], [id number], tel:[phone] [facility] No Information 1 Jose Sun. [address] [place] [address], [id number] , . [phone] Referring Provider: Lai Juarez, Was @formerly [facility] But Not There Anymore, [place]. Office/outpat ient visit,est, mod [facility], [address] [place] [address], [id number], tel:[phone] [facility] No Information 1 Jose Sun. [address] [place] [address], [id number] , . tel:[phone] Referring Provider: Lai Juarez, Was @formerly [facility] Not There [place]ymore, [place]. [facility], [address] [place] [address], [id number], tel:[phone] [facility] No Information 1 Panfilo Marquez. [address] [place], [place], [id number] , . tel:[phone] Referring Provider: Lai Juarez, Was @formerly [facility] Not There [place]ym[place], [place]. [facility], [address] [place] [address], [id number], tel:[phone] [facility] No Information 1 Jose Sun. [address] [place] [address], [id number] , . tel:[phone] Referring Provider: Dino Garcia, [address] [place] [address], [id number]. tel:[phone] Family History Family Member Type Diagnosis Age [...]
--- OUTSIDE RECORDS SUMMARY | 2025-03-19 11:14 | XMS_ITS | Patient Health Record ---
Author Organization [facility] Address [address] [place], [place] [id number] Care Team Providers Care Conference Services Director Name Role Phone CHICHI BARRETO Unavailable [phone] Sushant Gonzalez Unavailable Unavailable [facility] RAYO Unavailable [phone] Reason For Referral No Information Medications Medication SIG (Take, Route, Frequency, Duration) Notes Start Date End Date Status pramipexole dihydrochloride 0.5 MG Oral Tablet [Mirapex] ORAL pramipexole dihydrochloride 0.5 MG Oral Tablet [Mirapex]Original Medicationpramipexole dihydrochloride 0.5 MG Oral Tablet [Mirapex] *[facility]* 7 Active oxycodone hydrochloride 10 MG Oral Tablet ORAL oxycodone hydrochloride 10 M G Oral TabletOriginal Medicationoxycodone hydrochloride 10 MG Oral Tablet *Reorder from [facility] for eRx and Interaction Alerts* 6 Active gabapentin 100 MG Oral Capsule [Neurontin] ORAL gabapentin 100 MG Oral Capsule [Neurontin]Original Medicationgabapentin 100 MG Oral Capsule [Neurontin] *Reorder from [facility] for eRx and Interaction Alerts* 6 Active fluoxetine 10 MG Oral Capsule [Prozac] ORAL fluoxetine 10 MG Oral Capsul e [Prozac]Original Medicationfluoxetine 10 MG Oral Capsule [Prozac] *[facility] Interaction [facility]* 6 Active cholecalciferol 0.025 MG Chewable Tablet ORAL cholecalciferol 0.025 MG Chewable TabletOriginal Medicationcholecalciferol 0.025 MG Chewable Tablet *[facility] and Interaction Alerts* 7 Active Meloxicam 15 MG Oral Tablet ORAL meloxicam 15 MG Oral TabletOriginal Medicationmeloxicam 15 MG Oral Tablet *[facility] and Interaction Alerts* 6 Active Potassium Gluconate 2.5 MEQ Oral Tablet ORAL potassium gluconate 2.5 MEQ Oral TabletOriginal Medicationpotassium gluconate 2.5 MEQ Oral Tablet *Reorder from [facility] for eRx and Interaction Alerts* 6 Active Vital Signs Height-cm 157.48 cm 04/12/2024 Weight-kg 108.86 kg 04/12/2024 Height 62.00 in 04/12/2024 Weight 240 lbs 04/12/2024 BMI 43.89 kg/m2 04/12/2024 Encounters Encounter Location Date Provider Diagnosis [address] [id number] 04/12/2024 [facility] Unspecified atherosclerosis of [place] arteries of extremities, bilateral legs I70.203 ; [...] and prescription treatments. 04/12/2024 Unspecified atherosclerosis of [place] arteries of extremities, bilateral legs (ICD-10 - [...] Start Date Coverage End Date [employer] [id number] [place] [address] [id number] YVONNE NEGRON Self - patient is the insured
--- OUTSIDE RECORDS SUMMARY | 2025-03-19 11:14 | XMS_ITS ---
Author Organization [facility] Address [address] [place], [place] [address] Care Team Providers Care Ladle Operator Name Role Phone CHICHI BARRETO Unavailable [phone] Sushant Gonzalez Unavailable Unavailable [facility] R[facility] Unavailable [phone] REASON FOR VISIT *General care Encounters Encounter Location Date Provider Diagnosis [address] [id number] 06/14/2024 [facility] Plan Of Treatment No Information Progress Notes * YVONNE NEGRON MDOB:1944 (80 yo F)Acc No.[id number]:06/14/2024 Patient: Jad YVONNE TAYLOR Provider: Marc RAYO :1945 A ge:79 Y S ex:Female Date:06/14/2024 Address:[address] [place], [place] [id number] Subjective: * Chief Complaints: * 1 . *General care. * Medical History: Objective: * Vitals: Assessment: Plan: * Treatment: * Billing Information: * Visit Code: * Procedure Codes: * Electronic signature of TRENT RAYO DPM on 03/19/2025 at 11:13 AM CDT Sign off status: Pending * Provider: Marc RAYO Date: 0 06/14/2024 Generated for Sharathi tai/Cherie/eTransmitting on: 0 03/19/2025 11:13 AM CDT
--- OUTSIDE RECORDS SUMMARY | 2025-03-19 11:14 | XMS_ITS | Clinical Summary ---
Author Organization [facility] [address] Address [address] [place] [address] Care Team Providers Care Kaiwhakahaere Name Role Phone Nasir Kaminski DO Unavailable [phone] Nazia Jenkins Unavailable Sushant Gonzalez MD Primary Care Provider [phone] Allergies Active Allergy Reactions Criticality Noted Date [...] every day 0 0 4 Active magnesium G-kzylsm-honklk amide 42 mg (500 mg)- 250 mg [...] 1 tablet (150 mcg total) by mouth motor transport inspector before breakfast 3 Active oxyCODONE-aceta minophen (PERCOCET) [...] Surgery Date Site/Laterality Comments OTHER SURGICAL HISTORY 1998 SPURS: DISC REMOVAL/FUSION C4-5 C5-6 CHOLECYSTECTOMY 1970 Cholecystectomy HYSTERECTOMY 1983 Hysterectomy HEMORRHOID SURGERY 1972 HEMORRHOIDECTOMY OTHER SURGICAL [...] How often do you attend chur or restorationism services? Patient declined 05/18/2023 Do you belong to any clubs o r organizations such as yazidi groups, unions, fraternal or athletic groups, or [...] place to sleep or slept in a alf (including now)? No 05/18/2023 Personal Safety Answer Date Recorded Have you ever been in or are you currently in a harmful physical or emotional relationship or is someone making you feel afraid or unsafe? Denies 05/17/2023 Comments Unknown Sex and Gender Information Value Date Recorded Sex Assigned at Not on file Legal Sex Female 9:01 AM DISPLAY MAKER Gender Identity Not on file Sexual Orientation Not on file Obstetrics History Last Filed Vital Signs Vital Sign Reading Time Taken Comments Blood Pressure 114/73 12/06/2024 1:23 PM DISPLAY MAKER Pulse 89 12/06/2024 1:23 PM DISPLAY MAKER Temperature 37.1 C (98.8 F) 05/23/2023 11:00 AM CDT Respiratory Rate 18 05/23/2023 11:00 AM CDT Oxygen Saturation 96% 05/23/2023 11:00 AM CDT Inhaled Oxygen Concentration - - Weight 109.8 kg (242 lb) 12/06/2024 1:23 PM DISPLAY MAKER Height 152.4 cm (5') 12/06/2024 1:23 PM DISPLAY MAKER Body Mass Index 47.26 12/06/2024 1:23 PM DISPLAY MAKER Plan of Treatment Health Maintenance Due Date [...] history exists Medical Devices Implanted Type Area Enterprise Account Manager Device Identifier Shelf Expiration Date Model / Serial / Lot Ar[employer]rex [employer] Baseplate 24mm 20 Deg Full Augment Oblique [id number] - [id number] Implanted:Qty: 1 on 05/17/2023 by Abdoul Celeste MD at [facility] Left: Shoulder [employer] [id number] 02/05/2028 AR-9580-2 420 / / [id number] 2 [employer] Univers Revers 20mm Modular Post Component Glenoid Porous Ar-9582-20 - [id number] Implanted:Qty: 1 on 05/17/2023 by Abdoul Celeste MD at [facility] Left: Shoulder [employer] [id number] 03/06/2028 AR-9582-2 0 / / [employer] 5.5mm 36mm Lock Peripheral Screw Bone Sterile Ar-9563-36 - [id number] Implanted:Qty: 1 on 05/17/2023 by Abdoul Celeste MD at [facility] Left: Shoulder [employer] [id number] 12/07/2027 AR-9563-3 6 / / [id number] Ar[employer] 36mm 24 Baseplate Taper Sphere Glenoid Fr-4216-7393 - [id number] Implanted:Qty: 1 on 05/17/2023 by Abdoul Celeste MD at [facility] Left: Shoulder [employer] [id number] 12/07/2027 AR-9564-2 436 / / [id number] [employer] 5.5mm 20mm Lock Peripheral Screw Bone Sterile Ar-9563-20 - [id number] Implanted:Qty: 1 on 05/17/2023 by Abdoul Celeste MD at [facility] Left: Shoulder [employer] [id number] 12/07/2027 AR-9563-2 0 / / [id number] [employer] Implant Suture Cup Humeral Reverse Left Univers Revers +2x33mm Titanium [id number] - [id number] Implanted:Qty: 1 on 05/17/2023 by Abdoul Celeste MD at [facility] Left: Shoulder [employer] [id number] 09/06/2027 AR-9502F- 33LCPC / / [id number] Ar[employer] Insert Humeral Combo Reverse Poly Univers Revers +3x33mm Gx-5622-0030-3 - [id number] Implanted:Qty: 1 on 05/17/2023 by Abdoul Celeste MD at [facility] Left: Shoulder [employer] [id number] 07/07/2027 AR-9503-3 336-3 / / [id number] Ar[employer]rex Inc Arthrex Univers Revers Shoulder 7 Stem Humeral Sterile Ar-9501-07p - [id number] Implanted:Qty: 1 on 05/17/2023 by Abdoul Celeste MD at [facility] Left: Shoulder [employer] [id number] 06/06/2027 AR-9501-0 7P / / [id number] Procedures Procedure Name Priority Date/Time Associated Diagnosis [...] MD LAB BLOOD ORDERABLES Delfina borrero Result [facility] One [facility] Department [place] [address] * Lipid panel (08/20/2024 3:21 PM CDT) [...] revised on 2018. Triglycerides 85 <=149 mg/dL [facility] Comment: Interpretive Data Ages < or = [...] revised on 2018. HDL 42 >=40 mg/dL [facility] Comment: Interpretive Data Ages < or = [...] on 2018. LDL, calculated 55 <=129 mg/dL [facility] Comment: Interpretive Data Ages < or = [...] NCEP Expert Panel. Circulation 2004;110:227 3. Franco Johnson et al. OMARI Cardiol. 2020 March 07;5(5):540-548. doi: 10.1001/jamacardio.2020.0013 Current Interpretive Data was last revised on 2024. Non-HDL Cholesterol 72 mg/dL [facility] Comment: Interpretive Data Ages < [...] last revised on 2018. Chol/HDL ratio 3 [facility] Blood Venous blood specimen / Unknown 08/20/2024 3:21 PM CDT 08/20/2024 3:58 PM CDT us Dudley Ray MD LAB BLOOD ORDERABLES Delfina l Result [facility] One [facility] Department [place] [address] * eGFR (05/18/2023 3:50 AM CDT) eGFR 63 mL/min/1. 73 m2 [facility] Comment: Interpretive Data Reference Interval Normal [...] LAB BLOOD ORDERABLES F inal Result [facility] ([place] 1 [facility] Department [place] [address] from Last 3 Months or Most Recently Relevant to Health Maintenance Insurance T MEDICARE AETWatsin MEDICARE T MEDICARE T MEDICARE Advance Directives For more information, please contact: [phone] * Full Code (Latest Code Status on File) Date Activated Date Inactivated Comments 05/17/2023 2:36 PM 05/23/2023 6:06 PM Care Teams Kaiwhakahaere Relationship Specialty [place] [address] [address] PCP - General Family Practice 02/28/24 Nasir Kaminski DO [address] [facility] [address] [facility] [address] [place] [address] Referring Physician Cardiology 05/12/23 Nazia Jenkins PA [address] [place] [address] [address] [place] [address] Orthopedic Surgery 05/23/23
--- OUTSIDE RECORDS SUMMARY | 2025-03-19 11:14 | XMS_ITS | Clinical Summary ---
Author Organization [facility] Address [address] [place] [address] Phone Care Team Providers Care Senior Qa Automation Engineer Name Role Phone Unavailable Primary Care Provider [...] Encounters Date Type Department Care Team Description 03/12/2025 External Device Data [facility] Provider, Abstract 12/26/2024 External Device Data [facility] Provider, [...] 08/21/2015, Additional history exists Insurance AETNA PPO [facility]
== END 2025-03-19 10:50 | disposition home or self-care (01) ==
PROVIDERS: PCP Family Medicine; Visit Provider Anesthesiology
DX: I25.10 Atherosclerotic heart disease of native coronary artery without angina pectoris (principal); I45.10 Unspecified right bundle-branch block; I44.4 Left anterior fascicular block
CPT/HCPCS: 93005

== ENCOUNTER 2025-03-25 01:11 | Day surgery (SDC) | payer MEDICARE, MEDICAID, SELFPAY ==
--- NOTE | 2025-03-18 10:59 | PC.NURSE ---
Report to the Outpatient Waiting Room, entrance under the green pavilion located off [facility], at time _11 AM on date __03/25/25 . Planned Procedure Time: _1:00PM . Time changes happen often and if your time is changed the preop area will call you the afternoon before. - You and your visitor will be asked to self-screen and do not enter if you have any COVID symptoms. Please call surgeon if you need to reschedule. - A mask is optional within the hospital at this time. Patients may have clear liquids (water, carbonated beverages, clear teas, apple juice) until 3 hours prior to surgery ( 10 AM) with a maximum of 20 ounces. - No food from midnight until time of surgery and no smoking, or chewing tobacco (or any form of nicotine). No chewing gum, candy or mints. Take only the following medications with a SIP of water on the morning of surgery: ____METOPROLOL,LEVOTHYROXINE,FLUOXETINE,OXYCODONE IF NEEDED, TRELEGY ELLIPTA INHALER DO NOT STOP ANY OF YOUR OTHER PRESCRIPTION MEDICATIONS PRIOR TO SURGERY EXCEPT THE FOLLOWING Hold all vitamins and supplements for 3 days per anesthesiologist.LAST DOSE 03/21/25 Medications to discontinue per physician ____ASPIRIN PER DR SHARP Date to take last dose Please no make-up, nail thai, hairspray, perfume, deodorant, or body powder the day of surgery. No jewelry (including any body piercings) or valuables the day of surgery, leave them at home. Please take a shower or bath the night before, or the morning of, surgery with an antibacterial soap. Wear comfortable, loose fitting clothing. Children are encouraged to wear pajamas. - Jewelry must be removed prior to entering the operating room. Rings and piercings that are not removed may be cut off. - The hospital will not accept responsibility for valuables. - Please leave all valuables, including medications, at home the day of surgery. If you are going home after surgery, a licensed electric screw driver operator must drive you home. - NO public transportation without another adult if you receive anesthesia. - We recommend that an adult stay with you for 24 hours following discharge. - We also recommend that you do not drive, make important decision, drink alcoholic beverages, or take any drugs that were not prescribed by your health care provider for at least 24 hours after your discharge time. Follow any additional instructions given to you from your surgeon. Telephone instructions given to __PATIENT and asked if any additional questions and then verbalized understanding. Patient advised to call surgeon office or pre surgery nurse liaison [phone] if any additional questions.
[2025-03-18 11:29] VITALS: BMI 48.0
[2025-03-25] VITALS (13 sets, daily range): BP systolic 112–147; BP diastolic 53–85; PULSE 70–80; RESP 13–23; TEMP 36.3; O2SAT 93–100
--- OUTSIDE RECORDS SUMMARY | 2025-03-25 01:16 | XMS_ITS | Clinical Summary ---
Author Organization [facility] [address] Address [address] [place] [address] Care Team Providers Care Monitor And Storage Bin Tender Name Role Phone Nasir Kaminski DO Unavailable [phone] Nazia Jenkins Unavailable [phone] Sushant Gonzalez MD Primary Care Provider [phone] Allergies Active Allergy Reactions Criticality Noted Date [...] every day 0 0 4 Active magnesium J-hrtzgw-zkhdah amide 42 mg (500 mg)- 250 mg [...] 1 tablet (150 mcg total) by mouth drug safety coordinator before breakfast 3 Active oxyCODONE-aceta minophen (PERCOCET) [...] any clubs o r organizations such as christianity groups, unions, fraternal or athletic groups, or [...] on file Legal Sex Female 9:01 AM OFFAL ICER POULTRY Gender Identity Not on file Sexual Orientation Not on file Obstetrics History Last Filed Vital Signs Vital Sign Reading Time Taken Comments Blood Pressure 114/73 12/06/2024 1:23 PM OFFAL ICER POULTRY Pulse 89 12/06/2024 1:23 PM OFFAL ICER POULTRY Temperature 37.1 C (98.8 F) 05/23/2023 11:00 AM CDT Respiratory Rate 18 05/23/2023 11:00 AM CDT Oxygen Saturation 96% 05/23/2023 11:00 AM CDT Inhaled Oxygen Concentration - - Weight 109.8 kg (242 lb) 12/06/2024 1:23 PM OFFAL ICER POULTRY Height 152.4 cm (5') 12/06/2024 1:23 PM OFFAL ICER POULTRY Body Mass Index 47.26 12/06/2024 1:23 PM OFFAL ICER POULTRY Plan of Treatment Health Maintenance Due Date [...] history exists Medical Devices Implanted Type Area Invasive Physician Device Identifier Shelf Expiration Date Model / Serial / Lot [employer] Baseplate 24mm 20 Deg Full Augment Oblique [id number]-6220-4053 - [id number] Implanted:Qty: 1 on 05/17/2023 by Abdoul Celeste MD at [facility] Left: Shoulder [employer] [id number] 02/05/2028 AR-9580-2 420 / / [id number] [employer] Univers Revers 20mm Modular Post Component Glenoid Porous Ar-9582-20 - [id number] Implanted:Qty: 1 on 05/17/2023 by Abdoul Celeste MD at [facility] Left: Shoulder [employer] [id number] 03/06/2028 AR-9582-2 0 / / [employer] 5.5mm 36mm Lock Peripheral Screw Bone Sterile Ar-9563-36 - [id number] Implanted:Qty: 1 on 05/17/2023 by Abdoul Celeste MD at [facility] Left: Shoulder [employer] [id number] 12/07/2027 AR-9563-3 6 / / [id number] [employer] 36mm 24 Baseplate Taper Sphere Glenoid Nq-1475-4358 - [id number] Implanted:Qty: 1 on 05/17/2023 by Abdoul Celeste MD at [facility] Left: Shoulder [employer] [id number] 12/07/2027 AR-9564-2 436 / / [id number] [employer] 5.5mm 20mm Lock Peripheral Screw Bone Sterile Ar-9563-20 - [id number] Implanted:Qty: 1 on 05/17/2023 by Abdoul Celeste MD at [facility] Left: Shoulder [employer] [id number] 12/07/2027 AR-9563-2 0 / / [id number] [employer] Implant Suture Cup Humeral Reverse Left Univers Revers +2x33mm Titanium [id number] - [id number] Implanted:Qty: 1 on 05/17/2023 by Abdoul Celeste MD at [facility] Left: Shoulder [employer] [id number] 09/06/2027 AR-9502F- 33LCPC / / [id number] [employer] Insert Humeral Combo Reverse Poly Univers Revers +3x33mm Ds-8284-8969-3 - [id number] Implanted:Qty: 1 on 05/17/2023 by Abdoul Celeste MD at [facility] Left: Shoulder [employer] [id number] 07/07/2027 AR-9503-3 336-3 / / [id number] Ar[employer]rex Inc Arthrex Univers Revers Shoulder 7 Stem Humeral Sterile Ar-9501-07p - [id number] Implanted:Qty: 1 on 05/17/2023 by Abdoul Celeste MD at [facility] Left: Shoulder [employer] [id number] 06/06/2027 AR-9501-0 7P / / 22.89942 Procedures Procedure Name Priority Date/Time Associated Diagnosis [...] MD LAB BLOOD ORDERABLES Delfina borrero Result [facility] One [facility] Department [place] [address] * Lipid panel (08/20/2024 3:21 PM CDT) [...] revised on 2018. Triglycerides 85 <=149 mg/dL [facility] Comment: Interpretive Data Ages < or [...] revised on 2018. HDL 42 >=40 mg/dL [facility] Comment: Interpretive Data Ages < or [...] on 2018. LDL, calculated 55 <=129 mg/dL [facility] Comment: Interpretive Data Ages < or [...] on 2024. Non-HDL Cholesterol 72 mg/dL [facility] Comment: Interpretive Data Ages < or = [...] last revised on 2018. Chol/HDL [facility] Blood Venous blood specimen / Unknown 08/20/2024 3:21 PM CDT 08/20/2024 3:58 PM CDT us Dudley Ray MD LAB BLOOD ORDERABLES Delfina l Result [facility] One [facility] Department [place] [address] * eGFR (05/18/2023 3:50 AM CDT) eGFR 63 mL/min/1. 73 m2 [facility] ([place] Comment: Interpretive Data Reference Interval [...] BLOOD ORDERABLES F inal Result [facility] ([place]) 1 [facility] [place] [address] from Last 3 Months or Most Recently Relevant to Health Maintenance Insurance T MEDICARE AETLawnStarter MEDICARE T MEDICARE T MEDICARE Advance Directives For more information, please contact: [phone] * Full Code (Latest Code Status on File) Date Activated Date Inactivated Comments 05/17/2023 2:36 PM 05/23/2023 6:06 PM Care Teams Monitor And Storage Bin Tender Relationship Specialty [place] [address] [address] PCP - General Family Practice 02/28/24 Nasir Kaminski DO [address] [facility] [address] [facility] [address] [place] [address] Referring Physician Cardiology 05/12/23 Nazia Jenkins PA [address] [place] [address] [address] [place] [address] Orthopedic Surgery 05/23/23
--- OUTSIDE RECORDS SUMMARY | 2025-03-25 01:16 | XMS_ITS | Referral Summary ---
Author Organization [facility] [address] Address [address] [place] [address] Care Team Providers Care Director Revenue Name Role Phone Nasir Kaminski DO Unavailable Nazia Jenkins Unavailable [phone] Sushant Gonzalez MD Primary Care Provider [phone] Allergies Active Allergy Reactions Criticality Noted Date [...] every day 0 0 4 Active magnesium Z-ratsck-pwbptv amide 42 mg (500 mg)- 250 mg [...] 1 tablet (150 mcg total) by mouth rail engineer before breakfast 3 Active oxyCODONE-aceta minophen (PERCOCET) [...] often do you attend chur ch or christianity services? Patient declined 05/18/2023 Do you belong to any clubs o r organizations such as hoahaoism groups, unions, fraternal or athletic groups, or [...] on file Legal Sex Female 9:01 AM TYPO MACHINE OPERATOR Gender Identity Not on file Sexual Orientation Not on file Last Filed Vital Signs Vital Sign Reading Time Taken Comments Blood Pressure 114/73 12/06/2024 1:23 PM TYPO MACHINE OPERATOR Pulse 89 12/06/2024 1:23 PM TYPO MACHINE OPERATOR Temperature 37.1 C (98.8 F) 05/23/2023 11:00 AM CDT Respiratory Rate 18 05/23/2023 11:00 AM CDT Oxygen Saturation 96% 05/23/2023 11:00 AM CDT Inhaled Oxygen Concentration - - Weight 109.8 kg (242 lb) 12/06/2024 1:23 PM TYPO MACHINE OPERATOR Height 152.4 cm (5') 12/06/2024 1:23 PM TYPO MACHINE OPERATOR Body Mass Index 47.26 12/06/2024 1:23 PM TYPO MACHINE OPERATOR Plan of Treatment Not on file Medical Devices Implanted Type Area Academic Affairs Vice President Device Identifier Shelf Expiration Date Model / Serial / Lot [employer] Baseplate 24mm 20 Deg Full Augment Oblique Cz-6438-7074 - [id number] Implanted:Qty: 1 on 05/17/2023 by Abdoul Celeste MD at [facility] Left: Shoulder [employer] [id number] 02/05/2028 AR-9580-2 420 / / [id number] [employer] Univers Revers 20mm Modular Post Component Glenoid Porous Ar-9582-20 - [id number] Implanted:Qty: 1 on 05/17/2023 by Abdoul Celeste MD at [facility] Left: Shoulder [employer] [id number] 03/06/2028 AR-9582-2 0 / / [employer] 5.5mm 36mm Lock Peripheral Screw Bone Sterile Ar-9563-36 - [id number] Implanted:Qty: 1 on 05/17/2023 by Abodul Celeste MD at [facility] Left: Shoulder [employer] [id number] 12/07/2027 AR-9563-3 6 / / [id number] [employer] 36mm 24 Baseplate Taper Sphere Glenoid Dt-3557-7952 - [id number] Implanted:Qty: 1 on 05/17/2023 by Abdoul Celeste MD at [facility] Left: Shoulder [employer] [id number] 12/07/2027 AR-9564-2 436 / / [id number] [employer] 5.5mm 20mm Lock Peripheral Screw Bone Sterile Ar-9563-20 - [id number] Implanted:Qty: 1 on 05/17/2023 by Abdoul Celeste MD at [facility] Left: Shoulder [employer] [id number] 12/07/2027 AR-9563-2 0 / / [id number] [employer] Implant Suture Cup Humeral Reverse Left Univers Revers +2x33mm Titanium [id number] - [id number] Implanted:Qty: 1 on 05/17/2023 by Abdoul Celeste MD at [facility] Left: Shoulder [employer] [id number] 09/06/2027 AR-9502F- 33LCPC / / .[id number] [employer] Insert Humeral Combo Reverse Poly Univers Revers +3x33mm El-0713-2614-3 - [id number] Implanted:Qty: 1 on 05/17/2023 by Abdoul Celeste MD at [facility] Left: Shoulder [employer] [id number] 07/07/2027 AR-9503-3 336-3 / / .[id number] Ar[employer] Inc Arthrex Univers Revers Shoulder 7 Stem Humeral Sterile Ar-9501-07p - [id number] Implanted:Qty: 1 on 05/17/2023 by Abdoul Celeste MD at [facility] Left: Shoulder [employer] [id number] 06/06/2027 AR-9501-0 7P / .[id number] Procedures Procedure Name Priority Date/Time Associated Diagnosis [...] MD LAB BLOOD ORDERABLES Delfina l [facility] One [facility] Department [place] [address] * Lipid panel (08/20/2024 3:21 PM CDT) [...] on 2018. HDL 42 >=40 mg/dL [facility] Comment: Interpretive Data Ages < or [...] 2018. LDL, calculated 55 <=129 mg/dL [facility] Comment: Interpretive Data Ages < or [...] on 2024. Non-HDL Cholesterol 72 mg/dL [facility] Comment: Interpretive Data Ages < or [...] last revised on 2018. Chol/HDL ratio 3 [facility] Blood Venous blood specimen / Unknown 08/20/2024 3:21 PM CDT 08/20/2024 3:58 PM CDT us Dudley Rya MD LAB BLOOD ORDERABLES Delfina l Result [facility] One [facility] Department [place] [address] * eGFR (05/18/2023 3:50 AM CDT) eGFR 63 mL/min/1. 73 m2 [facility] ([place] Comment: Interpretive Data Reference [...] [facility] LAB BLOOD ORDERABLES F inal Result [facility] [place] 1 [facility] [place] [address] from Last 3 Months or Most Recently Relevant to Health Maintenance Insurance AETNA MEDICARE AETNA MEDICARE AETNA MEDICARE AETNA MEDICARE Advance Directives For more information, please contact: [phone] * Full Code (Latest Code Status on File) Date Activated Date Inactivated Comments 05/17/2023 2:36 PM 05/23/2023 6:06 PM Care Teams Director Revenue Relationship Specialty [place] [address] [facility] [address] [address] PCP - General Family Practice 02/28/24 Nasir Kaminski DO [address] [facility] [address] [place] [address] [address] [place] [address] Referring Physician Cardiology 05/12/23 Nazia Jenkins PA [address] [place] [address] [phone] (work) Orthopedic Surgery 05/23/23
--- OUTSIDE RECORDS SUMMARY | 2025-03-25 01:17 | XMS_ITS | Clinical Summary ---
Author Organization [facility] Address [address] [place] [address] Care Team Providers Care Rampman Name Role Phone Alexsander Chen MD Unavailable [phone] Klarissa Tran APRN Unavailable [phone] Minerva Gonzalez MD Primary Care Provider Sea Aguilera MD Unavailable [phone] Allergies Active Allergy Reactions Criticality Noted Date [...] inolone (MYCOLOG II) cream 08/29/20 24 Active pramipexole (MIRAPEX) 1.5 MG tabletIndicatio ns:Restless [...] (10 mg total) by mouth daily. Active levothyroxine (SYNTHROID) 175 MCG tabletIndicatio ns:Hypothyroidi [...] Diabetes 2 mL 5 03/01/20 25 Active oxyCODONE-aceta minophen (PERCOCET) 5-325 MG tabletIndicatio ns:Chronic Pain INDICATIONS: CHRONIC PAIN TAKE 1 OR 2 TABLETS BY MOUTH EVERY FOUR HOURS NEEDED FOR PAIN 60 tablet 03/11/20 25 Active albuterol sulfate HFA 108 (90 Base) MCG/ACT inhalerIndicati ons:Chronic respiratory failure with hypoxia (CMS/HCC HHS/HCC) INHLAE 2 PUFFS BY MOUTH EVERY SIX HOURS NEEDED FOR WHEEZING 6.7 g 1 03/11/20 25 Active FLUoxetine (PROZAC) 40 MG capsuleIndicati ons:Recurrent major depressive disorder, remission status unspecified Take 1 capsule (40 mg total) by mouth daily. 90 capsule 1 03/11/20 25 Active pentoxifylline CR (TRENTAL) 400 MG tablet Take 1 tablet (400 mg total) by mouth 3 (three) times daily with meals. 90 tablet 1 03/13/20 25 Active FLUoxetine (PROZAC) 40 MG capsuleIndicati ons:Recurrent major depressive disorder, remission status unspecified TAKE ONE CAPSULE BY MOUTH DAILY 90 capsule 1 11/30/19 25 2024 Discontinued(R eorder) tirzepatide (MOUNJARO) 10 MG/0.5ML injectionIndica tions:Diabetes Mellitus Indications: Diabetes Inject 10mg into the skin once per week. Indications: Diabetes 2 mL 5 12/31/19 25 2024 Discontinued(R eorder) albuterol sulfate HFA 108 (90 Base) MCG/ACT inhalerIndicati ons:Chronic respiratory failure with hypoxia ([facility]) Inhale 2 puffs into the lungs every 6 (six) hours as needed for Wheezing. 6.7 g 1 01/29/20 25 2024 Discontinued pentoxifylline CR (TRENTAL) 400 MG tablet TAKE 1 TABLET (400 MG TOTAL) BY MOUTH 3 (THREE) TIMES DAILY WITH MEALS. 90 tablet 1 02/02/202024 Discontinued oxyCODONE-aceta minophen (PERCOCET) 5-325 MG tabletIndicatio ns:Chronic Pain INDICATIONS: CHRONIC PAIN TAKE 1 OR 2 TABLETS BY MOUTH EVERY FOUR HOURS NEEDED FOR PAIN 60 tablet 02/02/202024 Discontinued Active Problems Problem Noted Date Diagnosed Date Venous insufficiency 09/11/2024 Lymphedema 09/11/2024 Ulcer of lower extremity, li mited to breakdown of skin, unspecified laterality ([facility]) 09/11/2024 Severe pulmonary hypertension ([facility]) 06/07/2023 Chronic respiratory failure with hypoxia ([facility]) 06/07/2023 CKD (chronic kidney disease) stage 2, GFR 60-89 ml/min 06/06/2023 S/P reverse total shoulder arthroplasty, left Primary osteoarthritis, left shoulder 05/16/2023 Rotator cuff arthropathy, left 05/04/2023 Controlled type 2 diabetes m ellitus with diabetic polyneuropathy, without long-term current use of insulin ([facility]) 05/04/2022 Chronic pain syndrome 07/21/2020 Chronic bilateral [...] f left calf with fat layer exposed ([facility]) Arthritis Malignant neoplasm ([facility]) Overview (12/25/2024): bladder Bladder infection Chronic headaches [...] Date Type Department Care Team Description 03/12/2025 Telephone [facility] [address] [place] [address] Sea Aguilera MD Refill Request 03/01/2025 Scan [facility] Scanned, [facility] Lab (SCAN) 02/27/2025 Scan [facility] Scanned, [facility] 02/26/2025 Telephone [facility] Family & Internal [facility] [address] [place] [address] Minerva Gonzalez MD FYI 02/15/2025 Scan [facility] Scanned, [facility] 02/05/2025 Scan [facility] Scanned, [facility] 02/04/2025 Telephone [facility] Family & Internal [facility] [address] [place] [address] Minerva Gonzalez MD Results 02/01/2025 Scan [facility] Scanned, [facility] PFT (SCAN) 01/31/2025 Scan [facility] Scanned, [facility] Procedure (SCAN) 01/29/2025 Scan [facility] Scanned, [facility] 01/29/2025 Orders Only [facility] & Internal [facility] [address] [place] [address] Minerva Gonzalez MD 01/29/2025 Telephone [facility] & Internal [facility] [address] [place] [address] Minerva Gonzalez MD Other (Oximetry ) 01/28/2025 12:43 PM CDT - 01/28/2025 11:59 PM CDT Hospital Encounter [facility] Laboratory [address] [place] [address] Minerva Gonzalez MD Discharge Disposition: Home or Self Care (Routine Discharge) 01/28/2025 10:01 AM CDT - 01/28/2025 12:42 PM CDT Hospital Encounter [facility] [address] [place] [address] Minerva Gonzalez MD Discharge Disposition: Home or Self Care (Routine Discharge) 01/28/2025 9:40 AM CDT Laboratory Only [facility] Internal [facility] [address] [place] [phone] Minerva Gonzalez MD 01/28/2025 9:00 AM CDT Office Visit [facility] Internal [facility] [address] [place] [phone] Minerva Gonzalez MD Shortness Of Breath (Pt states it just started about a week ago /Pt states it been since she started abx ) 01/28/2025 Scan [facility] Scanned, [facility] 01/28/2025 Travel 01/25/2025 Orders Only [facility] [address] [place] [address] Minerva Gonzalez MD 01/24/2025 Telephone [facility] Internal [facility] [address] [place] [address] Minerva Gonzalez MD Other 01/23/2025 Scan [facility] Scanned, [facility] 01/17/2025 Telephone [facility] [address] [place] [address] Minerva Gonzalez MD Lab Order 01/15/2025 Scan [facility] Scanned, [facility] 01/14/2025 Scan [facility] Scanned, [facility] 01/14/2025 Telephone [facility] [address] [place] [address] Minerva Gonzalez MD Other (Requesting AB again ) 01/08/2025 1:07 PM AIR QUALITY CONSULTANT - 01/08/2025 11:59 PM AIR QUALITY CONSULTANT Hospital Encounter [facility] Laboratory [address] [place] [address] Minerva Gonzalez MD Discharge Disposition: Home or Self Care (Routine Discharge) 01/08/2025 11:00 AM AIR QUALITY CONSULTANT Laboratory Only [address] [phone] Minerva Gonzalez MD 01/08/2025 10:00 AM AIR QUALITY CONSULTANT Office Visit [address] [phone] Minerva Gonzalez MD Medication Management 01/08/2025 Travel 12/27/[address] [address] Minerva Gonzalez MD Question; Referral from Last 3 Months Immunizations Immunization Administration [...] (Prevnar 13) 05/05/2020 Shingrix 03/09/2024 Zoster (Zostavax) [address]458 Unt/0.65Ml 09/02/2014 Family History Medical History Relation [...] Sex Assigned at Female 11/22/2024 10:56 AM AIR QUALITY CONSULTANT Legal Sex Female 7:10 PM CDT Gender [...] Description 04/11/2025 10:40 AM CDT Office Visit [facility] Medical Group Family & Internal Medicine [facility] [address] [place] [address] [place] [address] [place] [address] Health Maintenance Due Date Last Done Comments ASCVD Statin 1945 Kidney Health Evaluation 1945 Diabetes: Retinopathy Eye Exam 1965 DTaP, Tdap and Td Vaccines (1 - Tdap) 1966 Annual Medicare Wellness Visit 01/23/2012 Zoster Vaccines (3 of 3) 05/04/2024 03/09/2024, 08/08 COVID-19 Vaccine ( season) 2024 03/09/2024, 09/13/2023, 08/26/2022, Additional history exists PHQ-2 (Physician [place]) 11/07/2024 07/13/2024 Hemoglobin A1C 02/18/2025 08/20/2024, 08/0 [...] Procedure Name Priority Date/Time Associated Diagnosis Comments OUTSIDE LAB (SCAN ORDER) 03/01/2025 PFT GENERIC (SCAN ORDER) 02/01/2025 PFT GENERIC [...] VENOUS BLOOD VENIPUNCTURE Routine 01/08/2025 11:00 AM AIR QUALITY CONSULTANT Benign hypertension BASIC METABOLIC PANEL Routine 01/08/2025 10:52 AM AIR QUALITY CONSULTANT Benign hypertension LIPID PANEL Routine 06/08/2024 11:21 AM CDT Hyperlipidemia, unspecified hyperlipidemia type HEMOGLOBIN, GLYCOSYLATED Routine 06/08/2024 11:21 AM CDT Controlled type 2 diabetes mellitus with diabetic polyneuropathy, without long-term current use of insulin BONE DENSITY GENERIC (SCAN ORDER) 11/27/2021 HEPATITIS C ANTIBODY Routine 09/08/2020 9:45 AM AIR QUALITY CONSULTANT Need for hepatitis C screening test COLONOSCOPY Routine 08/19/2017 12:00 AM CDT from Last 3 Months or Most Recently Relevant to Health Maintenance Results * OUTSIDE LAB (SCAN ORDER) (03/01/2025) 03/01/2025 us [facility] Scanned SCANNING Final Resu lt * PFT GENERIC (SCAN ORDER) (02/01/2025) 02/01/[address] [facility] Group Scanned SCANNING Final Resu lt * PFT GENERIC (SCAN ORDER) (02/01/2025) 02/01/2025 [facility] Group Scanned SCANNING Final Resu lt * PFT GENERIC (SCAN ORDER) (02/01/2025) 02/01/2025 [facility] Group Scanned SCANNING Final Resu lt * PULMONARY GENERIC (01/31/2025) 01/31/2025 Result [facility] Group Scanned SCANNING Final Resu lt * XR CHEST PA+LAT (01/28/2025 10:17 AM CDT) Anatomical Region Laterality Modality Chest Radiographic Gladys ging 01/28/2025 5:01 PM CDT Impressions 01/28/2025 5:03 PM CDT =====IMPRESSION:===== Yudr-ka-vpvgxdlf CHF. Age indeterminate right lateral seventh rib fracture. No pneumothorax Ordered By: MINERVA GONZALEZ Interpreted By: Fady Martinez, 01/28/2025 5:01 PM Narrative 01/28/2025 5:03 PM CDT [facility] [address] [place] [address] EXAMINATION: PA AND LATERAL CHEST Exam date/time: 01/28/2025 10:04 AM Reason For Exam: sob Comparison: None Technique: 2 views. Findings: Zcis-uv-xtvbriqv CHF. No patchy infiltrate. No pleural effusion or pneumothorax. Mild to moderate cardiomegaly. Left shoulder prosthesis. Upper lumbar hardware. Electrodes overlie the posterior mid to lower thoracic spine. Age indeterminate right seventh lateral rib fracture. Procedure Note Dexter Martinez MD - 01/28/2025 [facility] [address] [place] [address] EXAMINATION: PA AND LATERAL CHEST Exam date/time: 01/28/2025 10:04 AM Reason For Exam: sob Comparison: None Technique: 2 views. Findings: Emwf-uk-ltcooxki CHF. No patchy infiltrate. No pleural effusion or pneumothorax. Mild to moderate cardiomegaly. Left shoulder prosthesis. Upper lumbarhardware. Electrodes overlie the posterior mid to lower thoracic spine. Age indeterminate right seventh lateral rib fracture. =====IMPRESSION:===== Zklf-sz-wudcoixl CHF. Age indeterminate right lateral seventh rib fracture. No pneumothorax Ordered By: MINERVA GONZALEZ Interpreted By: Fady Martinez, 01/28/2025 5:01 PM Minerva Gonzalez MD GENERAL IMAGING Final Resul t * (ABNORMAL) PRO-BNP (01/28/2025 9:38 AM CDT) PRO-B TYPE NATRIURETIC PEPTIDE 759(H) <450 PG/ML 01/28/2025 1:50 PM CDT [facility] Comment: CUT POINTS ESTABLISHED BY INTERNATIONAL [...] Minerva Gonzalez MD LABORATORY Final Resul t [facility] [address] [place] [address], * (ABNORMAL) BASIC METABOLIC PANEL (01/28/2025 9:38 AM CDT) Only the most recent of2 resultswithin the time period is included. [facility] GLUCOSE 83 70 - 99 MG/DL 01/28/2025 1:50 PM CDT [facility] BUN 25(H) 7 - 18 MG/DL 01/28/2025 1:50 PM CDT [facility] CREATININE S/P/B 1.05(H) 0.55 - 1.02 MG/DL 01/28/2025 1:50 PM CDT [facility] SODIUM S/P/B 144 136 - 145 MMOL/L 01/28/2025 1:50 PM CDT [facility] POTASSIUM S/P/B 4.1 3.5 - 5.1 MMOL/L 01/28/2025 1:50 PM CDT [facility] CHLORIDE S/P/B 104 100 - 108 MMOL/L 01/28/2025 1:50 PM CDT [facility] CO2 32.6(H) 21 - 32 MMOL/L 01/28/2025 1:50 PM T [facility] CALCIUM S/P/B 9.2 8.5 - 10.1 MG/DL 01/28/2025 1:50 PM CDT [facility] ANION GAP 7.4 5 - 15 MMOL/L 01/28/2025 1:50 PM T [facility] BUN CREATININE RATIO 23.8 6 - 26 01/28/2025 1:50 PM CDT [facility] GFR ESTIMATE 54(L) >90 ML/MIN/1.7 3 M2 01/28/2025 1:50 PM CDT [facility] Comment: NOTE: eGFR is not calculated for patients <18 years of age. This is an estimated GFR calculation using the new CKD EPI creatinine equation without race and so does not require a correction factor for race. This estimated GFR should not be used for calculating drug doses. 01/28/2025 9:38 AM CDT us Minerva Gonzalez MD LABORATORY Final Resul t [facility] [address] [place] [address], [id number]|2025-03-25 01:17:00|2025-03-25 01:17:00|XMS_ITS|BKG DAEMON|External Medical Summaries|[id number]|" Encounter Summary Created on: March 25, 2025 Loreto Acevedo : 1945 Sex: Female Author Organization [facility] Address [address] [place] [address] Care Team Providers Care Rampman Name Role Phone Poppy Quiroz MD Primary Care Provider + [phone] Alexsander Chen MD Unavailable [phone] Klarissa Tran AUDIT CLERK Unavailable [phone] Cortez Goins MD Primary Care Provider Minerva Gonzalez MD Primary Care Provider [phone] Vy Smith RN Unavailable [phone] Sea Aguilera MD Unavailable [phone] Encounter Details Date Type Department Care Team (Late Contact Info) Description 01/29/[address] [facility] [address] [place] [address] Kyra [facility] Provider RE:Appointment Request - Medicare Wellness Visit [...] Sex Assigned at Female 11/22/2024 10:56 AM AIR QUALITY CONSULTANT Legal Sex Female 7:10 PM CDT Gender [...] Encounters Date Type Department Care Team (Late Contact Info) Description 04/11/2025 10:40 AM CDT Office Visit [facility] Medical Group Family & Internal Medicine [facility] [address] [place] [address] [place] [address] [place] [address] documented as of this encounter Visit Diagnoses Not on filedocumented in this encounter Additional Health Concerns Infection Onset Date Last Indicated Resolved Time COVID-19 Confirmed 07/18/2023 07/18/2023 12:32 AM CDT COVID-19 Rule Out 08/02/2023 07/18/2023 08/02/2023 10:55 AM CDT documented as of this encounter Care Teams Rampman Relationship Specialty Start Date End Date Poppy Quiroz MD PCP - General INTERNAL MEDICINE 08/17/18 02/10/23 Cortez Goins MD [address] [address] PCP - General INTERNAL MEDICINE 02/11/23 02/13/23 [place] [address] [place] [address] PCP - General FAMILY PRACTICE 02/14/23 Alexsander Chen MD [address] [place] [phone] CARDIOVASCULAR DISEASE 03/02/19 Klarissa Tran APRN 3 [facility] [address] [place] [address] NURSE PRACTITIONER 07/30/20 Vy Smith, RN [address] [place] [address] Tie Buyer (Ambulatory) REGISTERED NURSE 05/19/23 06/14/23 Sea Aguilera MD [address] [facility] [address] [place] [address] Physician INTERVENTIONAL CARDIOLOGY 03/11/25 documented as of this encounter "
--- OUTSIDE RECORDS SUMMARY | 2025-03-25 01:17 | XMS_ITS | Encounter Summary ---
Author Organization [facility] Address [address] [place] [address] Care Team Providers Care Architectural Coating Finisher Name Role Phone Poppy Quiroz MD Primary Care Provider + [phone] Alexsander Chen MD Unavailable [phone] Klarissa Tran RADIOCOMMUNICATIONS TECHNICIAN Unavailable [phone] Cortez Goins MD Primary Care Provider [phone] Sushant Gonzalez MD Primary Care Provider [phone] yV Smith RN Unavailable [phone] Sea Aguilera MD Unavailable [phone] Encounter Details Date Type Department Care Team (Late st Contact Info) Description 03/20/2021 [facility] Message Enc [facility] Medical Group Family & Internal Medicine [facility] [address] [place] [address] Kyra [facility] Provider RE:Referral Social History Tobacco Use Types [...] Sex Assigned at Female 11/22/2024 10:56 AM ENCEPHALOGRAPHER Legal Sex Female 7:10 PM CDT Gender [...] CENTER Medical Group Family & Internal Medicine [facility] [address] [place] [address] [place]ush[place] [id number] [place] [address] documented as of this encounter Visit Diagnoses Not on filedocumented in this encounter Additional Health Concerns Infection Onset Date Last Indicated Resolved Time COVID-19 Confirmed 07/18/2023 07/18/2023 12:32 AM CDT COVID-19 Rule Out 08/02/2023 07/18/2023 08/02/2023 10:55 AM CDT documented as of this encounter Care Teams Architectural Coating Finisher Relationship Specialty Start Date End Date Poppy Quiroz MD PCP - General INTERNAL MEDICINE 08/17/18 02/10/23 Cortez Goins MD [address] [address] PCP - General INTERNAL MEDICINE 02/11/23 02/13/23 [place]ushant Gonzalez [place] [address] [place] [address] PCP - General FAMILY PRACTICE 02/14/23 Alexsander Chen MD [address] [place] [address] CARDIOVASCULAR DISEASE 03/02/19 Klarissa Tran APRN 3 [facility] [address] [place] [address] NURSE PRACTITIONER 07/30/20 Vy Smith, RN [address] [place], [place] [address] Property Management Supervisor (Ambulatory) REGISTERED NURSE 05/19/23 06/14/23 Sea Aguilera MD [address] [facility] [address] [place] [address] Physician INTERVENTIONAL CARDIOLOGY 03/11/25 documented as of this encounter
--- OUTSIDE RECORDS SUMMARY | 2025-03-25 01:17 | XMS_ITS ---
Author Organization [facility] Address [address] [place], [place] [address] Care Team Providers Care Cloth Seconds Sorter Name Role Phone CHICHI BARRETO Unavailable [phone] Sushant Gonzalez Unavailable Unavailable LUH RAYO Unavailable [phone] REASON FOR VISIT *General care Encounters Encounter Location Date Provider Diagnosis [address] [id number] 06/14/2024 LUH RAYO Plan Of Treatment No Information Progress Notes * YVONNE NEGRON MDOB:1944 (80 yo F)Acc No.[id number]:06/14/2024 Patient: Jad YVONNE TAYLOR Provider: Marc RAYO :1945 A ge:79 Y S ex:Female Date:06/14/2024 Address:[address] [place], [place] [id number] Subjective: * Chief Complaints: * 1 . *General care. * Medical History: Objective: * Vitals: Assessment: Plan: * Treatment: * Billing Information: * Visit Code: * Procedure Codes: * Electronic signature of TRENT RAYO DPM on 03/25/2025 at 01:16 AM CDT Sign off status: Pending * Provider: Marc RAYO Date: 0 06/14/2024 Generated for Sharathi tai/Cherie/eTransmitting on: 0 03/25/2025 01:16 AM CDT
--- OUTSIDE RECORDS SUMMARY | 2025-03-25 01:17 | XMS_ITS | Clinical Summary ---
Author Organization [facility] Address [address] [place] [address] Care Team Providers Care Magazine Designer Name Role Phone Poppy Quiroz MD Primary Care Provider + [phone] Source Comments [facility],non-owned Affiliates and Associated Physician Practices is amultiple site organization consisting of ambulatory clinics and hospital sitesin [place], [place], [place] and [place]. This disclosure is being madepursuant to the Care Everywhere program and may not contain all information available regarding this patient. Last updated 18.[facility] Social History Tobacco Use Types Packs/Day Years Used Date Smoking Tobacco: Never Assessed PHQ-2 Answer Date Recorded PHQ2 TOTAL SCORE 3 07/19/2022 Comments Unknown Sex and Gender Information Value Date Recorded Sex Assigned at Not on file Legal Sex Female 4:21 AM SUIT ATTENDANT Gender Identity Not on file Sexual Orientation [...] age to complete this topic Care Teams Magazine Designer Relationship Specialty Start Date End Date Poppy Quiroz MD PCP - General 05/07/22
--- OUTSIDE RECORDS SUMMARY | 2025-03-25 01:17 | XMS_ITS | Encounter Summary ---
Author Organization [facility] Address [address] [place] [address] Care Team Providers Care Wool Mixer Name Role Phone Poppy Quiroz MD Primary Care Provider + [phone] Alexsander Chen MD Unavailable [phone] Klarissa Tran ORACLE DATABASE CONSULTANT Unavailable [phone] Cortez Goins MD Primary Care Provider [phone] Sushant Gonzalez MD Primary Care Provider [phone] Vy Smith RN Unavailable [phone] Sea Aguilera MD Unavailable [phone] Encounter Details Date Type Department Care Team (Late st Contact Info) Description 02/21/2021 MyChart Message Enc [facility] Medical Group Wound Clinic [facility] [phone] [place] [address] Poppy Quiroz MD [address] [place] [address] Question Social History Tobacco Use Types [...] Sex Assigned at Female 11/22/2024 10:56 AM TEST ENGINEER Legal Sex Female 7:10 PM CDT Gender [...] 10:40 AM CDT Office Visit [facility] Medical Group Family & Internal Medicine - [place] [address] [place] [address] [place] [address] [place] [address] documented as of this encounter Visit Diagnoses Not on filedocumented in this encounter Additional Health Concerns Infection Onset Date Last Indicated Resolved Time COVID-19 Confirmed 07/18/2023 07/18/2023 12:32 AM CDT COVID-19 Rule Out 08/02/2023 07/18/2023 08/02/2023 10:55 AM CDT documented as of this encounter Care Teams Wool Mixer Relationship Specialty Start Date End Date Poppy Quiroz MD PCP - General INTERNAL MEDICINE 08/17/18 02/10/23 Cortez Goins MD [address] [address] PCP - General INTERNAL MEDICINE 02/11/23 02/13/23 [place] [address] [place] [address] PCP - General FAMILY PRACTICE 02/14/23 Alexsander Chen MD [address] [place] [phone] CARDIOVASCULAR DISEASE 03/02/19 Klarissa Tran APRN 3 [facility] [address] [place], [place] [phone] NURSE PRACTITIONER 07/30/20 Vy Smith, RN [address] [place] [address] Retail Account Representative (Ambulatory) REGISTERED NURSE 05/19/23 06/14/23 Sea Aguilera MD [address] [facility] [address] [place] [address] Physician INTERVENTIONAL CARDIOLOGY 03/11/25 documented as of this encounter
--- OUTSIDE RECORDS SUMMARY | 2025-03-25 01:17 | XMS_ITS | Encounter Summary ---
Author Organization [facility] Address [address] [place] [address] Care Team Providers Care Pedigree Researcher Name Role Phone Poppy Quiroz MD Primary Care Provider Alexsander Chen MD Unavailable [phone] Klarissa Tran CORNCOB PIPES ASSEMBLER Unavailable [phone] Cortez Goins MD Primary Care Provider Sushant Gonzalez MD Primary Care Provider Vy Smith RN Unavailable [phone] Sea Aguilera MD Unavailable [phone] Encounter Details Date Type Department Care Team (Late st Contact Info) Description 09/07/2020 MyChart Message Enc [facility] Multispecialty Care - [facility] 3 [facility], [address] [phone] Sherry Cruz MD 1 [place] [address] Question Social History Tobacco Use [...] Sex Assigned at Female 11/22/2024 10:56 AM VAULT SERVICE MECHANIC Legal Sex Female 7:10 PM CDT [...] COVID-19? No / Unsure 09/08/2020 8:47 AM VAULT SERVICE MECHANIC documented as of this encounter Plan of Treatment Upcoming Encounters Date Type Department Care Team (Late st Contact Info) Description 04/11/2025 10:40 AM CDT Office Visit [facility] Family & Internal Medicine [facility] [address] [place] [address] Sushant Gonzalez MD [address] [place] [address] documented as of this encounter Visit Diagnoses Not on filedocumented in this encounter Additional Health Concerns Infection Onset Date Last Indicated Resolved Time COVID-19 Confirmed 07/18/2023 07/18/2023 12:32 AM CDT COVID-19 Rule Out 08/02/2023 07/18/2023 08/02/2023 10:55 AM CDT documented as of this encounter Care Teams Pedigree Researcher Relationship Specialty Start Date End Date Poppy Quiroz MD PCP - General INTERNAL MEDICINE 08/17/18 02/10/23 Cortez Goins MD [address] [address] PCP - General INTERNAL MEDICINE 02/11/23 02/13/23 [place] [address] [place] [address] PCP - General FAMILY PRACTICE 02/14/23 Alexsander Chen MD [address] [place] [phone] CARDIOVASCULAR DISEASE 03/02/19 Klarissa Tran APRN 3 [facility] [address] [place] [address] NURSE PRACTITIONER 07/30/20 Vy Smith, RN 305[address] [place] [address] Global Commodity Manager (Ambulatory) REGISTERED NURSE 05/19/23 06/14/23 Sea Aguilera MD [address] [facility] [address] [address] Physician INTERVENTIONAL CARDIOLOGY 03/11/25 documented as of this encounter
--- OUTSIDE RECORDS SUMMARY | 2025-03-25 01:17 | XMS_ITS | Encounter Summary ---
Author Organization [facility] Address [facility] [place] [address] Care Team Providers Care Certified Professional Coder Name Role Phone Poppy Quiroz MD Primary Care Provider [phone] Alexsander Chen MD Unavailable [phone] Klarissa Tran INSIDE BARREL LATHE OPERATOR Unavailable [phone] Cortez Goins MD Primary Care Provider Sushant Gonzalez MD Primary Care Provider Vy Smith RN Unavailable [phone] Sea Aguilera MD Unavailable [phone] Reason for Visit * Reason Onset Date Comments Other 09/08/2020 Encounter Details Date Type Department Care Team (Late st Contact Info) Description 09/08/2020 Telephone [facility] Multispecialty Care - [facility] 3 [facility], [address] [address] Sherry Cruz MD 1 [place] [address] Other Social History Tobacco Use [...] Sex Assigned at Female 11/22/2024 10:56 AM PARTITION ASSEMBLY MACHINE OPERATOR Legal Sex Female 7:10 PM [...] COVID-19? No / Unsure 09/08/2020 8:47 AM PARTITION ASSEMBLY MACHINE OPERATOR documented as of this encounter Progress Notes * Latonya Valle RN - 09/08/2020 2:[address] Mcwilliams, pt needs to wait until after her lumbar puncture and labs to try this medication. PTmade aware and v/u ITION ASSEMBLY MACHINE OPERATOR * Latonya Valle RN - 09/08/2020 1:28 PM CST Printed to discuss with Dr. Mcwilliams ITION ASSEMBLY MACHINE OPERATOR * Alisson To LPN - 09/08/2020 1:22 PM CST Pt called states that She forgot to ask DR. Mcwilliams today during OV about Diet pills Burn thermogenic Bought online Can pt take this With other meds she is on ? Directions 2x days cb green tea caffeine cayenne capfimx are the ingredients Magnesium cb [phone] ITION ASSEMBLY MACHINE OPERATOR documented in this encounter Plan of Treatment Upcoming Encounters Date Type Department Care Team (Late st Contact Info) Description 04/11/2025 10:40 AM CDT Office Visit [facility] Medical [facility] Family & Internal Medicine [facility] [address] [place] [address] [place] [address] [place] [address] documented as of this encounter Visit Diagnoses Not on filedocumented in this encounter Additional Health Concerns Infection Onset Date Last Indicated Resolved Time COVID-19 Confirmed 07/18/2023 07/18/2023 12:32 AM CDT COVID-19 Rule Out 08/02/2023 07/18/2023 08/02/2023 10:55 AM CDT documented as of this encounter Care Teams Certified Professional Coder Relationship Specialty Start Date End Date Poppy Quiroz MD PCP - General INTERNAL MEDICINE 08/17/18 02/10/23 Cortez Goins MD [address] [address] PCP - General INTERNAL MEDICINE 02/11/23 02/13/23 [place] [address] [place] [address] PCP - General FAMILY PRACTICE 02/14/23 Alexsander Chen MD 619 [place] [address] CARDIOVASCULAR DISEASE 03/02/19 Klarissa Tran APRN 3 [facility] [address] [place] [address] NURSE PRACTITIONER 07/30/20 Vy Smith, RN [address] [place] [address] Industrial Yard Brake Coupler (Ambulatory) REGISTERED NURSE 05/19/23 06/14/23 Sea Aguilera MD 619 [facility] [address] [address] Physician INTERVENTIONAL CARDIOLOGY 03/11/25 documented as of this encounter
--- OUTSIDE RECORDS SUMMARY | 2025-03-25 01:17 | XMS_ITS | Encounter Summary ---
Author Organization [facility] Address [address] [place] [address] Care Team Providers Care Health/Safety Job Titles Name Role Phone Poppy Quiroz MD Primary Care Provider + [phone] Alexsander Chen MD Unavailable [phone] Klarissa Tran HIGH WIRE ARTIST Unavailable [phone] Cortez Goins MD Primary Care Provider [phone] Sushant Gonzalez MD Primary Care Provider [phone] Vy Smith RN Unavailable [phone] Sea Aguilera MD Unavailable [phone] Encounter Details Date Type Department Care Team (Late st Contact Info) Description 07/22/2021 ThreatStream Message Enc [facility] Family [facility] Internal Medicine [facility] [address] [place] [address] [facility] Provider Covid Booster Social History Tobacco Use [...] Sex Assigned at Female 11/22/2024 10:56 AM CARBON PASTE MIXER OPERATOR Legal Sex Female 7:10 PM CDT [...] 04/11/2025 10:40 AM CDT Office Visit [facility] Family & Internal Medicine [facility] [address] [place] [address] [place]ush[place] [address] [place] [address] documented as of this encounter Visit Diagnoses Not on filedocumented in this encounter Additional Health Concerns Infection Onset Date Last Indicated Resolved Time COVID-19 Confirmed 07/18/2023 07/18/2023 12:32 AM CDT COVID-19 Rule Out 08/02/2023 07/18/2023 08/02/2023 10:55 AM CDT documented as of this encounter Care Teams Health/Safety Job Titles Relationship Specialty Start Date End Date Poppy Quiroz MD PCP - General INTERNAL MEDICINE 08/17/18 02/10/23 Cortez Goins MD [address] [address] PCP - General INTERNAL MEDICINE 02/11/23 02/13/23 [place]ushant Gonzalez [place] [address] [place] [address] PCP - General FAMILY PRACTICE 02/14/23 Alexsander Chen MD [address]19 [place] [address] CARDIOVASCULAR DISEASE 03/02/19 Klarissa Tran APR[address] 3 [facility] [address] [place] [address] NURSE PRACTITIONER 07/30/20 Vy Smith, RN [address] [place], [place] [address] Sanding Supervisor (Ambulatory) REGISTERED NURSE 05/19/23 06/14/23 Sea Aguilera MD 619 E [facility] [address] [place] [address] Physician INTERVENTIONAL CARDIOLOGY 03/11/25 documented as of this encounter
--- OUTSIDE RECORDS SUMMARY | 2025-03-25 01:17 | XMS_ITS | Encounter Summary ---
Author Organization [facility] Address [address] [place] [address] Care Team Providers Care Hydrodynamicist Name Role Phone Poppy Quiroz MD Primary Care Provider [phone] Alexsander Chen MD Unavailable [phone] Klarissa Tran STORAGE GARAGE ATTENDANT Unavailable [phone] Cotrez Goins MD Primary Care Provider [phone] Sushant Gonzalez MD Primary Care Provider [phone] Vy Smith RN Unavailable [phone] Sea Aguilera MD Unavailable [phone] Encounter Details Date Type Department Care Team (Late st Contact Info) Description 12/29/2021 MyChart Message Enc [facility] Medical Group Family & Internal Medicine [facility] [address] [place] [address] [place]ppy Quiroz [place] [address] [place] [address] 12/28/21 blood tests results Social History [...] Sex Assigned at Female 11/22/2024 10:56 AM MANAGEMENT TECH Legal Sex Female 7:10 PM CDT Gender [...] Coronavirus/COVID-19? Unable to assess 12/14/2021 7:13 AM MANAGEMENT TECH documented as of this encounter Progress Notes * Latonya Valle RN - 01/01/2022 2:03 PM CST FYI GEMENT TECH * Irene Valdivia LPN - 01/01/2022 8:11 AM CST Printed for Poppy to review GEMENT TECH * Rabia Ernst MA - 12/31/2021 1:07 PM CST Informed. GEMENT TECH * Rabia Ernst MA - 12/31/2021 11:47 AM CST LMOM to call office. Per Dr. Mcwilliams Decrease NA intake Increase her water pill per cardiology Wear compression stockings Increase protein Walk or elevate legs. GEMENT TECH * Rabia Ernst MA - 12/31/2021 7:52 AM CST Printed for provider to review. GEMENT TECH * Rabia Ernst MA - 12/31/2021 7:52 AM CST Printed for patient GEMENT TECH * Latonya Valle RN - 12/30/2021 9:25 AM CST Printed to make Dr. Mcwilliams aware GEMENT TECH documented in this encounter Plan of Treatment Upcoming Encounters Date Type Department Care Team (Late st Contact Info) Description 04/11/2025 10:40 AM CDT Office Visit [facility] Medical Group Family & Internal Medicine [facility] [address] [place] [address] Sushant Gonzalez MD [address] [place] [address] documented as of this encounter Visit Diagnoses Not on filedocumented in this encounter Additional Health Concerns Infection Onset Date Last Indicated Resolved Time COVID-19 Confirmed 07/18/2023 07/18/2023 12:32 AM CDT COVID-19 Rule Out 08/02/2023 07/18/2023 08/02/2023 10:55 AM CDT documented as of this encounter Care Teams Hydrodynamicist Relationship Specialty Start Date End Date Poppy Quiroz MD PCP - General INTERNAL MEDICINE 08/17/18 02/10/23 Cortez Goins MD [address] [address] PCP - General INTERNAL MEDICINE 02/11/23 02/13/23 [place] [address] [place] [address] PCP - General FAMILY PRACTICE 02/14/23 Alexsander Chen MD [address] [place] [address] CARDIOVASCULAR DISEASE 03/02/19 Klarissa Tran APRN 3 [facility] [address] [place] [address] NURSE PRACTITIONER 07/30/20 Vy Smith, RN [address]1 [place] [address] Director Manufacturing Engineering (Ambulatory) REGISTERED NURSE 05/19/23 06/14/23 Sea Aguilera MD 619 E [facility] [address] [place] [address] Physician INTERVENTIONAL CARDIOLOGY 03/11/25 documented as of this encounter
--- OUTSIDE RECORDS SUMMARY | 2025-03-25 01:17 | XMS_ITS | Encounter Summary ---
Author Organization [facility] Address [address] [place] [address] Care Team Providers Care Cafe Or Restaurant Manager Name Role Phone Poppy Quiroz MD Primary Care Provider + [phone] Alexsander Chen MD Unavailable [phone] Klarissa Tran MIDDLE SCHOOL LIBRARIAN Unavailable [phone] Cortez Goins MD Primary Care Provider [phone] Sushant Gonzalez MD Primary Care Provider [phone] Vy Smith RN Unavailable [phone] Sea Aguilera MD Unavailable [phone] Encounter Details Date Type Department Care Team (Late st Contact Info) Description 08/08/2021 MyChart Message Enc [facility] Medical Group Family & Internal Medicine [facility] [address] [place] [address] Poppy Quiro[place] [address] [place] [address] Other Social History Tobacco Use Types [...] Sex Assigned at Female 11/22/2024 10:56 AM ELEMENTARY SCHOOL COUNSELOR Legal Sex Female 7:10 PM CDT [...] Description 04/11/2025 10:40 AM CDT Office Visit [facility] Medical Group Family & Internal Medicine [facility] [address] [place] [address] [place]ush[place] Gonzalez [place] [address] [place] [address] documented as of this encounter Visit Diagnoses Not on filedocumented in this encounter Additional Health Concerns Infection Onset Date Last Indicated Resolved Time COVID-19 Confirmed 07/18/2023 07/18/2023 12:32 AM CDT COVID-19 Rule Out 08/02/2023 07/18/2023 08/02/2023 10:55 AM CDT documented as of this encounter Care Teams Cafe Or Restaurant Manager Relationship Specialty Start Date End Date Poppy Quiroz MD PCP - General INTERNAL MEDICINE 08/17/18 02/10/23 Cortez Goins MD 1188 [facility] [address] [place] [address] PCP - General INTERNAL MEDICINE 02/11/23 02/13/23 [place] [address] [place] [address] PCP - General FAMILY PRACTICE 02/14/23 Alexsander Chen MD [address] [place] [address] CARDIOVASCULAR DISEASE 03/02/19 Klarissa Tran APRN 3 [facility] [address] [place], [place] [address] NURSE PRACTITIONER 07/30/20 Vy Smith, RN [address] [place], [place] [address] Poultry Buyer (Ambulatory) REGISTERED NURSE 05/19/23 06/14/23 Sea Aguilera MD 619 E [facility] [address] [place] [address] Physician INTERVENTIONAL CARDIOLOGY 03/11/25 documented as of this encounter
--- OUTSIDE RECORDS SUMMARY | 2025-03-25 01:17 | XMS_ITS | Encounter Summary ---
Author Organization [facility] Address [address] [place] [address] Care Team Providers Care Rn Clinical Appeals Name Role Phone Poppy Quiroz MD Primary Care Provider + [phone] Alexsander Chen MD Unavailable [phone] Klarissa Tran E COMMERCE MERCHANT Unavailable [phone] Cortez Goins MD Primary Care Provider [phone] Sushant Gonzalez MD Primary Care Provider [phone] Vy Smith RN Unavailable [phone] Sea Aguilera MD Unavailable [phone] Encounter Details Date Type Department Care Team (Late st Contact Info) Description 01/15/2021 Nano Network Engines Message [facility] [address] [place] [address] [facility] Provider RE:Information Social History Tobacco Use [...] Assigned at Female 11/22/2024 10:56 AM BUSINESS PROCESS CONSULTANT Legal Sex Female 7:10 PM CDT [...] Description 04/11/2025 10:40 AM CDT Office Visit [facility] Medical Group Family & Internal Medicine [facility] [address] [place] [address] [place]ush[place] Gonzalez [place] [address] [place] [address] documented as of this encounter Visit Diagnoses Not on filedocumented in this encounter Additional Health Concerns Infection Onset Date Last Indicated Resolved Time COVID-19 Confirmed 07/18/2023 07/18/2023 12:32 AM CDT COVID-19 Rule Out 08/02/2023 07/18/2023 08/02/2023 10:55 AM CDT documented as of this encounter Care Teams Rn Clinical Appeals Relationship Specialty Start Date End Date Poppy Quiroz MD PCP - General INTERNAL MEDICINE 08/17/18 02/10/23 Cortez Goins MD [address] [address] PCP - General INTERNAL MEDICINE 02/11/23 02/13/23 [place]ushant Gonzalez [place] [address] [place] [address] PCP - General FAMILY PRACTICE 02/14/23 Alexsander Chen MD 619 [place] [address] CARDIOVASCULAR DISEASE 03/02/19 Klarissa Tran APRN 3 [facility] [address] [place] [address] NURSE PRACTITIONER 07/30/20 Vy Smith, RN [address] [place] [address] Transportation Museum Helper (Ambulatory) REGISTERED NURSE 05/19/23 06/14/23 Sea Aguilera MD 619 [facility] [address] [place] [address] Physician INTERVENTIONAL CARDIOLOGY 03/11/25 documented as of this encounter
--- OUTSIDE RECORDS SUMMARY | 2025-03-25 01:17 | XMS_ITS | Encounter Summary ---
Author Organization [facility] Address [address] [place] [address] Care Team Providers Care Kingsbury Machine Operator Name Role Phone Alexsander Chen MD Unavailable [phone] Klarissa Tran APRN Unavailable [phone] Sushant Gonzalez MD Primary Care Provider [phone] Vy Smith RN Unavailable [phone] Sea Aguilera MD Unavailable [phone] Encounter Details Date Type Department Care Team (Late st Contact Info) Description 05/04/2023 Duxter Message [facility] - [facility] [address] [place], [place] [address] [facility] Provider Air Quality Message Social History [...] Assigned at Female 11/22/2024 10:56 AM AIR CONDITIONING EQUIPMENT MECHANIC Legal Sex Female 7:10 PM CDT [...] Description 04/11/2025 10:40 AM CDT Office Visit [facility] Medical Group Family & Internal Medicine [facility] [address] [place] [address] [place] [address] [place], [place] [address] documented as of this encounter Visit Diagnoses Not on filedocumented in this encounter Additional Health Concerns Infection Onset Date Last Indicated Resolved Time COVID-19 Confirmed 07/18/2023 07/18/2023 12:32 AM CDT COVID-19 Rule Out 08/02/2023 07/18/2023 08/02/2023 10:55 AM CDT Assessment Noted Time PHQ-9 Depression Total Score: 4 11/09/19 23 12:56 PM AIR CONDITIONING EQUIPMENT MECHANIC documented as of this encounter Care Teams [place] Machine Operator Relationship Specialty [place] [address] [place] [address] PCP - General FAMILY PRACTICE 02/14/23 Alexsander Chen MD [address] [place] [address] CARDIOVASCULAR DISEASE 03/02/[address] [facility] [address] [place] [address] NURSE PRACTITIONER 07/30/20 Vy Smith, RN [address] [place], [place] [address] Shell Mold Bonding Machine Operator (Ambulatory) REGISTERED NURSE 05/19/23 06/14/23 Sea Aguilera MD [address] E [facility] [address] [place], [place] [address] Physician INTERVENTIONAL CARDIOLOGY 03/11/25 documented as of this encounter
--- OUTSIDE RECORDS SUMMARY | 2025-03-25 01:17 | XMS_ITS | Encounter Summary ---
Author Organization [facility] Address [address] [place] [address] Care Team Providers Care Emergency Medicine Medical Director Name Role Phone Poppy Quiroz MD Primary Care Provider + [phone] Alexsander Chen MD Unavailable [phone] Klarissa Tran LINOLEUM MECHANIC Unavailable [phone] Cortez Goins MD Primary Care Provider [phone] Sushant Gonzalez MD Primary Care Provider [phone] Vy Smith RN Unavailable [phone] Sea Aguilera MD Unavailable [phone] Encounter Details Date Type Department Care Team (Late st Contact Info) Description 10/06/2020 MyChart Message Enc [facility] Medical Group Family & Internal Medicine [facility] [address] [place] [address] Poppy Quiroz MD [address] [place] [address] RE: Question Social History Tobacco Use [...] Sex Assigned at Female 11/22/2024 10:56 AM SOAPING DEPARTMENT SUPERVISOR Legal Sex Female 7:10 PM CDT [...] COVID-19? No / Unsure 10/06/2020 12:26 PM SOAPING DEPARTMENT SUPERVISOR documented as of this encounter Progress Notes * Sarah Cotton MA - 10/07/2020 8:13 AM CST Printed for provider to advise ING DEPARTMENT SUPERVISOR documented in this encounter Plan of Treatment Upcoming Encounters Date Type Department Care Team (Late st Contact Info) Description 04/11/2025 10:40 AM CDT Office Visit [facility] Medical Group Family & Internal Medicine - [address] [address] Sushant Gonzalez MD [address] [place] [address] documented as of this encounter Visit Diagnoses Not on filedocumented in this encounter Additional Health Concerns Infection Onset Date Last Indicated Resolved Time COVID-19 Confirmed 07/18/2023 07/18/2023 12:32 AM CDT COVID-19 Rule Out 08/02/2023 07/18/2023 08/02/2023 10:55 AM CDT documented as of this encounter Care Teams Emergency Medicine Medical Director Relationship Specialty Start Date End Date Poppy Quiroz MD PCP - General INTERNAL MEDICINE 08/17/18 02/10/23 Cortez Goins MD 1188 [facility] [address] [place] [address] PCP - General INTERNAL MEDICINE 02/11/23 02/13/23 [place] [address] [place] [address] PCP - General FAMILY PRACTICE 02/14/23 Alexsander Chen MD [address] [place] [address] CARDIOVASCULAR DISEASE 03/02/19 Klarissa Tran APRN 3 [facility] [address] [place], [place] [address] NURSE PRACTITIONER 07/30/20 Vy Smith, RN 305[address] [place] [address] Veterinary Radiologist (Ambulatory) REGISTERED NURSE 05/19/23 06/14/23 Sea Aguilera MD [address] E [facility] [address] [place] [address] Physician INTERVENTIONAL CARDIOLOGY 03/11/25 documented as of this encounter
--- OUTSIDE RECORDS SUMMARY | 2025-03-25 01:17 | XMS_ITS | Continuity of Care Document ---
Author Organization [facility] Address [address] [place] [address] Phone Care Team Providers Care Glue Line Operator Name Role Phone Dino Garcia MD Unavailable [...] Diagnoses Date Provider Providers Copied on Encounter [facility], [address] [place] [address], [id number], tel:[phone] [facility] No Information 1 Jose Sun. [address] [place] [address], [id number] , . [phone] Referring Provider: Lai Juarez, Was @[facility] But Not There Anymore, [place]. Office/outpat ient visit,est, mod [facility], [address] [place] [address], [id number], tel:[phone] [facility] No Information 1 Jose Sun. [address] [place] [address], [id number] , . tel:[phone] Referring Provider: Lai Juarez, Was @[facility] But Not There Anymore, [place]. [facility], [address] [place] [address], [id number], tel:[phone] [facility] No Information 1 Panfilo Marquez. [address] [place], [place], [id number] , . tel:[phone] Referring Provider: Lai Juarez, Was @[facility] But Not There Anymore, [place] [facility], [address] [place] [address], [id number], tel:[phone] [facility] No Information 1 Jose Sun. [address] [place] [address], [id number] , . tel:[phone] Referring Provider: Dino Garcia, [address] [place] [address], [id number]. tel:[phone] Family History Family Member Type Diagnosis Age [...]
--- OUTSIDE RECORDS SUMMARY | 2025-03-25 01:17 | XMS_ITS | Patient Health Record ---
Author Organization [facility] Address [address] [place], [place] [id number] Care Team Providers Care Weight Control Engineer Name Role Phone CHICHI BARRETO Unavailable [phone] Sushant Gonzalez Unavailable Unavailable LUH RAYO Unavailable [phone] Reason For Referral No Information Medications Medication SIG (Take, Route, Frequency, Duration) Notes Start Date End Date Status pramipexole dihydrochloride 0.5 MG Oral Tablet [Mirapex] ORAL pramipexole dihydrochloride 0.5 MG Oral Tablet [Mirapex]Original Medicationpramipexole dihydrochloride 0.5 MG Oral Tablet [Mirapex] *[facility] and Interaction Alert[facility]* 7 Active oxycodone hydrochloride 10 MG Oral Tablet ORAL oxycodone hydrochloride 10 M G Oral TabletOriginal Medicationoxycodone hydrochloride 10 MG Oral Tablet *Re[facility] from [facility] e[facility] and Interaction Alert[facility]* 6 Active gabapentin 100 MG Oral Capsule [Neurontin] ORAL gabapentin 100 MG Oral Capsule [Neurontin]Original Medicationgabapentin 100 MG Oral Capsule [Neurontin] *[facility] for eRx and Interaction Alerts* 6 Active fluoxetine 10 MG Oral Capsule [Prozac] ORAL fluoxetine 10 MG Oral Capsul e [Prozac]Original Medicationfluoxetine 10 MG Oral Capsule [Prozac] *[facility] Interaction [facility]* 6 Active cholecalciferol 0.025 MG Chewable Tablet ORAL cholecalciferol 0.025 MG Chewable TabletOriginal Medicationcholecalciferol 0.025 MG Chewable Tablet *[facility] Interaction Alert[facility]* 7 Active Meloxicam 15 MG Oral Tablet ORAL meloxicam 15 MG Oral TabletOriginal Medicationmeloxicam 15 MG Oral Tablet *[facility] Interaction Alert[facility]* 6 Active Potassium Gluconate 2.5 MEQ Oral Tablet ORAL potassium gluconate 2.5 MEQ Oral TabletOriginal Medicationpotassium gluconate 2.5 MEQ Oral Tablet *Reorder from [facility] for eRx and Interaction Alerts* 6 Active Vital Signs Height-cm 157.48 cm 04/12/2024 Weight-kg 108.86 kg 04/12/2024 Height 62.00 in 04/12/2024 Weight 240 lbs 04/12/2024 BMI 43.89 kg/m2 04/12/2024 Encounters Encounter Location Date Provider Diagnosis [address] [id number] 04/12/2024 LUH RIVERAADRIANA Unspecified atherosclerosis of [place] arteries of extremities, bilateral legs I70.203 ; [...] and prescription treatments. 04/12/2024 Unspecified atherosclerosis of [place] arteries of extremities, bilateral legs (ICD-10 - [...] Start Date Coverage End Date [employer] [address] [place] [address] [id number] YVONNE NEGRON Self - patient is the insured
--- OUTSIDE RECORDS SUMMARY | 2025-03-25 01:17 | XMS_ITS | Encounter Summary ---
Author Organization [facility] Address [address] [place] [address] Care Team Providers Care Property Field Adjuster Name Role Phone Poppy Quiroz MD Primary Care Provider + [phone] Alexsander Chen MD Unavailable [phone] Klarissa Tran CHURCH SECRETARY Unavailable [phone] Cortez Goins MD Primary Care Provider [phone] Sushant Gonzalez MD Primary Care Provider [phone] Vy Smith RN Unavailable [phone] Sea Aguilera MD Unavailable [phone] Encounter Details Date Type Department Care Team (Late st Contact Info) Description 08/12/2021 MyChart Message Enc [facility] Family & Internal Medicine [facility] [address] [place] [address] [place] Quiro[place] [address] [place] [address] RE: Test Results Social History Tobacco [...] Sex Assigned at Female 11/22/2024 10:56 AM TERRITORY MANAGER Legal Sex Female 7:10 PM CDT [...] [facility] Internal Medicine [address] [address] [place] [address] [place] [address] documented as of this encounter Visit Diagnoses Not on filedocumented in this encounter Additional Health Concerns Infection Onset Date Last Indicated Resolved Time COVID-19 Confirmed 07/18/2023 07/18/2023 12:32 AM CDT COVID-19 Rule Out 08/02/2023 07/18/2023 08/02/2023 10:55 AM CDT documented as of this encounter Care Teams Property Field Adjuster Relationship Specialty Start Date End Date Poppy Quiroz MD PCP - General INTERNAL MEDICINE 08/17/18 02/10/23 Cortez Goins MD [address] [address] PCP - General INTERNAL MEDICINE 02/11/23 02/13/23 [place] [address] [place] [address] PCP - General FAMILY PRACTICE 02/14/23 Alexsander Chen MD [address] [place] [address] CARDIOVASCULAR DISEASE 03/02/19 Klarissa Tran APRN 3 [facility] [address] [place] [phone] NURSE PRACTITIONER 07/30/20 Vy Smith, RN [address] [place], [place] [address] Imaging Services Director (Ambulatory) REGISTERED NURSE 05/19/23 06/14/23 Sea Aguilera MD [address] [address] Physician INTERVENTIONAL CARDIOLOGY 03/11/25 documented as of this encounter
--- OUTSIDE RECORDS SUMMARY | 2025-03-25 01:17 | XMS_ITS | Encounter Summary ---
Author Organization [facility] Address [address] [place] [address] Care Team Providers Care Mercury Cracking Tester Name Role Phone Poppy Quiroz MD Primary Care Provider + [phone] Alexsander Chen MD Unavailable [phone] Klarissa Tran [facility] PHYSICIAN Unavailable [phone] Cortez Goins MD Primary Care Provider [phone] Sushant Gonzalez MD Primary Care Provider [phone] Vy Smith RN Unavailable [phone] Sea Aguilera MD Unavailable [phone] Encounter Details Date Type Department Care Team (Late st Contact Info) Description 06/17/2021 MyChart Message Enc [facility] Medical Group Family & Internal Medicine 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 Mcwilliams aware that pt has called again * Germania Hermosillo - 06/23/2021 12:11 PM CDT Pt called wanting to know if Dr. Mcwilliams filled out her papers Please advise [phone] * Alisson To LPN - 06/18/2021 8:55 [...] 04/11/2025 10:40 AM CDT Office Visit [facility] Medical Group Family & Internal Medicine [address] [address] Sushant Gonzalez MD [address] [place] [address] documented as of this encounter Visit Diagnoses Not on filedocumented in this encounter Additional Health Concerns Infection Onset Date Last Indicated Resolved Time COVID-19 Confirmed 07/18/2023 07/18/2023 12:32 AM CDT COVID-19 Rule Out 08/02/2023 07/18/2023 08/02/2023 10:55 AM CDT documented as of this encounter Care Teams Mercury Cracking Tester Relationship Specialty Start Date End Date Poppy Quiroz MD PCP - General INTERNAL MEDICINE 08/17/18 02/10/23 Cortez Goins MD [address] [address] PCP - General INTERNAL MEDICINE 02/11/23 02/13/23 Sushant Gonzalez MD [address] [place] [address] PCP - General FAMILY PRACTICE 02/14/23 Alexsander Chen MD [address] [place] [address] CARDIOVASCULAR DISEASE 03/02/19 Klarissa Tran APRN 3 [facility] [address] [place] [address] NURSE PRACTITIONER 07/30/20 Vy Smith, RN 305[address] [place] [address] Fruit Loader (Ambulatory) REGISTERED NURSE 05/19/23 06/14/23 Sea Aguilera MD [address] [facility] [address] [place] [address] Physician INTERVENTIONAL CARDIOLOGY 03/11/25 documented as of this encounter
--- OUTSIDE RECORDS SUMMARY | 2025-03-25 01:17 | XMS_ITS | Encounter Summary ---
Author Organization [facility] Address [address] [place] [address] Care Team Providers Care Cardiovascular Sonographer Name Role Phone Poppy Quiroz MD Primary Care Provider + [phone] Alexsander Chen MD Unavailable [phone] Klarissa Tran SALES REPRESENTATIVE SALES MANAGER Unavailable [phone] Cortez Goins MD Primary Care Provider [phone] Sushant Gonzalez MD Primary Care Provider [phone] Vy Smith RN Unavailable [phone] Sea Aguilera MD Unavailable [phone] Encounter Details Date Type Department Care Team (Late st Contact Info) Description 01/14/2021 [employer] Message [employer] 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 [address] [place] [address] [place]ush[place] Gonzalez [place] [address] [place] [address] documented as of this encounter Visit Diagnoses Not on filedocumented in this encounter Additional Health Concerns Infection Onset Date Last Indicated Resolved Time COVID-19 Confirmed 07/18/2023 07/18/2023 12:32 AM CDT COVID-19 Rule Out 08/02/2023 07/18/2023 08/02/2023 10:55 AM CDT documented as of this encounter Care Teams Cardiovascular Sonographer Relationship Specialty Start Date End Date Poppy Quiroz MD PCP - General INTERNAL MEDICINE 08/17/18 02/10/23 Cortez Goins MD [address] [address] PCP - General INTERNAL MEDICINE 02/11/23 02/13/23 [place] [address] [place] [address] PCP - General FAMILY PRACTICE 02/14/23 Alexsander Chen MD [address] [place] [address] CARDIOVASCULAR DISEASE 03/02/19 Klarissa Tran APRN 3 [facility] [address] [place] [phone] NURSE PRACTITIONER 07/30/20 Vy Smith, RN [address] [place], [place] [address] Welder Production Line Combination (Ambulatory) REGISTERED NURSE 05/19/23 06/14/23 Sea Aguilera MD [address] [facility] [address] [address] Physician INTERVENTIONAL CARDIOLOGY 03/11/25 documented as of this encounter
--- OUTSIDE RECORDS SUMMARY | 2025-03-25 01:17 | XMS_ITS | Encounter Summary ---
Author Organization [facility] Address [address] [place] [address] Care Team Providers Care Protective Signal Repairer Name Role Phone Poppy Quiroz MD Primary Care Provider + [phone] Alexsander Chen MD Unavailable [phone] Klarissa Tran RESORT MANAGER Unavailable [phone] Cortez Goins MD Primary Care Provider [phone] Sushant Gonzalez MD Primary Care Provider [phone] Vy Smith RN Unavailable [phone] Sea Aguilera MD Unavailable [phone] Encounter Details Date Type Department Care Team (Late st Contact Info) Description 03/30/2021 MyChart Message Enc [facility] Medical Group Wound Clinic [facility] [address] [place] [address] Poppy Quiroz MD [address] [place] [address] RE: Medication Questions Social History Tobacco [...] Assigned at Female 11/22/2024 10:56 AM CAR DUMPER OPERATOR Legal Sex Female 7:10 PM CDT [...] Medical Group Family & Internal Medicine - [place] [address] [place] [address] Sushant Gonzalez MD [address] [place] [id number] documented as of this encounter Visit Diagnoses Not on filedocumented in this encounter Additional Health Concerns Infection Onset Date Last Indicated Resolved Time COVID-19 Confirmed 07/18/2023 07/18/2023 12:32 AM CDT COVID-19 Rule Out 08/02/2023 07/18/2023 08/02/2023 10:55 AM CDT documented as of this encounter Care Teams Protective Signal Repairer Relationship Specialty Start Date End Date Poppy Quiroz MD PCP - General INTERNAL MEDICINE 08/17/18 02/10/23 Cortez Goins MD [address] [address] PCP - General INTERNAL MEDICINE 02/11/23 02/13/23 [place] [address] [place] [address] PCP - General FAMILY PRACTICE 02/14/23 Alexsander Chen MD [address] [place] [address] CARDIOVASCULAR DISEASE 03/02/19 Klarissa Tran APRN 3 [facility] [address] [place] [address] NURSE PRACTITIONER 07/30/20 Vy Smith, RN [address] [place] [address] Fur Blower (Ambulatory) REGISTERED NURSE 05/19/23 06/14/23 Sea Aguilera MD [address] [facility] [address] [place], [place] [address] Physician INTERVENTIONAL CARDIOLOGY 03/11/25 documented as of this encounter
--- OUTSIDE RECORDS SUMMARY | 2025-03-25 01:17 | XMS_ITS | Encounter Summary ---
Author Organization [facility] Address [address] [place] [address] Care Team Providers Care Log Operations Coordinator Name Role Phone Alexsander Chen MD Unavailable [phone] Klarissa Tran APRN Unavailable [phone] Sushant Gonzalez MD Primary Care Provider [phone] Sea Aguilera MD Unavailable [phone] Encounter Details Date Type Department Care Team (Late st Contact Info) Description 02/10/2024 [employer] Message Enc [facility] Medical Group Family & Internal Medicine [address] [address] [facility] Provider refill Social History Tobacco Use Types [...] Sex Assigned at Female 11/22/2024 10:56 AM AUDIOVISUAL PRODUCTION SPECIALIST Legal Sex Female 7:10 PM CDT Gender Identity Female 01/28/2025 9:06 AM CDT Sexual Orientation Not on file 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 file documented as of this encounter Plan of Treatment Upcoming Encounters Date Type Department Care Team (Late st Contact Info) Description 04/11/2025 10:40 AM CDT Office Visit [facility] Medical Group Family & Internal Medicine [facility] [address] [place] [address] [place] [address] [place] [address] documented as of this encounter Visit Diagnoses Not on filedocumented in this encounter Additional Health Concerns Assessment Noted Time PHQ-9 Depression Total Score: 4 11/09/19 23 12:56 PM AUDIOVISUAL PRODUCTION SPECIALIST documented as of this encounter Care Teams Log Operations Coordinator Relationship Specialty Start [place] [address] [place] [address] PCP - General FAMILY PRACTICE 02/14/23 Alexsander Chen MD [address] [place] [address] CARDIOVASCULAR DISEASE 03/02/19 Klarissa Tran APRN [address] [facility] [address] [place] [address] NURSE PRACTITIONER 07/30/20 Sea Aguilera MD [address] [facility] [address] [place] [address] Physician INTERVENTIONAL CARDIOLOGY 03/11/25 documented as of this encounter
--- OUTSIDE RECORDS SUMMARY | 2025-03-25 01:17 | XMS_ITS | Encounter Summary ---
Author Organization [facility] Address [address] [place] [address] Care Team Providers Care Ophthalmologist Retina Specialist Name Role Phone Poppy Quiroz MD Primary Care Provider + [phone] Alexsander Chen MD Unavailable [phone] Klarissa Tran PROPERTY WORKER Unavailable [phone] Cortez Goins MD Primary Care Provider [phone] Sushant Gonzalez MD Primary Care Provider [phone] Vy Smith RN Unavailable [phone] Sea Aguilera MD Unavailable [phone] Encounter Details Date Type Department Care Team (Late st Contact Info) Description 09/09/2020 [employer] Message Enc [facility] Medical Group Family & Internal Medicine [address] [address] [facility] Provider Vit D Social History Tobacco Use [...] Sex Assigned at Female 11/22/2024 10:56 AM INTERLOCKER MAINTAINER Legal Sex Female 7:10 PM CDT Gender [...] COVID-19? No / Unsure 09/08/2020 8:47 AM INTERLOCKER MAINTAINER documented as of this encounter Plan of Treatment Upcoming Encounters Date Type Department Care Team (Late st Contact Info) Description 04/11/2025 10:40 AM CDT Office Visit [facility] Medical Group Family & Internal Medicine [facility] [address] [place] [address] [place] [address] [place] [address] documented as of this encounter Visit Diagnoses Not on filedocumented in this encounter Additional Health Concerns Infection Onset Date Last Indicated Resolved Time COVID-19 Confirmed 07/18/2023 07/18/2023 12:32 AM CDT COVID-19 Rule Out 08/02/2023 07/18/2023 08/02/2023 10:55 AM CDT documented as of this encounter Care Teams Ophthalmologist Retina Specialist Relationship Specialty Start Date End Date Poppy Quiroz MD PCP - General INTERNAL MEDICINE 08/17/18 02/10/23 Cortez Goins MD [address] [address] PCP - General INTERNAL MEDICINE 02/11/23 02/13/23 [place] [address] [place] [address] PCP - General FAMILY PRACTICE 02/14/23 Alexsander Chen MD [address] [place] [address] CARDIOVASCULAR DISEASE 03/02/19 Klarissa Tran APRN 3 [facility] [address] [place] [address] NURSE PRACTITIONER 07/30/20 Vy Smith, RN [address] [place] [address] Ssis Architect (Ambulatory) REGISTERED NURSE 05/19/23 06/14/23 Sea Aguilera MD 619 [facility] [address] [place] [address] Physician INTERVENTIONAL CARDIOLOGY 03/11/25 documented as of this encounter
--- OUTSIDE RECORDS SUMMARY | 2025-03-25 01:17 | XMS_ITS | Encounter Summary ---
Author Organization [facility] Address [address] [place] [address] Care Team Providers Care Professional Skater Name Role Phone Poppy Quiroz MD Primary Care Provider + [phone] Alexsander Chen MD Unavailable [phone] Klarissa Tran NEWS PHOTOGRAPHER Unavailable [phone] Cortez Goins MD Primary Care Provider [phone] Sushant Gonzalez MD Primary Care Provider [phone] Vy Smith RN Unavailable [phone] Sea Aguilera MD Unavailable [phone] Encounter Details Date Type Department Care Team (Late st Contact Info) Description 01/31/[address] [employer] [address] [address] [place] [address] [place] [address] [place] [address] RE: Other Social History Tobacco [...] Sex Assigned at Female 11/22/2024 10:56 AM FINISHING SUPERVISOR PLASTIC SHEETS Legal Sex Female 7:10 PM CDT Gender [...] changes. We can also have her see mica spreader(HTN) and see other options. * Mally Huerta RN - 02/02/2021 8:53 AM CDT Printed and will discuss with Dr Mcwilliams documented in this encounter Plan of Treatment Upcoming Encounters Date Type Department Care Team (Late st Contact Info) Description 04/11/2025 10:40 AM CDT Office Visit [facility] Medical Group Family & Internal Medicine [facility] [address] [place] [address] [place] [address] [place] [address] documented as of this encounter Visit Diagnoses Not on filedocumented in this encounter Additional Health Concerns Infection Onset Date Last Indicated Resolved Time COVID-19 Confirmed 07/18/2023 07/18/2023 12:32 AM CDT COVID-19 Rule Out 08/02/2023 07/18/2023 08/02/2023 10:55 AM CDT documented as of this encounter Care Teams Professional Skater Relationship Specialty Start Date End Date Poppy Quiroz MD PCP - General INTERNAL MEDICINE 08/17/18 02/10/23 Cortez Goins MD [address] [address] PCP - General INTERNAL MEDICINE 02/11/23 02/13/23 [place] [address] [place] [address] PCP - General FAMILY PRACTICE 02/14/23 Alexsander Chen MD [address]19 [place] [address] CARDIOVASCULAR DISEASE 03/02/19 Klarissa Tran APRN 3 [facility] [address] [place] [address] NURSE PRACTITIONER 07/30/20 Vy Smith, RN [address] [place] [address] Managing Member (Ambulatory) REGISTERED NURSE 05/19/23 06/14/23 Sea Aguilera MD [address] [address] Physician INTERVENTIONAL CARDIOLOGY 03/11/25 documented as of this encounter
--- OUTSIDE RECORDS SUMMARY | 2025-03-25 01:17 | XMS_ITS | Encounter Summary ---
Author Organization [facility] Address [facility] [place] [address] Care Team Providers Care Nuclear Waste Process Operator Name Role Phone Poppy Quiroz MD Primary Care Provider Alexsander Chen MD Unavailable [phone] Klarissa Tran GAME PROGRAMER Unavailable [phone] Cort[place] Goins MD Primary Care Provider [phone] Sushant Gonzalez MD Primary Care Provider Vy Smith RN Unavailable [phone] Sea Aguilera MD Unavailable [phone] Encounter Details Date Type Department Care Team (Latest Contact Info) Description 09/06/2020 MyChart Message Enc [facility] Medical Group Multispecialty Care - [facility] 3 [facility], [address] [address] Sherry Cruz MD 1 [place] [address] RE: Test Results Social History [...] Sex Assigned at Female 11/22/2024 10:56 AM SWITCH INSPECTOR Legal Sex Female 7:10 PM CDT [...] COVID-19? No / Unsure 09/08/2020 8:47 AM SWITCH INSPECTOR documented as of this encounter Plan of Treatment Upcoming Encounters Date Type Department Care Team (Late st Contact Info) Description 04/11/2025 10:40 AM CDT Office Visit [facility] Medical Group Family & Internal Medicine [facility] [address] [place] [address] [place]ush[place] [address] [place] [address] documented as of this encounter Visit Diagnoses Not on filedocumented in this encounter Additional Health Concerns Infection Onset Date Last Indicated Resolved Time COVID-19 Confirmed 07/18/2023 07/18/2023 12:32 AM CDT COVID-19 Rule Out 08/02/2023 07/18/2023 08/02/2023 10:55 AM CDT documented as of this encounter Care Teams Nuclear Waste Process Operator Relationship Specialty Start Date End Date Poppy Quiroz MD PCP - General INTERNAL MEDICINE 08/17/18 02/10/23 Cortez Goins MD [address] [address] PCP - General INTERNAL MEDICINE 02/11/23 02/13/23 [place] [address] [place] [address] PCP - General FAMILY PRACTICE 02/14/23 Alexsander Chen MD [address] [place] [address] CARDIOVASCULAR DISEASE 03/02/19 Klarissa Tran APRN 3 [facility] [address] [place] [id number] NURSE PRACTITIONER 07/30/20 Vy Smith, RN 3051 [place] [address] Cardiovascular Disease Specialist (Ambulatory) REGISTERED NURSE 05/19/23 06/14/23 Sea Aguilera MD [address] [facility] [address] [place] [address] Physician INTERVENTIONAL CARDIOLOGY 03/11/25 documented as of this encounter
--- OUTSIDE RECORDS SUMMARY | 2025-03-25 01:17 | XMS_ITS | Encounter Summary ---
Author Organization [facility] Address [facility] [place] [address] Care Team Providers Care Furniture Painter Name Role Phone Poppy Quiroz MD Primary Care Provider [phone] Alexsander Chen MD Unavailable [phone] Klarissa Tran VERTICAL BORER Unavailable [phone] Cortez Goins MD Primary Care Provider [phone] Sushant Gonzalez MD Primary Care Provider Vy Smith RN Unavailable +[phone] Sea Aguilera MD Unavailable +[phone] Encounter Details Date Type Department Care Team (Latest Contact Info) Description 09/08/2020 MyChart Message Enc [facility] Medical Group Multispecialty Care - [facility] 3 [facility], [address] [address] Sherry Cruz MD 1 [place] [address] Referral Request Social History Tobacco [...] Sex Assigned at Female 11/22/2024 10:56 AM IMMIGRATION ASSOCIATE Legal Sex Female 7:10 PM CDT Gender [...] COVID-19? No / Unsure 09/08/2020 8:47 AM IMMIGRATION ASSOCIATE documented as of this encounter Plan of Treatment Upcoming Encounters Date Type Department Care Team (Late st Contact Info) Description 04/11/2025 10:40 AM CDT Office Visit [facility] Medical Group Family & Internal Medicine [facility] [address] [place] [address] Sushant Gonzalez MD [address] [place] [address] documented as of this encounter Visit Diagnoses Not on filedocumented in this encounter Additional Health Concerns Infection Onset Date Last Indicated Resolved Time COVID-19 Confirmed 07/18/2023 07/18/2023 12:32 AM CDT COVID-19 Rule Out 08/02/2023 07/18/2023 08/02/2023 10:55 AM CDT documented as of this encounter Care Teams Furniture Painter Relationship Specialty Start Date End Date Poppy Quiroz MD PCP - General INTERNAL MEDICINE 08/17/18 02/10/23 Cortez Goins MD [address] [address] PCP - General INTERNAL MEDICINE 02/11/23 02/13/23 [place] [address] [place] [address] PCP - General FAMILY PRACTICE 02/14/23 Alexsander Chen MD [address] [place] [address] CARDIOVASCULAR DISEASE 03/02/19 Klarissa Tran APRN 3 [facility] [address] [place] [address] NURSE PRACTITIONER 07/30/20 Vy Smith, RN 3051 [place] [address] Heavy Duty Truck Mechanic (Ambulatory) REGISTERED NURSE 05/19/23 06/14/23 Sea Aguilera MD [address] [facility] [address] [address] Physician INTERVENTIONAL CARDIOLOGY 03/11/25 documented as of this encounter
--- OUTSIDE RECORDS SUMMARY | 2025-03-25 01:17 | XMS_ITS | Encounter Summary ---
Author Organization [facility] Address [address] [place] [address] Care Team Providers Care Vp & General Counsel Name Role Phone Poppy Quiroz MD Primary Care Provider + [phone] Alexsander Chen MD Unavailable [phone] Klarissa Tran THERAPEUTIC ASSISTANT Unavailable [phone] Cortez Goins MD Primary Care Provider [phone] Sushant Gonzalez MD Primary Care Provider [phone] Vy Smith RN Unavailable +[phone] Sea Aguilera MD Unavailable [phone] Encounter Details Date Type Department Care Team (Late st Contact Info) Description 12/10/2021 Enevate Message Enc [facility] Medical Group Family & Internal Medicine [facility] [address] [place] [address] Kyra [facility] Provider Appointment Social History Tobacco Use [...] Assigned at Female 11/22/2024 10:56 AM WIRE PRODUCTS INSPECTOR Legal Sex Female 7:10 PM CDT [...] COVID-19? Unable to assess 11/16/2021 6:59 AM WIRE PRODUCTS INSPECTOR documented as of this encounter Plan of Treatment Upcoming Encounters Date Type Department Care Team (Late st Contact Info) Description 04/11/2025 10:40 AM CDT Office Visit [facility] Medical Group Family & Internal Medicine - [place] [address] [place] [address] [place] [address] [place] [address] documented as of this encounter Visit Diagnoses Not on filedocumented in this encounter Additional Health Concerns Infection Onset Date Last Indicated Resolved Time COVID-19 Confirmed 07/18/2023 07/18/2023 12:32 AM CDT COVID-19 Rule Out 08/02/2023 07/18/2023 08/02/2023 10:55 AM CDT documented as of this encounter Care Teams Vp & General Counsel Relationship Specialty Start Date End Date Poppy Quiroz MD PCP - General INTERNAL MEDICINE 08/17/18 02/10/23 Cortez Goins MD [address] [address] PCP - General INTERNAL MEDICINE 02/11/23 02/13/23 [place] [address] [place] [address] PCP - General FAMILY PRACTICE 02/14/23 Alexsander Chen MD [address] [place] [address] CARDIOVASCULAR DISEASE 03/02/19 Klarissa Tran APRN 3 [facility] [address] [place] [address] NURSE PRACTITIONER 07/30/20 Vy Smith, RN 3051 [place] [address] Agricultural Research Director (Ambulatory) REGISTERED NURSE 05/19/23 06/14/23 Sea Aguilera MD [address] [facility] [address] [place], [place] [address] Physician INTERVENTIONAL CARDIOLOGY 03/11/25 documented as of this encounter
--- OUTSIDE RECORDS SUMMARY | 2025-03-25 01:17 | XMS_ITS | Encounter Summary ---
Author Organization [facility] Address [address] [place] [address] Care Team Providers Care Bricklayer'S Assistant Name Role Phone Poppy Quiroz MD Primary Care Provider + [phone] Alexsander Chen MD Unavailable [phone] Klarissa Tran IT SALES REPRESENTATIVE Unavailable [phone] Cortez Goins MD Primary Care Provider [phone] Sushant Gonzalez MD Primary Care Provider [phone] Vy Smith RN Unavailable +[phone] Sea Aguilera MD Unavailable [phone] Encounter Details Date Type Department Care Team (Late st Contact Info) Description 08/11/2021 MyChart Message Enc [facility] Medical Group Family & Internal Medicine [facility] [address] [place] [address] [place] Quiro[place] [address] [place] [address] RE: Test Results Social History Tobacco [...] Sex Assigned at Female 11/22/2024 10:56 AM REPORTING MANAGER Legal Sex Female 7:10 PM CDT [...] HOSPITAL Medical Group Family & Internal Medicine [facility] [address] [place] [address] [place]ush[place] [address] [place] [address] documented as of this encounter Visit Diagnoses Not on filedocumented in this encounter Additional Health Concerns Infection Onset Date Last Indicated Resolved Time COVID-19 Confirmed 07/18/2023 07/18/2023 12:32 AM CDT COVID-19 Rule Out 08/02/2023 07/18/2023 08/02/2023 10:55 AM CDT documented as of this encounter Care Teams Bricklayer'S Assistant Relationship Specialty Start Date End Date Poppy Quiroz MD PCP - General INTERNAL MEDICINE 08/17/18 02/10/23 Cortez Goins MD [address]8 [facility] [address] [place] [address] PCP - General INTERNAL MEDICINE 02/11/23 02/13/23 [place] [address] [place] [address] PCP - General FAMILY PRACTICE 02/14/23 Alexsander Chen MD [address] [place] [address] CARDIOVASCULAR DISEASE 03/02/19 Klarissa Tran APRN 3 [facility] [address] [place], [place] [address] NURSE PRACTITIONER 07/30/20 Vy Smith, RN 305[address] [place], [place] [address] Showroom Salesperson (Ambulatory) REGISTERED NURSE 05/19/23 06/14/23 Sea Aguilera MD 6[address] E [facility] [address] [place] [address] Physician INTERVENTIONAL CARDIOLOGY 03/11/25 documented as of this encounter
--- OUTSIDE RECORDS SUMMARY | 2025-03-25 01:17 | XMS_ITS | Encounter Summary ---
Author Organization [facility] Address [address] [place] [address] Care Team Providers Care Plant Science Professor Name Role Phone Poppy Quiroz MD Primary Care Provider + [phone] Alexsander Chen MD Unavailable [phone] Klarissa Tran COVERSTITCH BINDER Unavailable [phone] Cortez Goins MD Primary Care Provider [phone] Sushant Gonzalez MD Primary Care Provider [phone] Vy Smith RN Unavailable [phone] Sea Aguilera MD Unavailable [phone] Encounter Details Date Type Department Care Team (Late st Contact Info) Description 01/13/2021 Sinch Message Project [facility] [address] [place] [address] [place] [address] [place] [address] Other Social History Tobacco Use [...] Sex Assigned at Female 11/22/2024 10:56 AM OUTSIDE FOOD SERVER Legal Sex Female 7:10 PM CDT Gender [...] [facility] Family & Internal Medicine [facility] [address] [place] [address] [place]ush[place] Gonzalez [place] [address] [place] [id number] documented as of this encounter Visit Diagnoses Not on filedocumented in this encounter Additional Health Concerns Infection Onset Date Last Indicated Resolved Time COVID-19 Confirmed 07/18/2023 07/18/2023 12:32 AM CDT COVID-19 Rule Out 08/02/2023 07/18/2023 08/02/2023 10:55 AM CDT documented as of this encounter Care Teams Plant Science Professor Relationship Specialty Start Date End Date Poppy Quiroz MD PCP - General INTERNAL MEDICINE 08/17/18 02/10/23 Cortez Goins MD [address] [address] PCP - General INTERNAL MEDICINE 02/11/23 02/13/23 [place] [address] [facility] [address] PCP - General FAMILY PRACTICE 02/14/23 Alexsander Chen MD [address] [place] [address] CARDIOVASCULAR DISEASE 03/02/19 Klarissa Tran APRN 3 [facility] [address] [place] [phone] NURSE PRACTITIONER 07/30/20 Vy Smith, RN 3051 [place] [address] Copping Machine Operator (Ambulatory) REGISTERED NURSE 05/19/23 06/14/23 Sea Aguilera MD [address] [facility] [address] [place] [address] Physician INTERVENTIONAL CARDIOLOGY 03/11/25 documented as of this encounter
--- OUTSIDE RECORDS SUMMARY | 2025-03-25 01:17 | XMS_ITS | Encounter Summary ---
Author Organization [facility] Address [address] [place] [address] Care Team Providers Care Reception Agent Name Role Phone Poppy Quiroz MD Primary Care Provider + [phone] lAexsander Chen MD Unavailable [phone] Klarissa Tran SUPERVISOR COMPRESSED YEAST Unavailable [phone] Cortez Goins MD Primary Care Provider [phone] Sushant Gonzalez MD Primary Care Provider [phone] Vy Smith RN Unavailable [phone] Sea Aguilera MD Unavailable [phone] Encounter Details Date Type Department Care Team (Late st Contact Info) Description 09/04/2021 CrystalCommerce Message Enc [facility] Medical Group Family & Internal Medicine [place] [address] [place] [address] Kyra [facility] Provider Labs Social History Tobacco Use [...] Sex Assigned at Female 11/22/2024 10:56 AM TELEVISION RECEIVER ANALYZER Legal Sex Female 7:10 PM CDT Gender [...] CENTER Medical Group Family & Internal Medicine [facility] [address] [place] [address] [place] [address] [place] [address] documented as of this encounter Visit Diagnoses Not on filedocumented in this encounter Additional Health Concerns Infection Onset Date Last Indicated Resolved Time COVID-19 Confirmed 07/18/2023 07/18/2023 12:32 AM CDT COVID-19 Rule Out 08/02/2023 07/18/2023 08/02/2023 10:55 AM CDT documented as of this encounter Care Teams Reception Agent Relationship Specialty Start Date End Date Poppy Quiroz MD PCP - General INTERNAL MEDICINE 08/17/18 02/10/23 Cortez Goins MD [address] [address] PCP - General INTERNAL MEDICINE 02/11/23 02/13/23 [place] [address] [place] [address] PCP - General FAMILY PRACTICE 02/14/23 Alexsander Chen MD [address] [place] [address] CARDIOVASCULAR DISEASE 03/02/19 Klarissa Tran APRN 3 [facility] [address] [place] [address] NURSE PRACTITIONER 07/30/20 Vy Smith RN 3051 [place] [address] Stock Selector (Ambulatory) REGISTERED NURSE 05/19/23 06/14/23 Sea Aguilera MD [address] [facility] [address]P57 [place] [address] Physician INTERVENTIONAL CARDIOLOGY 03/11/25 documented as of this encounter
--- OUTSIDE RECORDS SUMMARY | 2025-03-25 01:17 | XMS_ITS | Encounter Summary ---
Author Organization [facility] Address [address] [place] [address] Care Team Providers Care Rivet Maker Name Role Phone Poppy Quiroz MD Primary Care Provider + [phone] Alexsander Chen MD Unavailable [phone] Klarissa Tran WATER FILTER CLEANER Unavailable [phone] Cortez Goins MD Primary Care Provider [phone] Sushant Gonzalez MD Primary Care Provider [phone] Vy Smith RN Unavailable [phone] Sea Aguilera MD Unavailable [phone] Encounter Details Date Type Department Care Team (Late st Contact Info) Description 09/08/2020 MyChart Message Enc [facility] Medical Group Family & Internal Medicine [facility] [address] [place] [address] Poppy Quiroz MD [address] [place] [address] RE: Test Results Social History Tobacco [...] Sex Assigned at Female 11/22/2024 10:56 AM THORACIC MEDICINE PHYSICIAN Legal Sex Female 7:10 PM CDT Gender [...] COVID-19? No / Unsure 09/08/2020 8:47 AM THORACIC MEDICINE PHYSICIAN documented as of this encounter Plan of Treatment Upcoming Encounters Date Type Department Care Team (Late st Contact Info) Description 04/11/2025 10:40 AM CDT Office Visit [facility] Medical Group Family & Internal Medicine [facility] [address] [place] [address] Sushant Gonzalez MD [address] [place] [address] documented as of this encounter Visit Diagnoses Not on filedocumented in this encounter Additional Health Concerns Infection Onset Date Last Indicated Resolved Time COVID-19 Confirmed 07/18/2023 07/18/2023 12:32 AM CDT COVID-19 Rule Out 08/02/2023 07/18/2023 08/02/2023 10:55 AM CDT documented as of this encounter Care Teams Rivet Maker Relationship Specialty Start Date End Date Poppy Quiroz MD PCP - General INTERNAL MEDICINE 08/17/18 02/10/23 Cortez Goins MD [address] [address] PCP - General INTERNAL MEDICINE 02/11/23 02/13/23 [place] [address] [place] [address] PCP - General FAMILY PRACTICE 02/14/23 Alexsander Chen MD [address] [place] [address] CARDIOVASCULAR DISEASE 03/02/19 Klarissa Tran APRN [facility] [address] [place] [phone] NURSE PRACTITIONER 07/30/20 Vy Smith, RN 3051 [place], [place] [address] Javascript Developer (Ambulatory) REGISTERED NURSE 05/19/23 06/14/23 Sea Aguilera MD [address] [facility] [address] [address] Physician INTERVENTIONAL CARDIOLOGY 03/11/25 documented as of this encounter
--- OUTSIDE RECORDS SUMMARY | 2025-03-25 01:17 | XMS_ITS | Encounter Summary ---
Author Organization [facility] Address [address] [place] [address] Care Team Providers Care Business Operations Consultant Name Role Phone Poppy Quiroz MD Primary Care Provider + [phone] Alexsander Chen MD Unavailable [phone] Klarissa Tran PLUMBING INSTALLER Unavailable [phone] Cortez Goins MD Primary Care Provider [phone] Sushant Gonzalez MD Primary Care Provider [phone] Vy Smith RN Unavailable [phone] Sea Aguilera MD Unavailable [phone] Encounter Details Date Type Department Care Team (Late st Contact Info) Description 10/26/2021 MyChart Message Enc [facility] Medical Group Family & Internal Medicine [facility] [address] [place] [address] Poppy Quiroz [place] [address] [place] [address] King information Social History [...] Sex Assigned at Female 11/22/2024 10:56 AM FITNESS ATTENDANT Legal Sex Female 7:10 PM CDT Gender Identity Female 01/28/2025 9:06 AM CDT Sexual Orientation Not on file 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 file documented as of this encounter Plan of Treatment Upcoming Encounters Date Type Department Care Team (Late st Contact Info) Description 04/11/2025 10:40 AM CDT Office Visit [facility] Medical Group Family & Internal Medicine - [place] [address] [place] [address] [place]ush[place] [address] [place] [address] documented as of this encounter Visit Diagnoses Not on filedocumented in this encounter Additional Health Concerns Infection Onset Date Last Indicated Resolved Time COVID-19 Confirmed 07/18/2023 07/18/2023 12:32 AM CDT COVID-19 Rule Out 08/02/2023 07/18/2023 08/02/2023 10:55 AM CDT documented as of this encounter Care Teams Business Operations Consultant Relationship Specialty Start Date End Date Poppy Quiroz MD PCP - General INTERNAL MEDICINE 08/17/18 02/10/23 Cortez Goins MD [address] [address] PCP - General INTERNAL MEDICINE 02/11/23 02/13/23 [place] [address] [facility] [place] [address] PCP - General FAMILY PRACTICE 02/14/23 Alexsander Chen MD [address] [place] [address] CARDIOVASCULAR DISEASE 03/02/19 Klarissa Tran APRN 3 [facility] [address] [place] [address] NURSE PRACTITIONER 07/30/20 Vy Smith, RN 3051 [place] [address] Interventional Radiology Tech (Ambulatory) REGISTERED NURSE 05/19/23 06/14/23 Sea Aguilera MD 619 E [facility] [address] [place], [place] [address] Physician INTERVENTIONAL CARDIOLOGY 03/11/25 documented as of this encounter
--- OUTSIDE RECORDS SUMMARY | 2025-03-25 01:17 | XMS_ITS | Encounter Summary ---
Author Organization [facility] Address [address] [place] [address] Care Team Providers Care Parliamentary Librarian Name Role Phone Poppy Quiroz MD Primary Care Provider [phone] Alexsander Chen MD Unavailable [phone] Klarissa Tran MANAGER PEDIATRIC Unavailable [phone] Cortez Goins MD Primary Care Provider [phone] Sushant Gonzalez MD Primary Care Provider [phone] Vy Smith RN Unavailable [phone] Sea Aguilera MD Unavailable [phone] Encounter Details Date Type Department Care Team (Late st Contact Info) Description 11/27/2021 MyChart Message Enc [facility] Medical Group Family [facility] Internal [facility] [address] [place] [address] Poppy Quiroz [place] [address] [place] [address] results from bone density scan 11/27/21 [...] Sex Assigned at Female 11/22/2024 10:56 AM TALENT ACQUISITION CONSULTANT Legal Sex Female 7:10 PM CDT [...] COVID-19? Unable to assess 11/16/2021 6:59 AM TALENT ACQUISITION CONSULTANT documented as of this encounter Progress Notes * Latonya Valle RN - 11/30/2021 3:36 PM CST This has been addressed NT ACQUISITION CONSULTANT documented in this encounter Plan of Treatment Upcoming Encounters Date Type Department Care Team (Late st Contact Info) Description 04/11/2025 10:40 AM CDT Office Visit [facility] Medical Group Family & Internal Medicine - [place] [address] [place] [address] [place] [address] [place] [address] documented as of this encounter Visit Diagnoses Not on filedocumented in this encounter Additional Health Concerns Infection Onset Date Last Indicated Resolved Time COVID-19 Confirmed 07/18/2023 07/18/2023 12:32 AM CDT COVID-19 Rule Out 08/02/2023 07/18/2023 08/02/2023 10:55 AM CDT documented as of this encounter Care Teams Parliamentary Librarian Relationship Specialty Start Date End Date Poppy Quiroz MD PCP - General INTERNAL MEDICINE 08/17/18 02/10/23 Cortez Goins MD 1188 [facility] [address] [place] [address] PCP - General INTERNAL MEDICINE 02/11/23 02/13/23 [place] [address] [place] [address] PCP - General FAMILY PRACTICE 02/14/23 Alexsander Chen MD [address] [place] [address] CARDIOVASCULAR DISEASE 03/02/19 Klarissa Tran APRN 3 [facility] [address] [place] [address] NURSE PRACTITIONER 07/30/20 Vy Smith RN 3051 [place], [place] [address] Solutions Delivery Consultant (Ambulatory) REGISTERED NURSE 05/19/23 06/14/23 Sea Aguilera MD 619 E [facility][1] 47 [place], [place] [address] Physician INTERVENTIONAL CARDIOLOGY 03/11/25 documented as of this encounter
--- OUTSIDE RECORDS SUMMARY | 2025-03-25 01:17 | XMS_ITS | Clinical Summary ---
Author Organization [facility] Address [address] [place] [address] Phone Care Team Providers Care Consultant Internship Name Role Phone Unavailable Primary Care Provider [...] 08/21/2015, Additional history exists Insurance [employer] PPO [facility]
--- OUTSIDE RECORDS SUMMARY | 2025-03-25 01:17 | XMS_ITS | Encounter Summary ---
Author Organization [facility] Address [address] [place] [address] Care Team Providers Care Custom Car Builder Name Role Phone Poppy Quiroz MD Primary Care Provider [phone] Alexsander Chen MD Unavailable [phone] Klarissa Tran CORNCOB PIPES ASSEMBLER Unavailable [phone] Cortez Goins MD Primary Care Provider [phone] Sushant Gonzalez MD Primary Care Provider Vy Smith RN Unavailable +[phone] Sea Aguilera MD Unavailable +[phone] Encounter Details Date Type Department Care Team (Late st Contact Info) Description 10/06/2020 Prep for Procedure [facility] Interventional [facility] [place] [address] i52363 Juana Armas APNP [address] [place] [phone] Social History Tobacco Use Types Packs/Day Years [...] Sex Assigned at Female 11/22/2024 10:56 AM DEAN OF STUDENT SERVICES Legal Sex Female 7:10 PM CDT Gender [...] COVID-19? No / Unsure 10/06/2020 12:26 PM DEAN OF STUDENT SERVICES documented as of this encounter Plan of Treatment Upcoming Encounters Date Type Department Care Team (Late st Contact Info) Description 04/11/2025 10:40 AM CDT Office Visit [facility] Medical Group Family & Internal Medicine - [place] [address] [place] [address] Sushant Gonzalez MD [address] [place] [id number] documented as of this encounter Visit Diagnoses Not on filedocumented in this encounter Additional Health Concerns Infection Onset Date Last Indicated Resolved Time COVID-19 Confirmed 07/18/2023 07/18/2023 12:32 AM CDT COVID-19 Rule Out 08/02/2023 07/18/2023 08/02/2023 10:55 AM CDT documented as of this encounter Care Teams Custom Car Builder Relationship Specialty Start Date End Date Poppy Quiroz MD PCP - General INTERNAL MEDICINE 08/17/18 02/10/23 Cortez Goins MD [address] [address] PCP - General INTERNAL MEDICINE 02/11/23 02/13/23 [place] [address] [place] [address] PCP - General FAMILY PRACTICE 02/14/23 Alexsander Chen MD [address] [place] [address] CARDIOVASCULAR DISEASE 03/02/19 Klarissa Tran APRN 3 [facility] [address] [place] [address] NURSE PRACTITIONER 07/30/20 Vy Smith, RN 3051 [place] [address] Inspector Elevators (Ambulatory) REGISTERED NURSE 05/19/23 06/14/23 Sea Aguilera MD 619 E [facility] 47 [place], [place] [address] Physician INTERVENTIONAL CARDIOLOGY 03/11/25 documented as of this encounter
--- OUTSIDE RECORDS SUMMARY | 2025-03-25 01:17 | XMS_ITS | Encounter Summary ---
Author Organization [facility] Address [address] [place] [address] Care Team Providers Care Machine Maintenance Name Role Phone Poppy Quiroz MD Primary Care Provider + [phone] Alexsander Chen MD Unavailable [phone] Klarissa Tran CAR CLERK PULLMAN Unavailable [phone] Cortez Goins MD Primary Care Provider [phone] Sushant Gonzalez MD Primary Care Provider +[phone] Vy Smith RN Unavailable +[phone] Sea Aguilera MD Unavailable +[phone] Encounter Details Date Type Department Care Team (Late st Contact Info) Description 12/12/2020 [employer] Message [facility] [address] [place] [address] [place] [address] [place] [address] Question Social History Tobacco Use [...] Assigned at Female 11/22/2024 10:56 AM SENIOR NET DEVELOPER ARCHITECT Legal Sex Female 7:10 PM CDT Gender [...] Description 04/11/2025 10:40 AM CDT Office Visit [facility] Family & Internal Medicine - [place] [address] [place] [address] Sushant Gonzalez MD [address] [place] [address] documented as of this encounter Visit Diagnoses Not on filedocumented in this encounter Additional Health Concerns Infection Onset Date Last Indicated Resolved Time COVID-19 Confirmed 07/18/2023 07/18/2023 12:32 AM CDT COVID-19 Rule Out 08/02/2023 07/18/2023 08/02/2023 10:55 AM CDT documented as of this encounter Care Teams Machine Maintenance Relationship Specialty Start Date End Date Poppy Quiroz MD PCP - General INTERNAL MEDICINE 08/17/18 02/10/23 Cortez Goins MD [address] [address] PCP - General INTERNAL MEDICINE 02/11/23 02/13/23 [place] [address] [place] [address] PCP - General FAMILY PRACTICE 02/14/23 Alexsander Chen MD [address] [place] [address] CARDIOVASCULAR DISEASE 03/02/19 [address] [facility] [address] [place] [address] NURSE PRACTITIONER 07/30/20 Vy Smith, RN 3051 [place] [address] Rn Digestive (Ambulatory) REGISTERED NURSE 05/19/23 06/14/23 Sea Aguilera MD [address] [facility] 47 [place], [place] [address] Physician INTERVENTIONAL CARDIOLOGY 03/11/25 documented as of this encounter
--- OUTSIDE RECORDS SUMMARY | 2025-03-25 01:17 | XMS_ITS | Encounter Summary ---
Author Organization [facility] Address [address] [place] [address] Care Team Providers Care Medical I D Sales Name Role Phone Poppy Quiroz MD Primary Care Provider + [phone] Alexsander Chen MD Unavailable [phone] Klarissa Tran SENIOR ORACLE ADF DEVELOPER Unavailable [phone] Cortez Goins MD Primary Care Provider [phone] Sushant Gonzalez MD Primary Care Provider [phone] Vy Smith RN Unavailable +[phone] Sea Aguilera MD Unavailable [phone] Encounter Details Date Type Department Care Team (Late st Contact Info) Description 12/11/2020 MyChart Message Enc [facility] Wound Clinic [facility] [address] [place] [address] Poppy Quiroz MD [address] [place] [address] RE: Question Social History Tobacco Use [...] Sex Assigned at Female 11/22/2024 10:56 AM PICKLE PROCESSOR Legal Sex Female 7:10 PM CDT [...] Office Visit [facility] Family & Internal Medicine - [place] [address] [place] [address] Sushant Gonzalez MD [address] [place] [id number] documented as of this encounter Visit Diagnoses Not on filedocumented in this encounter Additional Health Concerns Infection Onset Date Last Indicated Resolved Time COVID-19 Confirmed 07/18/2023 07/18/2023 12:32 AM CDT COVID-19 Rule Out 08/02/2023 07/18/2023 08/02/2023 10:55 AM CDT documented as of this encounter Care Teams Medical I D Sales Relationship Specialty Start Date End Date Poppy Quiroz MD PCP - General INTERNAL MEDICINE 08/17/18 02/10/23 Cortez Goins MD [address] [address] PCP - General INTERNAL MEDICINE 02/11/23 02/13/23 [place] [address] [place] [address] PCP - General FAMILY PRACTICE 02/14/23 Alexsander Chen MD [address] [place] [address] CARDIOVASCULAR DISEASE 03/02/19 Klarissa Tran APRN 3 [facility] [address] [place] [phone] NURSE PRACTITIONER 07/30/20 Vy Smith, RN [address] [place] [address] Donor Center Technician (Ambulatory) REGISTERED NURSE 05/19/23 06/14/23 Sea Aguilera MD 619 E [facility] 47 [place] [address] Physician INTERVENTIONAL CARDIOLOGY 03/11/25 documented as of this encounter
--- OUTSIDE RECORDS SUMMARY | 2025-03-25 01:17 | XMS_ITS | Encounter Summary ---
Author Organization [facility] Address [address] [place] [address] Care Team Providers Care Catcher Filter Tip Name Role Phone Poppy Quiroz MD Primary Care Provider + [phone] Alexsander Chen MD Unavailable [phone] Klarissa Tran LANDMEN Unavailable [phone] Cortez Goins MD Primary Care Provider [phone] Sushant Gonzalez MD Primary Care Provider [phone] Vy Smith RN Unavailable [phone] Sea Aguilera MD Unavailable [phone] Encounter Details Date Type Department Care Team (Late st Contact Info) Description 03/11/2021 MyChart Message Enc [facility] Wound Clinic [facility] [address] [place] [address] Poppy Quiroz MD [address] [place] [address] RE: Other Social History Tobacco Use [...] Sex Assigned at Female 11/22/2024 10:56 AM UNIFORM FORCE CAPTAIN Legal Sex Female 7:10 PM CDT [...] Description 04/11/2025 10:40 AM CDT Office Visit [facility] Family & Internal Medicine [facility] [address] [place] [address] Sushant Gonzalez MD [address] [place] [address] documented as of this encounter Visit Diagnoses Not on filedocumented in this encounter Additional Health Concerns Infection Onset Date Last Indicated Resolved Time COVID-19 Confirmed 07/18/2023 07/18/2023 12:32 AM CDT COVID-19 Rule Out 08/02/2023 07/18/2023 08/02/2023 10:55 AM CDT documented as of this encounter Care Teams Catcher Filter Tip Relationship Specialty Start Date End Date Poppy Quiroz MD PCP - General INTERNAL MEDICINE 08/17/18 02/10/23 Cortez Goins MD 1188 [facility] [address] [place] [address] PCP - General INTERNAL MEDICINE 02/11/23 02/13/23 [place] [address] [place] [address] PCP - General FAMILY PRACTICE 02/14/23 Alexsander Chen MD [address] [place] [address] CARDIOVASCULAR DISEASE 03/02/19 Klarissa Tran APRN 3 [facility] [address] [place], [place] [phone] NURSE PRACTITIONER 07/30/20 Vy Simth, RN 3051 [place] [address] Death Claim Examiner (Ambulatory) REGISTERED NURSE 05/19/23 06/14/23 Sea Aguilera MD [address] [facility] [address] [place], [place] [address] Physician INTERVENTIONAL CARDIOLOGY 03/11/25 documented as of this encounter
--- OUTSIDE RECORDS SUMMARY | 2025-03-25 01:17 | XMS_ITS | Encounter Summary ---
Author Organization [facility] Address [address] [place] [address] Care Team Providers Care Order Booker Name Role Phone Poppy Quiroz MD Primary Care Provider + [phone] Alexsander Chen MD Unavailable [phone] Klarissa Tran COATER ASSOCIATE Unavailable [phone] Cortez Goins MD Primary Care Provider [phone] Sushant Gonzalez MD Primary Care Provider [phone] Vy Smith RN Unavailable +[phone] Sea Aguilera MD Unavailable [phone] Encounter Details Date Type Department Care Team (Late st Contact Info) Description 10/15/2020 MyChart Message Enc [facility] Family & Internal Medicine [facility] [address] [place] [address] Poppy Quiroz MD [address] [place] [address] RE: Other Social History Tobacco Use [...] Sex Assigned at Female 11/22/2024 10:56 AM SSDS MK 2 ADVANCED OPERATOR Legal Sex Female 7:10 PM CDT [...] COVID-19? No / Unsure 10/15/2020 8:18 AM SSDS MK 2 ADVANCED OPERATOR documented as of this encounter Plan of Treatment Upcoming Encounters Date Type Department Care Team (Late st Contact Info) Description 04/11/2025 10:40 AM CDT Office Visit [facility] Family & Internal Medicine [facility] [address] [place] [address] [place]ushant Gonzalez [place] [address] [place] [address] documented as of this encounter Visit Diagnoses Not on filedocumented in this encounter Additional Health Concerns Infection Onset Date Last Indicated Resolved Time COVID-19 Confirmed 07/18/2023 07/18/2023 12:32 AM CDT COVID-19 Rule Out 08/02/2023 07/18/2023 08/02/2023 10:55 AM CDT documented as of this encounter Care Teams Order Booker Relationship Specialty Start Date End Date Poppy Quiroz MD PCP - General INTERNAL MEDICINE 08/17/18 02/10/23 Cortez Goins MD [address] [address] PCP - General INTERNAL MEDICINE 02/11/23 02/13/23 [place] [address] [place] [address] PCP - General FAMILY PRACTICE 02/14/23 Alexsander Chen MD [address] [place] [address] CARDIOVASCULAR DISEASE 03/02/19 Klarissa Tran APRN 3 [facility] [address] [place] [phone] NURSE PRACTITIONER 07/30/20 Vy Smith, RN 3051 [place], [place] [address] Time Buyer (Ambulatory) REGISTERED NURSE 05/19/23 06/14/23 Sea Aguilera MD [address] [facility] 47 [place] [address] Physician INTERVENTIONAL CARDIOLOGY 03/11/25 documented as of this encounter
--- OUTSIDE RECORDS SUMMARY | 2025-03-25 01:17 | XMS_ITS | Encounter Summary ---
Author Organization [facility] Address [address] [place] [address] Care Team Providers Care Casting Machine Adjuster Name Role Phone Poppy Quiroz MD Primary Care Provider + [phone] Alexsander Chen MD Unavailable [phone] Klarissa Tran TICKET SORTER Unavailable [phone] Cortez Goins MD Primary Care Provider [phone] Sushant Gonzalez MD Primary Care Provider [phone] Vy Smith RN Unavailable [phone] Sea Aguilera MD Unavailable [phone] Encounter Details Date Type Department Care Team (Late st Contact Info) Description 06/24/2021 [employer]tips Message Enc [facility] Family & Internal Medicine [facility] [address] [place] [address] Kyra [facility] Provider RE:Forms Social History Tobacco Use Types [...] Sex Assigned at Female 11/22/2024 10:56 AM ELECTROGALVANIZING MACHINE OPERATOR Legal Sex Female 7:10 PM [...] Description 04/11/2025 10:40 AM CDT Office Visit [facility] Family & Internal Medicine [facility] [address] [place] [address] [place] [address] [place] [address] documented as of this encounter Visit Diagnoses Not on filedocumented in this encounter Additional Health Concerns Infection Onset Date Last Indicated Resolved Time COVID-19 Confirmed 07/18/2023 07/18/2023 12:32 AM CDT COVID-19 Rule Out 08/02/2023 07/18/2023 08/02/2023 10:55 AM CDT documented as of this encounter Care Teams Casting Machine Adjuster Relationship Specialty Start Date End Date Poppy Quiroz MD PCP - General INTERNAL MEDICINE 08/17/18 02/10/23 Cortez Goins MD [address] [address] PCP - General INTERNAL MEDICINE 02/11/23 02/13/23 [place]ush[place] Gonzalez [place] [address] [place] [address] PCP - General FAMILY PRACTICE 02/14/23 Alexsander Chen MD [address]19 [place] [address] CARDIOVASCULAR DISEASE 03/02/19 Klarissa Tran APRN 3 [facility] [address] [place] [address] NURSE PRACTITIONER 07/30/20 Vy Smith, RN 3051 [place], [place] 5439[address] Health Program Manager (Ambulatory) REGISTERED NURSE 05/19/23 06/14/23 Sea Aguilera MD [address] [facility] [address] [place] [address] Physician INTERVENTIONAL CARDIOLOGY 03/11/25 documented as of this encounter
--- OUTSIDE RECORDS SUMMARY | 2025-03-25 01:17 | XMS_ITS | Encounter Summary ---
Author Organization [facility] Address [address] [place] [address] Care Team Providers Care Music Library Assistant Name Role Phone Poppy Quiroz MD Primary Care Provider + [phone] Alexsander Chen MD Unavailable [phone] Klarissa Tran INSECT CONTROL INSPECTOR Unavailable +[phone] Cortez Goins MD Primary Care Provider [phone] Sushant Gonzalez MD Primary Care Provider [phone] Vy Smith RN Unavailable [phone] Sea Aguilera MD Unavailable +[phone] Encounter Details Date Type Department Care Team (Late st Contact Info) Description 09/08/2020 MyChart Message Enc [facility] Family & Internal Medicine [facility] [address] [place] [address] Poppy Quiroz MD [address] [place] [address] RE: Test Results Social History Tobacco [...] Sex Assigned at Female 11/22/2024 10:56 AM FISH INSPECTOR Legal Sex Female 7:10 PM CDT [...] COVID-19? No / Unsure 09/08/2020 8:47 AM FISH INSPECTOR documented as of this encounter Plan of Treatment Upcoming Encounters Date Type Department Care Team (Late st Contact Info) Description 04/11/2025 10:40 AM CDT Office Visit [facility] Family & Internal Medicine [facility] [address] [place] [address] Sushant Gonzalez MD [address] [place] [address] documented as of this encounter Visit Diagnoses Not on filedocumented in this encounter Additional Health Concerns Infection Onset Date Last Indicated Resolved Time COVID-19 Confirmed 07/18/2023 07/18/2023 12:32 AM CDT COVID-19 Rule Out 08/02/2023 07/18/2023 08/02/2023 10:55 AM CDT documented as of this encounter Care Teams Music Library Assistant Relationship Specialty Start Date End Date Poppy Quiroz MD PCP - General INTERNAL MEDICINE 08/17/18 02/10/23 Cortez Goins MD [address] [address] PCP - General INTERNAL MEDICINE 02/11/23 02/13/23 [place] [address] [place] [address] PCP - General FAMILY PRACTICE 02/14/23 Alexsander Chen MD [address] [place] [address] CARDIOVASCULAR DISEASE 03/02/19 Klarissa Tran APRN 3 [facility] [address] [place] [phone] NURSE PRACTITIONER 07/30/20 Vy Smith, RN 3051 [place], [place] [address] Drilling Engineer (Ambulatory) REGISTERED NURSE 05/19/23 06/14/23 Sea Aguilera MD 619 E [facility] [address] [address] Physician INTERVENTIONAL CARDIOLOGY 03/11/25 documented as of this encounter
--- OUTSIDE RECORDS SUMMARY | 2025-03-25 01:17 | XMS_ITS | Encounter Summary ---
Author Organization [facility] Address [address] [place] [address] Care Team Providers Care Beverage Specialist Name Role Phone Poppy Quiroz MD Primary Care Provider [phone] Alexsander Chen MD Unavailable [phone] Klarissa Tran RURAL ELECTRIFICATION ENGINEER Unavailable [phone] Cortez Goins MD Primary Care Provider [phone] Sushant Gonzalez MD Primary Care Provider Vy Smith RN Unavailable +[phone] Sea Aguilera MD Unavailable [phone] Encounter Details Date Type Department Care Team (Late st Contact Info) Description 08/01/2020 Prep for Procedure [facility] Interventional [facility] [place] [address] [id number] Leila Garvey MD Three [facility] [address] [place] [address] Social History Tobacco Use Types Packs/Day Years Used Date Smoking Tobacco: Every Day Cigarettes 0.5 52 Smokeless Tobacco: Never Alcohol Use Standard Drinks/Week Comments Yes 0 (1 standard drink = 0.6 oz pur e alcohol) socially PHQ-2 Answer Date Recorded PHQ-2 Score 1 10/10/2019 Comments No Sex and Gender Information Value Date Recorded Sex Assigned at Female 11/22/2024 10:56 AM 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 Legal Sex Female 7:10 PM CDT [...] [facility] Family [facility] Medicine [address] [address] Sushant Gonzalez MD [address] [place] [address] documented as of this encounter Visit Diagnoses Not on filedocumented in this encounter Additional Health Concerns Infection Onset Date Last Indicated Resolved Time COVID-19 Confirmed 07/18/2023 07/18/2023 12:32 AM CDT COVID-19 Rule Out 08/02/2023 07/18/2023 08/02/2023 10:55 AM CDT documented as of this encounter Care Teams Beverage Specialist Relationship Specialty Start Date End Date Poppy Quiroz MD PCP - General INTERNAL MEDICINE 08/17/18 02/10/23 Cortez Goins MD [address] [address] PCP - General INTERNAL MEDICINE 02/11/23 02/13/23 Sushant Gonzalez MD [address] [place] [address] PCP - General FAMILY PRACTICE 02/14/23 Alexsander Chen MD [address] [place] [address] CARDIOVASCULAR DISEASE 03/02/19 Klarissa Tran APRN 3 [facility] [address] [place] [address] NURSE PRACTITIONER 07/30/20 Vy Smith, RN 3051 [place] [address] Military Education Coordinator (Ambulatory) REGISTERED NURSE 05/19/23 06/14/23 Sea Aguilera MD [address] [facility] [address] [place] [address] Physician INTERVENTIONAL CARDIOLOGY 03/11/25 documented as of this encounter
--- NOTE | 2025-03-25 11:30 | WPDHPUPDATE1 ---
History and Physical Update Update Date/Time: 03/25/25 11:30 History and Physical has been reviewed, including an updated exam of the patient. There are NO changes in the patient's condition. Risks, benefits, and alternatives have been discussed and questions answered. Patient agrees to proceed with procedure.
[2025-03-25 12:15] LABS: Glucose Point of Care 87 mg/dl (65-105)
[2025-03-25] MEDS: ACETAMINOPHEN 500 MG TABLET 1000 MG PO (12:15)
--- NOTE | 2025-03-25 12:32 | WPDANESEPPF ---
Anes - Initial Pre Proc Eval Procedure: Operation Date: 03/25/25 13:00 Proposed Procedures p Endoscopic Assisted Septoplasty, - Jean-Claude Vazquez MD s Bilateral Inferior Turbinate Reduction with Outfracture, Right Image Guided Sphenoidotomy, Left Image Guided Maxillary Antrostomy - Jean-Claude Vazquez MD Date/Time: 03/25/25 12:32 Surgeon: Jean-Claude Vazquez MD Pre Op Diagnosis: chronic sinusitis Patient Data Age: 80 Gender: F Height: 1.52 m Weight: 111.6 kg Allergies Allergy/AdvReac Type Severity Reaction Status Date / Time morphine Allergy Unknown Itching Verified 03/18/25 10:57 Sulfa (Sulfonamide Allergy Unknown Other Verified 03/18/25 10:57 Antibiotics) Home Medications Medication Instructions Recorded Confirmed Type levothyroxine 150 mcg capsule 150 mcg PO EVERY OTHER DAY 02/12/20 03/18/25 History levothyroxine 175 mcg capsule 175 mcg PO EVERY OTHER DAY 02/12/20 03/18/25 History jxidkhif-ngje-oomx 8 mg-folic 400 1 tablet PO DAILY 02/12/20 03/18/25 History mcg-K 50 mcg-lutein 300 mcg tablet (Multivitamin Women 50 Plus) aspirin 81 mg tablet,delayed 81 mg PO BID 03/02/21 03/18/25 History release nitroglycerin 0.4 mg sublingual 0.4 mg sublingual Q5MIN PRN Chest 03/19/21 03/18/25 Rx tablet (Nitrostat) Pain 30 days #20 tabs pramipexole 1.5 mg tablet 1.5 mg PO TID 11/22/22 03/18/25 History ascorbic acid (vitamin C) 500 mg 500 mg PO BID 05/23/23 03/18/25 History chewable tablet (C-500) cholecalciferol (vitamin D3) 50 50 mcg PO DAILY 05/23/23 03/18/25 History mcg (2,000 unit) capsule cyanocobalamin (vitamin B-12) 500 500 mcg sublingual DAILY 05/23/23 03/18/25 History mcg disintegrating tablet,sublingual oxycodone-acetaminophen 5 mg-325 2 tablet PO Q6H PRN Pain (Scale 06/02/23 03/18/25 Rx mg tablet Score 7-10) #30 tabs fluoxetine 20 mg tablet 20 mg PO DAILY 07/15/23 03/18/25 History spironolactone 50 mg tablet See Rx Instructions .Route 08/05/23 03/18/25 Rx .COMPLEX #30 tabs metoprolol tartrate 50 mg tablet See Rx Instructions .Route 01/13/24 03/18/25 Rx .COMPLEX #270 tabs Trelegy Ellipta 100 mcg-62.5 1 inh inhalation Q24H #60 ea 05/11/24 03/18/25 Rx mcg-25 mcg powder for inhalation (ayphjfiilvi-zeiquyuym-nqbsyity) magnesium oxide 500 mg PO DAILY 08/17/24 03/18/25 History pravastatin 10 mg tablet See Rx Instructions .Route 08/17/24 03/18/25 Rx .COMPLEX #90 tabs nystatin-triamcinolone 100,000 1 applic topical DAILY PRN 08/29/24 03/18/25 Rx unit/g-0.1 % topical cream irritation #60 grams potassium chloride 20 mEq See Rx Instructions .Route 08/31/24 03/18/25 Rx tablet,extended release(part/cryst) .COMPLEX #60 tabs bisacodyl 10 mg rectal suppository 10 mg RECTAL TID PRN constipation 09/21/24 03/18/25 Rx (Dulcolax (bisacodyl)) #12 ea polyethylene glycol 3350 17 17 g PO QID #238 grams 09/21/24 03/18/25 Rx gram/dose oral powder (Miralax) montelukast 10 mg tablet See Rx Instructions .Route 12/17/24 03/18/25 Rx .COMPLEX #30 tabs nystatin 100,000 unit/gram topical 1 applic topical TID #60 grams 01/10/25 03/18/25 Rx powder x hanse nasal spray .Route 01/10/25 02/25/25 History fluticasone propionate 93 2 spray intranasal Q12H #16 mL 02/25/25 03/18/25 Rx mcg/actuation breath activated aerosol (Xhance) tirzepatide 10 mg/0.5 mL 10 mg subcut WEEKLY 02/25/25 03/18/25 History subcutaneous pen injector (Mounjaro) bumetanide 1 mg tablet See Rx Instructions .Route 03/11/25 03/18/25 Rx .COMPLEX #60 tabs albuterol sulfate 90 mcg/actuation 2 puff inhalation PRN SOB 03/18/25 03/18/25 History aerosol inhaler cetirizine 10 mg capsule (All Day 10 mg PO DAILY PRN allergy symptoms 03/18/25 03/18/25 History Allergy (cetirizine)) Laboratory Tests 03/25/25 12:11 POC Capillary Glucose 87 mg/dl (65-105) Patient hx anesthesia problems: none Family hx anesthesia problems: none Results Review: All pre-operative results and documents have been reviewed as part of the pre-operative evaluation. FOR[facility]LY [facility], [facility] Past Medical History Medical History Spinal cord stimulator status Claustrophobia Chronic ulcer of right leg Restless leg syndrome Hypothyroidism Peripheral vascular disease Right leg Diastolic congestive heart failure COPD (chronic obstructive pulmonary disease) Sleep apnea Compliant with CPAP Bladder cancer Tumor removed toe chemo radiation Surgical History Surgical History H/O shoulder surgery History of back surgery 2009, 2012, 2014 at [facility] History of neck surgery fusion x 3 in 2008 History of cystoscopy Removal of bladder tumor H/O toe surgery H/O: hysterectomy H/O tubal ligation History of tonsillectomy History of bilateral carpal tunnel release History of bilateral knee arthroplasty [address] Allan Marquis S/P rotator cuff repair X5 by Dr. Allan Marquis and Dr. Machado [id number] H/O dilation and curettage X2 Hx of cholecystectomy H/O heart artery stent One stent on 03/[address] Nasir Kaminski Family History Family History Mother Acute myocardial infarction Father Acute myocardial infarction Cancer Heart disease Other Arthritis Bladder cancer Cerebrovascular accident Depression FH: kidney cancer Hyperlipidemia Hypertension Malignant neoplasm of prostate Neuropathy Social History Social History Social History: The patient continues to smoke a half pack a cigarettes a day. She has 4 sons. Ryder is a durable power deputy commonwealth's attorney for healthcare and she desires to be a full code. The patient is . 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 She denies any alcohol marijuana or illicit drugs. She lives home alone. Smoking packs per day: 0.5 Smoking cigarettes per day: 10.0 Years smoked: 58 Smoking pack-years: 29.00 Smoking status: Current every day smoker Tobacco type: cigarettes Second hand tobacco smoke exposure: Yes Additional smoking assessment comments: 50+ years at most 2ppd Alcohol intake: never Alcohol use details: occasionally when social Substance use: current Substance use type: prescription drug Lack of Transportation: No Lack of Food: Never True Current Housing: I Have Housing Concerned About Future Housing: No Difficulty Paying Gas/Electric Bills: No Difficulty Paying for Meds: No Currently Unemployed: No Education: High School Diploma/GED Difficulty w/ Childcare or Family Care: No Living arrangements: alone Occupation/Education: retired Additional occupation/education comments: State of [place] Gender identity (if verbalized by the patient): Female Spiritual care concerns: No Anes - Eval Final PreProcedure Day of Procedure 03/25/25 12:32 Patient weight: morbidly obese Heart: regular rate and rhythm Lungs: decreased breath sounds Airway: Mallampati scale class III Neurological: alert and oriented Last oral intake: >/= 8 hours ASA classification: IV Emergent: no Anesthetic plan: proceed Anesthesia type and monitoring: general ETT and standard monitoring Results Review: All pre-operative results and documents have been reviewed as part of the pre-operative evaluation. Informed Consent: The patient's anesthetic plan and its attendant risks and benefits were discussed with the patient/family/POA. Questions were solicited and answers provided to the satisfaction of the patient/family/POA.
[2025-03-25] MEDS: ceFAZolin 2 GM/D5W 50 ML 2 GM/50 ML BAG IVPB (12:48)
[2025-03-25] MEDS: LIDO 1%/EPINEPHRINE 1:100,000 50 ML VIAL INFILTRATE (13:05)
[2025-03-25] MEDS: OXYMETAZOLINE HCL 0.05% NAS 15 ML BTL (*BKC) 1 SPRAY NASAL (13:06)
--- NOTE | 2025-03-25 13:30 | SUR.OPER ---
Cultures x 2 (aerobic, anaerobic & gram stain of sinuses) sent with JACKSON Gordillo and received in pathology by Halima
[2025-03-25] MEDS: LACTATED RINGERS 1,000 ML 30 ML IV CONT ×2 (14:03)
[2025-03-25 14:11] LABS: Glucose Point of Care 99 mg/dl (65-105)
[2025-03-25] MEDS: fentaNYL CITRATE INJ (*CRX) 100 MCG/2 ML VIAL 25 MCG IV PUSH ×3 (14:23→14:37)
--- NOTE | 2025-03-25 14:45 | W.PM.PROC2 ---
Procedure Note - Detailed Date of Procedure 03/25/25 Pre-op Diagnosis chronic sinusitis, nasal obstruction, turbinate hypertrophy, septal deviation. Post-op Diagnosis Same Procedure Performed 1. Left-sided image guided endoscopic maxillary antrostomy 2. Right-sided image guided endoscopic sphenoidotomy 3. Bilateral inferior turbinate reduction with outfracture Surgeon Jean-Claude Vazquez MD Anesthesia General Indications See above Findings Very very mild left caudal septal deviation the largest area of obstruction was the turbinates by far. Copious amounts of purulence in the left maxillary sinus mild edema of the tissue within the right sphenoid. Extreme hypertrophy of the bilateral turbinates with mulberry tips Description of Procedure Patient identified consent verified in the preoperative holding area. Patient brought operating. Time-out performed. General anesthesia induced endotracheal tube secured. Patient prepped draped position image guidance confirmed 2nd time-out performed. Left maxillary antrostomy performed under image guidance with double ball tip probe backbiter straight through cut and microdebrider copious amounts of purulence irrigated out 500 cc sterile normal saline. Right sphenoidotomy performed under image guidance with [place] sphenoid punch minimal bleeding if any. Mild edema edematous tissue in the sphenoid. Turbinates reduced in the submucosal plane with 2.5 Jose R microdebrider. They were then outfractured great reduction mulberry tips were cauterized with Bovie suction electrocautery on a setting of 10. Total blood loss about 15 cc. I performed all dictated portions procedure no complications care the patient given Anesthesiology. Of note the nasal passages were vastly improved in their patency which by decision was made to not performed the septoplasty. No obvious complications. Estimated Blood Loss 15 Drains No Packing No Pathology None sent Complications No immediate complications Condition Stable Disposition PACU [facility] Billing Surgery - Charge Forward: Surgery Billing
[2025-03-25] MEDS: PROPARACAINE HCL 0.5% 15 ML OPHTH SOLN 1 DROP EACH EYE (15:17)
--- NOTE | 2025-03-25 15:24 | SUR.PHASEI ---
PATIENT C/O'D BURNING RIGHT EYE; DR. PUGH NOTIFIED; ORDERED CORNEAL EYE DROPS.
--- NOTE | 2025-03-25 15:39 | SUR.PHASEI ---
TRANFERRED TO RECLINER TO IMPROVE OXYGEN SATS. USING INCENTIVE SPIROMETER; SATS IMPROVING TO HIGH 90'S ON 4 LITERS PER NC.
--- NOTE | 2025-03-25 16:14 | SUR.PHASEI ---
PATIENT DID INCENTIVE SPIROMETER WITH GOOD RESULTS.
== END 2025-03-25 17:49 | disposition home or self-care (01) ==
PROVIDERS: PCP Family Medicine; Visit Provider Otolaryngology
PROC: (CPT 30520; principal; 2025-03-25 13:00)
PROC: (CPT 31256; 2025-03-25 13:00)
DX: J32.9 Chronic sinusitis, unspecified (principal); J34.2 Deviated nasal septum; J34.3 Hypertrophy of nasal turbinates; G89.18 Other acute postprocedural pain; E03.9 Hypothyroidism, unspecified; J44.9 Chronic obstructive pulmonary disease, unspecified; I25.10 Atherosclerotic heart disease of native coronary artery without angina pectoris; G25.81 Restless legs syndrome; I50.32 Chronic diastolic (congestive) heart failure; F40.240 Claustrophobia; G47.30 Sleep apnea, unspecified; F17.210 Nicotine dependence, cigarettes, uncomplicated; E66.01 Morbid (severe) obesity due to excess calories; Z68.42 Body mass index [BMI] 45.0-49.9, adult; Z79.82 Long term (current) use of aspirin; Z79.891 Long term (current) use of opiate analgesic; Z79.51 Long term (current) use of inhaled steroids; Z79.85 Long-term (current) use of injectable non-insulin antidiabetic drugs; Z99.89 Dependence on other enabling machines and devices; Z98.890 Other specified postprocedural states; Z98.1 Arthrodesis status; Z98.51 Tubal ligation status; Z90.49 Acquired absence of other specified parts of digestive tract; Z95.5 Presence of coronary angioplasty implant and graft; Z96.82 Presence of neurostimulator; Z85.51 Personal history of malignant neoplasm of bladder; Z92.3 Personal history of irradiation; Z86.79 Personal history of other diseases of the circulatory system; Z80.52 Family history of malignant neoplasm of bladder; Z80.51 Family history of malignant neoplasm of kidney; Z80.42 Family history of malignant neoplasm of prostate; Z82.49 Family history of ischemic heart disease and other diseases of the circulatory system
CPT/HCPCS: 31256; 31287; 30140; 61782; 82948; 87070; 87075; 87077; 87186; 87205; A9270; J0330; J0690; J1100; J2004; J2405; J2704; J3010; J7040; J7120

== ENCOUNTER 2025-04-10 14:03 | Outpatient (CLI) | payer MEDICARE, MEDICAID, SELFPAY ==
--- OUTSIDE RECORDS SUMMARY | 2025-04-10 14:15 | XMS_ITS | Continuity of Care Document ---
Author Organization [facility] Address [address] [place] [address] Phone Care Team Providers Care Deburring Machine Operator Name Role Phone Dino Garcia MD [...] Diagnoses Date Provider Providers Copied on Encounter [place], [address] [place] [address], [id number], tel:[phone] [place] No Information 1 Jose Sun. [address] [place] [address], [id number] , . [phone] Referring Provider: Lai Juarez, Was @[facility] But Not There Anymore, [place]. Office/outpat ient visit,est, mod [place], [address] [place] [address], [id number], tel:[phone] [place] Office No Information 1 Jose Sun. [address] [place] [address], [id number] , . tel:[phone] Referring Provider: Lai Juarez, Was @[facility] But Not There Anymore, [place]. [facility], [address] [place] [address], [id number], tel:[phone] [place] Office No Information 1 Panfilo Marquez. [address], [place], [id number] , . tel:[phone] Referring Provider: Lai Juarez, Was @[facility] But Not There Anymore, [place]. [facility], [address] [place] [address], [id number], tel:[phone] [place] Office No Information 1 Jose Sun. [address] [place] [address], [id number] , . tel:[phone] Referring Provider: Dino Garcia, [address] [place] [address], [id number]. tel:[phone] Family History Family Member Type Diagnosis Age At Onset No Information Payers Payer name Insurance type Covered libertarian ID Authoriza tion(s) No Information Social History [...]
--- OUTSIDE RECORDS SUMMARY | 2025-04-10 14:15 | XMS_ITS | Clinical Summary ---
Author Organization [facility] Address [address] [place] [place] [address] Care Team Providers Care Bench Assembler Name Role Phone Poppy Quiroz MD Primary Care Provider [phone] Source Comments [facility],non-owned Affiliates and Associated Physician Practices is amultiple site organization consisting of ambulatory clinics and hospital sitesin [place], [place], [place] and [place]. This disclosure is being madepursuant to the Care Everywhere program and may not contain all information available regarding this patient. Last updated 18.[facility] Social History Tobacco Use Types Packs/Day Years Used Date Smoking Tobacco: Never Assessed PHQ-2 Answer Date Recorded PHQ2 TOTAL SCORE 3 07/19/2022 Comments Unknown Sex and Gender Information Value Date Recorded Sex Assigned at Not on file Legal Sex Female 4:21 AM CAN HANDLER Gender Identity Not on file Sexual Orientation [...] age to complete this topic Care Teams Bench Assembler Relationship Specialty Start Date End Date Poppy Quiroz MD PCP - General 05/07/22
--- OUTSIDE RECORDS SUMMARY | 2025-04-10 14:15 | XMS_ITS | Clinical Summary ---
Author Organization [facility] Address [address] [place] [address] Phone Care Team Providers Care Dedicated Owner Operator Name Role Phone Unavailable Primary Care Provider [...] Encounters Date Type Department Care Team Description 04/02/2025 External Device Data [facility] ABSTRACTION Provider, Abstract 03/28/2025 External Device Data [facility] ABSTRACTION Provider, Abstract 03/27/2025 External Device Data [facility] ABSTRACTION Provider, Abstract 03/12/2025 External Device Data [facility] ABSTRACTION Provider, [...] 2:42 PM CDT Height 154.9 cm (5' 1) 05/24/2024 2:42 PM CDT Body Mass Index [...] 07/17/2021, 07/12/2018, Additional history exists COVID-19 Vaccine (2023-2 5 season) 2024 03/06/2022, 08/04/2021, 01/02/2021, Additional history exists DIABETES HBA1C Q 6 MONTHS 08/29/2024 02/28/2024, OSTEOPOROSIS SCREENING 11/27/2026 11/27/2021 PNEUMOCOCCAL VACCINE 50+ YEARS Completed 0 01/20/2022, 05/05/2020, 08/21/2015, Additional history exists Insurance [employer] [facility]
--- OUTSIDE RECORDS SUMMARY | 2025-04-10 14:15 | XMS_ITS | Clinical Summary ---
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 Patient declined 05/18/2023 Do you belong to any clubs o r organizations such as temple groups, unions, fraternal or athletic groups, or [...] place to sleep or slept in a senior care (including now)? No 05/18/2023 Personal Safety Answer Date Recorded Have you ever been in or are you currently in a harmful physical or emotional relationship or is someone making you feel afraid or unsafe? 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 Gender Identity Not on file Sexual Orientation Not on file Obstetrics History Last Filed Vital Signs Vital Sign Reading Time Taken Comments Blood Pressure 114/73 12/06/2024 1:23 PM PRIMARY SCHOOL TEACHER Pulse 89 12/06/2024 1:23 PM PRIMARY SCHOOL TEACHER Temperature 37.1 C (98.8 F) 05/23/2023 11:00 AM CDT Respiratory Rate 18 05/23/2023 11:00 AM CDT Oxygen Saturation 96% 05/23/2023 11:00 AM CDT Inhaled Oxygen Concentration - - Weight 109.8 kg (242 lb) 12/06/2024 1:23 PM PRIMARY SCHOOL TEACHER Height 152.4 cm (5') 12/06/2024 1:23 PM PRIMARY SCHOOL TEACHER Body Mass Index 47.26 12/06/2024 1:23 PM PRIMARY SCHOOL TEACHER Plan of Treatment Health Maintenance Due Date [...] history exists Medical Devices Implanted Type Area Power Tool Repair Technician Device Identifier Shelf Expiration Date Model / Serial / Lot [employer] Baseplate 24mm 20 Deg Full Augment Oblique [id number] - [id number] Implanted:Qty: 1 on 05/17/2023 by Abdoul Celeste MD at [facility] Left: Shoulder [employer] [id number] 02/05/2028 AR-9580-2 420 / / [id number] [employer] Univers Revers 20mm Modular Post Component Glenoid Porous Ar-9582-20 - [id number] Implanted:Qty: 1 on 05/17/2023 by Abdoul Celeste MD at [facility] Left: Shoulder [employer] [id number] 03/06/2028 AR-9582-2 0 / / [employer] 5.5mm 36mm Lock Peripheral Screw Bone Sterile Ar-9563-36 - [id number] Implanted:Qty: 1 on 05/17/2023 by Abdoul Celeste MD at [facility] Left: Shoulder [employer] [id number] 12/07/2027 AR-9563-3 6 / / [id number] [employer] 36mm 24 Baseplate Taper Sphere Glenoid [id number] - [id number] Implanted:Qty: 1 on 05/17/2023 by Abdoul Celeste MD at [facility] Left: Shoulder [employer] [id number] 12/07/2027 AR-9564-2 436 / / [id number] [employer] 5.5mm 20mm Lock Peripheral Screw Bone Sterile Ar-9563-20 - [id number] Implanted:Qty: 1 on 05/17/2023 by Abdoul Celeste MD at [facility] Left: Shoulder [employer] [id number] 12/07/2027 AR-9563-2 0 / / [id number] [employer] Implant Suture Cup Humeral Reverse Left Univers Revers +2x33mm Titanium [id number] - [id number] Implanted:Qty: 1 on 05/17/2023 by Abdoul Celeste MD at [facility] Left: Shoulder [employer] [id number] 09/06/2027 AR-9502F- 33LCPC / / [id number] [employer] Insert Humeral Combo Reverse Poly Univers Revers +3x33mm [id number] - [id number] Implanted:Qty: 1 on 05/17/2023 by Abdoul Celeste MD at [facility] Left: Shoulder [employer] [id number] 07/07/2027 AR-9503-3 336-3 / / [id number] [employer] Arthrex Univers Revers Shoulder 7 Stem Humeral Sterile Ar-9501-07p - [id number] Implanted:Qty: 1 on 05/17/2023 by Abdoul Celeste MD at [facility] Left: Shoulder [employer] [id number] 06/06/2027 AR-9501-0 7P / / [id number] Procedures Procedure Name Priority Date/Time Associated Diagnosis [...] MD LAB BLOOD ORDERABLES Delfina borrero Result [facility] [place] [address] * Lipid panel (08/20/2024 3:21 PM CDT) [...] revised on 2018. Triglycerides 85 <=149 mg/dL [facility] Comment: Interpretive Data Ages < or [...] revised on 2018. HDL 42 >=40 mg/dL [facility] Comment: Interpretive Data Ages < or [...] on 2018. LDL, calculated 55 <=129 mg/dL [facility] Comment: Interpretive Data Ages < or [...] on 2024. Non-HDL Cholesterol 72 mg/dL [facility] Comment: Interpretive Data Ages < [...] last revised on 2018. Chol/HDL ratio 3 [facility] Blood Venous blood specimen / Unknown 08/20/2024 3:21 PM CDT 08/20/2024 3:58 PM CDT us Dudley Ray MD LAB BLOOD ORDERABLES Delfina l Result [facility] [place] [address] * eGFR (05/18/2023 3:50 AM CDT) eGFR [...] BLOOD ORDERABLES F inal Result [facility] Department [place] [address] from Last 3 Months or Most Recently Relevant to Health Maintenance Insurance T MEDICARE AETGrid20/20 MEDICARE T MEDICARE T MEDICARE Advance Directives For more information, please contact: [phone] * Full Code (Latest Code Status on File) Date Activated Date Inactivated Comments 05/17/2023 2:36 PM 05/23/2023 6:06 PM Care Teams Nurse Transition Relationship Specialty Start [place] [address] [address] PCP - General Family Practice 02/28/24 Nasir Kaminski DO [address] [facility] [address] [facility] [address] [place] [address] Referring Physician Cardiology 05/12/23 Nazia Jenkins PA [address] [place] [address] [address] [place] [address] Orthopedic Surgery 05/23/23
--- OUTSIDE RECORDS SUMMARY | 2025-04-10 14:15 | XMS_ITS | Referral Summary ---
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 Gender Identity Not on file Sexual Orientation Not on file Last Filed Vital Signs Vital Sign Reading Time Taken Comments Blood Pressure 114/73 12/06/2024 1:23 PM SIDE SHOW ENTERTAINER Pulse 89 12/06/2024 1:23 PM SIDE SHOW ENTERTAINER Temperature 37.1 C (98.8 F) 05/23/2023 11:00 AM CDT Respiratory Rate 18 05/23/2023 11:00 AM CDT Oxygen Saturation 96% 05/23/2023 11:00 AM CDT Inhaled Oxygen Concentration - - Weight 109.8 kg (242 lb) 12/06/2024 1:23 PM SIDE SHOW ENTERTAINER Height 152.4 cm (5') 12/06/2024 1:23 PM SIDE SHOW ENTERTAINER Body Mass Index 47.26 12/06/2024 1:23 PM SIDE SHOW ENTERTAINER Plan of Treatment Not on file Medical Devices Implanted Type Area Signal Person Device Identifier Shelf Expiration Date Model / Serial / Lot [employer] Baseplate 24mm 20 Deg Full Augment Oblique [id number] - [id number] Implanted:Qty: 1 on 05/17/2023 by Abdoul Celeste MD at [facility] Left: Shoulder [employer] [id number] 02/05/2028 AR-9580-2 420 / / [id number] [employer] Univers Revers 20mm Modular Post Component Glenoid Porous Ar-9582-20 - [id number] Implanted:Qty: 1 on 05/17/2023 by Abdoul Celeste MD at [facility] Left: Shoulder [employer] [id number] 03/06/2028 AR-9582-2 0 / / [employer] 5.5mm 36mm Lock Peripheral Screw Bone Sterile Ar-9563-36 - [id number] Implanted:Qty: 1 on 05/17/2023 by Abdoul Celeste MD at [facility] Left: Shoulder [employer] [id number] 12/07/2027 AR-9563-3 6 / / [id number] [employer] 36mm 24 Baseplate Taper Sphere Glenoid [id number] - [id number] Implanted:Qty: 1 on 05/17/2023 by Abdoul Celeste MD at [facility] Left: Shoulder [employer] [id number] 12/07/2027 AR-9564-2 436 / / [id number] [employer] 5.5mm 20mm Lock Peripheral Screw Bone Sterile Ar-9563-20 - [id number] Implanted:Qty: 1 on 05/17/2023 by Abdoul Celeste MD at [facility] Left: Shoulder [employer] [id number] 12/07/2027 AR-9563-2 0 / / [id number] [employer] Implant Suture Cup Humeral Reverse Left Univers Revers +2x33mm Titanium [id number] - [id number] Implanted:Qty: 1 on 05/17/2023 by Abdoul Celeste MD at [facility] Left: Shoulder [employer] [id number] 09/06/2027 AR-9502F- 33LCPC / / .[id number] [employer] Insert Humeral Combo Reverse Poly Univers Revers +3x33mm [id number] - [id number] Implanted:Qty: 1 on 05/17/2023 by Abdoul Celeste MD at [facility] Left: Shoulder [employer] [id number] 07/07/2027 AR-9503-3 336-3 / / .[id number] [employer] Arthrex Univers Revers Shoulder 7 Stem Humeral Sterile Ar-9501-07p - [id number] Implanted:Qty: 1 on 05/17/2023 by Abdoul Celeste MD at [facility] Left: Shoulder [employer] [id number] 06/06/2027 AR-9501-0 7P / .[id number] Procedures Procedure Name Priority Date/Time Associated Diagnosis [...] MD LAB BLOOD ORDERABLES Delfina l [facility] Department [place] [address] * Lipid panel (08/20/2024 3:21 PM CDT) [...] on 2018. HDL 42 >=40 mg/dL [facility] Comment: Interpretive Data Ages < [...] 2018. LDL, calculated 55 <=129 mg/dL [facility] Comment: Interpretive Data Ages < [...] on 2024. Non-HDL Cholesterol 72 mg/dL [facility] Comment: Interpretive Data Ages < [...] last revised on 2018. Chol/HDL ratio 3 [facility] Blood Venous blood specimen / Unknown 08/20/2024 3:21 PM CDT 08/20/2024 3:58 PM CDT us Dudley Ray MD LAB BLOOD ORDERABLES Delfina l Result [facility] Department [place] [address] * eGFR (05/18/2023 3:50 AM CDT) eGFR 63 mL/min/1. 73 m2 [facility] Comment: Interpretive Data Reference Interval Normal [...] BAH LAB BLOOD ORDERABLES F inal Result [facility] [address] [facility] [place] [address] from Last 3 Months or Most Recently Relevant to Health Maintenance Insurance AETNA MEDICARE AETNA MEDICARE AETNA MEDICARE AETNA MEDICARE Advance Directives For more information, please contact: [phone] * Full Code (Latest Code Status on File) Date Activated Date Inactivated Comments 05/17/2023 2:36 PM 05/23/2023 6:06 PM Care Teams Certified Art Therapist Relationship Specialty [place] [address] [facility] [address] [address] PCP - General Family Practice 02/28/24 Nasir Kaminski DO [address] [facility] [address] [place] [address] [address] [place] [address] Referring Physician Cardiology 05/12/23 Nazia Jenkins PA [address] [place] [id number] [phone] (work) Orthopedic Surgery 05/23/23
--- OUTSIDE RECORDS SUMMARY | 2025-04-10 14:16 | XMS_ITS ---
Author Organization [facility] Address [address] [place], [place] [id number] Care Team Providers Care Husker Operator Name Role Phone CHICHI BARRETO Unavailable [phone] Sushant Gonzalez Unavailable Unavailable LUH RAYO Unavailable [phone] REASON FOR VISIT *General care Encounters Encounter Location Date Provider Diagnosis [address] [id number] 06/14/2024 LUH RAYO Plan Of Treatment No Information Progress Notes * YVONNE NEGRON MDOB:1944 (80 yo F)Acc No.[id number]:06/14/2024 Patient: Jad YVONNE TAYLOR Provider: Marc RAYO :1945 A ge:79 Y S ex:Female Date:06/14/2024 Address:[address] [place], [place] [id number] Subjective: * Chief Complaints: * 1 . *General care. * Medical History: Objective: * Vitals: Assessment: Plan: * Treatment: * Billing Information: * Visit Code: * Procedure Codes: * Electronic signature of TRENT RAYO DPM on 04/10/2025 at 02:15 PM CDT Sign off status: Pending * Provider: Marc RAYO Date: 0 06/14/2024 Generated for Sharathi tai/Cherie/eTransmitting on: 0 04/10/2025 02:15 PM CDT
--- OUTSIDE RECORDS SUMMARY | 2025-04-10 14:16 | XMS_ITS | Patient Health Record ---
Author Organization [facility] Address [address] [place], [place] [id number] Care Team Providers Care Sales And Leasing Agent Name Role Phone CHICHI BARRETO Unavailable [phone] Sushant Gonzalez Unavailable Unavailable LUH RAYO Unavailable [phone] Reason For Referral No Information Medications Medication SIG (Take, Route, Frequency, Duration) Notes Start Date End Date Status pramipexole dihydrochloride 0.5 MG Oral Tablet [Mirapex] ORAL pramipexole dihydrochloride 0.5 MG Oral Tablet [Mirapex]Original Medicationpramipexole dihydrochloride 0.5 MG Oral Tablet [Mirapex] *[facility] and Interaction Alerts* 7 Active oxycodone hydrochloride 10 MG Oral Tablet ORAL oxycodone hydrochloride 10 M G Oral TabletOriginal Medicationoxycodone hydrochloride 10 MG Oral Tablet *Reorder from [facility] for eRx and Interaction Alerts* 6 Active gabapentin 100 MG Oral Capsule [Neurontin] ORAL gabapentin 100 MG Oral Capsule [Neurontin]Original Medicationgabapentin 100 MG Oral Capsule [Neurontin] *Reorder from [facility] for eRx and Interaction Alerts* 6 Active fluoxetine 10 MG Oral Capsule [Prozac] ORAL fluoxetine 10 MG Oral Capsul e [Prozac]Original Medicationfluoxetine 10 MG Oral Capsule [Prozac] *Reorder from [facility] for eRx and Interaction Alerts* 6 Active cholecalciferol 0.025 MG Chewable Tablet ORAL cholecalciferol 0.025 MG Chewable TabletOriginal Medicationcholecalciferol 0.025 MG Chewable Tablet *[facility] and Interaction Alerts* 7 Active Meloxicam 15 MG Oral Tablet ORAL meloxicam 15 MG Oral TabletOriginal Medicationmeloxicam 15 MG Oral Tablet *[facility] for [facility] and Interaction Alerts* 6 Active Potassium Gluconate 2.5 MEQ Oral Tablet ORAL potassium gluconate 2.5 MEQ Oral TabletOriginal Medicationpotassium gluconate 2.5 MEQ Oral Tablet *Reorder from [facility] for eRx and Interaction Alerts* 6 Active Vital Signs Height-cm 157.48 cm 04/12/2024 Weight-kg 108.86 kg 04/12/2024 Height 62.00 in 04/12/2024 Weight 240 lbs 04/12/2024 BMI 43.89 kg/m2 04/12/2024 Encounters Encounter Location Date Provider Diagnosis [address] [id number] 04/12/2024 LUH RIVERAADRIANA Unspecified atherosclerosis of [place] arteries of extremities, bilateral legs I70.203 [...] and prescription treatments. 04/12/2024 Unspecified atherosclerosis of [place] arteries of extremities, bilateral legs (ICD-10 [...] Start Date Coverage End Date [employer] [address] [place] [address] [id number] YVONNE NEGRON Self - patient is the insured
--- NOTE | 2025-04-10 14:24 | ECHO_ITS ---
[facility] Age[facility] 80 years : 1945 Gender: Female Ht: 60 in Wt: 245 lbs BSA: 2.24 m2 HR: 82 bpm BP: 124 / 65 mmHg Technical Quality: Good Exam Date: 04/10/2025 2:34 PM Patient Status: O Admit Date: 04/10/2025 Exam Type: CA echo doppler color flow Complete two-dimensional, color flow and Doppler transthoracic echocardiogram is performed. Assistant Hall Director: Radha Mckay Attending Provider: Nasir Kaminski DO Summary 1. Complete two-dimensional, color flow and Doppler transthoracic echocardiogram is performed. 2. Left ventricular chamber dimension is normal. 3. Left ventricular systolic function is normal, estimated at 60-65. 4. There is moderate concentric increased left ventricular wall thickness. 5. The left ventricular diastolic function is grade I diastolic dysfunction. 6. E/e' 10 is mildly elevated. 7. Left atrial chamber dimension is moderately enlarged. 8. There is moderate aortic valve sclerosis. 9. There is mild aortic valve stenosis with a peak velocity of 213 cm/s, mean gradient of 12 mmHg, and aortic valve area of 1.8 cm2. 10. The mitral valve has a moderately calcified annulus. 11. There is mild to moderate tricuspid valve regurgitation. 12. Moderate pulmonary hypertension, estimated pulmonary arterial systolic pressure is 52 mmHg. Left Ventricle E/e' 10 is mildly elevated. Left ventricular chamber dimension is normal. Left ventricular systolic function is normal, estimated at 60-65. There is moderate concentric increased left ventricular wall thickness. The left ventricular diastolic function is grade I diastolic dysfunction. Right Ventricle Right ventricular chamber dimension is normal. Right ventricular systolic function is normal and with normal TAPSE 2.3 cm. Left Atria Left atrial chamber dimension is moderately enlarged. Right Atria Right atrial chamber dimension is normal. Aortic Valve The aortic valve is not well visualized. There is moderate aortic valve sclerosis. There is mild aortic valve stenosis with a peak velocity of 213 cm/s, mean gradient of 12 mmHg, and aortic valve area of 1.8 cm2. There is no aortic valve regurgitation. Pulmonic Valve There is no pulmonic regurgitation. Mitral Valve The mitral valve has a moderately calcified annulus. There is no mitral valve stenosis. There is no mitral valve regurgitation. Tricuspid Valve There is mild to moderate tricuspid valve regurgitation. Moderate pulmonary hypertension, estimated pulmonary arterial systolic pressure is 52 mmHg. Pericardium/Pleural There is no pericardial effusion. Inferior Vena Cava Normal inferior vena cava with >50% collapse upon inspiration consistent with normal right atrial pressure, 5 mmHg. Aorta The aortic root size at the sinus of Valsalva is normal. Left Ventricular Outflow Tract Name Value Normal LVOT 2D LVOT Diameter 2.0 cm LVOT Doppler LVOT Peak Velocity 108 cm/s LVOT Peak Gradient 5 mmHg LVOT Mean Gradient 3 mmHg LVOT VTI 27 cm LVOT VTI/AV VTI Ratio 0.6 LVOT Stroke Volume 84 ml LVOT CO 15.1 l/min LVOT CI 6.7 l/min/m2 Pulmonic Valve Name Value Normal PV Doppler PV Peak Velocity 138 cm/s PV Peak Gradient 8 mmHg Mitral Valve Name Value Normal MV Diastolic Function MV E Peak Velocity 72 cm/s MV A Peak Velocity 88 cm/s MV E/A 0.8 MV Decel Time (PW) 223 ms MV Annular TDI MV E/e' (Septal) 12.7 MV E/e' (Lateral) 9.2 MV E/e' (Average) 10.9 Tricuspid Valve Name Value Normal TV Regurgitation Doppler TR Peak Velocity 341 cm/s TR Peak Gradient 47 mmHg Estimated PAP/RSVP RA Pressure 5 mmHg <=5 PA Systolic Pressure 52 mmHg <36 RV Systolic Pressure 52 mmHg <36 TV Annular TDI TV Lateral [place] s' Velocity 14.4 cm/s >=9.5 Aorta Name Value Normal Ascending Aorta Ao Root Diameter (MM) 3.1 cm Ao Root Diam Index (MM) 1.4 cm/m2 Aortic Valve Name Value Normal AV Doppler AV Peak Velocity 213 cm/s AV Peak Gradient 18 mmHg AV Mean Gradient 12 mmHg AV VTI 48 cm AV Area (Cont Eq VTI) 1.8 cm2 >=3.0 AV Area (Cont Eq Cali) 1.6 cm2 AV DI (Cali) 0.50 AV Regurgitation 2D LVOT Area 3.2 cm2 Ventricles Name Value Normal LV Dimensions 2D/MM IVS Diastolic Thickness (2D) 1.5 cm 0.6-1.0 LVID Diastole (2D) 4.1 cm 3.8-5.2 LVIW Diastolic Thickness (2D) 1.5 cm 0.6-0.9 LVID Systole (2D) 2.9 cm 2.2-3.5 LVOT Diameter 2.0 cm LV Mass (2D Cubed) 231.03 g 67.00-162.00 LV Mass Index (2D Cubed) 103 g/m2 43-95 Relative Wall Thickness (2D) 0.72 <=0.42 LV Fractional Shortening/Ejection Fraction 2D/MM LV Fractional Shortening (2D) 28 % 27-45 LV EF (2D Teichholz) 55 % LV Diastolic Volume (4C MOD) 122 ml LV EF (4C MOD) 73 % LV Diastolic Volume (2C MOD) 116 ml LV EF (2C MOD) 68 % LV Diastolic Volume (BP MOD) 126 ml 46-106 LV Diastolic Volume Index (BP MOD) 56 ml/m2 29-61 LV Systolic Volume (BP MOD) 36 ml 14-42 LV Systolic Volume Index (BP MOD) 16 ml/m2 8-24 LV EF (BP MOD) 71 % 54-74 LV Diastolic Length (4C) 8.1 cm LV Systolic Length (4C) 6.5 cm LV Stroke Volume (4C MOD) 89 ml RV Dimensions 2D/MM RVID Diastole (2D) 4.5 cm 2.1-3.5 Atria Name Value Normal LA Dimensions LA Dimension (MM) 0.0 cm 2.7-3.8 LA Volume (4C A-L) 99 ml LA Volume (BP A-L) 92 ml RA Dimensions RA Systolic [place] Length (4C) 5.7 cm 2.2-2.8 RA Area (4C) 18.9 cm2 <=18.0 Report Signatures
== END 2025-04-10 14:04 | disposition home or self-care (01) ==
LOC: ANHCARD 14:05
PROVIDERS: PCP Family Medicine; Visit Provider Internal Medicine Cardiovascular Disease
DX: R93.1 Abnormal findings on diagnostic imaging of heart and coronary circulation (principal); I35.0 Nonrheumatic aortic (valve) stenosis
CPT/HCPCS: 93306